=== PATIENT | male | born 1955 | race African-American/Black ===

== ENCOUNTER 2018-01-24 09:08 | Inpatient (IN) | payer OTHER ==
[~2018-01-24] VITALS: Ht 185.4 cm; Wt 87.4 kg
[~2018-01-24 09:08] MED LIST: METOCLOPRAMIDE H5 M1 ORAL
[2018-01-24 09:10] VITALS: BP 165/82
--- NOTE | 2018-01-24 09:13 | Emergency Room Report ---
History of Present Illness General Chief Complaint: Chest Pain Source: Patient, EMS Present Illness HPI This patient c/o nausea, emesis x one, malaise, fatigue about two days, today this am chest pain/sob at rest. No cough, no fever, no leg pain/swelling. Pt. is ESRD/dialysis MWF and last dialysis five days ago, missed Mon and scheduled today at noon (but here in ED instead.) This patient was hospitalized at [facility] last week, d/c five days ago. INR then 2.4. Hgb. five days ago 7.2. PMH: ESRD/dialysis, CHF, pulmonary edema, HTN, diabetes July 2017: heart valve replacement INR five days ago 2.4 on Coumadin 5 daily and twice a week 7.5. Meds: Cartia, Coumadin Allergies: Coded Allergies: PENICILLINS (Verified Allergy, Severe, swelling of throat, 02/25/16) ACETAMINOPHEN (Verified Allergy, Unknown, 02/23/16) HYDROCODONE (Verified Allergy, Unknown, itching, 02/25/16) Nursing Documentation-PMH Past Medical History: No History, Except For Hx Cardiac Problems: Yes Hx Hypertension: Yes Hx Diabetes: Yes Hx Cancer: No Hx Gastrointestinal Problems: No Hx Dialysis: Yes - ESRD Hx Neurological Problems: No Review of Systems Constitutional: Reports: no symptoms, see HPI Eye: Reports: no symptoms ENT: Reports: no symptoms Respiratory: Reports: no symptoms, shortness of breath Cardiovascular: Reports: no symptoms, see HPI, chest pain, edema Gastrointestinal: Reports: no symptoms Genitourinary: Reports: no symptoms Musculoskeletal: Reports: no symptoms Skin: Reports: no symptoms Psychiatric: Reports: no symptoms Neurological: Reports: no symptoms Endocrine: Reports: no symptoms Hematologic/Lymphatic: Reports: no symptoms Allergic: Reports: no symptoms All Other Systems: negative except mentioned in HPI Physical Exam Vital Signs Date Time Temp Pulse Resp B/P (MAP) Pulse Ox O2 Delivery O2 Flow Rate FiO2 01/24/18 08:59 20 Room Air Sp02 EP Interpretation: reviewed, normal General Appearance: normal inspection, well appearing, no apparent distress, alert, GCS 15, non-toxic Head: normocephalic, atraumatic Eyes: bilateral eye normal inspection, bilateral eye PERRL, bilateral eye EOMI ENT: normal ENT inspection, hearing grossly normal, normal pharynx, no angioedema, normal voice, moist mucus membranes Neck: normal inspection, full range of motion, supple, no meningismus, no bony tend Respiratory: normal inspection, lungs clear, normal breath sounds, no rhonchi, no respiratory distress, no retraction, no accessory muscle use, no wheezing Cardiovascular #1: normal inspection, regular rate, rhythm, no edema Gastrointestinal: normal inspection, normal bowel sounds, non tender, soft, no mass, non-distended, other - heme negative brown Musculoskeletal: gait/station normal, normal range of motion, other - LUE shunt Neurologic: normal inspection, alert, oriented x3, responsive, motor strength/ tone normal Psychiatric: normal inspection, judgement/insight normal, memory normal Suicide Risk Assessment: Suicidal Ideation: No Had intent to initiate attempt: No Pt's plan for suicide attempt: No Has means to complete attempt: No Skin: normal inspection, normal color, no rash, warm/dry Medical Decision Making Diagnostic Impression: Primary Impression: Chest pain Additional Impressions: ESRD (end stage renal disease) on dialysis CHF (congestive heart failure), NYHA class II Hyperkalemia Anemia ER Course Complicated patient. Difficult IV access but obtained. He has left av fistula.) No active bleeding in ED and pt. reports hgb Monday (five days) at [facility] 7.2. and he did get transfusion there. INR elevated but no active bleeding in ED. Vitals fine (baseline htn, not tachy.) EKG noted missing p waves and IV calcium and IV insulin, glucose ordered. Anticipate will need transfusion but ok to wait for admission. No signs of infection (no cough, no leukocytosis, no infectious symptoms). Drs. Calvo and Daniel. CRITICAL CARE NOTE: The patient was at risk for respiratory and cardiac failure and required aggressive intervention by me. Critical care time provided by me, excluding other separately billable procedures exceeded 35 minutes. This time included: Obtaining history from: patient, EMS, PMD Examination of the patient Development of treatment plan Ordering and reviewing diagnostic test results Discussion of treatment plan with qm consultant, PMD, patient Coordinating care with nursing and respiratory therapy Supervising IV medications Multiple reassessments Discussion with the admitting physician EKG Diagnostic Results EKG Time: 09:25 Rate: normal Rhythm: NSR ST Segments: no acute changes Other Impression accelerated jxn 76 Rhythm Strip Diag. Results Rhythm Strip Time: 09:25 EP Interpretation: other - accelerated jxn; missing p waves Rate: 76 Chest X-Ray Diagnostic Results Chest X-Ray Diagnostic Results : Chest X-Ray Ordered: Yes Indication: Other - EP Interpretation: Yes Interpretation: no consolidation, no effusion Impression: Other - cardiomegaly, mild vasc congestion Last Vital Signs Date Time Temp Pulse Resp B/P (MAP) Pulse Ox O2 Delivery O2 Flow Rate FiO2 01/24/18 08:59 20 Room Air Disposition: ADMITTED INPATIENT Condition: Serious Syd Tabor M.D. Jan 24, 2018 09:13
[2018-01-24] MEDS ORDERED: CARTIA XT120 MG ORAL (09:26)
[2018-01-24] MEDS ORDERED: WARFARIN SODIUM5 MG ORAL (09:26)
[2018-01-24] MEDS ORDERED: ATORVASTATIN CA20 MG ORAL (09:26)
[2018-01-24] MEDS ORDERED: DOCUSATE SODIU100 MG ORAL (09:26)
[2018-01-24] MEDS ORDERED: GABAPENTIN100 MG ORAL (09:26)
[2018-01-24] MEDS ORDERED: PERCOCET 10-321 EACH ORAL (09:26)
[2018-01-24 09:30] VITALS: BP 172/100
[2018-01-24 09:59] LABS: HEMATOCRIT 22.9 % (42.0-52.0); MEAN CORPUSCULAR VOLUME 94 FL (80-99); PLATELET COUNT 298 K/UL (150-450); RED BLOOD COUNT 2.45 M/UL (4.70-6.10); WHITE BLOOD COUNT 12.9 K/UL (4.8-10.8)
[2018-01-24 10:00] VITALS: BP 185/163
[2018-01-24 10:02] LABS: HEMOGLOBIN 6.9 G/DL (14.2-18.0)
[2018-01-24] MEDS ORDERED: Lidocaine 1% Plain 30 ml INJ ONE (10:15)
[2018-01-24] MEDS ORDERED: Heparin 2000 units/Ns 1000ml INJ ONE (10:15)
[2018-01-24 10:16] LABS: ALANINE AMINOTRANSFERASE 65 U/L (12-78); ALBUMIN 3.5 G/DL (3.4-5.0); ALBUMIN/GLOBULIN RATIO 0.8 (1.0-2.7); ALKALINE PHOSPHATASE 88 U/L (46-116); ANION GAP 24 mmol/L (5-15); ASPARTATE AMINO TRANSFERASE 79 U/L (15-37); BILIRUBIN,TOTAL 0.6 MG/DL (0.2-1.0); BLOOD UREA NITROGEN 115 mg/dL (7-18); CALCIUM 8.7 MG/DL (8.5-10.1); CARBON DIOXIDE 10 MMOL/L (21-32); CHLORIDE 100 MMOL/L (98-107); CREATININE 8.6 MG/DL (0.55-1.30); SODIUM 135 MMOL/L (136-145)
[2018-01-24 10:22] LABS: POTASSIUM 6.6 MMOL/L (3.5-5.1)
[2018-01-24] MEDS ORDERED: Calcium Gluconate 1gm/10ml vial IVP ONE (11:00)
[2018-01-24] MEDS ORDERED: Insulin Human Regular 100units/ml 3ml IV ONE (11:00)
[2018-01-24 11:12] LABS: INR 7.9 (0.9-1.1)
[2018-01-24] MEDS ORDERED: Calcium Gluconate 1gm/10ml vial ONE (13:47)
[2018-01-24] MEDS ORDERED: Insulin Human Regular 100units/ml 3ml ONE (13:48)
--- NOTE | 2018-01-24 15:12 | Diagnostic Imaging Report ---
Indication: Chest pain Technique: One view of the chest Comparison: 02/24/2016 Findings: Interim development of a hazy right perihilar opacity. There is suggestion of a small right pleural effusion. Lungs and pleural spaces are otherwise clear. The heart size is upper limits of normal. 2 valve prostheses are now present, as are median sternotomy sutures, not evident previously Impression: Evidence of interim cardiac valve surgery Small right pleural effusion Right perihilar hazy opacity, could represent area of infiltrate. Correlate with clinical findings
[2018-01-24 15:39] VITALS: BP 153/64
[2018-01-24] MEDS ORDERED: dilTIAZem HCl CD 120mg cap ORAL SCH (18:00)
[2018-01-24] MEDS: Docusate 100mg cap ORAL SCH (18:02)
[2018-01-24] MEDS: Imdur 30mg tab ORAL SCH (19:30)
[2018-01-24 19:59] VITALS: BP 132/58
[2018-01-24] MEDS ORDERED: Phytonadione 10 MG in D5W 55 ML IVPB ONE (20:00)
[2018-01-24] MEDS ORDERED: Dyna-Hex 2% Top Sol 2oz TOPIC SCH (20:00)
--- NOTE | 2018-01-24 23:45 | History and Physical Report ---
DATE OF ADMISSION: 01/24/2018 HISTORY OF PRESENT ILLNESS: The patient is a pleasant 63-year-old man, who comes to the hospital because of shortness of breath and chest pain. The chest pain was fleeting and atypical. He states that he has been short of breath for few days and has had chest pain off and on for about 2 or 3 days. He was recently discharged from a different hospital about four days ago for similar problems. The results of studies are not known to me. He has been on dialysis for several years, but missed dialysis since 4 days ago when he was discharged. He was due for dialysis Monday and today. PAST MEDICAL HISTORY: Aortic and mitral valve replacement, renal failure, on hemodialysis; diabetes, hypertension, hyperlipidemia, gastroparesis, chronic atrial fibrillation, and chronic anemia. MEDICATIONS: Include Lipitor, diltiazem, Colace, gabapentin, Reglan, and Percocet, as well as Coumadin. ALLERGIES: Hydrocodone and penicillin. REVIEW OF SYSTEMS: He is weak. He has some shortness of breath and chest pain as noted. He has nausea and vomiting. He makes little urine. PHYSICAL EXAMINATION: GENERAL: The patient is alert and responds appropriately. VITAL SIGNS: Showed the blood pressure is elevated as high as 185/111. The patient is overweight. SKIN: Warm and dry. HEENT: The head is normocephalic. NECK: No jugular vein distention. CHEST: Clear. CARDIAC: Rhythm is irregular with prosthetic heart tones heard. ABDOMEN: Soft and nontender. EXTREMITIES: Showed 1+ edema. LABORATORY DATA: Laboratory shows potassium elevated at 6.6, BUN is 115, creatinine 8.6, and blood sugar 109. Natriuretic peptide elevated at 15,000. Hemoglobin is 6.9. The white count is 12,900. Platelets are 290,000. INR is 7.9. IMPRESSION: 1. Chest pain, rule out acute coronary syndrome. 2. Renal failure, on hemodialysis with fluid overload. 3. Hyperkalemia, severe. 4. Coagulopathy due to excess Coumadin. 5. Chronic atrial fibrillation. 6. 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 7. Borderline diabetes. 8. Hypertension. 9. Hyperlipidemia. 10. Chronic anemia. 11. Gastroparesis. PLAN: The patient will be admitted and dialysis will be performed as soon as possible. He has been given medication for hyperkalemia. Cardiology will see him as well as Nephrology. He may require blood transfusion. We will hold the Coumadin until the INR is in the therapeutic range for artificial heart valve. Perry Calvo M.D. DR: FRANCESCO JOB#: [id number] CC: Perry Calvo M.D.; Fax#: [phone] Mayela Aponte M.D.; FAX#: [phone]
[2018-01-25] VITALS: BP 118/61
--- NOTE | 2018-01-25 01:30 | Consultation ---
DATE OF CONSULTATION: 01/24/2018 CONSULTING PHYSICIAN: Joe Edwards M.D. REFERRING PHYSICIAN: Perry Calvo M.D. REASON FOR CONSULTATION: Acute congestive heart failure in the setting of valvular cardiomyopathy and end-stage renal disease. HISTORY OF PRESENT ILLNESS: This 63-year-old male with end-stage renal disease, on hemodialysis. He has been on a usual Monday, Monday and Monday schedule. He missed his dialysis two days ago due to weakness and malaise as well as increasing pain of his back and hip. Subsequent day, mainly yesterday, he felt worse pursue any treatment. Today, he planned to go to his dialysis session, but again was still short of breath and fatigue that he ended up in the emergency room at [facility]. The patient has had nausea and emesis as well as chest pain. The patient was hospitalized approximately a week ago at [facility] with anemia. He is on chronic anticoagulation due to his prosthetic heart valve. PAST MEDICAL HISTORY: 1. Hypertension. 2. Type 2 diabetes mellitus. 3. End-stage renal disease. 4. Valvular cardiomyopathy, status post mitral valve replacement. ALLERGIES: Penicillin, acetaminophen, and hydrocodone. MEDICATIONS: Prior to admission, reviewed and reconciled. FAMILY HISTORY: Noncontributory. REVIEW OF SYSTEMS: Otherwise outlined above. PHYSICAL EXAMINATION: VITAL SIGNS: Afebrile. Blood pressure 163/64, pulse 75, and respirations 18. Room air oxygen saturation 100%. NECK: Jugular venous pressure elevated. LUNGS: With diminished breath sounds and rales. CARDIAC: Regular rhythm and rate. Normal S1, S2 and a 2/6 systolic murmur at the apex. ABDOMEN: Soft with mild ascites. EXTREMITIES: With 1+ dependent edema. DIAGNOSTIC DATA: EKG, accelerated junctional rhythm. No acute ST-T wave changes. Chest x-ray with cardiomegaly and mild pulmonary venous congestion. LABORATORY DATA: Sodium 135, potassium 6.6, bicarb 10, BUN 115, and creatinine 8.6. Pro-natriuretic peptide 14,996. Troponin 0.025. INR is 7.9. White count 12.9, hemoglobin 6.9. IMPRESSION: 1. Severe metabolic acidosis. 2. Acute on chronic diastolic and systolic congestive heart failure. 3. Valvular cardiomyopathy. 4. Hyperkalemia. 5. Severe anemia. 6. Warfarin-associated coagulopathy. 7. End-stage renal disease. PLAN: 1. Emergent hemodialysis with ultrafiltration. 2. Monitor acid-base parameters. 3. Titrate anti-failure regimen. Hold warfarin. 4. Transfuse to hemoglobin above 7.5 g. 5. Cardiac monitoring and serial troponin levels. 6. Echocardiogram to evaluate status of valve prosthesis. Joe Edwards M.D. DR: BRITT JOB#: [id number] CC:
--- NOTE | 2018-01-25 03:45 | Consultation ---
DATE OF CONSULTATION: 01/24/2018 CONSULTING PHYSICIAN: Anish Sanchez M.D. REFERRING PHYSICIAN: Dr. Perry Calvo. REASON FOR CONSULTATION: End-stage renal disease, hyperkalemia, anemia, and shortness of breath. HISTORY OF PRESENT ILLNESS: The patient is a 63-year-old gentleman with end-stage renal disease, on dialysis for about six years. He usually gets dialysis Monday, Monday, Monday, but had dialysis apparently on Monday and Monday, missed Monday and came today on Monday with shortness of breath, fluid overload, congestive heart failure, and hyperkalemia. He has had shortness of breath, some chest discomfort, nausea, and vomiting today. The patient gets dialysis under another provider. He has diabetes. He has been off diabetic medicines since initiation of dialysis. He has had valvular heart disease, prior CVA. PAST SURGICAL HISTORY: Probably mitral valve replacement and repair of tricuspid valve, amputation of two toes on the left foot, AV fistula, left arm stenting for peripheral vascular disease, and laminectomy for back pain. HABITS: He has been a smoker most of his adult life, quit in the last 6 months. Alcohol, occasional. Marijuana, he had been using regularly until recently. REVIEW OF SYSTEMS: HEENT: The patient's hearing is good. ENDOCRINE: History of diabetes as above. No known thyroid disease. PULMONARY: History of shortness of breath and prior smoking. No productive sputum. CARDIAC: See above. He has also had a history of atrial fibrillation. No definite myocardial infarction. GASTROINTESTINAL: He has had a colonoscopy and apparently had clipping of bleeding lesion of the colon. No malignancy in the past. No abdominal pain. Recent nausea and vomiting as above. GENITOURINARY: No dysuria or hematuria. NEUROLOGIC: History of CVA with right-sided weakness three years ago. MUSCULOSKELETAL: No deforming arthritis. HOME MEDICATIONS: Atorvastatin, diltiazem, DSS, gabapentin, metoclopramide, oxycodone, and warfarin 5 mg daily. PHYSICAL EXAMINATION: GENERAL: The patient was seen shortly before initiation of hemodialysis. The patient is a chronically ill-appearing, in no severe distress. VITAL SIGNS: Temperature 97.7, pulse 85, respirations 18, and blood pressure 153/64. HEENT: Sclerae are nonicteric. Ocular motions intact in all directions. Oral mucosa moist. NECK: No adenopathy or thyroid enlargement. LUNGS: Few faint rhonchi. HEART: Rhythm ____. There is 2 to 3/6 systolic ejection murmur. ABDOMEN: Soft. I am unable to feel liver or spleen. EXTREMITIES: Trace edema. There is amputation of 2 toes on the left foot. NEUROLOGIC: He is alert and oriented. He has a right facial weakness. There is minimal residual right side weakness. PERTINENT LABORATORY DATA: Hemoglobin of 6.9. Sodium 135, potassium 6.6, CO2 10, and BUN 115. His INR is prolonged at 7.9. IMPRESSION: 1. End-stage renal disease with missed dialysis. 2. Hyperkalemia. 3. Metabolic acidosis. 4. Severe anemia, suspect occult gastrointestinal bleed while on Coumadin. 5. Increased INR. 6. Valvular heart disease. 7. Congestive heart failure, acute on chronic. 8. Chest pain, possibly ischemic. 9. History of cigarette smoking, likely chronic obstructive pulmonary disease. PLAN: The patient will be dialyzed for fluid removal. Reverse Coumadin. Manage closely with his multiple medical problems. Detailed orders are reviewed and additional medication orders and treatment orders are given. Anish Sanchez M.D. DR: FRANKIE JOB#: [id number] CC:
[2018-01-25 04:00] VITALS: BP 137/82
[2018-01-25 06:32] LABS: HEMATOCRIT 15.8 % (42.0-52.0); MEAN CORPUSCULAR VOLUME 86 FL (80-99); PLATELET COUNT 232 K/UL (150-450); RED BLOOD COUNT 1.82 M/UL (4.70-6.10); RED CELL DISTRIBUTION WIDTH 15.7 % (11.6-14.8); WHITE BLOOD COUNT 9.5 K/UL (4.8-10.8)
[2018-01-25 06:46] LABS: HEMOGLOBIN 5.1 G/DL (14.2-18.0)
[2018-01-25 06:48] LABS: ANION GAP 13 mmol/L (5-15); BLOOD UREA NITROGEN 91 mg/dL (7-18); CALCIUM 7.6 MG/DL (8.5-10.1); CARBON DIOXIDE 21 MMOL/L (21-32); CHLORIDE 103 MMOL/L (98-107); CREATININE 6.1 MG/DL (0.55-1.30); POTASSIUM 4.6 MMOL/L (3.5-5.1); SODIUM 137 MMOL/L (136-145)
[2018-01-25 06:53] LABS: INR 9.1 (0.9-1.1)
[2018-01-25 08:00] VITALS: BP 104/52
[2018-01-25] MEDS: Imdur 30mg tab ORAL SCH (09:00)
[2018-01-25] MEDS: Docusate 100mg cap ORAL SCH ×2 (10:05→17:44)
[2018-01-25] MEDS ORDERED: Heparin 2000 units/Ns 1000ml INJ PRN (11:15)
[2018-01-25] MEDS ORDERED: Lidocaine 1% Plain 30 ml INJ PRN (11:15)
[2018-01-25 12:00] VITALS: BP 99/54
--- NOTE | 2018-01-25 15:17 | Nephrology Progress Note ---
Assessment/Plan Problem List: (1) Atrial fibrillation with rapid ventricular response (2) GI bleed (3) Anemia in chronic kidney disease (4) Warfarin overdosage (5) Hyperkalemia (6) ESRD (end stage renal disease) on dialysis (7) CHF (congestive heart failure), NYHA class II Plan transfuse, vit K, HD for chf and K Subjective HEENT: Reports: no symptoms Neurologic/Psychiatric: Reports: no symptoms Objective Objective Last 24 Hour Vital Signs Date Time Temp Pulse Resp B/P (MAP) Pulse Ox O2 Delivery O2 Flow Rate FiO2 01/25/18 12:00 99 01/25/18 12:00 97.5 82 22 99/54 (69) 100 97.5 01/25/18 09:00 Room Air 01/25/18 08:00 97.3 101 22 104/52 (69) 99 97.3 01/25/18 08:00 101 01/25/18 04:00 97.3 104 21 137/82 (100) 100 97.3 01/25/18 04:00 94 01/25/18 00:00 92 01/25/18 00:00 97.5 96 21 118/61 (80) 94 97.5 96 01/24/18 21:43 Room Air 01/24/18 21:00 Room Air 01/24/18 20:00 85 01/24/18 19:59 97.2 82 18 132/58 (82) 100 97.2 82 01/24/18 19:44 Room Air 01/24/18 19:30 132/58 01/24/18 18:03 75 153/64 01/24/18 16:00 75 01/24/18 15:49 Room Air 01/24/18 15:39 97.7 85 18 153/64 (93) 100 97.7 82 Intake and Output 01/24/18 01/25/18 19:00 07:00 Intake Total 360 ml Balance 360 ml Intake Oral 360 ml # Voids 1 2 # Bowel Movements 1 Laboratory Tests 01/25/18 06:05: White Blood Count 9.5, Red Blood Count 1.82L, Hemoglobin 5.1*L, Hematocrit 15.8# L, Mean Corpuscular Volume 86#, Mean Corpuscular Hemoglobin 28.1, Mean Corpuscular Hemoglobin Concent 32.5, Red Cell Distribution Width 15.7H, Platelet Count 232, Mean Platelet Volume 7.5, Neutrophils (%) (Auto) , Lymphocytes (%) (Auto) , Monocytes (%) (Auto) , Eosinophils (%) (Auto) , Basophils (%) (Auto) , Differential Total Cells Counted 100, Neutrophils % ( Manual) 77H, Lymphocytes % (Manual) 17L, Monocytes % (Manual) 5, Eosinophils % ( Manual) 1, Basophils % (Manual) 0, Band Neutrophils 0, Platelet Estimate Adequate, Platelet Morphology Normal, Polychromasia 1+, Anisocytosis 1+, Prothrombin Time 85.5H, Prothromb Time International Ratio 9.1*H, Sodium Level 137, Potassium Level 4.6, Chloride Level 103, Carbon Dioxide Level 21, Anion Gap 13, Blood Urea Nitrogen 91H, Creatinine 6.1H, Estimat Glomerular Filtration Rate 11.3, Glucose Level 106, Calcium Level 7.6L, Troponin I 0.062H, Hepatitis B Surface Antigen [Pending], Hepatitis B Surface Antibody [Pending], Hepatitis C Antibody [Pending] Height (Feet): 6 Height (Inches): 1.00 Weight (Pounds): 191 General Appearance: no apparent distress, alert EENT: normal ENT inspection Neck: normal alignment Cardiovascular: regularly irregular Respiratory/Chest: lungs clear Abdomen: non tender, soft Extremities: trace edema Neurologic: motor weakness ISA SENIOR Jan 25, 2018 15:17
[2018-01-25 16:00] VITALS: BP 121/70
--- NOTE | 2018-01-25 16:02 | Pulmonology Progress Note ---
Assessment/Plan Assessment/Plan 1. Chest pain, rule out acute coronary syndrome. 2. Renal failure, on hemodialysis with fluid overload. 3. Hyperkalemia, severe. 4. Coagulopathy due to excess Coumadin, worse 5. Chronic atrial fibrillation. 6. 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 7. Borderline diabetes. 8. Hypertension. 9. Hyperlipidemia. 10. Chronic anemia. 11. Gastroparesis. 12. Severe anemia, worse no sign of bleeding, check stool OB transfuse dialysis INR higher - vit K troponin not significant Subjective Constitutional: Reports: fatigue, anorexia Respiratory: Denies: shortness of breath Allergies: Coded Allergies: PENICILLINS (Verified Allergy, Severe, swelling of throat, 02/25/16) Objective Last 24 Hour Vital Signs Date Time Temp Pulse Resp B/P (MAP) Pulse Ox O2 Delivery O2 Flow Rate FiO2 01/25/18 12:00 99 01/25/18 12:00 97.5 82 22 99/54 (69) 100 97.5 01/25/18 09:00 Room Air 01/25/18 08:00 97.3 101 22 104/52 (69) 99 97.3 01/25/18 08:00 101 01/25/18 04:00 97.3 104 21 137/82 (100) 100 97.3 01/25/18 04:00 94 01/25/18 00:00 92 01/25/18 00:00 97.5 96 21 118/61 (80) 94 97.5 96 01/24/18 21:43 Room Air 01/24/18 21:00 Room Air 01/24/18 20:00 85 01/24/18 19:59 97.2 82 18 132/58 (82) 100 97.2 82 01/24/18 19:44 Room Air 01/24/18 19:30 132/58 01/24/18 18:03 75 153/64 Intake and Output 01/24/18 01/25/18 19:00 07:00 Intake Total 360 ml Balance 360 ml Intake Oral 360 ml # Voids 1 2 # Bowel Movements 1 Objective prosthetic heart tones General Appearance: no acute distress HEENT: atraumatic Respiratory/Chest: lungs clear Cardiovascular: normal rate, other Laboratory Tests 01/25/18 06:05: White Blood Count 9.5, Red Blood Count 1.82L, Hemoglobin 5.1*L, Hematocrit 15.8# L, Mean Corpuscular Volume 86#, Mean Corpuscular Hemoglobin 28.1, Mean Corpuscular Hemoglobin Concent 32.5, Red Cell Distribution Width 15.7H, Platelet Count 232, Mean Platelet Volume 7.5, Neutrophils (%) (Auto) , Lymphocytes (%) (Auto) , Monocytes (%) (Auto) , Eosinophils (%) (Auto) , Basophils (%) (Auto) , Differential Total Cells Counted 100, Neutrophils % ( Manual) 77H, Lymphocytes % (Manual) 17L, Monocytes % (Manual) 5, Eosinophils % ( Manual) 1, Basophils % (Manual) 0, Band Neutrophils 0, Platelet Estimate Adequate, Platelet Morphology Normal, Polychromasia 1+, Anisocytosis 1+, Prothrombin Time 85.5H, Prothromb Time International Ratio 9.1*H, Sodium Level 137, Potassium Level 4.6, Chloride Level 103, Carbon Dioxide Level 21, Anion Gap 13, Blood Urea Nitrogen 91H, Creatinine 6.1H, Estimat Glomerular Filtration Rate 11.3, Glucose Level 106, Calcium Level 7.6L, Troponin I 0.062H, Hepatitis B Surface Antigen [Pending], Hepatitis B Surface Antibody [Pending], Hepatitis C Antibody [Pending] Current Medications Medications (Trade) Dose Ordered Sig/John Route PRN Reason Start Time Stop Time Status Last Admin Dose Admin Atorvastatin Calcium (Lipitor) 10 mg BEDTIME ORAL 01/24/18 21:00 02/23/18 20:59 Chlorhexidine Gluconate (Keysha-Hex 2%) 1 applic DAILY@2000 TOPIC 01/25/18 20:00 02/24/18 19:59 Docusate Sodium (Colace) 100 mg TWICE A DAY ORAL 01/24/18 18:00 02/23/18 17:59 01/25/18 10:05 Gabapentin (Neurontin) 100 mg THREE TIMES A DAY ORAL 01/24/18 18:00 02/23/18 17:59 01/25/18 13:49 Heparin Sodium/ Sodium Chloride (Heparin 2000 units/Ns 1000ml premix) 2,000 unit ONCE PRN INJ PICC LINE PLACEMENT 01/25/18 11:15 01/26/18 23:59 Isosorbide Mononitrate (Imdur) 30 mg DAILY ORAL 01/24/18 19:30 02/23/18 19:29 Lidocaine HCl (Xylocaine 1% 30ml) 30 ml ONCE PRN INJ PICC LINE 01/25/18 11:15 01/26/18 23:59 Metoclopramide HCl (Reglan) 10 mg THREE TIMES A DAY ORAL 01/24/18 18:00 02/23/18 17:59 01/25/18 13:49 Oxycodone/ Acetaminophen (Percocet 10/325) 1 tab Q4H PRN ORAL Moderate Breakthru Pain (5-7) 01/24/18 16:15 01/31/18 16:14 Pantoprazole (Protonix) 40 mg DAILY ORAL 01/24/18 19:30 02/23/18 19:29 01/25/18 10:06 Phytonadione 10 mg/Dextrose 56 ml @ 112 mls/hr ONCE IVPB 01/25/18 18:00 01/25/18 19:00 Sodium Chloride 1,000 ml @ 500 mls/hr Q2H PRN IVLG sbp<90 during hd 01/26/18 15:12 02/25/18 15:11 Perry Calvo MD Jan 25, 2018 16:02
[2018-01-25] MEDS ORDERED: Phytonadione 5 MG in D5W 55 ML IVPB SCH (17:00)
[2018-01-25] MEDS ORDERED: Phytonadione 10 MG in D5W 55 ML IVPB SCH (18:00)
[2018-01-25 19:59] VITALS: BP 114/64
[2018-01-25] MEDS: Dyna-Hex 2% Top Sol 2oz TOPIC SCH (20:00)
[2018-01-25 21:02] LABS: HEMATOCRIT 18.9 % (42.0-52.0); MEAN CORPUSCULAR VOLUME 86 FL (80-99); PLATELET COUNT 220 K/UL (150-450); RED BLOOD COUNT 2.18 M/UL (4.70-6.10); WHITE BLOOD COUNT 12.7 K/UL (4.8-10.8)
[2018-01-25 21:03] LABS: HEMOGLOBIN 6.6 G/DL (14.2-18.0)
[2018-01-25 21:04] LABS: NEUTROPHILS % (AUTO) 62.1 % (45.0-75.0)
[2018-01-25 21:05] LABS: BASOPHILS % (AUTO) 1.2 % (0.0-2.0); EOSINOPHILS % (AUTO) 0.9 % (0.0-3.0); LYMPHOCYTES % (AUTO) 21.3 % (20.0-45.0); MONOCYTES % (AUTO) 14.6 % (1.0-10.0)
[2018-01-25] MEDS ORDERED: Metoprolol 5mg/5ml Inj IVPB PRN (22:30)
[2018-01-25] MEDS ORDERED: Metoprolol 5mg/5ml Inj IVPB SCH (22:30)
[2018-01-25] MEDS: Metoprolol Succinate XL 50mg tab ORAL SCH (22:30)
[2018-01-25] MEDS ORDERED: Metoprolol Succinate XL 25mg tab ORAL SCH (22:30)
[2018-01-25] MEDS: Metoprolol 5mg/5ml Inj IVPB SCH ×2 (23:54→23:55)
[2018-01-26] VITALS (17 sets, daily range): BP systolic 98–140; BP diastolic 60–83
[2018-01-26] MEDS: Metoprolol 5mg/5ml Inj IVPB SCH (00:05)
--- NOTE | 2018-01-26 03:15 | Progress Note ---
DATE: 01/25/2018 CARDIOLOGY PROGRESS NOTE SUBJECTIVE: The patient is status post hemodialysis with ultrafiltration of three liters yesterday. He was transfused a unit of packed red blood cells. His hemoglobin remains quite low today and another unit is being transfused at this time. The patient is still short of breath. He has no chest pain. He was noted to have increase in his troponin level today. OBJECTIVE: VITAL SIGNS: Blood pressure 121/70, pulse 114, respirations 18, afebrile, and oxygen saturation is 99% on room air. LUNGS: Diminished breath sounds. Few rales. HEART: Irregularly irregular rhythm. ABDOMEN: Soft, nontender. EXTREMITIES: With good pulses. No edema. LABORATORY DATA: Potassium 4.6, BUN 91, and creatinine 6.1. Troponin has increased to 0.062. Hemoglobin 6.6. INR remains elevated at . IMPRESSION: 1. Acute myocardial ischemia and possible [id number] myocardial infarction precipitated by severe anemia. 2. Coagulopathy contributing to anemia due to blood loss. 3. End-stage renal disease. 4. Acute on chronic diastolic congestive heart failure. 5. Status post biventricular valve replacement. 6. Chronic atrial fibrillation with increased ventricular response. PLAN: 1. Reverse anticoagulation. 2. Transfuse to hemoglobin above 8 g. 3. Serial troponin levels. 4. Hemodialysis with ultrafiltration for volume management. 5. Vitamin K for reversal of coagulopathy at this time. Joe Edwards M.D. DR: FABIOLA JOB#: [id number] CC:
[2018-01-26 07:55] LABS: HEMATOCRIT 20.4 % (42.0-52.0); HEMOGLOBIN 7.1 G/DL (14.2-18.0); MEAN CORPUSCULAR VOLUME 86 FL (80-99); PLATELET COUNT 208 K/UL (150-450); RED BLOOD COUNT 2.38 M/UL (4.70-6.10); RED CELL DISTRIBUTION WIDTH 13.8 % (11.6-14.8); WHITE BLOOD COUNT 15.2 K/UL (4.8-10.8)
[2018-01-26 08:08] LABS: INR 2.7 (0.9-1.1)
[2018-01-26 08:10] LABS: ANION GAP 10 mmol/L (5-15); BLOOD UREA NITROGEN 80 mg/dL (7-18); CALCIUM 7.2 MG/DL (8.5-10.1); CARBON DIOXIDE 22 MMOL/L (21-32); CHLORIDE 104 MMOL/L (98-107); CREATININE 5.2 MG/DL (0.55-1.30); POTASSIUM 4.3 MMOL/L (3.5-5.1); SODIUM 136 MMOL/L (136-145)
[2018-01-26] MEDS: Docusate 100mg cap ORAL SCH ×2 (09:59→17:21)
[2018-01-26] MEDS: Imdur 30mg tab ORAL SCH (09:59)
[2018-01-26] MEDS: Metoprolol Succinate XL 50mg tab ORAL SCH ×2 (09:59→17:21)
--- NOTE | 2018-01-26 12:24 | Nephrology Progress Note ---
Assessment/Plan Problem List: (1) Atrial fibrillation with rapid ventricular response (2) GI bleed (3) Anemia in chronic kidney disease (4) Warfarin overdosage (5) Hyperkalemia (6) ESRD (end stage renal disease) on dialysis (7) CHF (congestive heart failure), NYHA class II Plan transfuse, vit K, HD for chf and K watch Hb dialysis fluid removal Subjective Constitutional: Reports: weakness HEENT: Reports: no symptoms Genitourinary: Reports: no symptoms Neurologic/Psychiatric: Reports: pre-existing deficit Objective Objective Last 24 Hour Vital Signs Date Time Temp Pulse Resp B/P (MAP) Pulse Ox O2 Delivery O2 Flow Rate FiO2 01/26/18 09:59 133 140/80 01/26/18 09:59 140/80 01/26/18 04:00 133 01/26/18 04:00 97.9 84 20 140/80 (100) 96 97.9 01/26/18 00:00 126 01/26/18 00:00 97.7 150 18 99/65 (76) 96 97.7 01/25/18 23:54 150 99/65 01/25/18 23:32 Room Air 01/25/18 22:30 150 99/65 01/25/18 21:00 Room Air 01/25/18 20:40 Room Air 01/25/18 20:00 110 01/25/18 19:59 97.8 126 18 114/64 (81) 100 97.8 01/25/18 16:00 97.9 114 18 121/70 (87) 100 97.9 01/25/18 16:00 99 Intake and Output 01/25/18 01/26/18 19:00 07:00 Intake Total 500 ml Balance 500 ml Intake Oral 500 ml # Voids 3 Laboratory Tests 01/25/18 20:45: White Blood Count 12.7H, Red Blood Count 2.18L, Hemoglobin 6.6*L, Hematocrit 18.9L, Mean Corpuscular Volume 86, Mean Corpuscular Hemoglobin 30.1, Mean Corpuscular Hemoglobin Concent 34.8, Red Cell Distribution Width 14.0, Platelet Count 220, Mean Platelet Volume 7.1, Neutrophils (%) (Auto) 62.1, Lymphocytes (% ) (Auto) 21.3, Monocytes (%) (Auto) 14.6H, Eosinophils (%) (Auto) 0.9, Basophils (%) (Auto) 1.2 01/26/18 00:36: Stool Occult Blood Negative 01/26/18 06:30: White Blood Count 15.2H, Red Blood Count 2.38L, Hemoglobin 7.1L, Hematocrit 20.4L, Mean Corpuscular Volume 86, Mean Corpuscular Hemoglobin 30.0, Mean Corpuscular Hemoglobin Concent 34.9, Red Cell Distribution Width 13.8, Platelet Count 208, Mean Platelet Volume 8.0, Neutrophils (%) (Auto) , Lymphocytes (%) ( Auto) , Monocytes (%) (Auto) , Eosinophils (%) (Auto) , Basophils (%) (Auto) , Differential Total Cells Counted 100, Neutrophils % (Manual) 74, Lymphocytes % ( Manual) 18L, Monocytes % (Manual) 8, Eosinophils % (Manual) 0, Basophils % ( Manual) 0, Band Neutrophils 0, Platelet Estimate Adequate, Platelet Morphology Normal, Hypochromasia 3+, Anisocytosis 1+, Spherocytes 2+, Prothrombin Time 26.8H, Prothromb Time International Ratio 2.7H, Sodium Level 136, Potassium Level 4.3, Chloride Level 104, Carbon Dioxide Level 22, Anion Gap 10, Blood Urea Nitrogen 80H, Creatinine 5.2H, Estimat Glomerular Filtration Rate 13.6, Glucose Level 106, Calcium Level 7.2L, Troponin I 0.042 Height (Feet): 6 Height (Inches): 1.00 Weight (Pounds): 191 General Appearance: no apparent distress, alert EENT: normal ENT inspection Neck: normal alignment Cardiovascular: regularly irregular Respiratory/Chest: normal breath sounds Abdomen: non tender, soft Extremities: trace edema Neurologic: motor weakness ISA SENIOR Jan 26, 2018 12:24
[2018-01-26 12:40] LABS: HEMOGLOBIN 7.5 G/DL (14.2-18.0); MEAN CORPUSCULAR VOLUME 85 FL (80-99); PLATELET COUNT 194 K/UL (150-450); RED BLOOD COUNT 2.59 M/UL (4.70-6.10); RED CELL DISTRIBUTION WIDTH 13.6 % (11.6-14.8); WHITE BLOOD COUNT 16.1 K/UL (4.8-10.8)
--- NOTE | 2018-01-26 14:16 | Cardiology Report ---
APPROVED REPORT EXAM: Two-dimensional and M-mode echocardiogram with Doppler and color Doppler. M-Mode DIMENSIONS IVSd1.4 (0.7-1.1cm)Aortic Root4.1 (2.0-3.7cm) LVDd4.9 (3.5-5.6cm)Aortic Cusp Exc.2.2 (1.5-2.0cm) PWd1.7 (0.7-1.1cm) IVSs1.6 cm LVDs3.5 (2.5-4.0cm) PWs1.4 cm Normal left ventricular chamber size, hyper dynamic systolic function and wall motion to extent visualized. Left ventricular ejection fraction estimated to be 55 %. No evidence of left ventricular hypertrophy . No evidence of pericardial effusion. Mild bi-atrial enlargment. Right ventricular chamber sizes are within normal limits. Focal aortic valve sclerosis with adequate cusp excursion. Mitral valve prosthesis is seen and appears to move appropriately. Pulmonic valve not well visualized. Normal tricuspid valve structure. IVC dilated at size 2cm with slight physiologic. A color flow and spectral Doppler study was performed and revealed: No aortic regurgitation. Trace mitral regurgitation. Mitral inflow velocities indicates possible pseudo normalization pattern. Mild tricuspid regurgitation. Tricuspid systolic velocities suggests peak right ventricular systolic pressure of 24mmHg.
[2018-01-26] MEDS ORDERED: Metoprolol 5mg/5ml Inj IVP SCH (14:39)
--- NOTE | 2018-01-26 15:33 | Pulmonology Progress Note ---
Assessment/Plan Assessment/Plan 1. Chest pain, rule out acute coronary syndrome. 2. Renal failure, on hemodialysis with fluid overload. 3. Hyperkalemia, severe. 4. Coagulopathy due to excess Coumadin, worse 5. Chronic atrial fibrillation. 6. 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 7. Borderline diabetes. 8. Hypertension. 9. Hyperlipidemia. 10. Chronic anemia. 11. Gastroparesis. 12. Severe anemia, worse no sign of bleeding, neg stool OB transfuse to Hgb >8 dialysis INR down with vit K needs EPO, Fe Subjective ROS Limited/Unobtainable: Yes Allergies: Coded Allergies: PENICILLINS (Verified Allergy, Severe, swelling of throat, 02/25/16) ACETAMINOPHEN (Verified Allergy, Intermediate, Generalized Itching , ) HYDROCODONE (Verified Allergy, Intermediate, Generalized Itching , 01/26/18 ) Objective Last 24 Hour Vital Signs Date Time Temp Pulse Resp B/P (MAP) Pulse Ox O2 Delivery O2 Flow Rate FiO2 01/26/18 15:25 126 18 98/63 (75) 100 01/26/18 15:20 117 18 104/79 (87) 100 01/26/18 15:15 113 18 115/75 (88) 100 01/26/18 15:10 88 18 118/74 (89) 100 01/26/18 15:05 134 18 115/80 (92) 100 01/26/18 15:00 103 20 105/72 (83) 100 01/26/18 14:55 135 20 106/73 (84) 100 01/26/18 14:50 111 20 121/62 (81) 100 01/26/18 14:24 94 20 01/26/18 14:03 98.1 01/26/18 12:00 98.1 105 20 103/60 (74) 94 98.1 01/26/18 12:00 105 01/26/18 09:59 133 140/80 01/26/18 09:59 140/80 01/26/18 09:00 Room Air 01/26/18 08:00 98.1 135 20 126/72 (90) 99 98.1 01/26/18 08:00 138 01/26/18 04:00 133 01/26/18 04:00 97.9 84 20 140/80 (100) 96 97.9 01/26/18 00:00 126 01/26/18 00:00 97.7 150 18 99/65 (76) 96 97.7 01/25/18 23:54 150 99/65 01/25/18 23:32 Room Air 01/25/18 22:30 150 99/65 01/25/18 21:00 Room Air 01/25/18 20:40 Room Air 01/25/18 20:00 110 01/25/18 19:59 97.8 126 18 114/64 (81) 100 97.8 01/25/18 16:00 97.9 114 18 121/70 (87) 100 97.9 01/25/18 16:00 99 Intake and Output 01/25/18 01/26/18 19:00 07:00 Intake Total 500 ml Balance 500 ml Intake Oral 500 ml # Voids 3 Objective prosthetic heart tones General Appearance: other - having central line Microbiology Date/Time Source Procedure Growth Status 01/24/18 17:05 Nasal Nares MRSA Culture - Final NO METHICILLIN RESISTANT STAPH AUREUS... Complete 01/24/18 17:05 Rectal Mucosa - Final NO CARBAPENEM-RESISTANT ENTEROBACTERI... Complete 01/24/18 17:05 Rectum VRE Culture - Final NO VANCOMYCIN RESISTANT ENTEROCOCCUS ... Complete Laboratory Tests 01/25/18 20:45: White Blood Count 12.7H, Red Blood Count 2.18L, Hemoglobin 6.6*L, Hematocrit 18.9L, Mean Corpuscular Volume 86, Mean Corpuscular Hemoglobin 30.1, Mean Corpuscular Hemoglobin Concent 34.8, Red Cell Distribution Width 14.0, Platelet Count 220, Mean Platelet Volume 7.1, Neutrophils (%) (Auto) 62.1, Lymphocytes (% ) (Auto) 21.3, Monocytes (%) (Auto) 14.6H, Eosinophils (%) (Auto) 0.9, Basophils (%) (Auto) 1.2 01/26/18 00:36: Stool Occult Blood Negative 01/26/18 06:30: White Blood Count 15.2H, Red Blood Count 2.38L, Hemoglobin 7.1L, Hematocrit 20.4L, Mean Corpuscular Volume 86, Mean Corpuscular Hemoglobin 30.0, Mean Corpuscular Hemoglobin Concent 34.9, Red Cell Distribution Width 13.8, Platelet Count 208, Mean Platelet Volume 8.0, Neutrophils (%) (Auto) , Lymphocytes (%) ( Auto) , Monocytes (%) (Auto) , Eosinophils (%) (Auto) , Basophils (%) (Auto) , Differential Total Cells Counted 100, Neutrophils % (Manual) 74, Lymphocytes % ( Manual) 18L, Monocytes % (Manual) 8, Eosinophils % (Manual) 0, Basophils % ( Manual) 0, Band Neutrophils 0, Platelet Estimate Adequate, Platelet Morphology Normal, Hypochromasia 3+, Anisocytosis 1+, Spherocytes 2+, Prothrombin Time 26.8H, Prothromb Time International Ratio 2.7H, Sodium Level 136, Potassium Level 4.3, Chloride Level 104, Carbon Dioxide Level 22, Anion Gap 10, Blood Urea Nitrogen 80H, Creatinine 5.2H, Estimat Glomerular Filtration Rate 13.6, Glucose Level 106, Calcium Level 7.2L, Troponin I 0.042 01/26/18 12:10: White Blood Count 16.1H, Red Blood Count 2.59L, Hemoglobin 7.5L, Hematocrit 22.0L, Mean Corpuscular Volume 85, Mean Corpuscular Hemoglobin 28.8, Mean Corpuscular Hemoglobin Concent 33.9, Red Cell Distribution Width 13.6, Platelet Count 194, Mean Platelet Volume 7.9, Neutrophils (%) (Auto) , Lymphocytes (%) ( Auto) , Monocytes (%) (Auto) , Eosinophils (%) (Auto) , Basophils (%) (Auto) , Differential Total Cells Counted 100, Neutrophils % (Manual) 74, Lymphocytes % ( Manual) 11L, Monocytes % (Manual) 13H, Eosinophils % (Manual) 1, Basophils % ( Manual) 1, Band Neutrophils 0, Platelet Estimate Adequate, Platelet Morphology Normal, Hypochromasia 3+, Anisocytosis 1+, Spherocytes 1+ Current Medications Medications (Trade) Dose Ordered Sig/John Route PRN Reason Start Time Stop Time Status Last Admin Dose Admin Atorvastatin Calcium (Lipitor) 10 mg BEDTIME ORAL 01/24/18 21:00 02/23/18 20:59 Chlorhexidine Gluconate (Keysha-Hex 2%) 1 applic DAILY@1999 TOPIC 01/25/18 20:00 02/24/18 19:59 01/25/18 20:00 Docusate Sodium (Colace) 100 mg TWICE A DAY ORAL 01/24/18 18:00 02/23/18 17:59 01/26/18 09:59 Gabapentin (Neurontin) 100 mg THREE TIMES A DAY ORAL 01/24/18 18:00 02/23/18 17:59 01/26/18 14:02 Heparin Sodium/ Sodium Chloride (Heparin 2000 units/Ns 1000ml premix) 2,000 unit ONCE PRN INJ PICC LINE PLACEMENT 01/25/18 11:15 01/26/18 23:59 Isosorbide Mononitrate (Imdur) 30 mg DAILY ORAL 01/24/18 19:30 02/23/18 19:29 01/26/18 09:59 Lidocaine HCl (Xylocaine 1% 30ml) 30 ml ONCE PRN INJ PICC LINE 01/25/18 11:15 01/26/18 23:59 Metoclopramide HCl (Reglan) 10 mg THREE TIMES A DAY ORAL 01/24/18 18:00 02/23/18 17:59 01/26/18 14:02 Metoprolol Succinate (Toprol XL) 50 mg BID ORAL 01/26/18 18:00 02/25/18 17:59 Metoprolol Tartrate (Lopressor) 10 mg ONCE IVP 01/26/18 14:39 01/26/18 15:39 Oxycodone/ Acetaminophen (Percocet 10/325) 1 tab Q4H PRN ORAL Moderate Breakthru Pain (5-7) 01/24/18 16:15 01/31/18 16:14 01/26/18 14:03 Pantoprazole (Protonix) 40 mg DAILY ORAL 01/24/18 19:30 02/23/18 19:29 01/26/18 09:59 Sodium Chloride 1,000 ml @ 500 mls/hr Q2H PRN IVLG sbp<90 during hd 01/26/18 15:12 02/25/18 15:11 Perry Calvo MD Jan 26, 2018 15:33
--- NOTE | 2018-01-26 16:09 | Pre-Procedure Note/Attestation ---
Pre-Procedure Note/Attestation Complete Prior to Procedure Planned Procedure: not applicable Procedure Narrative: central line Indications for Procedure Pre-Operative Diagnosis: needs central IV access Attestation I attest that I discussed the nature of the procedure; its benefits; risks and complications; and alternatives (and the risks and benefits of such alternatives ), prior to the procedure, with the patient (or the patient's legal phlebotomy services representative). I attest that, if there was a reasonable possibility of needing a blood transfusion, the patient (or the patient's legal phlebotomy services representative) was given the [facility] standardized written summary, pursuant to the Yann Jeannine Blood Safety Act ([place] Health and Safety Code # 1645, as amended). I attest that I re-evaluated the patient just prior to the surgery and that there has been no change in the patient's H&P, except as documented below: Qamar Zhou MD Jan 26, 2018 16:09
--- NOTE | 2018-01-26 16:19 | Diagnostic Imaging Report ---
Indication: Reason For Exam: IV Technique: Informed consent obtained prior to commencement of the procedure.. Procedural timeout performed Ultrasound confirms patent compressible vein. Total sterile technique, including sterile probe cover and sterile gel, sterile gloves, hand hygiene, hat, mask, sterile gown, large sterile drape, and preparation with 2% chlorhexidine utilized.Local anesthesia with 1% lidocaine. Under real-time ultrasound guidance, puncture right internal jugular vein using 21-gauge needle. However, guidewire would not pass. Attempts been made at puncturing right external jugular vein. Guidewire would not pass centrally, so the 4 Swiss micropuncture introducer was introduced, and a small amount of contrast injected. This demonstrated complete occlusion of the innominate vein with extensive collaterals.. It was elected at this point to use femoral access. Ultrasound confirms patent compressible vein. Total sterile technique, including sterile probe cover and sterile gel, sterile gloves, hand hygiene, hat, mask, sterile gown, large sterile drape, and preparation with 2% chlorhexidine utilized.Local anesthesia with 1% lidocaine. Under real-time ultrasound guidance, puncture right internal jugular vein using 21-gauge needle, passage one 8 guidewire, insertion 4 Swiss micropuncture introducer, passage 0.035 guidewire, over which was passed serial dilators and then a 7 Swiss triple-lumen central venous catheter, under fluoroscopic supervision. Completion stored digital radiograph obtained, demonstrating catheter tip position at downstream right common iliac vein The patient tolerated the procedure well, without immediate complication. Fluoroscopy time 1.7 minutes Dose Area Product 106 dGycm2 Total number of images-3 Impression: Successful placement of right femoral central venous catheter, as described. 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
[2018-01-26] MEDS: Dyna-Hex 2% Top Sol 2oz TOPIC SCH (20:17)
[2018-01-26] MEDS: Epogen (for ESRD on dialysis) SUBQ SCH (21:10)
[2018-01-26 21:12] LABS: BASOPHILS % (AUTO) 1.2 % (0.0-2.0); EOSINOPHILS % (AUTO) 1.9 % (0.0-3.0); HEMATOCRIT 25.6 % (42.0-52.0); HEMOGLOBIN 9.1 G/DL (14.2-18.0); LYMPHOCYTES % (AUTO) 14.5 % (20.0-45.0); MEAN CORPUSCULAR VOLUME 86 FL (80-99); MONOCYTES % (AUTO) 12.9 % (1.0-10.0); NEUTROPHILS % (AUTO) 69.5 % (45.0-75.0); PLATELET COUNT 215 K/UL (150-450); RED BLOOD COUNT 2.96 M/UL (4.70-6.10); RED CELL DISTRIBUTION WIDTH 13.4 % (11.6-14.8); WHITE BLOOD COUNT 15.9 K/UL (4.8-10.8)
[2018-01-27] VITALS: BP 121/56
[2018-01-27 04:00] VITALS: BP 149/85
--- NOTE | 2018-01-27 04:00 | Progress Note ---
DATE: 01/26/2018 CARDIOLOGY PROGRESS NOTE SUBJECTIVE: The patient is seen and evaluated. Case discussed with Dr. Calvo, the primary care physician. The patient denies chest pain or shortness of breath. He is lying flat and in no apparent distress. However, unfortunately his cardiac monitoring reveals rapid atrial fibrillation. OBJECTIVE: VITAL SIGNS: Blood pressure 98/63 to 118/74, heart rate is 88 to 132, and respiratory rate is 18 to 20. He is afebrile. LUNGS: Diminished breath sounds. No wheezing. HEART: Irregularly irregular rhythm. Rapid rate. Normal S1 and S2. ABDOMEN: Soft. No edema. EXTREMITIES: He is status post insertion of non-tunneled catheter for dialysis in the femoral region on the right. There is no bleeding or erythema at the site and there is good distal pulsation in the right leg. LABORATORY DATA: White count 15.9 and hemoglobin 9.1. Sodium 136, potassium 4.3, bicarb 22, BUN 18, and creatinine 5.2. Troponin is decreased to 0.042. IMPRESSION: 1. Acute on chronic diastolic congestive heart failure. 2. Acute myocardial ischemia. 3. Paroxysmal atrial fibrillation with rapid ventricular response. 4. End-stage renal disease. 5. History of biventricular valve replacements. 6. Coagulopathy due to excess Coumadin secondary to anemia. No signs of gastrointestinal blood loss. RECOMMENDATIONS: At this time, I will give additional therapy for rate control. As ordered, he will remain off anticoagulation until coagulopathy is corrected. We will monitor his hemoglobin closely. He will require transfusions for hemoglobin level below 8 g. He will continue on hemodialysis with ultrafiltration for volume management. Long-term, he will require anticoagulation again. However, his coagulopathy needs to be corrected and he will require close following of his INR as an outpatient. He is at risk for bleeding due to his comorbidities and his end-stage renal disease requiring dialysis. If rate control could not be effectively achieved at this time, he may require transfer to the intensive care unit for IV titration. Joe Edwards M.D. DR: PETE JOB#: [id number] CC:
[2018-01-27 08:00] VITALS: BP 123/70
[2018-01-27] MEDS: Docusate 100mg cap ORAL SCH ×2 (08:11→17:06)
[2018-01-27] MEDS: Metoprolol Succinate XL 50mg tab ORAL SCH ×2 (08:11→17:06)
[2018-01-27] MEDS: Imdur 30mg tab ORAL SCH (08:12)
[2018-01-27 12:00] VITALS: BP 125/68
--- NOTE | 2018-01-27 15:06 | Nephrology Progress Note ---
Assessment/Plan Problem List: (1) Atrial fibrillation with rapid ventricular response (2) GI bleed (3) Anemia in chronic kidney disease (4) Warfarin overdosage (5) Hyperkalemia (6) ESRD (end stage renal disease) on dialysis (7) CHF (congestive heart failure), NYHA class II Plan transfused, vit K, HD for chf and K watch Hb dialysis fluid removal on 01/26, feels better, has fem cath needs removal prior to dc, back on mwf dialysis Subjective Constitutional: Reports: weakness HEENT: Reports: no symptoms Genitourinary: Reports: no symptoms Neurologic/Psychiatric: Reports: pre-existing deficit Objective Objective Last 24 Hour Vital Signs Date Time Temp Pulse Resp B/P (MAP) Pulse Ox O2 Delivery O2 Flow Rate FiO2 01/27/18 12:41 97.7 01/27/18 12:11 97.7 01/27/18 12:00 76 01/27/18 12:00 96.6 79 18 125/68 (87) 97 96.6 01/27/18 09:00 Room Air 01/27/18 08:12 123/70 01/27/18 08:11 116 123/70 01/27/18 08:00 97.7 96 18 123/70 (87) 97 97.7 01/27/18 08:00 83 01/27/18 04:01 102 01/27/18 04:00 97.9 85 18 149/85 (106) 97 97.9 01/27/18 00:00 97.9 67 18 121/56 (77) 93 97.9 01/26/18 23:31 72 01/26/18 21:11 Room Air 01/26/18 21:00 Room Air 01/26/18 20:00 99 01/26/18 18:40 Room Air 01/26/18 17:21 128 109/70 01/26/18 16:00 115 01/26/18 15:45 128 20 113/60 (77) 99 01/26/18 15:40 86 20 123/80 (94) 100 01/26/18 15:35 115 20 112/67 (82) 100 01/26/18 15:30 96 18 112/83 (93) 100 01/26/18 15:25 126 18 98/63 (75) 100 01/26/18 15:20 117 18 104/79 (87) 100 01/26/18 15:15 113 18 115/75 (88) 100 01/26/18 15:10 88 18 118/74 (89) 100 01/26/18 15:05 134 18 115/80 (92) 100 Intake and Output 01/26/18 01/27/18 19:00 07:00 Intake Total 180 ml 240 ml Output Total 400 ml Balance 180 ml -160 ml Intake Oral 180 ml 240 ml Output Urine Total 400 ml Laboratory Tests 01/26/18 20:30: White Blood Count 15.9H, Red Blood Count 2.96L, Hemoglobin 9.1L, Hematocrit 25.6L, Mean Corpuscular Volume 86, Mean Corpuscular Hemoglobin 30.8, Mean Corpuscular Hemoglobin Concent 35.6, Red Cell Distribution Width 13.4, Platelet Count 215, Mean Platelet Volume 7.0, Neutrophils (%) (Auto) 69.5, Lymphocytes (% ) (Auto) 14.5L, Monocytes (%) (Auto) 12.9H, Eosinophils (%) (Auto) 1.9, Basophils (%) (Auto) 1.2 Height (Feet): 6 Height (Inches): 1.00 Weight (Pounds): 187 General Appearance: no apparent distress, alert EENT: normal ENT inspection Neck: normal alignment Cardiovascular: regularly irregular Respiratory/Chest: lungs clear Abdomen: non tender, soft, no organomegaly Extremities: trace edema Neurologic: motor weakness ISA SENIOR Jan 27, 2018 15:06
[2018-01-27 16:00] VITALS: BP 117/59
[2018-01-27 20:00] VITALS: BP 123/63
[2018-01-27] MEDS: Lisinopril 10mg tab ORAL SCH (20:08)
[2018-01-27] MEDS: Dyna-Hex 2% Top Sol 2oz TOPIC SCH (20:08)
--- NOTE | 2018-01-27 20:45 | Progress Note ---
CARDIOLOGY PROGRESS NOTE DATE: 01/27/2018 SUBJECTIVE: The patient remains weak. He has no chest pain. No complaints of shortness of breath. He is on hemodialysis with ultrafiltration. He received vitamin K for correction of coagulopathy. He has required packed red blood cell transfusion. His last hemodialysis and ultrafiltration session was yesterday. He has a catheter in the right femoral region for dialysis. OBJECTIVE: VITAL SIGNS: Blood pressure 125/68, pulse 79, and respirations 18. He remains afebrile. LUNGS: Diminished breath sounds. HEART: Irregularly irregular rhythm. Normal S1, S2. Monitored rhythm is atrial fibrillation. ABDOMEN: Soft and nontender. EXTREMITIES: With no edema. LABORATORY DATA: White count 15.9 and hemoglobin 9.1 yesterday. Potassium . INR yesterday was 2.7. IMPRESSION: 1. Clinically improved, rate control achieved. 2. Needs chronic anticoagulation for valvular cardiomyopathy. PLAN: 1. Maintain beta-lisette. 2. Resume warfarin if hemoglobin remains stable. 3. He will need close monitoring of INR as outpatient. 4. Hemodialysis with ultrafiltration for volume management. 5. Add SUSAN inhibitor therapy to decrease afterload in setting of valvular insufficiency. Joe Edwards M.D. : BRITT JOB#: [id number] CC:
--- NOTE | 2018-01-27 21:35 | Pulmonology Progress Note ---
Assessment/Plan Assessment/Plan 1. Chest pain, rule out acute coronary syndrome. 2. Renal failure, on hemodialysis with fluid overload. 3. Hyperkalemia, severe. 4. Coagulopathy due to excess Coumadin, worse 5. Chronic atrial fibrillation. 6. 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 7. Borderline diabetes. 8. Hypertension. 9. Hyperlipidemia. 10. Chronic anemia. 11. Gastroparesis. 12. Severe anemia, worse no sign of bleeding, neg stool OB transfuse to Hgb >8 dialysis INR down with vit K Bs control FU CXR monday Subjective Constitutional: Reports: no symptoms HEENT: Repors: no symptoms Respiratory: Reports: dry cough Cardiovascular: Reports: no symptoms Gastrointestinal/Abdominal: Reports: no symptoms Genitourinary: Reports: no symptoms Allergies: Coded Allergies: PENICILLINS (Verified Allergy, Severe, swelling of throat, 02/25/16) ACETAMINOPHEN (Verified Allergy, Intermediate, Generalized Itching , ) HYDROCODONE (Verified Allergy, Intermediate, Generalized Itching , 01/26/18 ) Subjective no cp sob no nv tolerating po oob on ra no fever Objective Last 24 Hour Vital Signs Date Time Temp Pulse Resp B/P (MAP) Pulse Ox O2 Delivery O2 Flow Rate FiO2 01/27/18 20:08 117/59 01/27/18 20:00 98.0 68 20 123/63 (83) 97 98.0 01/27/18 17:06 117 117/59 01/27/18 16:00 88 01/27/18 16:00 97.5 92 18 117/59 (78) 97 97.5 01/27/18 12:41 97.7 01/27/18 12:11 97.7 01/27/18 12:00 76 01/27/18 12:00 96.6 79 18 125/68 (87) 97 96.6 01/27/18 09:00 Room Air 01/27/18 08:12 123/70 01/27/18 08:11 116 123/70 01/27/18 08:00 97.7 96 18 123/70 (87) 97 97.7 01/27/18 08:00 83 01/27/18 04:01 102 01/27/18 04:00 97.9 85 18 149/85 (106) 97 97.9 01/27/18 00:00 97.9 67 18 121/56 (77) 93 97.9 01/26/18 23:31 72 Intake and Output 01/26/18 01/27/18 19:00 07:00 Intake Total 180 ml 240 ml Output Total 400 ml Balance 180 ml -160 ml Intake Oral 180 ml 240 ml Output Urine Total 400 ml General Appearance: WD/WN Respiratory/Chest: rhonchi Cardiovascular: normal rate, regularly irregular Abdomen: soft, non tender, no organomegaly Extremities: no cyanosis Skin: no lesions Neurologic/Psychiatric: no motor/sensory deficits, oriented x 3 Current Medications Medications (Trade) Dose Ordered Sig/John Route PRN Reason Start Time Stop Time Status Last Admin Dose Admin Atorvastatin Calcium (Lipitor) 10 mg BEDTIME ORAL 01/24/18 21:00 02/23/18 20:59 01/27/18 20:07 Chlorhexidine Gluconate (Keysha-Hex 2%) 1 applic DAILY@2000 TOPIC 01/25/18 20:00 02/24/18 19:59 01/27/18 20:08 Docusate Sodium (Colace) 100 mg TWICE A DAY ORAL 01/24/18 18:00 02/23/18 17:59 01/27/18 17:06 Epoetin Chato (Procrit (for ESRD on dialysis)) 7,000 units MON-MON-MON SUBQ 01/26/18 21:00 02/25/18 20:59 01/26/18 21:10 Gabapentin (Neurontin) 100 mg THREE TIMES A DAY ORAL 01/24/18 18:00 02/23/18 17:59 01/27/18 17:04 Isosorbide Mononitrate (Imdur) 30 mg DAILY ORAL 01/24/18 19:30 02/23/18 19:29 01/27/18 08:12 Lisinopril (Zestril) 10 mg DAILY ORAL 01/27/18 19:45 02/26/18 19:44 01/27/18 20:08 Metoclopramide HCl (Reglan) 10 mg THREE TIMES A DAY ORAL 01/24/18 18:00 02/23/18 17:59 01/27/18 17:06 Metoprolol Succinate (Toprol XL) 50 mg BID ORAL 01/26/18 18:00 02/25/18 17:59 01/27/18 17:06 Oxycodone/ Acetaminophen (Percocet 10/325) 1 tab Q4H PRN ORAL Moderate Breakthru Pain (5-7) 01/24/18 16:15 01/31/18 16:14 01/27/18 12:11 Pantoprazole (Protonix) 40 mg DAILY ORAL 01/24/18 19:30 02/23/18 19:29 01/27/18 08:11 Sodium Chloride 1,000 ml @ 500 mls/hr Q2H PRN IVLG sbp<90 during hd 01/26/18 15:12 02/25/18 15:11 Kimberly Colón DO Jan 27, 2018 21:35
[2018-01-28] VITALS: BP 107/62
[2018-01-28 04:00] VITALS: BP 109/69
[2018-01-28 07:23] LABS: BASOPHILS % (AUTO) 0.6 % (0.0-2.0); EOSINOPHILS % (AUTO) 4.1 % (0.0-3.0); HEMATOCRIT 24.8 % (42.0-52.0); HEMOGLOBIN 8.2 G/DL (14.2-18.0); MEAN CORPUSCULAR VOLUME 88 FL (80-99); MONOCYTES % (AUTO) 13.9 % (1.0-10.0); NEUTROPHILS % (AUTO) 63.3 % (45.0-75.0); PLATELET COUNT 211 K/UL (150-450); RED BLOOD COUNT 2.81 M/UL (4.70-6.10); RED CELL DISTRIBUTION WIDTH 15.5 % (11.6-14.8); WHITE BLOOD COUNT 15.6 K/UL (4.8-10.8)
[2018-01-28 07:45] LABS: ANION GAP 12 mmol/L (5-15); BLOOD UREA NITROGEN 75 mg/dL (7-18); CALCIUM 7.5 MG/DL (8.5-10.1); CARBON DIOXIDE 23 MMOL/L (21-32); CHLORIDE 102 MMOL/L (98-107); CREATININE 6.7 MG/DL (0.55-1.30); POTASSIUM 4.3 MMOL/L (3.5-5.1); SODIUM 137 MMOL/L (136-145)
[2018-01-28 08:00] VITALS: BP 120/64
[2018-01-28 08:10] LABS: INR 1.2 (0.9-1.1)
[2018-01-28] MEDS: Docusate 100mg cap ORAL SCH ×2 (08:25→17:22)
[2018-01-28] MEDS: Metoprolol Succinate XL 50mg tab ORAL SCH ×2 (08:25→17:23)
[2018-01-28] MEDS: Lisinopril 10mg tab ORAL SCH (08:25)
[2018-01-28] MEDS: Imdur 30mg tab ORAL SCH (08:26)
[2018-01-28 11:52] VITALS: BP 113/62
--- NOTE | 2018-01-28 11:52 | Nephrology Progress Note ---
Assessment/Plan Problem List: (1) Atrial fibrillation with rapid ventricular response (2) GI bleed (3) Anemia in chronic kidney disease (4) Warfarin overdosage (5) Hyperkalemia (6) ESRD (end stage renal disease) on dialysis (7) CHF (congestive heart failure), NYHA class II Plan transfused, vit K, HD for chf and K watch Hb dialysis fluid removal on 01/26, feels better, has fem cath needs removal prior to dc, back on [facility] dialysis INR normalized Subjective Constitutional: Reports: weakness HEENT: Reports: no symptoms Genitourinary: Reports: no symptoms Neurologic/Psychiatric: Reports: pre-existing deficit Objective Objective Last 24 Hour Vital Signs Date Time Temp Pulse Resp B/P (MAP) Pulse Ox O2 Delivery O2 Flow Rate FiO2 01/28/18 09:00 Room Air 01/28/18 08:26 120/64 01/28/18 08:25 120/64 01/28/18 08:25 69 120/64 01/28/18 08:00 69 01/28/18 08:00 97.9 69 20 120/64 (82) 100 97.9 01/28/18 04:00 68 01/28/18 04:00 97.3 81 20 109/69 (82) 99 97.3 01/28/18 00:00 69 01/28/18 00:00 97.3 69 18 107/62 (77) 99 97.3 01/27/18 21:00 Room Air 01/27/18 20:08 117/59 01/27/18 20:00 98.0 68 20 123/63 (83) 97 98.0 01/27/18 20:00 68 01/27/18 17:06 117 117/59 01/27/18 16:00 88 01/27/18 16:00 97.5 92 18 117/59 (78) 97 97.5 01/27/18 12:41 97.7 01/27/18 12:11 97.7 01/27/18 12:00 76 01/27/18 12:00 96.6 79 18 125/68 (87) 97 96.6 Intake and Output 01/27/18 01/28/18 19:00 07:00 Intake Total 720 ml 240 ml Balance 720 ml 240 ml Intake Oral 720 ml 240 ml # Voids 3 Laboratory Tests 01/28/18 05:45: White Blood Count 15.6H, Red Blood Count 2.81L, Hemoglobin 8.2L, Hematocrit 24.8L, Mean Corpuscular Volume 88, Mean Corpuscular Hemoglobin 29.3, Mean Corpuscular Hemoglobin Concent 33.2, Red Cell Distribution Width 15.5H, Platelet Count 211, Mean Platelet Volume 7.8, Neutrophils (%) (Auto) 63.3, Lymphocytes (%) (Auto) 18.0L, Monocytes (%) (Auto) 13.9H, Eosinophils (%) (Auto ) 4.1H, Basophils (%) (Auto) 0.6, Prothrombin Time 12.1H, Prothromb Time International Ratio 1.2H, Sodium Level 137, Potassium Level 4.3, Chloride Level 102, Carbon Dioxide Level 23, Anion Gap 12, Blood Urea Nitrogen 75H, Creatinine 6.7H, Estimat Glomerular Filtration Rate 10.2, Glucose Level 110H, Calcium Level 7.5L, Magnesium Level 1.9, Pro-B-Type Natriuretic Peptide 43566V Height (Feet): 6 Height (Inches): 1.00 Weight (Pounds): 186 General Appearance: no apparent distress EENT: normal ENT inspection Neck: normal alignment, supple Cardiovascular: regularly irregular Respiratory/Chest: lungs clear Abdomen: non tender, soft Extremities: trace edema Neurologic: motor weakness ISA SENIOR Jan 28, 2018 11:52
[2018-01-28] MEDS ORDERED: Heparin Sod 1000 units/ml 10ml IV PRN (12:00)
[2018-01-28 16:00] VITALS: BP 117/65
--- NOTE | 2018-01-28 18:32 | Pulmonology Progress Note ---
Assessment/Plan Assessment/Plan 1. Chest pain, rule out acute coronary syndrome. 2. Renal failure, on hemodialysis with fluid overload. 3. Hyperkalemia, severe. 4. Coagulopathy due to excess Coumadin, worse 5. Chronic atrial fibrillation. 6. 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 7. Borderline diabetes. 8. Hypertension. 9. Hyperlipidemia. 10. Chronic anemia. 11. Gastroparesis. 12. Severe anemia, stable doing better oob no sign of bleeding, neg stool OB transfuse to Hgb >8 dialysis INR down with vit K Bs control FU CXR monday HD per renal Subjective Constitutional: Reports: no symptoms HEENT: Repors: no symptoms Respiratory: Reports: no symptoms Cardiovascular: Reports: no symptoms Gastrointestinal/Abdominal: Reports: no symptoms Allergies: Coded Allergies: PENICILLINS (Verified Allergy, Severe, swelling of throat, 02/25/16) ACETAMINOPHEN (Verified Allergy, Intermediate, Generalized Itching , ) HYDROCODONE (Verified Allergy, Intermediate, Generalized Itching , 01/26/18 ) Subjective continues to improve no cp sob no nv tolerating po oob on ra no fever Objective Last 24 Hour Vital Signs Date Time Temp Pulse Resp B/P (MAP) Pulse Ox O2 Delivery O2 Flow Rate FiO2 01/28/18 17:23 68 120/66 01/28/18 16:00 69 01/28/18 16:00 96.4 53 20 117/65 (82) 97 96.4 01/28/18 12:00 70 01/28/18 11:52 97.6 71 20 113/62 (79) 100 97.6 01/28/18 09:00 Room Air 01/28/18 08:26 120/64 01/28/18 08:25 120/64 01/28/18 08:25 69 120/64 01/28/18 08:00 69 01/28/18 08:00 97.9 69 20 120/64 (82) 100 97.9 01/28/18 04:00 68 01/28/18 04:00 97.3 81 20 109/69 (82) 99 97.3 01/28/18 00:00 69 01/28/18 00:00 97.3 69 18 107/62 (77) 99 97.3 01/27/18 21:00 Room Air 01/27/18 20:08 117/59 01/27/18 20:00 98.0 68 20 123/63 (83) 97 98.0 01/27/18 20:00 68 Intake and Output 01/27/18 01/28/18 19:00 07:00 Intake Total 720 ml 240 ml Balance 720 ml 240 ml Intake Oral 720 ml 240 ml # Voids 3 General Appearance: WD/WN Respiratory/Chest: rhonchi Cardiovascular: normal rate, regular rhythm Abdomen: soft, non tender, no organomegaly Extremities: no cyanosis Neurologic/Psychiatric: no motor/sensory deficits, oriented x 3, responsive Laboratory Tests 01/28/18 05:45: White Blood Count 15.6H, Red Blood Count 2.81L, Hemoglobin 8.2L, Hematocrit 24.8L, Mean Corpuscular Volume 88, Mean Corpuscular Hemoglobin 29.3, Mean Corpuscular Hemoglobin Concent 33.2, Red Cell Distribution Width 15.5H, Platelet Count 211, Mean Platelet Volume 7.8, Neutrophils (%) (Auto) 63.3, Lymphocytes (%) (Auto) 18.0L, Monocytes (%) (Auto) 13.9H, Eosinophils (%) (Auto ) 4.1H, Basophils (%) (Auto) 0.6, Prothrombin Time 12.1H, Prothromb Time International Ratio 1.2H, Sodium Level 137, Potassium Level 4.3, Chloride Level 102, Carbon Dioxide Level 23, Anion Gap 12, Blood Urea Nitrogen 75H, Creatinine 6.7H, Estimat Glomerular Filtration Rate 10.2, Glucose Level 110H, Calcium Level 7.5L, Magnesium Level 1.9, Pro-B-Type Natriuretic Peptide [id number] Current Medications Medications (Trade) Dose Ordered Sig/John Route PRN Reason Start Time Stop Time Status Last Admin Dose Admin Atorvastatin Calcium (Lipitor) 10 mg BEDTIME ORAL 01/24/18 21:00 02/23/18 20:59 01/27/18 20:07 Chlorhexidine Gluconate (Keysha-Hex 2%) 1 applic DAILY@1999 TOPIC 01/25/18 20:00 02/24/18 19:59 01/27/18 20:08 Docusate Sodium (Colace) 100 mg TWICE A DAY ORAL 01/24/18 18:00 02/23/18 17:59 01/28/18 17:22 Epoetin Chato (Procrit (for ESRD on dialysis)) 7,000 units MON-MON-MON SUBQ 01/26/18 21:00 02/25/18 20:59 01/26/18 21:10 Gabapentin (Neurontin) 100 mg THREE TIMES A DAY ORAL 01/24/18 18:00 02/23/18 17:59 01/28/18 17:22 Heparin Sodium (Porcine) (Heparin Sod 1000 units/ml 10ml) 2,000 unit ONCE PRN IV FOR HD USE ONLY 01/28/18 12:00 01/30/18 23:59 Isosorbide Mononitrate (Imdur) 30 mg DAILY ORAL 01/24/18 19:30 02/23/18 19:29 01/28/18 08:26 Lisinopril (Zestril) 10 mg DAILY ORAL 01/27/18 19:45 02/26/18 19:44 01/28/18 08:25 Metoclopramide HCl (Reglan) 10 mg THREE TIMES A DAY ORAL 01/24/18 18:00 02/23/18 17:59 01/28/18 17:23 Metoprolol Succinate (Toprol XL) 50 mg BID ORAL 01/26/18 18:00 02/25/18 17:59 01/28/18 17:23 Oxycodone/ Acetaminophen (Percocet 10/325) 1 tab Q4H PRN ORAL Moderate Breakthru Pain (5-7) 01/24/18 16:15 01/31/18 16:14 01/28/18 00:20 Pantoprazole (Protonix) 40 mg DAILY ORAL 01/24/18 19:30 02/23/18 19:29 01/28/18 08:25 Sodium Chloride 1,000 ml @ 500 mls/hr Q2H PRN IVLG sbp<90 during hd 01/28/18 12:00 01/30/18 23:59 Kimberly Colón DO Jan 28, 2018 18:32
[2018-01-28] MEDS: Dyna-Hex 2% Top Sol 2oz TOPIC SCH (20:10)
[2018-01-28 21:00] VITALS: BP 105/61
--- NOTE | 2018-01-28 22:00 | Progress Note ---
DATE: 01/28/2018 CARDIOLOGY PROGRESS NOTE SUBJECTIVE: The patient is better with no chest pain. No shortness of breath. No nausea or vomiting. Tolerating diet. He is afebrile. OBJECTIVE: VITAL SIGNS: Blood pressure 117/65, heart rate 53 to 70, respiratory rate 20, and afebrile. Monitored rhythm, atrial fibrillation, rate controlled. LUNGS: Bilateral breath sounds. HEART: Irregularly irregular rhythm. Normal S1, S2. ABDOMEN: Soft. EXTREMITIES: No edema. LABORATORY DATA: White count 15.6 and hemoglobin 8.2. Potassium 4.2. Magnesium 1.9. Pro-natriuretic peptide 20,000. Troponin has normalized. IMPRESSION: 1. Paroxysmal atrial fibrillation, now with controlled ventricular rate. 2. End-stage renal disease, on hemodialysis. 3. Acute on chronic diastolic congestive heart failure. 4. Non-ST elevation myocardial infarction, uncomplicated. 5. Anemia secondary to chronic kidney disease. 6. Gastrointestinal bleeding secondary to coagulopathy. 7. Valvular cardiomyopathy, on chronic anticoagulation. PLAN: 1. Transfuse for hemoglobin less than 8 g. 2. Observe for continued blood loss . 3. Continue Epogen and iron replacement. 4. We will need to resume warfarin with close monitoring of INR to goal of 2 to 3. 5. We will titrate anti-failure regimen based on clinical parameters. Joe Edwards M.D. DR: ROBBY JOB#: [id number] CC:
[2018-01-29] VITALS (7 sets, daily range): BP systolic 102–128; BP diastolic 55–80
[2018-01-29 06:52] LABS: BASOPHILS % (AUTO) 1.6 % (0.0-2.0); EOSINOPHILS % (AUTO) 3.8 % (0.0-3.0); LYMPHOCYTES % (AUTO) 18.9 % (20.0-45.0); MEAN CORPUSCULAR VOLUME 89 FL (80-99); MONOCYTES % (AUTO) 14.1 % (1.0-10.0); NEUTROPHILS % (AUTO) 61.7 % (45.0-75.0); PLATELET COUNT 218 K/UL (150-450); WHITE BLOOD COUNT 13.5 K/UL (4.8-10.8)
[2018-01-29 07:06] LABS: ANION GAP 15 mmol/L (5-15); BLOOD UREA NITROGEN 87 mg/dL (7-18); CALCIUM 7.2 MG/DL (8.5-10.1); CARBON DIOXIDE 20 MMOL/L (21-32); CHLORIDE 104 MMOL/L (98-107); CREATININE 7.8 MG/DL (0.55-1.30); POTASSIUM 4.3 MMOL/L (3.5-5.1); SODIUM 139 MMOL/L (136-145)
[2018-01-29] MEDS: Docusate 100mg cap ORAL SCH ×2 (09:28→18:01)
[2018-01-29] MEDS ORDERED: Heparin 25,000u/D5W 500ml 500 ML IV SCH (09:30)
[2018-01-29] MEDS ORDERED: Heparin 5000 units/ml inj IV SCH (09:30)
[2018-01-29] MEDS: Metoprolol Succinate XL 50mg tab ORAL SCH ×2 (09:30→18:00)
[2018-01-29] MEDS: Imdur 30mg tab ORAL SCH (09:31)
[2018-01-29] MEDS: Lisinopril 20mg tab ORAL SCH (09:31)
--- NOTE | 2018-01-29 09:50 | Diagnostic Imaging Report ---
Indication: Cough Technique: One view of the chest Comparison: 01/24/2018 Findings: Right midlung opacity is again demonstrated, probably unchanged. The heart is borderline enlarged. There are median sternotomy sutures and valve prostheses again demonstrated. Impression: Unchanged, over 5 days, findings as above.
[2018-01-29 10:51] LABS: INR 1.1 (0.9-1.1)
--- NOTE | 2018-01-29 12:50 | Nephrology Progress Note ---
Assessment/Plan Problem List: (1) Atrial fibrillation with rapid ventricular response (2) GI bleed (3) Anemia in chronic kidney disease (4) Warfarin overdosage (5) Hyperkalemia (6) ESRD (end stage renal disease) on dialysis (7) CHF (congestive heart failure), NYHA class II Plan transfused, vit K, HD for chf and K watch Hb dialysis fluid removal on 01/29-- seen on dialysis, feels better, has fem cath needs removal prior to dc, back on [facility] dialysis INR normalized Hb low, epogen Subjective Constitutional: Reports: weakness HEENT: Reports: no symptoms Genitourinary: Reports: no symptoms Neurologic/Psychiatric: Reports: pre-existing deficit Objective Objective Last 24 Hour Vital Signs Date Time Temp Pulse Resp B/P (MAP) Pulse Ox O2 Delivery O2 Flow Rate FiO2 01/29/18 12:17 Room Air 01/29/18 11:04 97.7 01/29/18 10:34 97.7 01/29/18 09:31 120/67 01/29/18 09:31 120/67 01/29/18 09:30 68 120/67 01/29/18 09:00 Room Air 01/29/18 08:00 68 01/29/18 08:00 97.7 68 18 120/67 (84) 100 97.7 01/29/18 04:00 88 01/29/18 04:00 97.7 68 20 117/62 (80) 100 97.7 01/29/18 00:00 68 01/29/18 00:00 98.0 71 24 111/55 (73) 99 98.0 01/28/18 22:21 98.1 01/28/18 21:00 98.1 70 26 105/61 (76) 100 98.1 01/28/18 21:00 Room Air 01/28/18 20:00 70 01/28/18 17:23 68 120/66 01/28/18 16:00 69 01/28/18 16:00 96.4 53 20 117/65 (82) 97 96.4 Intake and Output 01/28/18 01/29/18 19:00 07:00 Intake Total 680 ml 240 ml Output Total 400 ml 400 ml Balance 280 ml -160 ml Intake Oral 680 ml 240 ml Output Urine Total 400 ml 400 ml # Voids 1 # Bowel Movements 1 Laboratory Tests 01/29/18 06:00: White Blood Count 13.5H, Red Blood Count 2.70L, Hemoglobin 8.0L, Hematocrit 24.0L, Mean Corpuscular Volume 89, Mean Corpuscular Hemoglobin 29.7, Mean Corpuscular Hemoglobin Concent 33.4, Red Cell Distribution Width 16.0H, Platelet Count 218, Mean Platelet Volume 7.7, Neutrophils (%) (Auto) 61.7, Lymphocytes (%) (Auto) 18.9L, Monocytes (%) (Auto) 14.1H, Eosinophils (%) (Auto ) 3.8H, Basophils (%) (Auto) 1.6, Sodium Level 139, Potassium Level 4.3, Chloride Level 104, Carbon Dioxide Level 20L, Anion Gap 15, Blood Urea Nitrogen 87H, Creatinine 7.8H, Estimat Glomerular Filtration Rate 8.5, Glucose Level 120H , Calcium Level 7.2L 01/29/18 10:05: Prothrombin Time 11.7H, Prothromb Time International Ratio 1.1, Activated Partial Thromboplast Time 27 Height (Feet): 6 Height (Inches): 1.00 Weight (Pounds): 187 General Appearance: no apparent distress, alert EENT: normal ENT inspection Neck: normal alignment Cardiovascular: regularly irregular Respiratory/Chest: lungs clear Abdomen: non tender, soft Extremities: trace edema Neurologic: motor weakness ISA SENIOR Jan 29, 2018 12:50
[2018-01-29] MEDS ORDERED: Warfarin Sodium 4mg PO ONE (17:00)
[2018-01-29] MEDS: Heparin 25,000u/D5W 500ml 500 ML IV SCH (18:31)
--- NOTE | 2018-01-29 18:52 | Pulmonology Progress Note ---
Assessment/Plan Assessment/Plan 1. Chest pain, rule out acute coronary syndrome. 2. Renal failure, on hemodialysis with fluid overload. 3. Hyperkalemia, severe, corrected 4. Coagulopathy due to excess Coumadin, now subtherapeutic 5. Chronic atrial fibrillation. 6. 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 7. Borderline diabetes. 8. Hypertension. 9. Hyperlipidemia. 10. Chronic anemia. 11. Gastroparesis. 12. Severe anemia no sign of bleeding, neg stool OB transfuse to Hgb >8 dialysis INR down with vit K, start heparin, resume coumadin per pharmacy continue EPO, Fe Subjective Constitutional: Reports: fatigue, anorexia; Denies: fever Respiratory: Denies: shortness of breath Cardiovascular: Denies: chest pain Allergies: Coded Allergies: PENICILLINS (Verified Allergy, Severe, swelling of throat, 02/25/16) ACETAMINOPHEN (Verified Allergy, Intermediate, Generalized Itching , ) HYDROCODONE (Verified Allergy, Intermediate, Generalized Itching , 01/26/18 ) Objective Last 24 Hour Vital Signs Date Time Temp Pulse Resp B/P (MAP) Pulse Ox O2 Delivery O2 Flow Rate FiO2 01/29/18 18:00 84 120/62 01/29/18 16:00 79 01/29/18 16:00 97.5 82 18 102/59 (73) 97 97.5 01/29/18 15:36 97.3 01/29/18 15:06 97.3 01/29/18 14:23 Room Air 01/29/18 12:17 Room Air 01/29/18 12:00 84 01/29/18 12:00 97.3 81 18 128/80 (96) 100 97.3 01/29/18 10:34 97.7 01/29/18 09:31 120/67 01/29/18 09:31 120/67 01/29/18 09:30 68 120/67 01/29/18 09:00 Room Air 01/29/18 08:00 68 01/29/18 08:00 97.7 68 18 120/67 (84) 100 97.7 01/29/18 04:00 88 01/29/18 04:00 97.7 68 20 117/62 (80) 100 97.7 01/29/18 00:00 68 01/29/18 00:00 98.0 71 24 111/55 (73) 99 98.0 01/28/18 22:21 98.1 01/28/18 21:00 98.1 70 26 105/61 (76) 100 98.1 01/28/18 21:00 Room Air 01/28/18 20:00 70 Intake and Output 01/28/18 01/29/18 19:00 07:00 Intake Total 680 ml 240 ml Output Total 400 ml 400 ml Balance 280 ml -160 ml Intake Oral 680 ml 240 ml Output Urine Total 400 ml 400 ml # Voids 1 # Bowel Movements 1 Objective prosthetic heart tones General Appearance: no acute distress Respiratory/Chest: lungs clear Cardiovascular: normal rate Laboratory Tests 01/29/18 06:00: White Blood Count 13.5H, Red Blood Count 2.70L, Hemoglobin 8.0L, Hematocrit 24.0L, Mean Corpuscular Volume 89, Mean Corpuscular Hemoglobin 29.7, Mean Corpuscular Hemoglobin Concent 33.4, Red Cell Distribution Width 16.0H, Platelet Count 218, Mean Platelet Volume 7.7, Neutrophils (%) (Auto) 61.7, Lymphocytes (%) (Auto) 18.9L, Monocytes (%) (Auto) 14.1H, Eosinophils (%) (Auto ) 3.8H, Basophils (%) (Auto) 1.6, Sodium Level 139, Potassium Level 4.3, Chloride Level 104, Carbon Dioxide Level 20L, Anion Gap 15, Blood Urea Nitrogen 87H, Creatinine 7.8H, Estimat Glomerular Filtration Rate 8.5, Glucose Level 120H , Calcium Level 7.2L 01/29/18 10:05: Prothrombin Time 11.7H, Prothromb Time International Ratio 1.1, Activated Partial Thromboplast Time 27 01/29/18 17:20: Activated Partial Thromboplast Time 105H Current Medications Medications (Trade) Dose Ordered Sig/John Route PRN Reason Start Time Stop Time Status Last Admin Dose Admin Atorvastatin Calcium (Lipitor) 10 mg BEDTIME ORAL 01/24/18 21:00 02/23/18 20:59 01/28/18 20:10 Chlorhexidine Gluconate (Keysha-Hex 2%) 1 applic DAILY@1999 TOPIC 01/25/18 20:00 02/24/18 19:59 01/28/18 20:10 Docusate Sodium (Colace) 100 mg TWICE A DAY ORAL 01/24/18 18:00 02/23/18 17:59 01/29/18 18:01 Epoetin Chato (Procrit (for ESRD on dialysis)) 7,000 units MON-MON-MON SUBQ 01/26/18 21:00 02/25/18 20:59 01/26/18 21:10 Gabapentin (Neurontin) 100 mg THREE TIMES A DAY ORAL 01/24/18 18:00 02/23/18 17:59 01/29/18 18:01 Heparin Sodium (Porcine) (Heparin Sod 1000 units/ml 10ml) 2,000 unit ONCE PRN IV FOR HD USE ONLY 01/28/18 12:00 01/30/18 23:59 Heparin Sodium/ Dextrose 500 ml @ 27.143 mls/ hr ADJUST PER PROTOCOL IV 01/29/18 18:26 02/28/18 18:25 01/29/18 18:31 Isosorbide Mononitrate (Imdur) 30 mg DAILY ORAL 01/24/18 19:30 02/23/18 19:29 01/29/18 09:31 Lisinopril (Prinivil) 20 mg DAILY ORAL 01/29/18 09:00 02/28/18 08:59 01/29/18 09:31 Metoclopramide HCl (Reglan) 10 mg THREE TIMES A DAY ORAL 01/24/18 18:00 02/23/18 17:59 01/29/18 18:00 Metoprolol Succinate (Toprol XL) 50 mg BID ORAL 01/26/18 18:00 02/25/18 17:59 01/29/18 18:00 Oxycodone/ Acetaminophen (Percocet 10/325) 1 tab Q4H PRN ORAL Moderate Breakthru Pain (5-7) 01/24/18 16:15 01/31/18 16:14 01/29/18 15:06 Pantoprazole (Protonix) 40 mg DAILY ORAL 01/24/18 19:30 02/23/18 19:29 01/29/18 09:34 Sodium Chloride 1,000 ml @ 500 mls/hr Q2H PRN IVLG sbp<90 during hd 01/28/18 12:00 01/30/18 23:59 Warfarin Sodium (Coumadin per pharmacy) 1 ea DAILY PRN MISC Per rx protocol 01/29/18 08:45 02/28/18 08:44 Perry Calvo MD Jan 29, 2018 18:52
[2018-01-29] MEDS: Dyna-Hex 2% Top Sol 2oz TOPIC SCH (20:38)
[2018-01-29] MEDS: Epogen (for ESRD on dialysis) SUBQ SCH (20:39)
[2018-01-30 04:00] VITALS: BP 110/66
[2018-01-30] MEDS: Heparin 25,000u/D5W 500ml 500 ML IV SCH ×2 (04:28→22:24)
--- NOTE | 2018-01-30 05:15 | Progress Note ---
DATE: 01/29/2018 CARDIOLOGY PROGRESS NOTE SUBJECTIVE: The patient has not had any signs of bleeding. INR has normalized. IV heparin has been initiated for cardioembolic prophylaxis in the setting of valvular cardiomyopathy. OBJECTIVE: VITAL SIGNS: Blood pressure 102/59, pulse 82, respiratory rate 18. LUNGS: Bilateral breath sounds. HEART: Irregularly irregular rhythm. Normal S1, S2. ABDOMEN: Soft. EXTREMITIES: No edema. LABORATORY AND DIAGNOSTIC DATA: White count 13.5, hemoglobin 8. INR 1.1. Potassium 4.3. Chest x-ray reveals right mid lung opacity. IMPRESSION: 1. Valvular cardiomyopathy. 2. Anemia, status post transfusions. 3. Coagulopathy, reversed. 4. Paroxysmal atrial fibrillation, now rate controlled. 5. End-stage renal disease, on hemodialysis. 6. Acute on chronic congestive heart failure, clinically compensated. PLAN: 1. IV heparin until INR therapeutic in the range of 2.5 to 3. 2. Maintain current cardiovascular regimen including beta-lisette for both rate control and anti-failure benefits. 3. We will follow. Joe Edwards M.D. DR: ZULEYMA JOB#: [id number] CC:
[2018-01-30 05:54] LABS: BASOPHILS % (AUTO) 0.9 % (0.0-2.0); EOSINOPHILS % (AUTO) 3.5 % (0.0-3.0); HEMATOCRIT 27.5 % (42.0-52.0); HEMOGLOBIN 9.4 G/DL (14.2-18.0); LYMPHOCYTES % (AUTO) 19.8 % (20.0-45.0); MEAN CORPUSCULAR VOLUME 89 FL (80-99); NEUTROPHILS % (AUTO) 62.8 % (45.0-75.0); PLATELET COUNT 179 K/UL (150-450); RED BLOOD COUNT 3.09 M/UL (4.70-6.10); RED CELL DISTRIBUTION WIDTH 14.4 % (11.6-14.8); WHITE BLOOD COUNT 13.6 K/UL (4.8-10.8)
[2018-01-30 05:59] LABS: ANION GAP 12 mmol/L (5-15); BLOOD UREA NITROGEN 64 mg/dL (7-18); CALCIUM 7.3 MG/DL (8.5-10.1); CARBON DIOXIDE 23 MMOL/L (21-32); CHLORIDE 100 MMOL/L (98-107); CREATININE 6.3 MG/DL (0.55-1.30); POTASSIUM 4.1 MMOL/L (3.5-5.1); SODIUM 134 MMOL/L (136-145)
[2018-01-30 06:08] LABS: INR 1.1 (0.9-1.1)
[2018-01-30 08:00] VITALS: BP 126/58
[2018-01-30] MEDS: Docusate 100mg cap ORAL SCH ×2 (09:00→18:00)
[2018-01-30] MEDS: Imdur 30mg tab ORAL SCH (09:20)
[2018-01-30] MEDS: Lisinopril 20mg tab ORAL SCH (09:20)
[2018-01-30] MEDS: Metoprolol Succinate XL 50mg tab ORAL SCH ×2 (09:21→18:00)
--- NOTE | 2018-01-30 10:57 | Pulmonology Progress Note ---
Assessment/Plan Assessment/Plan 1. Chest pain, rule out acute coronary syndrome. 2. Renal failure, on hemodialysis with fluid overload. 3. Hyperkalemia, severe, corrected 4. Coagulopathy due to excess Coumadin, now subtherapeutic 5. Chronic atrial fibrillation. 6. 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 7. Borderline diabetes. 8. Hypertension. 9. Hyperlipidemia. 10. Chronic anemia. 11. Gastroparesis. 12. Severe anemia check stool OB x 2 more transfused check ferritin dialysis INR low; I will dose coumadin cont heparin continue EPO may need venofer disc w Dr Sanchez, RN Subjective Constitutional: Denies: fever, chills Respiratory: Reports: dry cough Allergies: Coded Allergies: PENICILLINS (Verified Allergy, Severe, swelling of throat, 02/25/16) ACETAMINOPHEN (Verified Allergy, Intermediate, Generalized Itching , ) HYDROCODONE (Verified Allergy, Intermediate, Generalized Itching , 01/26/18 ) Objective Last 24 Hour Vital Signs Date Time Temp Pulse Resp B/P (MAP) Pulse Ox O2 Delivery O2 Flow Rate FiO2 01/30/18 09:21 76 126/58 01/30/18 09:20 126/58 01/30/18 09:20 126/58 01/30/18 04:00 97.3 68 20 110/66 (81) 96 97.3 01/30/18 04:00 68 01/30/18 00:00 74 01/29/18 23:45 97.9 73 20 102/55 (71) 98 97.9 01/29/18 21:09 97.7 01/29/18 21:00 Room Air 01/29/18 20:39 97.7 01/29/18 20:00 97.7 80 20 117/66 (83) 98 97.7 01/29/18 20:00 81 01/29/18 18:00 84 120/62 01/29/18 16:00 79 01/29/18 16:00 97.5 82 18 102/59 (73) 97 97.5 01/29/18 15:06 97.3 01/29/18 14:23 Room Air 01/29/18 12:17 Room Air 01/29/18 12:00 84 01/29/18 12:00 97.3 81 18 128/80 (96) 100 97.3 Intake and Output 01/29/18 01/30/18 19:00 07:00 Intake Total 440 ml Balance 440 ml Intake Oral 440 ml # Voids 2 2 Objective prosthetic heart tones General Appearance: no acute distress Respiratory/Chest: lungs clear Cardiovascular: normal rate Laboratory Tests 01/29/18 17:20: Activated Partial Thromboplast Time 105H 01/30/18 00:30: Activated Partial Thromboplast Time 81H 01/30/18 05:27: White Blood Count 13.6H, Red Blood Count 3.09L, Hemoglobin 9.4L, Hematocrit 27.5L, Mean Corpuscular Volume 89, Mean Corpuscular Hemoglobin 30.4, Mean Corpuscular Hemoglobin Concent 34.3, Red Cell Distribution Width 14.4, Platelet Count 179, Mean Platelet Volume 8.0, Neutrophils (%) (Auto) 62.8, Lymphocytes (% ) (Auto) 19.8L, Monocytes (%) (Auto) 13.0H, Eosinophils (%) (Auto) 3.5H, Basophils (%) (Auto) 0.9, Prothrombin Time 11.8H, Prothromb Time International Ratio 1.1, Sodium Level 134L, Potassium Level 4.1, Chloride Level 100, Carbon Dioxide Level 23, Anion Gap 12, Blood Urea Nitrogen 64H, Creatinine 6.3H, Estimat Glomerular Filtration Rate 10.9, Glucose Level 91, Calcium Level 7.3L Current Medications Medications (Trade) Dose Ordered Sig/John Route PRN Reason Start Time Stop Time Status Last Admin Dose Admin Atorvastatin Calcium (Lipitor) 10 mg BEDTIME ORAL 01/24/18 21:00 02/23/18 20:59 01/29/18 20:39 Chlorhexidine Gluconate (Keysha-Hex 2%) 1 applic DAILY@1999 TOPIC 01/25/18 20:00 02/24/18 19:59 01/29/18 20:38 Docusate Sodium (Colace) 100 mg TWICE A DAY ORAL 01/24/18 18:00 02/23/18 17:59 01/29/18 18:01 Epoetin Chato (Procrit (for ESRD on dialysis)) 7,000 units MON-MON-MON SUBQ 01/26/18 21:00 02/25/18 20:59 01/29/18 20:39 Gabapentin (Neurontin) 100 mg THREE TIMES A DAY ORAL 01/24/18 18:00 02/23/18 17:59 01/30/18 09:19 Heparin Sodium (Porcine) (Heparin Sod 1000 units/ml 10ml) 2,000 unit ONCE PRN IV FOR HD USE ONLY 01/28/18 12:00 01/30/18 23:59 Heparin Sodium/ Dextrose 500 ml @ 27.143 mls/ hr ADJUST PER PROTOCOL IV 01/29/18 18:26 02/28/18 18:25 01/30/18 04:28 Isosorbide Mononitrate (Imdur) 30 mg DAILY ORAL 01/24/18 19:30 02/23/18 19:29 01/30/18 09:20 Lisinopril (Prinivil) 20 mg DAILY ORAL 01/29/18 09:00 02/28/18 08:59 01/30/18 09:20 Metoclopramide HCl (Reglan) 10 mg THREE TIMES A DAY ORAL 01/24/18 18:00 02/23/18 17:59 01/30/18 09:21 Metoprolol Succinate (Toprol XL) 50 mg BID ORAL 01/26/18 18:00 02/25/18 17:59 01/30/18 09:21 Oxycodone/ Acetaminophen (Percocet 10/325) 1 tab Q4H PRN ORAL Moderate Breakthru Pain (5-7) 01/24/18 16:15 01/31/18 16:14 01/29/18 20:39 Pantoprazole (Protonix) 40 mg DAILY ORAL 01/24/18 19:30 02/23/18 19:29 01/30/18 09:19 Sodium Chloride 1,000 ml @ 500 mls/hr Q2H PRN IVLG sbp<90 during hd 01/28/18 12:00 01/30/18 23:59 Warfarin Sodium (Coumadin per pharmacy) 1 ea DAILY PRN MISC Per rx protocol 01/29/18 08:45 02/28/18 08:44 Warfarin Sodium (Coumadin) 3 mg ONCE ONCE ORAL 01/30/18 17:00 01/30/18 17:01 Perry Calvo MD Jan 30, 2018 10:57
[2018-01-30 12:00] VITALS: BP 103/56
--- NOTE | 2018-01-30 12:56 | Nephrology Progress Note ---
Assessment/Plan Problem List: (1) Atrial fibrillation with rapid ventricular response (2) GI bleed (3) Anemia in chronic kidney disease (4) Warfarin overdosage (5) Hyperkalemia (6) ESRD (end stage renal disease) on dialysis (7) CHF (congestive heart failure), NYHA class II Plan transfused, vit K, HD for chf and K watch Hb dialysis fluid removal on 01/29-- seen on dialysis, feels better, has fem cath needs removal prior to dc, back on mwf dialysis INR normalized anticoag for valves restarted, Hb low, epogen add venofer as low ferriten Subjective Constitutional: Reports: no symptoms HEENT: Reports: no symptoms Genitourinary: Reports: no symptoms Neurologic/Psychiatric: Reports: pre-existing deficit Objective Objective Last 24 Hour Vital Signs Date Time Temp Pulse Resp B/P (MAP) Pulse Ox O2 Delivery O2 Flow Rate FiO2 01/30/18 11:26 97.3 01/30/18 09:21 76 126/58 01/30/18 09:20 126/58 01/30/18 09:20 126/58 01/30/18 09:00 Room Air 01/30/18 08:00 97.3 76 20 126/58 (80) 95 97.3 01/30/18 04:00 97.3 68 20 110/66 (81) 96 97.3 01/30/18 04:00 68 01/30/18 00:00 74 01/29/18 23:45 97.9 73 20 102/55 (71) 98 97.9 01/29/18 21:09 97.7 01/29/18 21:00 Room Air 01/29/18 20:39 97.7 01/29/18 20:00 97.7 80 20 117/66 (83) 98 97.7 01/29/18 20:00 81 01/29/18 18:00 84 120/62 01/29/18 16:00 79 01/29/18 16:00 97.5 82 18 102/59 (73) 97 97.5 01/29/18 15:06 97.3 01/29/18 14:23 Room Air Intake and Output 01/29/18 01/30/18 19:00 07:00 Intake Total 440 ml Balance 440 ml Intake Oral 440 ml # Voids 2 2 Laboratory Tests 01/29/18 17:20: Activated Partial Thromboplast Time 105H 01/30/18 00:30: Activated Partial Thromboplast Time 81H 01/30/18 05:27: White Blood Count 13.6H, Red Blood Count 3.09L, Hemoglobin 9.4L, Hematocrit 27.5L, Mean Corpuscular Volume 89, Mean Corpuscular Hemoglobin 30.4, Mean Corpuscular Hemoglobin Concent 34.3, Red Cell Distribution Width 14.4, Platelet Count 179, Mean Platelet Volume 8.0, Neutrophils (%) (Auto) 62.8, Lymphocytes (% ) (Auto) 19.8L, Monocytes (%) (Auto) 13.0H, Eosinophils (%) (Auto) 3.5H, Basophils (%) (Auto) 0.9, Prothrombin Time 11.8H, Prothromb Time International Ratio 1.1, Sodium Level 134L, Potassium Level 4.1, Chloride Level 100, Carbon Dioxide Level 23, Anion Gap 12, Blood Urea Nitrogen 64H, Creatinine 6.3H, Estimat Glomerular Filtration Rate 10.9, Glucose Level 91, Calcium Level 7.3L, Ferritin 46 Height (Feet): 6 Height (Inches): 1.00 Weight (Pounds): 190 General Appearance: no apparent distress EENT: normal ENT inspection Neck: normal alignment Cardiovascular: normal rate, regularly irregular Respiratory/Chest: lungs clear Abdomen: non tender Extremities: trace edema Neurologic: abnormal [employer] II-XII, motor weakness ISA SENIOR Jan 30, 2018 12:56
[2018-01-30] MEDS ORDERED: Warfarin Sodium 10mg ORAL ONE (13:00)
[2018-01-30 16:00] VITALS: BP 90/53
[2018-01-30] MEDS ORDERED: Warfarin Sodium 3mg ORAL ONE (17:00)
[2018-01-30 20:00] VITALS: BP 122/65
[2018-01-30] MEDS: Dyna-Hex 2% Top Sol 2oz TOPIC SCH (20:22)
[2018-01-30] MEDS: Iron Sucrose 100 MG in NS 55 ML IV SCH (20:22)
[2018-01-31] VITALS: BP 119/72
[2018-01-31 04:00] VITALS: BP 106/62
--- NOTE | 2018-01-31 04:45 | Progress Note ---
DATE: 01/30/2018 CARDIOLOGY PROGRESS NOTE SUBJECTIVE: The patient is without shortness of breath or chest pain. He continues with hemodialysis and ultrafiltration, Monday, Monday, and Monday schedule. He is back on anticoagulation. Once Coumadin toxicity was corrected, he has required packed red blood cell transfusions. He is also on iron replacement intravenously. OBJECTIVE: VITAL SIGNS: Blood pressure 126/58, pulse 76, and respiratory rate 20. LUNGS: Clear. CARDIAC: Regular rhythm and rate. Normal S1, S2. A 1/6 systolic murmur at apex. ABDOMEN: Soft. EXTREMITIES: No edema. IMPRESSION: 1. Warfarin toxicity. 2. Severe anemia. 3. Coagulopathy. 4. Valvular cardiomyopathy. 5. End-stage renal disease. 6. Paroxysmal atrial fibrillation with rapid ventricular rate, now controlled. PLAN: 1. IV heparin until INR therapeutic range 2.5 to 3.5 with iron and Epogen therapy. 2. Maintain current cardiovascular regimen. 3. We will continue to follow and fine tune therapy as clinical parameters warrant. Joe Edwards M.D. DR: ASPEN JOB#: [id number] CC:
[2018-01-31 05:57] LABS: BASOPHILS % (AUTO) 0.7 % (0.0-2.0); HEMOGLOBIN 8.8 G/DL (14.2-18.0); LYMPHOCYTES % (AUTO) 22.5 % (20.0-45.0); MEAN CORPUSCULAR VOLUME 89 FL (80-99); MONOCYTES % (AUTO) 13.2 % (1.0-10.0); NEUTROPHILS % (AUTO) 60.5 % (45.0-75.0); PLATELET COUNT 202 K/UL (150-450); RED BLOOD COUNT 3.03 M/UL (4.70-6.10); RED CELL DISTRIBUTION WIDTH 14.6 % (11.6-14.8); WHITE BLOOD COUNT 12.8 K/UL (4.8-10.8)
[2018-01-31 06:20] LABS: INR 1.3 (0.9-1.1)
[2018-01-31] MEDS ORDERED: Heparin 25,000u/D5W 500ml 500 ML IV SCH (07:30)
[2018-01-31 08:00] VITALS: BP 125/57
[2018-01-31] MEDS: Imdur 30mg tab ORAL SCH (09:00)
[2018-01-31] MEDS: Lisinopril 20mg tab ORAL SCH (09:00)
[2018-01-31] MEDS: Docusate 100mg cap ORAL SCH ×2 (09:04→17:50)
[2018-01-31] MEDS: Metoprolol Succinate XL 50mg tab ORAL SCH ×2 (09:06→17:51)
[2018-01-31 12:00] VITALS: BP 106/62
--- NOTE | 2018-01-31 12:49 | Pulmonology Progress Note ---
Assessment/Plan Assessment/Plan 1. Chest pain, rule out acute coronary syndrome. 2. Renal failure, on hemodialysis with fluid overload. 3. Hyperkalemia, severe, corrected 4. Coagulopathy due to excess Coumadin, now subtherapeutic 5. Chronic atrial fibrillation. 6. 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 7. Borderline diabetes. 8. Hypertension. 9. Hyperlipidemia. 10. Chronic anemia. 11. Gastroparesis. 12. Severe anemia check stool OB x 2 more transfused, monitor Hgb IV iron ordered dialysis INR 1.3; coumadin ordered cont heparin until INR >2.5 continue EPO disc w RN Subjective Constitutional: Reports: no symptoms Respiratory: Reports: dry cough; Denies: shortness of breath Allergies: Coded Allergies: PENICILLINS (Verified Allergy, Severe, swelling of throat, 02/25/16) ACETAMINOPHEN (Verified Allergy, Intermediate, Generalized Itching , ) HYDROCODONE (Verified Allergy, Intermediate, Generalized Itching , 01/26/18 ) Objective Last 24 Hour Vital Signs Date Time Temp Pulse Resp B/P (MAP) Pulse Ox O2 Delivery O2 Flow Rate FiO2 01/31/18 12:00 97.3 68 21 106/62 (77) 97 97.3 01/31/18 12:00 64 01/31/18 09:35 97.0 01/31/18 09:06 76 125/57 01/31/18 09:05 97.0 01/31/18 09:00 Room Air 01/31/18 08:00 97.0 76 22 125/57 (79) 99 97.0 01/31/18 08:00 74 01/31/18 05:46 63 01/31/18 04:00 97.3 64 19 106/62 (77) 93 97.3 01/31/18 00:00 96.6 70 19 119/72 (88) 97 96.6 01/31/18 00:00 78 01/30/18 22:19 97.3 01/30/18 21:00 Room Air 01/30/18 20:00 97.3 80 20 122/65 (84) 98 97.3 01/30/18 20:00 76 01/30/18 18:00 76 90/53 01/30/18 16:00 76 01/30/18 16:00 97.9 71 20 90/53 (65) 97 97.9 Intake and Output 01/30/18 01/31/18 19:00 07:00 Intake Total 480 ml 457.144 ml Output Total 750 ml Balance -270 ml 457.144 ml Intake Oral 480 ml IV Total 457.144 ml Output Urine Total 750 ml # Voids 1 4 Objective prosthetic heart tones General Appearance: no acute distress Respiratory/Chest: lungs clear Cardiovascular: normal rate Laboratory Tests 01/31/18 04:00: White Blood Count 12.8H, Red Blood Count 3.03L, Hemoglobin 8.8L, Hematocrit 27.0L, Mean Corpuscular Volume 89, Mean Corpuscular Hemoglobin 29.0, Mean Corpuscular Hemoglobin Concent 32.5, Red Cell Distribution Width 14.6, Platelet Count 202, Mean Platelet Volume 7.6, Neutrophils (%) (Auto) 60.5, Lymphocytes (% ) (Auto) 22.5, Monocytes (%) (Auto) 13.2H, Eosinophils (%) (Auto) 3.0, Basophils (%) (Auto) 0.7, Prothrombin Time 13.3H, Prothromb Time International Ratio 1.3H, Activated Partial Thromboplast Time 120H Current Medications Medications (Trade) Dose Ordered Sig/John Route PRN Reason Start Time Stop Time Status Last Admin Dose Admin Atorvastatin Calcium (Lipitor) 10 mg BEDTIME ORAL 01/24/18 21:00 02/23/18 20:59 01/30/18 20:22 Chlorhexidine Gluconate (Keysha-Hex 2%) 1 applic DAILY@2000 TOPIC 01/25/18 20:00 02/24/18 19:59 01/30/18 20:22 Docusate Sodium (Colace) 100 mg TWICE A DAY ORAL 01/24/18 18:00 02/23/18 17:59 01/31/18 09:04 Epoetin Chato (Procrit (for ESRD on dialysis)) 7,000 units MON-WED-MON SUBQ 01/26/18 21:00 02/25/18 20:59 01/29/18 20:39 Gabapentin (Neurontin) 100 mg THREE TIMES A DAY ORAL 01/24/18 18:00 02/23/18 17:59 01/31/18 09:05 Heparin Sodium/ Dextrose 500 ml @ 22.75 mls/ hr ADJUST PER PROTOCOL IV 01/31/18 07:30 03/02/18 07:29 01/31/18 07:34 Iron Sucrose 100 mg/Sodium Chloride 60 ml @ 240 mls/hr BEDTIME IV 01/30/18 21:00 02/03/18 21:14 01/30/18 20:22 Isosorbide Mononitrate (Imdur) 30 mg DAILY ORAL 01/24/18 19:30 02/23/18 19:29 01/30/18 09:20 Lisinopril (Prinivil) 20 mg DAILY ORAL 01/29/18 09:00 02/28/18 08:59 01/30/18 09:20 Metoclopramide HCl (Reglan) 10 mg THREE TIMES A DAY ORAL 01/24/18 18:00 02/23/18 17:59 01/31/18 09:05 Metoprolol Succinate (Toprol XL) 50 mg BID ORAL 01/26/18 18:00 02/25/18 17:59 01/31/18 09:06 Oxycodone/ Acetaminophen (Percocet 10/325) 1 tab Q4H PRN ORAL Moderate Breakthru Pain (5-7) 01/24/18 16:15 01/31/18 16:14 01/31/18 09:05 Pantoprazole (Protonix) 40 mg DAILY ORAL 01/24/18 19:30 02/23/18 19:29 01/31/18 09:05 Sodium Chloride 1,000 ml @ 500 mls/hr Q2H PRN IVLG sbp<90 during hd 01/31/18 12:56 03/02/18 12:55 Warfarin Sodium (Coumadin) 10 mg ONCE ORAL 01/31/18 17:00 01/31/18 19:00 Perry Calvo MD Jan 31, 2018 12:49
--- NOTE | 2018-01-31 13:39 | Cardiology Report ---
APPROVED REPORT EKG Measurement Heart [id number] sinus 1st degree av block
[2018-01-31] MEDS ORDERED: Heparin 5000 units/ml inj IV SCH (14:29)
[2018-01-31] MEDS: Heparin 25,000u/D5W 500ml 500 ML IV SCH ×2 (14:39→21:19)
--- NOTE | 2018-01-31 15:53 | Nephrology Progress Note ---
Assessment/Plan Problem List: (1) Atrial fibrillation with rapid ventricular response (2) GI bleed (3) Anemia in chronic kidney disease (4) Warfarin overdosage (5) Hyperkalemia (6) ESRD (end stage renal disease) on dialysis (7) CHF (congestive heart failure), NYHA class II Plan transfused, vit K, HD for chf and K watch Hb dialysis fluid removal on 01/31-- seen on dialysis, feels better, has fem cath needs removal prior to dc, back on [facility] dialysis INR normalized anticoag for valves restarted, Hb low, epogen add venofer as low ferriten Subjective Constitutional: Reports: no symptoms HEENT: Reports: no symptoms Neurologic/Psychiatric: Reports: pre-existing deficit Objective Objective Last 24 Hour Vital Signs Date Time Temp Pulse Resp B/P (MAP) Pulse Ox O2 Delivery O2 Flow Rate FiO2 01/31/18 15:29 Room Air 01/31/18 13:02 Room Air 01/31/18 12:00 97.3 68 21 106/62 (77) 97 97.3 01/31/18 12:00 64 01/31/18 09:35 97.0 01/31/18 09:06 76 125/57 01/31/18 09:05 97.0 01/31/18 09:00 Room Air 01/31/18 08:00 97.0 76 22 125/57 (79) 99 97.0 01/31/18 08:00 74 01/31/18 05:46 63 01/31/18 04:00 97.3 64 19 106/62 (77) 93 97.3 01/31/18 00:00 96.6 70 19 119/72 (88) 97 96.6 01/31/18 00:00 78 01/30/18 22:19 97.3 01/30/18 21:00 Room Air 01/30/18 20:00 97.3 80 20 122/65 (84) 98 97.3 01/30/18 20:00 76 01/30/18 18:00 76 90/53 01/30/18 16:00 76 01/30/18 16:00 97.9 71 20 90/53 (65) 97 97.9 Intake and Output 01/30/18 01/31/18 19:00 07:00 Intake Total 480 ml 457.144 ml Output Total 750 ml Balance -270 ml 457.144 ml Intake Oral 480 ml IV Total 457.144 ml Output Urine Total 750 ml # Voids 1 4 Laboratory Tests 01/31/18 04:00: White Blood Count 12.8H, Red Blood Count 3.03L, Hemoglobin 8.8L, Hematocrit 27.0L, Mean Corpuscular Volume 89, Mean Corpuscular Hemoglobin 29.0, Mean Corpuscular Hemoglobin Concent 32.5, Red Cell Distribution Width 14.6, Platelet Count 202, Mean Platelet Volume 7.6, Neutrophils (%) (Auto) 60.5, Lymphocytes (% ) (Auto) 22.5, Monocytes (%) (Auto) 13.2H, Eosinophils (%) (Auto) 3.0, Basophils (%) (Auto) 0.7, Prothrombin Time 13.3H, Prothromb Time International Ratio 1.3H, Activated Partial Thromboplast Time 120H 01/31/18 13:30: Activated Partial Thromboplast Time 46H Height (Feet): 6 Height (Inches): 1.00 Weight (Pounds): 193 General Appearance: alert EENT: normal ENT inspection Neck: normal alignment Cardiovascular: normal rate, regular rhythm, regularly irregular Respiratory/Chest: lungs clear Abdomen: non tender Neurologic: abnormal project [employer] II-XII ISA SENIOR Jan 31, 2018 15:53
[2018-01-31 16:00] VITALS: BP 111/62
[2018-01-31] MEDS ORDERED: Warfarin Sodium 10mg ORAL SCH (17:00)
[2018-01-31 20:00] VITALS: BP 124/67
[2018-01-31] MEDS: Iron Sucrose 100 MG in NS 55 ML IV SCH (21:15)
[2018-01-31] MEDS: Dyna-Hex 2% Top Sol 2oz TOPIC SCH (21:15)
[2018-01-31] MEDS: Epogen (for ESRD on dialysis) SUBQ SCH (21:16)
[2018-02-01] VITALS: BP 129/72
[2018-02-01] MEDS: Heparin 25,000u/D5W 500ml 500 ML IV SCH ×2 (01:37→21:59)
[2018-02-01 04:00] VITALS: BP 133/67
[2018-02-01 06:41] LABS: INR 1.9 (0.9-1.1)
[2018-02-01 08:00] VITALS: BP 137/77
[2018-02-01] MEDS: Lisinopril 20mg tab ORAL SCH (09:25)
[2018-02-01] MEDS: Imdur 30mg tab ORAL SCH (09:25)
[2018-02-01] MEDS: Metoprolol Succinate XL 50mg tab ORAL SCH ×2 (09:25→17:36)
[2018-02-01] MEDS: Docusate 100mg cap ORAL SCH (09:25)
--- NOTE | 2018-02-01 09:45 | Progress Note ---
DATE: 01/31/2018 CARDIOLOGY PROGRESS NOTE SUBJECTIVE: The patient is status post packed red blood cell transfusion. He is status post hemodialysis with ultrafiltration yesterday. He remains on IV heparin with INR goal of 2.5 to 3.5 with warfarin loading. OBJECTIVE: VITAL SIGNS: Blood pressure 125/57, pulse 76, respiratory rate 22. LUNGS: Good breath sounds. No wheezing. HEART: Irregularly irregular rhythm. Normal S1, S2. ABDOMEN: Soft. EXTREMITIES: Trace edema. IMPRESSION: 1. Warfarin toxicity, now recovered. 2. Subtherapeutic INR, being re-loaded. 3. Valvular cardiomyopathy, hemodynamically compensated. 4. Paroxysmal atrial fibrillation, rate controlled. 5. End-stage renal disease, on hemodialysis. PLAN: 1. Monitor hemoglobin. 2. Continue hemodialysis with ultrafiltration. 3. Maintain current anti-failure and antihypertensive regimen. 4. Stool occult blood testing repeated. 5. Warfarin to INR goal of 2.5 to 3. 6. IV heparin until therapeutic INR achieved. 7. Replace electrolytes based on clinical parameters and/or adjust dialysate graph. Mayela Aponte JOB#: [id number] CC:
[2018-02-01] MEDS ORDERED: Influenza Vaccine Quadrivalent 0.5ml IM ONE (11:00)
[2018-02-01 12:00] VITALS: BP 122/69
[2018-02-01 16:00] VITALS: BP 113/58
--- NOTE | 2018-02-01 16:07 | Pulmonology Progress Note ---
Assessment/Plan Assessment/Plan 1. Chest pain, rule out acute coronary syndrome. 2. Renal failure, on hemodialysis with fluid overload. 3. Hyperkalemia, severe, corrected 4. Coagulopathy due to excess Coumadin, now subtherapeutic 5. Chronic atrial fibrillation. 6. 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 7. Borderline diabetes. 8. Hypertension. 9. Hyperlipidemia. 10. Chronic anemia. 11. Gastroparesis. 12. Severe anemia feeling much better check stool OB x 2 more (no BM) laxatives monitor Hgb IV iron ordered dialysis INR 1.9; coumadin 6 mg ordered cont heparin until INR >2.5 continue EPO disc w RN hope for ut tomorrow Subjective Constitutional: Reports: no symptoms Respiratory: Denies: shortness of breath Allergies: Coded Allergies: PENICILLINS (Verified Allergy, Severe, swelling of throat, 02/25/16) ACETAMINOPHEN (Verified Allergy, Intermediate, Generalized Itching , ) HYDROCODONE (Verified Allergy, Intermediate, Generalized Itching , 01/26/18 ) Objective Last 24 Hour Vital Signs Date Time Temp Pulse Resp B/P (MAP) Pulse Ox O2 Delivery O2 Flow Rate FiO2 02/01/18 13:40 97.6 02/01/18 13:10 97.6 02/01/18 12:00 97.6 75 20 122/69 (86) 96 97.6 02/01/18 09:25 97.5 02/01/18 09:25 137/77 02/01/18 09:25 71 137/77 02/01/18 09:25 137/77 02/01/18 09:00 Room Air 02/01/18 08:00 97.5 71 21 137/77 (97) 96 97.5 02/01/18 08:00 70 02/01/18 04:00 77 02/01/18 04:00 96.5 79 19 133/67 (89) 96 96.5 02/01/18 00:00 87 02/01/18 00:00 97.5 86 20 129/72 (91) 97 97.5 01/31/18 21:00 Room Air 01/31/18 20:00 75 01/31/18 20:00 98.1 78 19 124/67 (86) 96 98.1 Intake and Output 01/31/18 02/01/18 19:00 07:00 Intake Total 529.75 ml 302.00 ml Balance 529.75 ml 302.00 ml Intake Oral 500 ml IV Total 29.75 ml 302.00 ml # Voids 1 2 Objective prosthetic heart tones General Appearance: no acute distress Cardiovascular: normal rate Laboratory Tests 01/31/18 22:30: Activated Partial Thromboplast Time > 150*H 02/01/18 05:26: Prothrombin Time 19.4H, Prothromb Time International Ratio 1.9H 02/01/18 07:55: Activated Partial Thromboplast Time 84H Current Medications Medications (Trade) Dose Ordered Sig/John Route PRN Reason Start Time Stop Time Status Last Admin Dose Admin Atorvastatin Calcium (Lipitor) 10 mg BEDTIME ORAL 01/24/18 21:00 02/23/18 20:59 01/31/18 21:15 Chlorhexidine Gluconate (Keysha-Hex 2%) 1 applic DAILY@2000 TOPIC 01/25/18 20:00 02/24/18 19:59 01/31/18 21:15 Docusate Sodium (Colace) 250 mg EVERY 8 HOURS ORAL 02/01/18 22:00 03/03/18 21:59 UNV Epoetin Chato (Procrit (for ESRD on dialysis)) 7,000 units MON-MON-MON SUBQ 01/26/18 21:00 02/25/18 20:59 01/31/18 21:16 Gabapentin (Neurontin) 100 mg THREE TIMES A DAY ORAL 01/24/18 18:00 02/23/18 17:59 02/01/18 13:09 Heparin Sodium/ Dextrose 500 ml @ 22.75 mls/ hr ADJUST PER PROTOCOL IV 02/01/18 00:45 03/02/18 14:28 02/01/18 01:37 Iron Sucrose 100 mg/Sodium Chloride 60 ml @ 240 mls/hr BEDTIME IV 01/30/18 21:00 02/03/18 21:14 01/31/18 21:15 Isosorbide Mononitrate (Imdur) 30 mg DAILY ORAL 01/24/18 19:30 02/23/18 19:29 02/01/18 09:25 Lisinopril (Prinivil) 20 mg DAILY ORAL 01/29/18 09:00 02/28/18 08:59 02/01/18 09:25 Metoclopramide HCl (Reglan) 10 mg THREE TIMES A DAY ORAL 01/24/18 18:00 02/23/18 17:59 02/01/18 13:10 Metoprolol Succinate (Toprol XL) 50 mg BID ORAL 01/26/18 18:00 02/25/18 17:59 02/01/18 09:25 Oxycodone/ Acetaminophen (Percocet 10/325) 1 tab Q4H PRN ORAL Severe Pain (Pain Scale 7-10) 01/31/18 18:15 02/07/18 18:14 02/01/18 13:10 Pantoprazole (Protonix) 40 mg DAILY ORAL 01/24/18 19:30 02/23/18 19:29 02/01/18 09:25 Polyethylene Glycol (Miralax) 17 gm ONCE ONCE ORAL 02/01/18 18:00 02/01/18 18:01 UNV Sodium Chloride 1,000 ml @ 500 mls/hr Q2H PRN IVLG sbp<90 during hd 01/31/18 12:56 03/02/18 12:55 Warfarin Sodium (Coumadin) 6 mg ONCE ONCE ORAL 02/01/18 16:00 02/01/18 16:01 UNV Perry Calvo MD Feb 01, 2018 16:07
[2018-02-01] MEDS ORDERED: Warfarin Sodium 3mg ORAL ONE (17:00)
--- NOTE | 2018-02-01 17:07 | Nephrology Progress Note ---
Assessment/Plan Problem List: (1) Atrial fibrillation with rapid ventricular response (2) GI bleed (3) Anemia in chronic kidney disease (4) Warfarin overdosage (5) Hyperkalemia (6) ESRD (end stage renal disease) on dialysis (7) CHF (congestive heart failure), NYHA class II Plan transfused, vit K, HD for chf and K watch Hb dialysis fluid removal on 01/31-- seen on dialysis, feels better, has fem cath needs removal prior to dc, back on [facility] dialysis INR normalized anticoag for valves restarted, Hb low, epogen add venofer as low ferriten, inr 1.9 possible dc after HD 02/02 Subjective Constitutional: Reports: no symptoms HEENT: Reports: no symptoms Genitourinary: Reports: no symptoms Neurologic/Psychiatric: Reports: pre-existing deficit Objective Objective Last 24 Hour Vital Signs Date Time Temp Pulse Resp B/P (MAP) Pulse Ox O2 Delivery O2 Flow Rate FiO2 02/01/18 16:00 97.3 72 22 113/58 (76) 97 97.3 02/01/18 13:40 97.6 02/01/18 13:10 97.6 02/01/18 12:00 97.6 75 20 122/69 (86) 96 97.6 02/01/18 12:00 74 02/01/18 09:25 97.5 02/01/18 09:25 137/77 02/01/18 09:25 71 137/77 02/01/18 09:25 137/77 02/01/18 09:00 Room Air 02/01/18 08:00 97.5 71 21 137/77 (97) 96 97.5 02/01/18 08:00 70 02/01/18 04:00 77 02/01/18 04:00 96.5 79 19 133/67 (89) 96 96.5 02/01/18 00:00 87 02/01/18 00:00 97.5 86 20 129/72 (91) 97 97.5 01/31/18 21:00 Room Air 01/31/18 20:00 75 01/31/18 20:00 98.1 78 19 124/67 (86) 96 98.1 Intake and Output 01/31/18 02/01/18 19:00 07:00 Intake Total 529.75 ml 302.00 ml Balance 529.75 ml 302.00 ml Intake Oral 500 ml IV Total 29.75 ml 302.00 ml # Voids 1 2 Laboratory Tests 01/31/18 22:30: Activated Partial Thromboplast Time > 150*H 02/01/18 05:26: Prothrombin Time 19.4H, Prothromb Time International Ratio 1.9H 02/01/18 07:55: Activated Partial Thromboplast Time 84H Height (Feet): 6 Height (Inches): 1.00 Weight (Pounds): 192 General Appearance: no apparent distress EENT: normal ENT inspection Neck: supple Cardiovascular: regularly irregular Respiratory/Chest: lungs clear Abdomen: non tender, soft Extremities: moderate edema Neurologic: other - r VII weak ISA SENIOR Feb 01, 2018 17:07
[2018-02-01] MEDS ORDERED: Miralax 17gm pkt ORAL SCH (18:00)
[2018-02-01 20:00] VITALS: BP 107/64
[2018-02-01] MEDS: Dyna-Hex 2% Top Sol 2oz TOPIC SCH (20:06)
[2018-02-01] MEDS: Iron Sucrose 100 MG in NS 55 ML IV SCH (21:15)
[2018-02-01] MEDS: Docusate 250mg cap ORAL SCH (21:16)
[2018-02-02] VITALS: BP 121/79
[2018-02-02 04:00] VITALS: BP 149/80
[2018-02-02 04:52] LABS: BASOPHILS % (AUTO) 1.2 % (0.0-2.0); EOSINOPHILS % (AUTO) 3.1 % (0.0-3.0); HEMOGLOBIN 9.7 G/DL (14.2-18.0); LYMPHOCYTES % (AUTO) 19.1 % (20.0-45.0); MEAN CORPUSCULAR VOLUME 89 FL (80-99); MONOCYTES % (AUTO) 15.7 % (1.0-10.0); PLATELET COUNT 279 K/UL (150-450); RED BLOOD COUNT 3.38 M/UL (4.70-6.10); RED CELL DISTRIBUTION WIDTH 14.9 % (11.6-14.8); WHITE BLOOD COUNT 11.9 K/UL (4.8-10.8)
[2018-02-02] MEDS: Docusate 250mg cap ORAL SCH ×2 (05:13→13:06)
--- NOTE | 2018-02-02 05:15 | Progress Note ---
DATE: 02/01/2018 CARDIOLOGY PROGRESS NOTE SUBJECTIVE: The patient has no new complaints. INR remains subtherapeutic. He continues to receive IV heparin. He is scheduled for hemodialysis with ultrafiltration tomorrow. He still has a right femoral catheter. OBJECTIVE: VITAL SIGNS: Blood pressure 122/69, pulse 75, respiratory rate 20. LUNGS: Clear. CARDIAC: Irregularly irregular rhythm. Normal S1, S2. A 1/6 systolic murmur at apex. ABDOMEN: Soft. EXTREMITIES: With trace edema. IMPRESSION: 1. Severe anemia and coagulopathy corrected with transfusions and vitamin K. 2. Valvular cardiomyopathy with valve replacement. 3. No signs of acute congestive heart failure. 4. Compensated with hemodialysis and ultrafiltration. 5. Atrial fibrillation, rate controlled at this time. PLAN: 1. IV heparin until INR is close to 2.5. 2. Transfuse for hemoglobin less than 8 g. 3. Maintain current cardiovascular regimen for heart failure. 4. Continue hemodialysis with ultrafiltration for volume management. 5. New catheter prior to discharge with removal of femoral catheter to follow. Joe Edwards M.D. DR: KEILA JOB#: [id number] CC:
[2018-02-02 07:27] LABS: INR 2.6 (0.9-1.1)
--- NOTE | 2018-02-02 07:50 | Nephrology Progress Note ---
Assessment/Plan Problem List: (1) Atrial fibrillation with rapid ventricular response (2) GI bleed (3) Anemia in chronic kidney disease (4) Warfarin overdosage (5) Hyperkalemia (6) ESRD (end stage renal disease) on dialysis (7) CHF (congestive heart failure), NYHA class II Plan transfused, vit K, HD for chf and K watch Hb dialysis fluid removal on 01/31-- seen on dialysis, feels better, has fem cath needs removal prior to dc, back on [facility]wf dialysis INR normalized anticoag for valves restarted, Hb low, epogen add venofer as low ferriten, inr 2.6 possible dc after HD 02/02 Subjective Constitutional: Reports: no symptoms HEENT: Reports: no symptoms Neurologic/Psychiatric: Reports: pre-existing deficit Objective Objective Last 24 Hour Vital Signs Date Time Temp Pulse Resp B/P (MAP) Pulse Ox O2 Delivery O2 Flow Rate FiO2 02/02/18 04:00 97.5 76 20 149/80 (103) 99 97.5 02/02/18 03:38 73 02/02/18 00:01 72 02/02/18 00:00 97.7 75 20 121/79 (93) 100 97.7 02/01/18 21:00 Room Air 02/01/18 20:39 71 02/01/18 20:00 97.5 69 20 107/64 (78) 99 97.5 02/01/18 17:36 74 113/58 02/01/18 16:00 97.3 72 22 113/58 (76) 97 97.3 02/01/18 16:00 74 02/01/18 13:40 97.6 02/01/18 13:10 97.6 02/01/18 12:00 97.6 75 20 122/69 (86) 96 97.6 02/01/18 12:00 74 02/01/18 09:25 97.5 02/01/18 09:25 137/77 02/01/18 09:25 71 137/77 02/01/18 09:25 137/77 02/01/18 09:00 Room Air 02/01/18 08:00 97.5 71 21 137/77 (97) 96 97.5 02/01/18 08:00 70 Intake and Output 02/01/18 02/02/18 19:00 07:00 Intake Total 600 ml 400 ml Balance 600 ml 400 ml Intake Oral 600 ml 400 ml # Voids 2 Laboratory Tests 02/01/18 07:55: Activated Partial Thromboplast Time 84H 02/02/18 04:35: Activated Partial Thromboplast Time 82H, White Blood Count 11.9H, Red Blood Count 3.38L, Hemoglobin 9.7L, Hematocrit 30.0L, Mean Corpuscular Volume 89, Mean Corpuscular Hemoglobin 28.6, Mean Corpuscular Hemoglobin Concent 32.1, Red Cell Distribution Width 14.9H, Platelet Count 279, Mean Platelet Volume 8.2, Neutrophils (%) (Auto) 61.0, Lymphocytes (%) (Auto) 19.1L, Monocytes (%) (Auto) 15.7H, Eosinophils (%) (Auto) 3.1H, Basophils (%) (Auto) 1.2, Prothrombin Time 25.9H, Prothromb Time International Ratio 2.6H Height (Feet): 6 Height (Inches): 1.00 Weight (Pounds): 192 General Appearance: no apparent distress, alert EENT: normal ENT inspection Neck: normal alignment Cardiovascular: regularly irregular Respiratory/Chest: lungs clear Abdomen: non tender Extremities: trace edema Neurologic: other - R VII weak ISA SENIOR Feb 02, 2018 07:50
[2018-02-02 08:00] VITALS: BP 135/80
[2018-02-02] MEDS: Imdur 30mg tab ORAL SCH (08:47)
[2018-02-02] MEDS: Metoprolol Succinate XL 50mg tab ORAL SCH ×2 (08:48→17:29)
[2018-02-02] MEDS: Lisinopril 20mg tab ORAL SCH (08:48)
--- NOTE | 2018-02-02 10:27 | Pulmonology Progress Note ---
Assessment/Plan Assessment/Plan 1. Chest pain, rule out acute coronary syndrome. 2. Renal failure, on hemodialysis with fluid overload. 3. Hyperkalemia, severe, corrected 4. Coagulopathy due to excess Coumadin, now subtherapeutic 5. Chronic atrial fibrillation. 6. 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 7. Borderline diabetes. 8. Hypertension. 9. Hyperlipidemia. 10. Chronic anemia. 11. Gastroparesis. 12. Severe anemia feeling much better laxatives monitor Hgb; stable dialysis today INR 2.6; On coumadin Will dc heparin disc w RN hope for dc today after HD DC femoral line Subjective Interval Events: Feeling well Constitutional: Reports: no symptoms HEENT: Repors: no symptoms Respiratory: Reports: no symptoms Cardiovascular: Reports: no symptoms Gastrointestinal/Abdominal: Reports: no symptoms Genitourinary: Reports: no symptoms Allergies: Coded Allergies: PENICILLINS (Verified Allergy, Severe, swelling of throat, 02/25/16) ACETAMINOPHEN (Verified Allergy, Intermediate, Generalized Itching , ) HYDROCODONE (Verified Allergy, Intermediate, Generalized Itching , 01/26/18 ) Objective Last 24 Hour Vital Signs Date Time Temp Pulse Resp B/P (MAP) Pulse Ox O2 Delivery O2 Flow Rate FiO2 02/02/18 09:00 Room Air 02/02/18 08:48 135/80 02/02/18 08:48 81 135/80 02/02/18 08:47 135/80 02/02/18 08:00 97.7 81 20 135/80 (98) 96 97.7 02/02/18 04:00 97.5 76 20 149/80 (103) 99 97.5 02/02/18 03:38 73 02/02/18 00:01 72 02/02/18 00:00 97.7 75 20 121/79 (93) 100 97.7 02/01/18 21:00 Room Air 02/01/18 20:39 71 02/01/18 20:00 97.5 69 20 107/64 (78) 99 97.5 02/01/18 17:36 74 113/58 02/01/18 16:00 97.3 72 22 113/58 (76) 97 97.3 02/01/18 16:00 74 02/01/18 13:40 97.6 02/01/18 13:10 97.6 02/01/18 12:00 97.6 75 20 122/69 (86) 96 97.6 02/01/18 12:00 74 Intake and Output 02/01/18 02/02/18 19:00 07:00 Intake Total 600 ml 400 ml Balance 600 ml 400 ml Intake Oral 600 ml 400 ml # Voids 2 General Appearance: no acute distress HEENT: normocephalic Respiratory/Chest: chest wall non-tender, lungs clear Cardiovascular: normal peripheral pulses, normal rate Abdomen: normal bowel sounds Extremities: no cyanosis Laboratory Tests 02/02/18 04:35: White Blood Count 11.9H, Red Blood Count 3.38L, Hemoglobin 9.7L, Hematocrit 30.0L, Mean Corpuscular Volume 89, Mean Corpuscular Hemoglobin 28.6, Mean Corpuscular Hemoglobin Concent 32.1, Red Cell Distribution Width 14.9H, Platelet Count 279, Mean Platelet Volume 8.2, Neutrophils (%) (Auto) 61.0, Lymphocytes (%) (Auto) 19.1L, Monocytes (%) (Auto) 15.7H, Eosinophils (%) (Auto ) 3.1H, Basophils (%) (Auto) 1.2, Prothrombin Time 25.9H, Prothromb Time International Ratio 2.6H, Activated Partial Thromboplast Time 82H Current Medications Medications (Trade) Dose Ordered Sig/John Route PRN Reason Start Time Stop Time Status Last Admin Dose Admin Atorvastatin Calcium (Lipitor) 10 mg BEDTIME ORAL 01/24/18 21:00 02/23/18 20:59 02/01/18 21:15 Chlorhexidine Gluconate (Keysha-Hex 2%) 1 applic DAILY@1999 TOPIC 01/25/18 20:00 02/24/18 19:59 02/01/18 20:06 Docusate Sodium (Colace) 250 mg EVERY 8 HOURS ORAL 02/01/18 22:00 03/03/18 21:59 02/02/18 05:13 Epoetin Chato (Procrit (for ESRD on dialysis)) 7,000 units MON-WED-MON SUBQ 01/26/18 21:00 02/25/18 20:59 01/31/18 21:16 Gabapentin (Neurontin) 100 mg THREE TIMES A DAY ORAL 01/24/18 18:00 02/23/18 17:59 02/02/18 08:47 Heparin Sodium/ Dextrose 500 ml @ 22.75 mls/ hr ADJUST PER PROTOCOL IV 02/01/18 00:45 03/02/18 14:28 02/01/18 21:59 Iron Sucrose 100 mg/Sodium Chloride 60 ml @ 240 mls/hr BEDTIME IV 01/30/18 21:00 02/03/18 21:14 02/01/18 21:15 Isosorbide Mononitrate (Imdur) 30 mg DAILY ORAL 01/24/18 19:30 02/23/18 19:29 02/02/18 08:47 Lisinopril (Prinivil) 20 mg DAILY ORAL 01/29/18 09:00 02/28/18 08:59 02/02/18 08:48 Metoclopramide HCl (Reglan) 10 mg THREE TIMES A DAY ORAL 01/24/18 18:00 02/23/18 17:59 02/02/18 08:47 Metoprolol Succinate (Toprol XL) 50 mg BID ORAL 01/26/18 18:00 02/25/18 17:59 02/02/18 08:48 Oxycodone/ Acetaminophen (Percocet 10/325) 1 tab Q4H PRN ORAL Severe Pain (Pain Scale 7-10) 01/31/18 18:15 02/07/18 18:14 02/02/18 09:21 Pantoprazole (Protonix) 40 mg DAILY ORAL 01/24/18 19:30 02/23/18 19:29 02/02/18 08:47 Sodium Chloride 1,000 ml @ 500 mls/hr Q2H PRN IVLG sbp<90 during hd 01/31/18 12:56 03/02/18 12:55 Sodium Chloride 1,000 ml @ 500 mls/hr Q2H PRN IVLG sbp<90 during hd 02/02/18 17:07 02/02/18 23:59 Nam Hernandez MD Feb 02, 2018 10:27
[2018-02-02] MEDS ORDERED: ISOSORBIDE MONO30 M1 ORAL (10:29)
[2018-02-02 12:00] VITALS: BP 121/65
--- NOTE | 2018-02-02 15:45 | Cardiology Report ---
APPROVED REPORT EKG Measurement Heart [id number] Atrial fibrillation Occ PVC Prolonged QT Abnormal ECG
[2018-02-02 16:00] VITALS: BP 114/66
[2018-02-02 17:29] VITALS: BP 114/66
[2018-02-02] MEDS ORDERED: NS 275ml ONE (19:19)
[2018-02-02] MEDS ORDERED: Tubing Blood Filter IV ONE (19:19)
--- NOTE | 2018-02-03 02:00 | Progress Note ---
DATE: 02/02/2018 CARDIOLOGY PROGRESS NOTE SUBJECTIVE: The patient without chest pain or shortness of breath. INR is ____ therapeutic at 2.6. OBJECTIVE: VITAL SIGNS: Blood pressure 135/80, pulse 81, and respiratory rate 20. LUNGS: Clear. CARDIAC: Regular. Normal S1 and S2. A 1/6 systolic murmur at apex. ABDOMEN: Soft. No edema. Femoral line has been just removed. IMPRESSION: Improved therapeutic INR, corrected coagulopathy ___ stable blood count, no signs of active bleeding. Cardiovascular parameters are compensated. PLAN: The patient is stable for outpatient followup. Discharge cardiovascular medication regimen reviewed and discussed with primary care physician. Joe Edwards M.D. DR: PRINCESS JOB#: [id number] CC:
--- NOTE | 2018-02-06 10:41 | Discharge Summary ---
Discharge Summary Discharge Summary _ DATE OF ADMISSION: 01/24/2018 DATE OF DISCHARGE: 02/02/2018 REASON FOR ADMISSION: 63 years old male with past medical history of end-stage renal disease, on hemodialysis, hypertension, hyperlipidemia, borderline diabetes, chronic atrial fibrillation, chronic anemia, aortic and mitral valve replacement, gastroparesis , presented to the hospital due to shortness of breath and chest pain. Patient reported being short of breath for few days; and chest pain was off and on for about 2-3 days. Patient was recently discharged from a different hospital for similar problems. Patient missed hemodialysis for 4 days , after he was discharged. Upon evaluation vital signs reveal elevated blood pressure. Troponin was negative. WBC 12.9. Hemoglobin 6.9, hematocrit 22.9. Potassium 6.6. BUN 115, creatinine 8.6. Pro BNP 71898. AST 79. INR 7.9. Patient admitted with diagnoses of chest pain, rule out acute coronary syndrome; renal failure, on hemodialysis; fluid overload, acute on chronic congestive heart failure; severe hyperkalemia; acute coagulopathy secondary to excessive Coumadin; chronic atrial fibrillation ; status post aortic and mitral valve replacement, acute and chronic anemia of kidney disease, borderline diabetes, hypertension, hyperlipidemia, gastroparesis. CONSULTANTS: physiotherapy assistant police stenographer Dr. Sanchez HOSPITAL COURSE: Patient admitted to monitored floor. Second troponin with minimal elevation, last troponin negative. No acute ischemic changes on ECG. According to physiotherapy assistant, who closely followed, patient had acute myocardial ischemia and possible NSTEMI , precipitated by severe anemia. Echocardiogram revealed preserved ejection fraction of 55% and right ventricular systolic pressure of 24. Acute congestive heart failure was managed with hemodialysis with ultrafiltration, as per police stenographer, and was compensated prior to discharge. Acute coagulopathy was reversed with vitamin K . When IN stabilized, patient started on heparin drip with bridge to Coumadin to reach therapeutic window ; prior to discharge INR 2.7. Heart rate was managed with Cardizem and beta lisette. Heart rate stabilized, Blood pressure was managed with multiply regimen of antihypertensives, including SUSAN inhibitor, beta lisette and Cardizem. Long-acting nitrate was continued along with statin. Volumes, renal parameters and electrolytes were closely monitored, electrolytes corrected as needed. Supplemental oxygen and pulmonary toilet provided as needed. Pulse oximetry was stable on room air prior to discharge. Non- tunneled hemodialysis catheter was placed prior to discharge via right femoral line by interventional radiology Hemoglobin and hematocrit were closely monitored with goal to keep hemoglobin above 8. Laboratory workup revealed low ferritin. Patient was on Epogen and Venofer. Patient required total of 8 units of packed red blood cells transfusion . Stool for occult blood was negative. Prior to discharge hemoglobin 9.7, hematocrit 30. LFT were closely monitored. Hepatitis panel revealed evidence of hepatitis C infection. With hemodialysis, patient clinically improved. No shortness of breath, no chest pain. Stable blood pressure, stable hemoglobin and hemocrine. INR therapeutic. Patient was stable for discharge. . FINAL DIAGNOSES: Acute on chronic diastolic congestive heart failure Acute myocardial ischemia , possible NSTEMI precipitated by severe anemia Acute coagulopathy , Warfarin associated - corrected Acute severe anemia requiring blood transfusion on chronic anemia of kidney disease Atrial fibrillation with rapid ventricular response- resolved Chronic atrial fibrillation Valvular cardiomyopathy with aortic and mitral valve replacement End-stage renal disease, on hemodialysis Hyperkalemia Congestive heart failure NYHA class II DISCHARGE MEDICATIONS: See Medication Reconciliation list. DISCHARGE INSTRUCTIONS: Patient was discharged home . Follow up with primary care provider in one week. Follow-up with outpatient hemodialysis. Reinforced compliance with hemodialysis schedule and medication regimen. Patient was counseled on return to ED precautions. I have been assigned to dictate discharge summary for this account. I was not involved in the patient's management. Beatrice Fink NP Feb 06, 2018 10:41
== END 2018-02-02 19:20 | disposition home or self-care (01) | DRG 280 ==
LOC: EDBD 09:08 → EMR 09:35 → 2E 11:23 → EDBEDREQ 13:14
PROC: 30233N1 Transfusion of Nonautologous Red Blood Cells into Peripheral Vein, Percutaneous Approach (ICD-10-PCS; principal; 2018-01-24)
PROC: 5A1D70Z Performance of Urinary Filtration, Intermittent, Less than 6 Hours Per Day (ICD-10-PCS; principal; 2018-01-24)
PROC: 06HM33Z Insertion of Infusion Device into Right Femoral Vein, Percutaneous Approach (ICD-10-PCS; 2018-01-26)
DX: I13.2 Hypertensive heart and chronic kidney disease with heart failure and with stage 5 chronic kidney disease, or end stage renal disease (principal); I21.4 Non-ST elevation (NSTEMI) myocardial infarction; N18.6 End stage renal disease; I50.43 Acute on chronic combined systolic (congestive) and diastolic (congestive) heart failure; D68.9 Coagulation defect, unspecified; K92.2 Gastrointestinal hemorrhage, unspecified; E11.22 Type 2 diabetes mellitus with diabetic chronic kidney disease; Z99.2 Dependence on renal dialysis; E87.5 Hyperkalemia; Z79.01 Long term (current) use of anticoagulants; Z95.2 Presence of prosthetic heart valve; E78.5 Hyperlipidemia, unspecified; E11.43 Type 2 diabetes mellitus with diabetic autonomic (poly)neuropathy; K31.84 Gastroparesis; I48.2 Chronic atrial fibrillation; D63.1 Anemia in chronic kidney disease; J44.9 Chronic obstructive pulmonary disease, unspecified
CPT/HCPCS: 36415; 36569; 71045; 80048; 80053; 82270; 82728; 82962; 83735; 83880; 84484; 85007; 85025; 85610; 85730; 86803; 86850; 86900; 86901; 86920; 87081; 87340; 87517; 93005; 93306; 96374; 96375; 99285

== ENCOUNTER 2019-06-26 18:33 | Inpatient (IN) | payer MEDICARE, OTHER ==
[~2019-06-26] VITALS: Ht 185.4 cm; Wt 76.0 kg
[~2019-06-26 18:33] MED LIST changes: +ATORVASTATIN CA20 MG ORAL; +CARTIA XT120 MG ORAL; +DOCUSATE SODIU100 MG ORAL; +GABAPENTIN100 MG ORAL; +ISOSORBIDE MONO30 M1 ORAL; +PERCOCET 10-321 EACH ORAL; +WARFARIN SODIUM5 MG ORAL
[2019-06-26 20:00] VITALS: BP 154/92
[2019-06-26 21:44] VITALS: BP 154/92
[2019-06-26] MEDS ORDERED: COZAAR50 MG ORAL (23:49)
[2019-06-26] MEDS ORDERED: ZOFRAN4 MG ORAL (23:49)
[2019-06-26] MEDS ORDERED: ASPIRIN81 MG ORAL (23:49)
[2019-06-27] VITALS: BP 143/77
[2019-06-27] MEDS ORDERED: Nitroglycerin Subl 0.4mg tab SL PRN
[2019-06-27 04:00] VITALS: BP 146/78
[2019-06-27] MEDS ORDERED: Losartan 50mg tab ORAL PRN (05:15)
[2019-06-27] MEDS: NovoLOG Insulin Flexpen SUBQ SCH ×4 (06:30→21:00)
[2019-06-27 06:34] LABS: INR 2.2 (0.9-1.1)
[2019-06-27 07:09] LABS: BASOPHILS % (AUTO) 1.7 % (0.0-2.0); EOSINOPHILS % (AUTO) 1.9 % (0.0-3.0); HEMATOCRIT 38.3 % (42.0-52.0); HEMOGLOBIN 12.8 G/DL (14.2-18.0); LYMPHOCYTES % (AUTO) 15.5 % (20.0-45.0); MEAN CORPUSCULAR VOLUME 91 FL (80-99); MONOCYTES % (AUTO) 12.2 % (1.0-10.0); NEUTROPHILS % (AUTO) 68.7 % (45.0-75.0); PLATELET COUNT 264 K/UL (150-450); RED BLOOD COUNT 4.19 M/UL (4.70-6.10); RED CELL DISTRIBUTION WIDTH 14.4 % (11.6-14.8); WHITE BLOOD COUNT 10.4 K/UL (4.8-10.8)
[2019-06-27 07:12] LABS: ALANINE AMINOTRANSFERASE 23 U/L (12-78); ALBUMIN 3.6 G/DL (3.4-5.0); ALBUMIN/GLOBULIN RATIO 0.9 (1.0-2.7); ALKALINE PHOSPHATASE 89 U/L (46-116); ANION GAP 15 mmol/L (5-15); ASPARTATE AMINO TRANSFERASE 27 U/L (15-37); BILIRUBIN,TOTAL 0.5 MG/DL (0.2-1.0); BLOOD UREA NITROGEN 54 mg/dL (7-18); CALCIUM 9.4 MG/DL (8.5-10.1); CARBON DIOXIDE 21 MMOL/L (21-32); CHLORIDE 101 MMOL/L (98-107); CREATININE 6.3 MG/DL (0.55-1.30); PHOSPHORUS 5.3 MG/DL (2.5-4.9); POTASSIUM 4.6 MMOL/L (3.5-5.1); SODIUM 137 MMOL/L (136-145)
[2019-06-27 08:00] VITALS: BP 142/81
--- NOTE | 2019-06-27 10:13 | Cardiac Electrophysiology PN ---
Subjective Subjective S/P MVR and TV repair at [facility] [place] 08/2017 Atrial flutter. ESRD HTN [id number] Objective Last 24 Hour Vital Signs Date Time Temp Pulse Resp B/P (MAP) Pulse Ox O2 Delivery O2 Flow Rate FiO2 06/27/19 08:00 96.8 69 18 142/81 (101) 97 06/27/19 04:00 97.7 66 18 146/78 (100) 98 06/27/19 04:00 73 06/27/19 01:09 108 145/80 06/27/19 00:00 97.7 99 19 143/77 (99) 97 06/27/19 00:00 108 06/26/19 21:44 96.6 51 19 154/92 (112) 97 06/26/19 21:00 Room Air 06/26/19 20:54 Room Air 06/26/19 20:00 89 06/26/19 20:00 96.6 19 154/92 (112) 97 Intake and Output 06/26/19 06/27/19 19:00 07:00 Output Total 2 ml Balance -2 ml Output Urine Total 2 ml Stool Total 0 ml # Bowel Movements 2 Laboratory Tests Test 06/27/19 05:51 White Blood Count 10.4 K/UL (4.8-10.8) Red Blood Count 4.19 M/UL (4.70-6.10) L Hemoglobin 12.8 G/DL (14.2-18.0) L Hematocrit 38.3 % (42.0-52.0) L Mean Corpuscular Volume 91 FL (80-99) Mean Corpuscular Hemoglobin 30.5 PG (27.0-31.0) Mean Corpuscular Hemoglobin Concent 33.4 G/DL (32.0-36.0) Red Cell Distribution Width 14.4 % (11.6-14.8) Platelet Count 264 K/UL (150-450) Mean Platelet Volume 8.8 FL (6.5-10.1) Neutrophils (%) (Auto) 68.7 % (45.0-75.0) Lymphocytes (%) (Auto) 15.5 % (20.0-45.0) L Monocytes (%) (Auto) 12.2 % (1.0-10.0) H Eosinophils (%) (Auto) 1.9 % (0.0-3.0) Basophils (%) (Auto) 1.7 % (0.0-2.0) Prothrombin Time 22.2 SEC (9.30-11.50) H Prothromb Time International Ratio 2.2 (0.9-1.1) H Sodium Level 137 MMOL/L (136-145) Potassium Level 4.6 MMOL/L (3.5-5.1) Chloride Level 101 MMOL/L (98-107) Carbon Dioxide Level 21 MMOL/L (21-32) Anion Gap 15 mmol/L (5-15) Blood Urea Nitrogen 54 mg/dL (7-18) H Creatinine 6.3 MG/DL (0.55-1.30) H Estimat Glomerular Filtration Rate 10.8 mL/min (>60) Glucose Level 95 MG/DL (74-106) Calcium Level 9.4 MG/DL (8.5-10.1) Phosphorus Level 5.3 MG/DL (2.5-4.9) H Magnesium Level 2.3 MG/DL (1.8-2.4) Total Bilirubin 0.5 MG/DL (0.2-1.0) Aspartate Amino Transf (AST/SGOT) 27 U/L (15-37) Alanine Aminotransferase (ALT/SGPT) 23 U/L (12-78) Alkaline Phosphatase 89 U/L (46-116) Troponin I 0.008 ng/mL (0.000-0.056) Total Protein 7.6 G/DL (6.4-8.2) Albumin 3.6 G/DL (3.4-5.0) Globulin 4.0 g/dL Albumin/Globulin Ratio 0.9 (1.0-2.7) L Thyroid Stimulating Hormone (TSH) 0.104 uiU/mL (0.358-3.740) Beto Goldman MD Jun 27, 2019 10:13
[2019-06-27] MEDS: Aspirin Baby 81mg ORAL SCH (10:25)
[2019-06-27] MEDS: Losartan 50mg tab ORAL SCH (10:25)
--- NOTE | 2019-06-27 11:07 | Consultation ---
Consult Note Consult Note 06/27 Patient interviewed discussed with RN 8 years ESRD on HD Last HD 2 days ago patient is a 64-year-old male, who presents with a chief complaint of chest pain. The patient has a history of mechanical mitral valve replacement in 2018, patient also has a history of end-stage renal disease. The patient is generally on dialysis every Monday, Monday, Monday. The patient missed his Monday dialysis. The patient then had dialysis on Monday, June 25, 2019. The patient states he began to experience chest pain on Monday evening June 25, 2019 after dialysis. The patient then began to experience nausea and vomiting. The patient states he vomited 6 or 7 times. The patient initially presented to [facility] emergency room. The patient was given morphine with relief of his chest pain. The patient was transferred to [facility] for insurance purposes. The patient was admitted with chest pain to rule out acute coronary syndrome. examined Assessment/Plan End-stage renal disease, on hemodialysis every Monday, Monday, and Monday. Diabetes type 2. Hypertension. Hepatitis C. Mechanical mitral valve. Dialysis ordered Per cardiology Renal diet Keep BP in check Hang Valdez MD Jun 27, 2019 11:07
[2019-06-27 12:00] VITALS: BP 137/76
--- NOTE | 2019-06-27 13:10 | Consultation ---
History of Present Illness General Date patient seen: Jun 27, 2019 Present Illness HPI 64 yea old male with hx of DM, HTN, ESRF, MRV 2 years ago, on HD (MWF) current smoker, was taken to [facility] with CC of acute onset of chest pain and dyspnea. His troponin was apparently elevated. He is transferred [place] [facility] [place]. Allergies: Coded Allergies: PENICILLINS (Verified Allergy, Severe, swelling of throat, 02/25/16) ACETAMINOPHEN (Verified Allergy, Intermediate, Generalized Itching , ) HYDROCODONE (Verified Allergy, Intermediate, Generalized Itching , 01/26/18 ) Medication History Scheduled Atorvastatin Calcium* (Atorvastatin Calcium*), 10 MG ORAL BEDTIME, (Reported) Diltiazem Hcl* (Cartia Xt*), 120 MG ORAL BID, (Reported) Docusate Sodium* (Docusate Sodium*), 100 MG ORAL TWICE A DAY, (Reported) Gabapentin* (Gabapentin*), 100 MG ORAL THREE TIMES A DAY, (Reported) Isosorbide Mononitrate (Isosorbide Mononitrate Er), 30 MG ORAL DAILY Metoclopramide Hcl* (Metoclopramide Hcl*), 10 MG ORAL TID, (Reported) Warfarin Sod* (Warfarin Sod*), 5 MG ORAL DAILY, (Reported) Scheduled PRN Aspirin* (Aspirin*), 81 MG ORAL DAILY PRN for Per rx protocol, (Reported) Losartan Potassium* (Cozaar*), 50 MG ORAL DAILY PRN for For High Blood Pressure, (Reported) Ondansetron (Zofran), 4 MG ORAL Q8H PRN for Nausea & Vomiting, (Reported) Oxycodone Hcl/Acetaminophen 10-325 Mg Tablet (Percocet 10-325 Mg Tablet*), 1 TAB ORAL Q4H PRN for For Pain, (Reported) Patient History Healthcare decision maker Resuscitation status Full Code Advanced Directive on File Past Medical/Surgical History Past Medical/Surgical History: (1) H/O mitral valve replacement (2) ESRD (end stage renal disease) on dialysis (3) Diabetes mellitus (4) History of hypertension Review of Systems All Other Systems: negative except mentioned in HPI Physical Exam General Appearance: WD/WN Lines, tubes and drains: peripheral HEENT: normocephalic, atraumatic Neck: normal alignment, supple Respiratory/Chest: chest wall non-tender, lungs clear, normal breath sounds Cardiovascular/Chest: normal peripheral pulses, normal rate Abdomen: normal bowel sounds Genitourinary/Rectal: normal genital exam Extremities: normal range of motion Last 24 Hour Vital Signs Date Time Temp Pulse Resp B/P (MAP) Pulse Ox O2 Delivery O2 Flow Rate FiO2 06/27/19 12:00 96.4 70 18 137/76 (96) 99 06/27/19 10:25 142/81 06/27/19 10:25 69 142/81 06/27/19 09:01 71 06/27/19 09:00 Room Air 06/27/19 08:00 96.8 69 18 142/81 (101) 97 06/27/19 04:00 97.7 66 18 146/78 (100) 98 06/27/19 04:00 73 06/27/19 01:09 108 145/80 06/27/19 00:00 97.7 99 19 143/77 (99) 97 06/27/19 00:00 108 06/26/19 21:44 96.6 51 19 154/92 (112) 97 06/26/19 21:00 Room Air 06/26/19 20:54 Room Air 06/26/19 20:00 89 06/26/19 20:00 96.6 19 154/92 (112) 97 Intake and Output 06/26/19 06/27/19 19:00 07:00 Output Total 2 ml Balance -2 ml Output Urine Total 2 ml Stool Total 0 ml # Bowel Movements 2 Laboratory Tests Test 06/27/19 05:51 White Blood Count 10.4 K/UL (4.8-10.8) Red Blood Count 4.19 M/UL (4.70-6.10) L Hemoglobin 12.8 G/DL (14.2-18.0) L Hematocrit 38.3 % (42.0-52.0) L Mean Corpuscular Volume 91 FL (80-99) Mean Corpuscular Hemoglobin 30.5 PG (27.0-31.0) Mean Corpuscular Hemoglobin Concent 33.4 G/DL (32.0-36.0) Red Cell Distribution Width 14.4 % (11.6-14.8) Platelet Count 264 K/UL (150-450) Mean Platelet Volume 8.8 FL (6.5-10.1) Neutrophils (%) (Auto) 68.7 % (45.0-75.0) Lymphocytes (%) (Auto) 15.5 % (20.0-45.0) L Monocytes (%) (Auto) 12.2 % (1.0-10.0) H Eosinophils (%) (Auto) 1.9 % (0.0-3.0) Basophils (%) (Auto) 1.7 % (0.0-2.0) Prothrombin Time 22.2 SEC (9.30-11.50) H Prothromb Time International Ratio 2.2 (0.9-1.1) H Sodium Level 137 MMOL/L (136-145) Potassium Level 4.6 MMOL/L (3.5-5.1) Chloride Level 101 MMOL/L (98-107) Carbon Dioxide Level 21 MMOL/L (21-32) Anion Gap 15 mmol/L (5-15) Blood Urea Nitrogen 54 mg/dL (7-18) H Creatinine 6.3 MG/DL (0.55-1.30) H Estimat Glomerular Filtration Rate 10.8 mL/min (>60) Glucose Level 95 MG/DL (74-106) Hemoglobin A1c 5.5 % (4.3-6.0) Calcium Level 9.4 MG/DL (8.5-10.1) Phosphorus Level 5.3 MG/DL (2.5-4.9) H Magnesium Level 2.3 MG/DL (1.8-2.4) Total Bilirubin 0.5 MG/DL (0.2-1.0) Aspartate Amino Transf (AST/SGOT) 27 U/L (15-37) Alanine Aminotransferase (ALT/SGPT) 23 U/L (12-78) Alkaline Phosphatase 89 U/L (46-116) Troponin I 0.008 ng/mL (0.000-0.056) Total Protein 7.6 G/DL (6.4-8.2) Albumin 3.6 G/DL (3.4-5.0) Globulin 4.0 g/dL Albumin/Globulin Ratio 0.9 (1.0-2.7) L Thyroid Stimulating Hormone (TSH) 0.104 uiU/mL (0.358-3.740) Free Thyroxine 1.17 NG/DL (0.76-1.46) Free Triiodothyronine 2.9 pg/mL (2.3-4.2) Height (Feet): 6 Height (Inches): 1.00 Weight (Pounds): 174 Medications Current Medications Medications (Trade) Dose Ordered Sig/John Route PRN Reason Start Time Stop Time Status Last Admin Dose Admin Aspirin (ASA) 81 mg DAILY ORAL 06/27/19 09:00 07/27/19 08:59 06/27/19 10:25 Dextrose (Dextrose 50%) 25 ml Q30M PRN IV Hypoglycemia 06/27/19 00:00 07/27/19 00:00 Dextrose (Dextrose 50%) 50 ml Q30M PRN IV Hypoglycemia 06/27/19 00:00 07/27/19 00:00 Insulin Aspart (NovoLOG) BEFORE MEALS AND HS SUBQ 06/27/19 06:30 07/27/19 06:29 Losartan Potassium (Cozaar) 50 mg DAILY ORAL 06/27/19 10:00 07/27/19 09:59 06/27/19 10:25 Metoprolol Tartrate (Lopressor) 25 mg Q12HR ORAL 06/27/19 01:00 07/27/19 00:59 06/27/19 10:25 Nitroglycerin (Ntg) 0.4 mg Q5M PRN SL Prn Chest Pain 06/27/19 00:00 07/27/19 00:00 Ondansetron HCl (Zofran) 4 mg Q8H PRN ORAL Nausea & Vomiting 06/27/19 05:15 07/27/19 05:14 Warfarin Sodium (Coumadin per pharmacy) 1 ea DAILY PRN MISC Per rx protocol 06/27/19 00:00 07/27/19 00:00 Assessment/Plan Problem List: (1) Chest pain ICD Codes: R07.9 - Chest pain, unspecified SNOMED: 60777524 (2) COPD (chronic obstructive pulmonary disease) ICD Codes: J44.9 - Chronic obstructive pulmonary disease, unspecified SNOMED: 78580640 (3) Anemia in chronic kidney disease ICD Codes: N18.9 - Chronic kidney disease, unspecified; D63.1 - Anemia in chronic kidney disease SNOMED: 936834747, 262706176 (4) ESRD (end stage renal disease) on dialysis ICD Codes: N18.6 - End stage renal disease; Z99.2 - Dependence on renal dialysis SNOMED: 465460724 (5) H/O mitral valve replacement ICD Codes: Z95.2 - Presence of prosthetic heart valve SNOMED: 46184758, 8196860274715 (6) History of hypertension ICD Codes: Z86.79 - Personal history of other diseases of the circulatory system SNOMED: 496257427 (7) Diabetes mellitus ICD Codes: E11.9 - Type 2 diabetes mellitus without complications SNOMED: 93426578 (8) Nicotine addiction ICD Codes: F17.200 - Nicotine dependence, unspecified, uncomplicated SNOMED: 89992676 Assessment/Plan: respiratory treatment might need nicotine patch echocardiogram f/u troponin symptomatic treatment resume home meds. dvt prophylaxis. Caleb Hinojosa MD Jun 27, 2019 13:10
[2019-06-27] MEDS ORDERED: LORazepam 1mg tab ORAL PRN (13:15)
[2019-06-27] MEDS ORDERED: Miralax 17gm pkt ORAL PRN (13:15)
[2019-06-27 16:00] VITALS: BP 134/82
--- NOTE | 2019-06-27 16:42 | History & Physical ---
History and Physical History & Physicial Dictated for Int Med-DR Alicea no. [id number]. Saturnino Pleitez MD Jun 27, 2019 16:42
[2019-06-27] MEDS ORDERED: Warfarin Sodium 5mg ORAL SCH (17:00)
[2019-06-27] MEDS ORDERED: Warfarin Sodium 10mg ORAL SCH (17:00)
[2019-06-27 20:00] VITALS: BP 134/67
--- NOTE | 2019-06-27 21:00 | History and Physical Report ---
DATE OF ADMISSION: 06/26/2019 CHIEF COMPLAINT: The patient is a 64-year-old male, who presents with a chief complaint of chest pain. HISTORY OF PRESENT ILLNESS: The patient has a history of mechanical mitral valve replacement in 2018. The patient also has a history of end-stage renal disease. The patient is generally on dialysis every Monday, Monday, Monday. The patient missed his Monday dialysis. The patient then had dialysis on Tuesday, June 25, 2019. The patient states he began to experience chest pain on Monday evening June 25, 2019 after dialysis. The patient then began to experience nausea and vomiting. The patient states he vomited 6 or 7 times. The patient initially presented to [facility] [place] room. The patient was given morphine with relief of his chest pain. The patient was transferred to [facility] for insurance purposes. The patient was admitted with chest pain to rule out acute coronary syndrome. REVIEW OF SYSTEMS: CONSTITUTIONAL: The patient denies weight loss or weight gain. The patient denies fevers or chills. HEENT: The patient denies any ear or throat pain. The patient denies headache. CARDIOVASCULAR: The patient complains of chest pain as above. The patient denies palpitations. ABDOMEN: The patient denies nausea, vomiting, diarrhea, or constipation. GENITOURINARY: The patient denies dysuria or increased frequency of urination. NEUROMUSCULAR: The patient denies seizures or generalized weakness. PAST MEDICAL HISTORY: Significant for: 1. End-stage renal disease, on hemodialysis every Monday, Monday, and Monday. 2. Diabetes type 2. 3. Hypertension. 4. Hepatitis C. 5. Mechanical mitral valve. PAST SURGICAL HISTORY: Significant for: 1. Left AV graft for dialysis. 2. Lumbar diskectomy x2 at L3-L4 and L4-L5. 3. Mechanical mitral valve replacement on August 07, 2017. CURRENT MEDICATIONS: 1. Aspirin 81 mg p.o. daily. 2. Atorvastatin 20 mg p.o. at bedtime. 3. Diltiazem 120 mg p.o. twice daily. 4. Gabapentin 100 mg p.o. three times daily. 5. Isosorbide mononitrate 30 mg p.o. daily. 6. Losartan 50 mg p.o. daily. 7. Coumadin 10 mg p.o. daily. ALLERGIES: To penicillin and Vicodin. SOCIAL HISTORY: The patient is currently from his and lives alone. The patient denies tobacco or alcohol use. The patient is retired. PHYSICAL EXAMINATION: VITAL SIGNS: Temperature 98.2, respirations 19, pulse 93, blood pressure 159/76. GENERAL: The patient is well-developed and well-nourished male, in no apparent distress. HEENT: Eyes, pupils are equal and responsive to light and accommodation. Extraocular movements are intact. NECK: Supple without lymphadenopathy. CHEST: Lungs are clear to auscultation bilaterally without wheezes or rales. CARDIOVASCULAR: Regular rhythm and rate. S1 and S2 are normal with an audible click. No evidence of murmurs or gallops. ABDOMEN: Soft, nontender, nondistended. Positive bowel sounds. No evidence of hepatosplenomegaly. Currently, no rebound or guarding noted. EXTREMITIES: Negative for clubbing, cyanosis, or edema. RECTAL/GENITAL: Not performed. NEUROLOGIC: Cranial nerves II through XII are grossly intact without focal deficits. Motor strength is 5/5 bilaterally. Deep tendon reflexes are 2+ plantar. LABORATORY AND DIAGNOSTIC DATA: Laboratory studies from [place], WBC 10.4, hemoglobin 13.8, hematocrit 41.9 platelets 326,000. Sodium 138, potassium 4.7, chloride 102, CO2 20, BUN 41, creatinine 6.16, glucose 166. Troponin 0.02. ProTime 22.2 and INR 2.2. ASSESSMENT: This is a 64-year-old male. 1. Chest pain. 2. Nausea with vomiting. 3. Mechanical mitral valve. 4. End-stage renal disease. 5. Diabetes type 2. 6. Hypertension. TREATMENT: 1. Chest pain. A Cardiology consultation has been obtained with Dr. Beto Goldman. The patient has a mechanical mitral valve. An echocardiogram is pending. Serial troponin levels will be performed. We will follow recommendation of Cardiology. 2. Nausea and vomiting, this has resolved. 3. End-stage renal disease. The patient missed dialysis on Monday, June 24, 2019. The patient's last dialysis was Tuesday June 25, 2019. A Nephrology consultation has been obtained with Dr. Valdez. We will follow recommendations of Nephrology. 4. Diabetes type 2. NovoLog sliding scale has been instituted. 5. Hypertension. Continue diltiazem, isosorbide, losartan and as needed clonidine as above. 6. Hypercholesterolemia. Continue atorvastatin as above. Saturnino Pleitez M.D. DR: Jose JOB#: [id number] CC:
[2019-06-27] MEDS: Docusate 100mg cap ORAL SCH (21:11)
[2019-06-28] VITALS: BP 136/69
[2019-06-28] MEDS: NovoLOG Insulin Flexpen SUBQ SCH ×4 (06:30→21:00)
[2019-06-28 06:42] LABS: INR 2.2 (0.9-1.1)
[2019-06-28 07:03] LABS: ALANINE AMINOTRANSFERASE 25 U/L (12-78); ALBUMIN 3.5 G/DL (3.4-5.0); ALBUMIN/GLOBULIN RATIO 0.9 (1.0-2.7); ALKALINE PHOSPHATASE 89 U/L (46-116); ANION GAP 16 mmol/L (5-15); ASPARTATE AMINO TRANSFERASE 24 U/L (15-37); BASOPHILS % (AUTO) 1.8 % (0.0-2.0); BILIRUBIN,TOTAL 0.4 MG/DL (0.2-1.0); BLOOD UREA NITROGEN 65 mg/dL (7-18); CARBON DIOXIDE 19 MMOL/L (21-32); CHLORIDE 103 MMOL/L (98-107); CREATININE 7.2 MG/DL (0.55-1.30); EOSINOPHILS % (AUTO) 2.8 % (0.0-3.0); HEMATOCRIT 36.3 % (42.0-52.0); HEMOGLOBIN 12.3 G/DL (14.2-18.0); LYMPHOCYTES % (AUTO) 20.7 % (20.0-45.0); MEAN CORPUSCULAR VOLUME 92 FL (80-99); MONOCYTES % (AUTO) 10.5 % (1.0-10.0); NEUTROPHILS % (AUTO) 64.3 % (45.0-75.0); PHOSPHORUS 6.6 MG/DL (2.5-4.9); PLATELET COUNT 257 K/UL (150-450); RED BLOOD COUNT 3.96 M/UL (4.70-6.10); SODIUM 138 MMOL/L (136-145); WHITE BLOOD COUNT 9.8 K/UL (4.8-10.8)
[2019-06-28 08:00] VITALS: BP 134/74
[2019-06-28] MEDS: Losartan 50mg tab ORAL SCH (09:00)
[2019-06-28] MEDS: Aspirin Baby 81mg ORAL SCH (09:12)
[2019-06-28] MEDS: Docusate 100mg cap ORAL SCH ×3 (09:12→18:06)
--- NOTE | 2019-06-28 10:45 | Consultation ---
DATE OF CONSULTATION: 06/27/2019 CARDIOLOGY CONSULTATION CONSULTING PHYSICIAN: Beto Goldman M.D. REFERRING PHYSICIAN: Brian Alicea M.D. REASON FOR CONSULTATION: Atrial flutter with rapid ventricular response in a patient with history of mitral valve replacement. HISTORY OF PRESENT ILLNESS: The patient is a 64-year-old gentleman with history of hypertension, history of mitral valve replacement and tricuspid valve repair, on hemodialysis, who presented to [facility] complaining of chest pain while he was watching TV. He feels like nail pressing on his chest. This was not provoked for any activity. The patient missed dialysis on Monday, got on Monday. He was found to be in atrial flutter with rapid ventricular response and then subsequently converted to sinus rhythm. He was then transferred to [facility] for further evaluation and management. REVIEW OF SYSTEMS: Review of systems was negative other than what was mentioned in history of present illness. PAST MEDICAL HISTORY: As mentioned above. FAMILY HISTORY: Noncontributory. SOCIAL HISTORY: Denies smoking or drinking alcohol. . PHYSICAL EXAMINATION: VITAL SIGNS: Blood pressure of 142/81, pulse 70, respirations 18, and he is afebrile. HEAD AND NECK: Showed no JVD or carotid bruit. LUNGS: Clear. CARDIOVASCULAR: Regular S1 and S2 with metallic first heart sounds. LUNGS: Clear. 01:38 is intact. ABDOMEN: Soft. EXTREMITIES: No pitting edema. LABORATORY AND DIAGNOSTIC DATA: Labs show white count of 10.4, hemoglobin 12.8, hematocrit 38.3, platelets 264. Sodium 137, potassium 4.2, BUN of 54, creatinine 6.7, and glucose of 95. Troponin is negative. INR is 2.2. His EKG from [facility] today showed atrial flutter with variable AV block, heart rate in the 70s. ASSESSMENT AND PLAN: 1. Atrial flutter, the rate is currently controlled in the 70s. The patient already on anticoagulation with Coumadin. INR is therapeutic on metoprolol 25 mg b.i.d. Eventually, the patient would benefit from electrophysiology study and hopefully ablation of this electrogenic focus. 2. Chest pain. The patient already ruled out for myocardial infarction. Currently, he does not have any chest pain. It could be due to volume overload. We will schedule the patient for stress test. 3. Hypertension, on metoprolol 25 mg b.i.d., losartan 50 mg daily and hemodialysis. 4. End-stage renal disease, on hemodialysis. 5. Diabetes, on insulin. Thank you very much, Dr. Alicea, for allowing me to participate in the care of this patient. Please do not hesitate to contact me for any questions regarding my evaluation. Beto Goldman M.D. DR: Kenneth JOB#: [id number] CC:
--- NOTE | 2019-06-28 10:58 | Nephrology Progress Note ---
Assessment/Plan Problem List: (1) ESRD (end stage renal disease) on dialysis (2) Diabetes mellitus (3) Anemia in chronic kidney disease (4) Atrial flutter (5) H/O mitral valve replacement (6) Hepatitis C Assessment: by history Assessment End-stage renal disease, on hemodialysis every Monday, Monday, and Monday. Diabetes type 2. Hypertension. Hepatitis C. Mechanical mitral valve. Plan HD today- keep BP and BS in check Per cardio Subjective ROS Limited/Unobtainable: No Constitutional: Reports: malaise Objective Objective Last 24 Hour Vital Signs Date Time Temp Pulse Resp B/P (MAP) Pulse Ox O2 Delivery O2 Flow Rate FiO2 06/28/19 09:00 Room Air Room Air 06/28/19 09:00 134/74 06/28/19 09:00 62 134/74 06/28/19 08:00 97.7 62 20 134/74 (94) 99 06/28/19 07:56 61 06/28/19 04:00 66 06/28/19 00:00 61 06/28/19 00:00 97.2 65 18 136/69 (91) 94 06/27/19 21:12 62 139/69 06/27/19 21:00 Room Air 06/27/19 20:00 97.1 63 17 134/67 (89) 96 06/27/19 20:00 62 06/27/19 16:18 70 06/27/19 16:00 97.4 76 18 134/82 (99) 98 06/27/19 12:00 96.4 70 18 137/76 (96) 99 06/27/19 11:29 68 Intake and Output 06/27/19 06/28/19 19:00 07:00 Intake Total 1260 ml 410 ml Balance 1260 ml 410 ml Intake Oral 1260 ml 300 ml Other 110 ml # Voids 6 5 # Bowel Movements 2 1 Current Medications Medications (Trade) Dose Ordered Sig/John Route PRN Reason Start Time Stop Time Status Last Admin Dose Admin Aspirin (ASA) 81 mg DAILY ORAL 06/27/19 09:00 07/27/19 08:59 06/28/19 09:12 Bisacodyl (Dulcolax) 10 mg DAILYPRN PRN RECTAL Constipation 06/27/19 13:30 07/27/19 13:14 Dextrose (Dextrose 50%) 25 ml Q30M PRN IV Hypoglycemia 06/27/19 00:00 07/27/19 00:00 Dextrose (Dextrose 50%) 50 ml Q30M PRN IV Hypoglycemia 06/27/19 00:00 07/27/19 00:00 Docusate Sodium (Colace) 100 mg EVERY 12 HOURS ORAL 06/27/19 21:00 07/27/19 20:59 06/28/19 09:12 Insulin Aspart (NovoLOG) BEFORE MEALS AND HS SUBQ 06/27/19 06:30 07/27/19 06:29 Lorazepam (Ativan) 1 mg Q4H PRN ORAL For Anxiety 06/27/19 13:15 07/04/19 13:14 Losartan Potassium (Cozaar) 50 mg DAILY ORAL 06/27/19 10:00 07/27/19 09:59 06/27/19 10:25 Metoprolol Tartrate (Lopressor) 25 mg Q12HR ORAL 06/27/19 01:00 07/27/19 00:59 06/27/19 21:12 Morphine Sulfate (Morphine Sulfate) 2 mg Q6H PRN IVP PAIN 4-10 06/27/19 13:15 07/04/19 13:14 Nitroglycerin (Ntg) 0.4 mg Q5M PRN SL Prn Chest Pain 06/27/19 00:00 07/27/19 00:00 Ondansetron HCl (Zofran) 4 mg Q6H PRN IVP Nausea & Vomiting 06/27/19 13:15 07/27/19 13:14 Polyethylene Glycol (Miralax) 17 gm DAILYPRN PRN ORAL Constipation 06/27/19 13:15 07/27/19 13:14 Temazepam (Restoril) 15 mg HSPRN PRN ORAL Insomnia 06/27/19 21:00 07/04/19 20:59 Warfarin Sodium (Coumadin per pharmacy) 1 ea DAILY PRN MISC Per rx protocol 06/27/19 00:00 07/27/19 00:00 Laboratory Tests 06/27/19 14:30: Hepatitis B Surface Antigen [Pending] 06/28/19 05:50: White Blood Count 9.8, Red Blood Count 3.96L, Hemoglobin 12.3L, Hematocrit 36.3L , Mean Corpuscular Volume 92, Mean Corpuscular Hemoglobin 31.0, Mean Corpuscular Hemoglobin Concent 33.9, Red Cell Distribution Width 14.0, Platelet Count 257, Mean Platelet Volume 8.1, Neutrophils (%) (Auto) 64.3, Lymphocytes (% ) (Auto) 20.7, Monocytes (%) (Auto) 10.5H, Eosinophils (%) (Auto) 2.8, Basophils (%) (Auto) 1.8, Prothrombin Time 22.6H, Prothromb Time International Ratio 2.2H, Sodium Level 138, Potassium Level 5.0, Chloride Level 103, Carbon Dioxide Level 19L, Anion Gap 16H, Blood Urea Nitrogen 65H, Creatinine 7.2H, Estimat Glomerular Filtration Rate 9.3, Glucose Level 93, Calcium Level 9.0, Phosphorus Level 6.6H, Magnesium Level 2.4, Total Bilirubin 0.4, Aspartate Amino Transf (AST/SGOT) 24, Alanine Aminotransferase (ALT/SGPT) 25, Alkaline Phosphatase 89, Troponin I 0.010, C-Reactive Protein, Quantitative < 0.4, Pro-B- Type Natriuretic Peptide 37328I, Total Protein 7.4, Albumin 3.5, Globulin 3.9, Albumin/Globulin Ratio 0.9L Height (Feet): 6 Height (Inches): 1.00 Weight (Pounds): 174 General Appearance: no apparent distress Cardiovascular: normal rate, arrhythmia Respiratory/Chest: decreased breath sounds Abdomen: soft Hang Valdez MD Jun 28, 2019 10:58
[2019-06-28 12:00] VITALS: BP 141/73
--- NOTE | 2019-06-28 14:12 | Pulmonology Progress Note ---
Assessment/Plan Problems: (1) Chest pain (2) COPD (chronic obstructive pulmonary disease) (3) Anemia in chronic kidney disease (4) ESRD (end stage renal disease) on dialysis (5) H/O mitral valve replacement (6) History of hypertension (7) Diabetes mellitus (8) Nicotine addiction Assessment/Plan getting hd doing better heart rate controlled, sinus around 80's respiratory treatment titrate fiO2 to sat of 92% symptomatic treatment Subjective ROS Limited/Unobtainable: No Constitutional: Reports: no symptoms HEENT: Repors: other Respiratory: Reports: no symptoms Cardiovascular: Reports: no symptoms Gastrointestinal/Abdominal: Reports: no symptoms Allergies: Coded Allergies: PENICILLINS (Verified Allergy, Severe, swelling of throat, 02/25/16) ACETAMINOPHEN (Verified Allergy, Intermediate, Generalized Itching , ) HYDROCODONE (Verified Allergy, Intermediate, Generalized Itching , 01/26/18 ) Objective Last 24 Hour Vital Signs Date Time Temp Pulse Resp B/P (MAP) Pulse Ox O2 Delivery O2 Flow Rate FiO2 06/28/19 12:00 97.3 66 20 141/73 (95) 99 06/28/19 11:52 65 06/28/19 09:00 Room Air Room Air 06/28/19 09:00 134/74 06/28/19 09:00 62 134/74 06/28/19 08:00 97.7 62 20 134/74 (94) 99 06/28/19 07:56 61 06/28/19 04:00 66 06/28/19 00:00 61 06/28/19 00:00 97.2 65 18 136/69 (91) 94 06/27/19 21:12 62 139/69 06/27/19 21:00 Room Air 06/27/19 20:00 97.1 63 17 134/67 (89) 96 06/27/19 20:00 62 06/27/19 16:18 70 06/27/19 16:00 97.4 76 18 134/82 (99) 98 Intake and Output 06/27/19 06/28/19 19:00 07:00 Intake Total 1260 ml 410 ml Balance 1260 ml 410 ml Intake Oral 1260 ml 300 ml Other 110 ml # Voids 6 5 # Bowel Movements 2 1 General Appearance: WD/WN HEENT: normocephalic, atraumatic Respiratory/Chest: chest wall non-tender, lungs clear Cardiovascular: normal peripheral pulses, normal rate Abdomen: normal bowel sounds, no organomegaly Neurologic/Psychiatric: patient relations liaison II-XII grossly normal Laboratory Tests 06/27/19 14:30: Hepatitis B Surface Antigen Neg 06/28/19 05:50: White Blood Count 9.8, Red Blood Count 3.96L, Hemoglobin 12.3L, Hematocrit 36.3L , Mean Corpuscular Volume 92, Mean Corpuscular Hemoglobin 31.0, Mean Corpuscular Hemoglobin Concent 33.9, Red Cell Distribution Width 14.0, Platelet Count 257, Mean Platelet Volume 8.1, Neutrophils (%) (Auto) 64.3, Lymphocytes (% ) (Auto) 20.7, Monocytes (%) (Auto) 10.5H, Eosinophils (%) (Auto) 2.8, Basophils (%) (Auto) 1.8, Prothrombin Time 22.6H, Prothromb Time International Ratio 2.2H, Sodium Level 138, Potassium Level 5.0, Chloride Level 103, Carbon Dioxide Level 19L, Anion Gap 16H, Blood Urea Nitrogen 65H, Creatinine 7.2H, Estimat Glomerular Filtration Rate 9.3, Glucose Level 93, Calcium Level 9.0, Phosphorus Level 6.6H, Magnesium Level 2.4, Total Bilirubin 0.4, Aspartate Amino Transf (AST/SGOT) 24, Alanine Aminotransferase (ALT/SGPT) 25, Alkaline Phosphatase 89, Troponin I 0.010, C-Reactive Protein, Quantitative < 0.4, Pro-B- Type Natriuretic Peptide 37118T, Total Protein 7.4, Albumin 3.5, Globulin 3.9, Albumin/Globulin Ratio 0.9L Current Medications Medications (Trade) Dose Ordered Sig/John Route PRN Reason Start Time Stop Time Status Last Admin Dose Admin Aspirin (ASA) 81 mg DAILY ORAL 06/27/19 09:00 07/27/19 08:59 06/28/19 09:12 Bisacodyl (Dulcolax) 10 mg DAILYPRN PRN RECTAL Constipation 06/27/19 13:30 07/27/19 13:14 Dextrose (Dextrose 50%) 25 ml Q30M PRN IV Hypoglycemia 06/27/19 00:00 07/27/19 00:00 Dextrose (Dextrose 50%) 50 ml Q30M PRN IV Hypoglycemia 06/27/19 00:00 07/27/19 00:00 Docusate Sodium (Colace) 100 mg TID ORAL 06/28/19 13:00 07/27/19 20:59 Insulin Aspart (NovoLOG) BEFORE MEALS AND HS SUBQ 06/27/19 06:30 07/27/19 06:29 Lorazepam (Ativan) 1 mg Q4H PRN ORAL For Anxiety 06/27/19 13:15 07/04/19 13:14 Losartan Potassium (Cozaar) 50 mg DAILY ORAL 06/27/19 10:00 07/27/19 09:59 06/27/19 10:25 Metoprolol Tartrate (Lopressor) 25 mg Q12HR ORAL 06/27/19 01:00 07/27/19 00:59 06/27/19 21:12 Morphine Sulfate (Morphine Sulfate) 2 mg Q6H PRN IVP PAIN 4-10 06/27/19 13:15 07/04/19 13:14 Nitroglycerin (Ntg) 0.4 mg Q5M PRN SL Prn Chest Pain 06/27/19 00:00 07/27/19 00:00 Ondansetron HCl (Zofran) 4 mg Q6H PRN IVP Nausea & Vomiting 06/27/19 13:15 07/27/19 13:14 Pantoprazole (Protonix) 40 mg EVERY 12 HOURS ORAL 06/28/19 21:00 07/28/19 20:59 Polyethylene Glycol (Miralax) 17 gm DAILYPRN PRN ORAL Constipation 06/27/19 13:15 07/27/19 13:14 Sevelamer Carbonate (Renvela) 800 mg THREE TIMES A DAY ORAL 06/28/19 13:00 07/28/19 12:59 Temazepam (Restoril) 15 mg HSPRN PRN ORAL Insomnia 06/27/19 21:00 07/04/19 20:59 Warfarin Sodium (Coumadin per pharmacy) 1 ea DAILY PRN MISC Per rx protocol 06/27/19 00:00 07/27/19 00:00 Warfarin Sodium (Coumadin) 10 mg COUMADIN ORAL 06/28/19 17:00 07/03/19 16:59 Caleb Hinojosa MD Jun 28, 2019 14:12
[2019-06-28 16:00] VITALS: BP 119/69
[2019-06-28] MEDS: Morphine Sulfate 2mg/ml Inj(IV/IM USE ONLY) IVP PRN (16:03)
[2019-06-28] MEDS ORDERED: Warfarin Sodium 10mg ORAL SCH (17:00)
[2019-06-28] MEDS ORDERED: Warfarin Sodium 5mg ORAL SCH (17:00)
--- NOTE | 2019-06-28 18:47 | Cardiac Electrophysiology PN ---
Assessment/Plan Assessment/Plan 1. Atrial flutter, converted to SR. On Coumadin and metoprolol 25 mg b.i.d. Eventually, the patient would benefit from electrophysiology study and ablation 2. Chest pain. The patient already ruled out for myocardial infarction. Currently, he does not have any chest pain. It could be due to volume overload. We will schedule the patient for stress test. 3. Hypertension, on metoprolol 25 mg b.i.d., losartan 50 mg daily and hemodialysis. 4. End-stage renal disease, on hemodialysis. 5. Diabetes, on insulin. FRANCINE RN Subjective Subjective Remained in SR. S/P MVR and TV repair at [facility] 08/2017 Objective Last 24 Hour Vital Signs Date Time Temp Pulse Resp B/P (MAP) Pulse Ox O2 Delivery O2 Flow Rate FiO2 06/28/19 12:00 97.3 66 20 141/73 (95) 99 06/28/19 11:52 65 06/28/19 09:00 Room Air Room Air 06/28/19 09:00 134/74 06/28/19 09:00 62 134/74 06/28/19 08:00 97.7 62 20 134/74 (94) 99 06/28/19 07:56 61 06/28/19 04:00 66 06/28/19 00:00 61 06/28/19 00:00 97.2 65 18 136/69 (91) 94 06/27/19 21:12 62 139/69 06/27/19 21:00 Room Air 06/27/19 20:00 97.1 63 17 134/67 (89) 96 06/27/19 20:00 62 Intake and Output 06/27/19 06/28/19 19:00 07:00 Intake Total 1260 ml 410 ml Balance 1260 ml 410 ml Intake Oral 1260 ml 300 ml Other 110 ml # Voids 6 5 # Bowel Movements 2 1 Laboratory Tests Test 06/28/19 05:50 White Blood Count 9.8 K/UL (4.8-10.8) Red Blood Count 3.96 M/UL (4.70-6.10) L Hemoglobin 12.3 G/DL (14.2-18.0) L Hematocrit 36.3 % (42.0-52.0) L Mean Corpuscular Volume 92 FL (80-99) Mean Corpuscular Hemoglobin 31.0 PG (27.0-31.0) Mean Corpuscular Hemoglobin Concent 33.9 G/DL (32.0-36.0) Red Cell Distribution Width 14.0 % (11.6-14.8) Platelet Count 257 K/UL (150-450) Mean Platelet Volume 8.1 FL (6.5-10.1) Neutrophils (%) (Auto) 64.3 % (45.0-75.0) Lymphocytes (%) (Auto) 20.7 % (20.0-45.0) Monocytes (%) (Auto) 10.5 % (1.0-10.0) H Eosinophils (%) (Auto) 2.8 % (0.0-3.0) Basophils (%) (Auto) 1.8 % (0.0-2.0) Prothrombin Time 22.6 SEC (9.30-11.50) H Prothromb Time International Ratio 2.2 (0.9-1.1) H Sodium Level 138 MMOL/L (136-145) Potassium Level 5.0 MMOL/L (3.5-5.1) Chloride Level 103 MMOL/L (98-107) Carbon Dioxide Level 19 MMOL/L (21-32) L Anion Gap 16 mmol/L (5-15) H Blood Urea Nitrogen 65 mg/dL (7-18) H Creatinine 7.2 MG/DL (0.55-1.30) H Estimat Glomerular Filtration Rate 9.3 mL/min (>60) Glucose Level 93 MG/DL (74-106) Calcium Level 9.0 MG/DL (8.5-10.1) Phosphorus Level 6.6 MG/DL (2.5-4.9) H Magnesium Level 2.4 MG/DL (1.8-2.4) Total Bilirubin 0.4 MG/DL (0.2-1.0) Aspartate Amino Transf (AST/SGOT) 24 U/L (15-37) Alanine Aminotransferase (ALT/SGPT) 25 U/L (12-78) Alkaline Phosphatase 89 U/L (46-116) Troponin I 0.010 ng/mL (0.000-0.056) C-Reactive Protein, Quantitative < 0.4 mg/dL (0.00-0.90) Pro-B-Type Natriuretic Peptide 18461 pg/mL (0-125) H Total Protein 7.4 G/DL (6.4-8.2) Albumin 3.5 G/DL (3.4-5.0) Globulin 3.9 g/dL Albumin/Globulin Ratio 0.9 (1.0-2.7) L Objective HEAD AND NECK: No JVD or carotid bruit. LUNGS: Clear. CARDIOVASCULAR: Regular S1 and S2 with metallic first heart sounds. LUNGS: Clear. ABDOMEN: Soft. EXTREMITIES: No pitting edema. Beto Goldman MD Jun 28, 2019 18:47
[2019-06-28] MEDS ORDERED: Lexiscan 0.4mg/5ml syringe IV PRN (19:00)
--- NOTE | 2019-06-28 19:27 | Internal Med Progress Note ---
Subjective Date of Service: Jun 28, 2019 Physician Name PricillaSaturnino Attending Physician Brian Alicea MD Current Medications Medications (Trade) Dose Ordered Sig/John Route PRN Reason Start Time Stop Time Status Last Admin Dose Admin Aspirin (ASA) 81 mg DAILY ORAL 06/27/19 09:00 07/27/19 08:59 06/28/19 09:12 Bisacodyl (Dulcolax) 10 mg DAILYPRN PRN RECTAL Constipation 06/27/19 13:30 07/27/19 13:14 Dextrose (Dextrose 50%) 25 ml Q30M PRN IV Hypoglycemia 06/27/19 00:00 07/27/19 00:00 Dextrose (Dextrose 50%) 50 ml Q30M PRN IV Hypoglycemia 06/27/19 00:00 07/27/19 00:00 Docusate Sodium (Colace) 100 mg TID ORAL 06/28/19 13:00 07/27/19 20:59 06/28/19 18:06 Insulin Aspart (NovoLOG) BEFORE MEALS AND HS SUBQ 06/27/19 06:30 07/27/19 06:29 Lorazepam (Ativan) 1 mg Q4H PRN ORAL For Anxiety 06/27/19 13:15 07/04/19 13:14 Losartan Potassium (Cozaar) 50 mg DAILY ORAL 06/27/19 10:00 07/27/19 09:59 06/27/19 10:25 Metoprolol Tartrate (Lopressor) 25 mg Q12HR ORAL 06/27/19 01:00 07/27/19 00:59 06/27/19 21:12 Morphine Sulfate (Morphine Sulfate) 2 mg Q6H PRN IVP PAIN 4-10 06/27/19 13:15 07/04/19 13:14 06/28/19 16:03 Nitroglycerin (Ntg) 0.4 mg Q5M PRN SL Prn Chest Pain 06/27/19 00:00 07/27/19 00:00 Ondansetron HCl (Zofran) 4 mg Q6H PRN IVP Nausea & Vomiting 06/27/19 13:15 07/27/19 13:14 06/28/19 16:03 Pantoprazole (Protonix) 40 mg EVERY 12 HOURS ORAL 06/28/19 21:00 07/28/19 20:59 Polyethylene Glycol (Miralax) 17 gm DAILYPRN PRN ORAL Constipation 06/27/19 13:15 07/27/19 13:14 Regadenoson (Lexiscan) 0.4 mg ONCE PRN IV STRESS 06/28/19 19:00 06/29/19 23:59 Sevelamer Carbonate (Renvela) 800 mg THREE TIMES A DAY ORAL 06/28/19 13:00 07/28/19 12:59 06/28/19 18:05 Temazepam (Restoril) 15 mg HSPRN PRN ORAL Insomnia 06/27/19 21:00 07/04/19 20:59 Warfarin Sodium (Coumadin per pharmacy) 1 ea DAILY PRN MISC Per rx protocol 06/27/19 00:00 07/27/19 00:00 Warfarin Sodium (Coumadin) 10 mg COUMADIN ORAL 06/28/19 17:00 07/03/19 16:59 06/28/19 18:06 Allergies: Coded Allergies: PENICILLINS (Verified Allergy, Severe, swelling of throat, 02/25/16) ACETAMINOPHEN (Verified Allergy, Intermediate, Generalized Itching , ) HYDROCODONE (Verified Allergy, Intermediate, Generalized Itching , 01/26/18 ) ROS Limited/Unobtainable: No Constitutional: Reports: no symptoms HEENT: Reports: no symptoms Cardiovascular: Reports: chest pain Respiratory: Reports: no symptoms Gastrointestinal/Abdominal: Reports: no symptoms Genitourinary: Reports: no symptoms Neurologic/Psychiatric: Reports: no symptoms Subjective 64 YO M admitted with chest pain, nausea and vomiting. Cover for Int Drew-DR Alicea Objective Last Vital Signs Date Time Temp Pulse Resp B/P (MAP) Pulse Ox O2 Delivery O2 Flow Rate FiO2 06/28/19 16:22 76 06/28/19 16:00 97.9 20 119/69 (86) 97 06/28/19 09:00 Room Air Room Air Laboratory Tests Test 06/28/19 05:50 White Blood Count 9.8 K/UL (4.8-10.8) Red Blood Count 3.96 M/UL (4.70-6.10) L Hemoglobin 12.3 G/DL (14.2-18.0) L Hematocrit 36.3 % (42.0-52.0) L Mean Corpuscular Volume 92 FL (80-99) Mean Corpuscular Hemoglobin 31.0 PG (27.0-31.0) Mean Corpuscular Hemoglobin Concent 33.9 G/DL (32.0-36.0) Red Cell Distribution Width 14.0 % (11.6-14.8) Platelet Count 257 K/UL (150-450) Mean Platelet Volume 8.1 FL (6.5-10.1) Neutrophils (%) (Auto) 64.3 % (45.0-75.0) Lymphocytes (%) (Auto) 20.7 % (20.0-45.0) Monocytes (%) (Auto) 10.5 % (1.0-10.0) H Eosinophils (%) (Auto) 2.8 % (0.0-3.0) Basophils (%) (Auto) 1.8 % (0.0-2.0) Prothrombin Time 22.6 SEC (9.30-11.50) H Prothromb Time International Ratio 2.2 (0.9-1.1) H Sodium Level 138 MMOL/L (136-145) Potassium Level 5.0 MMOL/L (3.5-5.1) Chloride Level 103 MMOL/L (98-107) Carbon Dioxide Level 19 MMOL/L (21-32) L Anion Gap 16 mmol/L (5-15) H Blood Urea Nitrogen 65 mg/dL (7-18) H Creatinine 7.2 MG/DL (0.55-1.30) H Estimat Glomerular Filtration Rate 9.3 mL/min (>60) Glucose Level 93 MG/DL (74-106) Calcium Level 9.0 MG/DL (8.5-10.1) Phosphorus Level 6.6 MG/DL (2.5-4.9) H Magnesium Level 2.4 MG/DL (1.8-2.4) Total Bilirubin 0.4 MG/DL (0.2-1.0) Aspartate Amino Transf (AST/SGOT) 24 U/L (15-37) Alanine Aminotransferase (ALT/SGPT) 25 U/L (12-78) Alkaline Phosphatase 89 U/L (46-116) Troponin I 0.010 ng/mL (0.000-0.056) C-Reactive Protein, Quantitative < 0.4 mg/dL (0.00-0.90) Pro-B-Type Natriuretic Peptide 27879 pg/mL (0-125) H Total Protein 7.4 G/DL (6.4-8.2) Albumin 3.5 G/DL (3.4-5.0) Globulin 3.9 g/dL Albumin/Globulin Ratio 0.9 (1.0-2.7) L Intake and Output 06/27/19 06/28/19 19:00 07:00 Intake Total 1260 ml 410 ml Balance 1260 ml 410 ml Intake Oral 1260 ml 300 ml Other 110 ml # Voids 6 5 # Bowel Movements 2 1 Objective PHYSICAL EXAMINATION: GENERAL: The patient is well-developed and well-nourished male, in no apparent distress. HEENT: Eyes, pupils are equal and responsive to light and accommodation. Extraocular movements are intact. NECK: Supple without lymphadenopathy. CHEST: Lungs are clear to auscultation bilaterally without wheezes or rales. CARDIOVASCULAR: Regular rhythm and rate. S1 and S2 are normal with an audible click. No evidence of murmurs or gallops. ABDOMEN: Soft, nontender, nondistended. Positive bowel sounds. No evidence of hepatosplenomegaly. Currently, no rebound or guarding noted. EXTREMITIES: Negative for clubbing, cyanosis, or edema. RECTAL/GENITAL: Not performed. NEUROLOGIC: Cranial nerves II through XII are grossly intact without focal deficits. Motor strength is 5/5 bilaterally. Deep tendon reflexes are 2+ plantar. Assessment/Plan Assessment/Plan ASSESSMENT: This is a 64-year-old male. 1. Chest pain. 2. Nausea with vomiting. 3. Mechanical mitral valve. 4. End-stage renal disease. 5. Diabetes type 2. 6. Hypertension. 7. Atrial flutter TREATMENT: 1. Chest pain. A Cardiology consultation has been obtained with Dr. Beto Goldman. The patient has a mechanical mitral valve. An echocardiogram is pending. Serial troponin levels will be performed. We will follow recommendation of Cardiology. 2. Nausea and vomiting, this has resolved. 3. End-stage renal disease. The patient missed dialysis on Monday, June 24, 2019. The patient's last dialysis was Tuesday June 25, 2019. A Nephrology consultation has been obtained with Dr. Valdez. We will follow recommendations of Nephrology. 4. Diabetes type 2. NovoLog sliding scale has been instituted. 5. Hypertension. Continue diltiazem, isosorbide, losartan and as needed clonidine as above. 6. Hypercholesterolemia. Continue atorvastatin 7. Atrial flutter-continue coumadin 8. Await cardiac stress test Saturnino Pleitez MD Jun 28, 2019 19:27
[2019-06-28 20:00] VITALS: BP 131/54
[2019-06-29] VITALS: BP 144/80
[2019-06-29 04:00] VITALS: BP 118/65
[2019-06-29] MEDS: NovoLOG Insulin Flexpen SUBQ SCH ×4 (06:30→21:00)
--- NOTE | 2019-06-29 07:19 | Pulmonology Progress Note ---
Assessment/Plan Assessment/Plan ASSESSMENT Chest pain Atrial flutter COPD End-stage renal disease on hemodialysis Nicotine addiction Anemia of chronic kidney disease Hypertension Diabetes mellitus S/p mitral valve replacement PLAN OF CARE tele serial troponin negative converted to SR ruled out for acute KS cardio on board on beta-lisette and Coumadin nitro as needed Echo with PEF 55 to 60% cardio recommended EP study in future BP management with BB and ARB BS management with [facility] rehabilitation services counselor on smoking cessation , declined nicotine patch Hemodialysis as per supervisor fusing room with close monitoring of volumes and renal parameters monitor H&H with goal to keep Hgb above 7 , remained stable supportive care case discussed and evaluated by supervising physician Subjective Allergies: Coded Allergies: PENICILLINS (Verified Allergy, Severe, swelling of throat, 02/25/16) ACETAMINOPHEN (Verified Allergy, Intermediate, Generalized Itching , ) HYDROCODONE (Verified Allergy, Intermediate, Generalized Itching , 01/26/18 ) Subjective denies CP, remains in SR Objective Last 24 Hour Vital Signs Date Time Temp Pulse Resp B/P (MAP) Pulse Ox O2 Delivery O2 Flow Rate FiO2 06/29/19 04:00 72 06/29/19 04:00 97.0 70 18 118/65 (82) 96 06/29/19 00:00 97.0 72 19 144/80 (101) 95 06/29/19 00:00 76 06/28/19 23:03 77 131/54 06/28/19 21:00 Room Air Room Air 06/28/19 20:00 72 06/28/19 20:00 97.0 77 19 131/54 (79) 94 06/28/19 16:22 76 06/28/19 16:00 97.9 79 20 119/69 (86) 97 06/28/19 12:00 97.3 66 20 141/73 (95) 99 06/28/19 11:52 65 06/28/19 09:00 Room Air Room Air 06/28/19 09:00 134/74 06/28/19 09:00 62 134/74 06/28/19 08:00 97.7 62 20 134/74 (94) 99 06/28/19 07:56 61 Intake and Output 06/28/19 06/29/19 19:00 07:00 Intake Total 2720 ml 200 ml Balance 2720 ml 200 ml Intake Oral 720 ml Hemodialysis 2000 ml Other 200 ml # Voids 3 # Bowel Movements 1 1 General Appearance: no acute distress HEENT: normocephalic, mucous membranes moist, PERRL Respiratory/Chest: chest wall non-tender, no respiratory distress, no accessory muscle use Cardiovascular: normal rate, regular rhythm Abdomen: soft, non tender, non distended Extremities: no edema Neurologic/Psychiatric: alert, oriented x 3, responsive Musculoskeletal: normal muscle bulk Current Medications Medications (Trade) Dose Ordered Sig/John Route PRN Reason Start Time Stop Time Status Last Admin Dose Admin Aspirin (ASA) 81 mg DAILY ORAL 06/27/19 09:00 07/27/19 08:59 06/28/19 09:12 Bisacodyl (Dulcolax) 10 mg DAILYPRN PRN RECTAL Constipation 06/27/19 13:30 07/27/19 13:14 Dextrose (Dextrose 50%) 25 ml Q30M PRN IV Hypoglycemia 06/27/19 00:00 07/27/19 00:00 Dextrose (Dextrose 50%) 50 ml Q30M PRN IV Hypoglycemia 06/27/19 00:00 07/27/19 00:00 Docusate Sodium (Colace) 100 mg TID ORAL 06/28/19 13:00 07/27/19 20:59 06/28/19 18:06 Insulin Aspart (NovoLOG) BEFORE MEALS AND HS SUBQ 06/27/19 06:30 07/27/19 06:29 Lorazepam (Ativan) 1 mg Q4H PRN ORAL For Anxiety 06/27/19 13:15 07/04/19 13:14 Losartan Potassium (Cozaar) 50 mg DAILY ORAL 06/27/19 10:00 07/27/19 09:59 06/27/19 10:25 Metoprolol Tartrate (Lopressor) 25 mg Q12HR ORAL 06/27/19 01:00 07/27/19 00:59 06/28/19 23:03 Morphine Sulfate (Morphine Sulfate) 2 mg Q6H PRN IVP PAIN 4-10 06/27/19 13:15 07/04/19 13:14 06/28/19 16:03 Nitroglycerin (Ntg) 0.4 mg Q5M PRN SL Prn Chest Pain 06/27/19 00:00 07/27/19 00:00 Ondansetron HCl (Zofran) 4 mg Q6H PRN IVP Nausea & Vomiting 06/27/19 13:15 07/27/19 13:14 06/28/19 16:03 Pantoprazole (Protonix) 40 mg EVERY 12 HOURS ORAL 06/28/19 21:00 07/28/19 20:59 06/28/19 23:03 Polyethylene Glycol (Miralax) 17 gm DAILYPRN PRN ORAL Constipation 06/27/19 13:15 07/27/19 13:14 Regadenoson (Lexiscan) 0.4 mg ONCE PRN IV STRESS 06/28/19 19:00 06/29/19 23:59 Sevelamer Carbonate (Renvela) 800 mg THREE TIMES A DAY ORAL 06/28/19 13:00 07/28/19 12:59 06/28/19 18:05 Temazepam (Restoril) 15 mg HSPRN PRN ORAL Insomnia 06/27/19 21:00 07/04/19 20:59 Warfarin Sodium (Coumadin per pharmacy) 1 ea DAILY PRN MISC Per rx protocol 06/27/19 00:00 07/27/19 00:00 Warfarin Sodium (Coumadin) 10 mg COUMADIN ORAL 06/28/19 17:00 07/03/19 16:59 06/28/19 18:06 Beatrice Fink [facility] [place] Jun 29, 2019 07:19
[2019-06-29 07:56] LABS: BASOPHILS % (AUTO) 1.2 % (0.0-2.0); EOSINOPHILS % (AUTO) 2.6 % (0.0-3.0); HEMATOCRIT 36.2 % (42.0-52.0); HEMOGLOBIN 12.4 G/DL (14.2-18.0); LYMPHOCYTES % (AUTO) 21.9 % (20.0-45.0); MEAN CORPUSCULAR VOLUME 91 FL (80-99); MONOCYTES % (AUTO) 13.2 % (1.0-10.0); PLATELET COUNT 263 K/UL (150-450); RED BLOOD COUNT 3.99 M/UL (4.70-6.10); RED CELL DISTRIBUTION WIDTH 13.8 % (11.6-14.8); WHITE BLOOD COUNT 9.2 K/UL (4.8-10.8)
[2019-06-29 08:00] VITALS: BP 123/71
[2019-06-29 08:08] LABS: INR 2.9 (0.9-1.1)
[2019-06-29 08:35] LABS: ALANINE AMINOTRANSFERASE 26 U/L (12-78); ALBUMIN 3.7 G/DL (3.4-5.0); ALKALINE PHOSPHATASE 88 U/L (46-116); ASPARTATE AMINO TRANSFERASE 27 U/L (15-37); BILIRUBIN,DIRECT < 0.1 MG/DL (0.0-0.3); BILIRUBIN,TOTAL 0.3 MG/DL (0.2-1.0)
[2019-06-29 08:40] LABS: ANION GAP 14 mmol/L (5-15); BLOOD UREA NITROGEN 56 mg/dL (7-18); CALCIUM 8.7 MG/DL (8.5-10.1); CARBON DIOXIDE 26 MMOL/L (21-32); CHLORIDE 97 MMOL/L (98-107); POTASSIUM 4.2 MMOL/L (3.5-5.1); SODIUM 137 MMOL/L (136-145)
[2019-06-29] MEDS: Losartan 50mg tab ORAL SCH (08:59)
[2019-06-29] MEDS: Aspirin Baby 81mg ORAL SCH (08:59)
[2019-06-29] MEDS: Docusate 100mg cap ORAL SCH ×3 (09:00→17:30)
--- NOTE | 2019-06-29 09:44 | Nephrology Progress Note ---
Assessment/Plan Problem List: (1) ESRD (end stage renal disease) on dialysis (2) Diabetes mellitus (3) Anemia in chronic kidney disease (4) Atrial flutter (5) H/O mitral valve replacement (6) Hepatitis C Assessment: by history Assessment End-stage renal disease, on hemodialysis every Monday, Monday, and Monday. Diabetes type 2. Hypertension. Hepatitis C. Mechanical mitral valve. Plan HD 06/28 NEXT 06/29 keep BP and BS in check Per cardio on coumadin Subjective ROS Limited/Unobtainable: No Constitutional: Reports: other - FEELS BETTER Objective Objective Last 24 Hour Vital Signs Date Time Temp Pulse Resp B/P (MAP) Pulse Ox O2 Delivery O2 Flow Rate FiO2 06/29/19 09:00 63 123/71 06/29/19 08:59 123/71 06/29/19 08:00 97.6 63 20 123/71 (88) 96 06/29/19 04:00 72 06/29/19 04:00 97.0 70 18 118/65 (82) 96 06/29/19 00:00 97.0 72 19 144/80 (101) 95 06/29/19 00:00 76 06/28/19 23:03 77 131/54 06/28/19 21:00 Room Air Room Air 06/28/19 20:00 72 06/28/19 20:00 97.0 77 19 131/54 (79) 94 06/28/19 16:22 76 06/28/19 16:00 97.9 79 20 119/69 (86) 97 06/28/19 12:00 97.3 66 20 141/73 (95) 99 06/28/19 11:52 65 Intake and Output 06/28/19 06/29/19 19:00 07:00 Intake Total 2720 ml 200 ml Balance 2720 ml 200 ml Intake Oral 720 ml Hemodialysis 2000 ml Other 200 ml # Voids 3 # Bowel Movements 1 1 Laboratory Tests 06/29/19 06:50: White Blood Count 9.2, Red Blood Count 3.99L, Hemoglobin 12.4L, Hematocrit 36.2L , Mean Corpuscular Volume 91, Mean Corpuscular Hemoglobin 31.0, Mean Corpuscular Hemoglobin Concent 34.2, Red Cell Distribution Width 13.8, Platelet Count 263, Mean Platelet Volume 8.3, Neutrophils (%) (Auto) 61.0, Lymphocytes (% ) (Auto) 21.9, Monocytes (%) (Auto) 13.2H, Eosinophils (%) (Auto) 2.6, Basophils (%) (Auto) 1.2, Prothrombin Time 28.8H, Prothromb Time International Ratio 2.9H, Sodium Level 137, Potassium Level 4.2, Chloride Level 97L, Carbon Dioxide Level 26, Anion Gap 14, Blood Urea Nitrogen 56H, Creatinine 6.0H, Estimat Glomerular Filtration Rate 11.5, Glucose Level 90, Calcium Level 8.7, Phosphorus Level 6.0H, Magnesium Level 2.4, Total Bilirubin 0.3, Direct Bilirubin < 0.1, Aspartate Amino Transf (AST/SGOT) 27, Alanine Aminotransferase (ALT/SGPT) 26, Alkaline Phosphatase 88, Total Protein 7.2, Albumin 3.7 Height (Feet): 6 Height (Inches): 1.00 Weight (Pounds): 174 General Appearance: no apparent distress Objective NO CHANGE Hang Valdez MD Jun 29, 2019 09:44
[2019-06-29 12:00] VITALS: BP 139/73
--- NOTE | 2019-06-29 13:35 | Cardiac Electrophysiology PN ---
Assessment/Plan Assessment/Plan 1. Atrial flutter, converted to SR. On Coumadin and metoprolol 25 mg b.i.d. Electrophysiology study and ablation as out patient 2. Chest pain. Ruled out for myocardial infarction. Denies any chest pain. It could be due to volume overload. Scheduled the patient for stress test. 3. Hypertension, on metoprolol 25 mg b.i.d., losartan 50 mg daily and hemodialysis. 4. End-stage renal disease, on hemodialysis. 5. Diabetes, on insulin. FRANCINE RN Subjective Subjective Remained in SR. S/P MVR and TV repair at [facility] 08/2017. No CP or SOB. Objective Last 24 Hour Vital Signs Date Time Temp Pulse Resp B/P (MAP) Pulse Ox O2 Delivery O2 Flow Rate FiO2 06/29/19 12:00 97.5 64 20 139/73 (95) 95 06/29/19 11:47 63 06/29/19 09:00 63 123/71 06/29/19 09:00 Room Air Room Air 06/29/19 08:59 123/71 06/29/19 08:00 63 06/29/19 08:00 97.6 63 20 123/71 (88) 96 06/29/19 04:00 72 06/29/19 04:00 97.0 70 18 118/65 (82) 96 06/29/19 00:00 97.0 72 19 144/80 (101) 95 06/29/19 00:00 76 06/28/19 23:03 77 131/54 06/28/19 21:00 Room Air Room Air 06/28/19 20:00 72 06/28/19 20:00 97.0 77 19 131/54 (79) 94 06/28/19 16:22 76 06/28/19 16:00 97.9 79 20 119/69 (86) 97 Intake and Output 06/28/19 06/29/19 19:00 07:00 Intake Total 2720 ml 200 ml Balance 2720 ml 200 ml Intake Oral 720 ml Hemodialysis 2000 ml Other 200 ml # Voids 3 # Bowel Movements 1 1 Laboratory Tests Test 06/29/19 06:50 White Blood Count 9.2 K/UL (4.8-10.8) Red Blood Count 3.99 M/UL (4.70-6.10) L Hemoglobin 12.4 G/DL (14.2-18.0) L Hematocrit 36.2 % (42.0-52.0) L Mean Corpuscular Volume 91 FL (80-99) Mean Corpuscular Hemoglobin 31.0 PG (27.0-31.0) Mean Corpuscular Hemoglobin Concent 34.2 G/DL (32.0-36.0) Red Cell Distribution Width 13.8 % (11.6-14.8) Platelet Count 263 K/UL (150-450) Mean Platelet Volume 8.3 FL (6.5-10.1) Neutrophils (%) (Auto) 61.0 % (45.0-75.0) Lymphocytes (%) (Auto) 21.9 % (20.0-45.0) Monocytes (%) (Auto) 13.2 % (1.0-10.0) H Eosinophils (%) (Auto) 2.6 % (0.0-3.0) Basophils (%) (Auto) 1.2 % (0.0-2.0) Prothrombin Time 28.8 SEC (9.30-11.50) H Prothromb Time International Ratio 2.9 (0.9-1.1) H Sodium Level 137 MMOL/L (136-145) Potassium Level 4.2 MMOL/L (3.5-5.1) Chloride Level 97 MMOL/L (98-107) L Carbon Dioxide Level 26 MMOL/L (21-32) Anion Gap 14 mmol/L (5-15) Blood Urea Nitrogen 56 mg/dL (7-18) H Creatinine 6.0 MG/DL (0.55-1.30) H Estimat Glomerular Filtration Rate 11.5 mL/min (>60) Glucose Level 90 MG/DL (74-106) Calcium Level 8.7 MG/DL (8.5-10.1) Phosphorus Level 6.0 MG/DL (2.5-4.9) H Magnesium Level 2.4 MG/DL (1.8-2.4) Total Bilirubin 0.3 MG/DL (0.2-1.0) Direct Bilirubin < 0.1 MG/DL (0.0-0.3) Aspartate Amino Transf (AST/SGOT) 27 U/L (15-37) Alanine Aminotransferase (ALT/SGPT) 26 U/L (12-78) Alkaline Phosphatase 88 U/L (46-116) Total Protein 7.2 G/DL (6.4-8.2) Albumin 3.7 G/DL (3.4-5.0) Objective HEAD AND NECK: No JVD or carotid bruit. LUNGS: Clear. CARDIOVASCULAR: Regular S1 and S2 with metallic first heart sounds. LUNGS: Clear. ABDOMEN: Soft. EXTREMITIES: No pitting edema. Beto Goldman MD Jun 29, 2019 13:35
--- NOTE | 2019-06-29 14:11 | Internal Med Progress Note ---
Subjective Date of Service: Jun 29, 2019 Physician Name Saturnino Pleitez Attending Physician Brian Alicea MD Current Medications Medications (Trade) Dose Ordered Sig/John Route PRN Reason Start Time Stop Time Status Last Admin Dose Admin Aspirin (ASA) 81 mg DAILY ORAL 06/27/19 09:00 07/27/19 08:59 06/29/19 08:59 Bisacodyl (Dulcolax) 10 mg DAILYPRN PRN RECTAL Constipation 06/27/19 13:30 07/27/19 13:14 Dextrose (Dextrose 50%) 25 ml Q30M PRN IV Hypoglycemia 06/27/19 00:00 07/27/19 00:00 Dextrose (Dextrose 50%) 50 ml Q30M PRN IV Hypoglycemia 06/27/19 00:00 07/27/19 00:00 Docusate Sodium (Colace) 100 mg TID ORAL 06/28/19 13:00 07/27/19 20:59 06/29/19 12:47 Insulin Aspart (NovoLOG) BEFORE MEALS AND HS SUBQ 06/27/19 06:30 07/27/19 06:29 Lorazepam (Ativan) 1 mg Q4H PRN ORAL For Anxiety 06/27/19 13:15 07/04/19 13:14 Losartan Potassium (Cozaar) 50 mg DAILY ORAL 06/27/19 10:00 07/27/19 09:59 06/29/19 08:59 Metoprolol Tartrate (Lopressor) 25 mg Q12HR ORAL 06/27/19 01:00 07/27/19 00:59 06/28/19 23:03 Morphine Sulfate (Morphine Sulfate) 2 mg Q6H PRN IVP PAIN 4-10 06/27/19 13:15 07/04/19 13:14 06/28/19 16:03 Nitroglycerin (Ntg) 0.4 mg Q5M PRN SL Prn Chest Pain 06/27/19 00:00 07/27/19 00:00 Ondansetron HCl (Zofran) 4 mg Q6H PRN IVP Nausea & Vomiting 06/27/19 13:15 07/27/19 13:14 06/28/19 16:03 Pantoprazole (Protonix) 40 mg EVERY 12 HOURS ORAL 06/28/19 21:00 07/28/19 20:59 06/29/19 08:59 Polyethylene Glycol (Miralax) 17 gm DAILYPRN PRN ORAL Constipation 06/27/19 13:15 07/27/19 13:14 Regadenoson (Lexiscan) 0.4 mg ONCE PRN IV STRESS 06/28/19 19:00 06/29/19 23:59 Sevelamer Carbonate (Renvela) 800 mg THREE TIMES A DAY ORAL 06/28/19 13:00 07/28/19 12:59 06/29/19 12:47 Temazepam (Restoril) 15 mg HSPRN PRN ORAL Insomnia 06/27/19 21:00 07/04/19 20:59 Warfarin Sodium (Coumadin per pharmacy) 1 ea DAILY PRN MISC Per rx protocol 06/27/19 00:00 07/27/19 00:00 Warfarin Sodium (Coumadin) 5 mg ONCE ORAL 06/29/19 17:00 06/29/19 18:00 Allergies: Coded Allergies: PENICILLINS (Verified Allergy, Severe, swelling of throat, 02/25/16) ACETAMINOPHEN (Verified Allergy, Intermediate, Generalized Itching , ) HYDROCODONE (Verified Allergy, Intermediate, Generalized Itching , 01/26/18 ) ROS Limited/Unobtainable: No Constitutional: Reports: no symptoms HEENT: Reports: no symptoms Cardiovascular: Reports: no symptoms Respiratory: Reports: no symptoms Gastrointestinal/Abdominal: Reports: no symptoms Genitourinary: Reports: no symptoms Neurologic/Psychiatric: Reports: no symptoms Subjective 64 YO M admitted with chest pain, nausea and vomiting. Cover for Int Drew-DR Alicea Objective Last Vital Signs Date Time Temp Pulse Resp B/P (MAP) Pulse Ox O2 Delivery O2 Flow Rate FiO2 06/29/19 12:00 97.5 64 20 139/73 (95) 95 06/29/19 09:00 Room Air Room Air Laboratory Tests Test 06/29/19 06:50 White Blood Count 9.2 K/UL (4.8-10.8) Red Blood Count 3.99 M/UL (4.70-6.10) L Hemoglobin 12.4 G/DL (14.2-18.0) L Hematocrit 36.2 % (42.0-52.0) L Mean Corpuscular Volume 91 FL (80-99) Mean Corpuscular Hemoglobin 31.0 PG (27.0-31.0) Mean Corpuscular Hemoglobin Concent 34.2 G/DL (32.0-36.0) Red Cell Distribution Width 13.8 % (11.6-14.8) Platelet Count 263 K/UL (150-450) Mean Platelet Volume 8.3 FL (6.5-10.1) Neutrophils (%) (Auto) 61.0 % (45.0-75.0) Lymphocytes (%) (Auto) 21.9 % (20.0-45.0) Monocytes (%) (Auto) 13.2 % (1.0-10.0) H Eosinophils (%) (Auto) 2.6 % (0.0-3.0) Basophils (%) (Auto) 1.2 % (0.0-2.0) Prothrombin Time 28.8 SEC (9.30-11.50) H Prothromb Time International Ratio 2.9 (0.9-1.1) H Sodium Level 137 MMOL/L (136-145) Potassium Level 4.2 MMOL/L (3.5-5.1) Chloride Level 97 MMOL/L (98-107) L Carbon Dioxide Level 26 MMOL/L (21-32) Anion Gap 14 mmol/L (5-15) Blood Urea Nitrogen 56 mg/dL (7-18) H Creatinine 6.0 MG/DL (0.55-1.30) H Estimat Glomerular Filtration Rate 11.5 mL/min (>60) Glucose Level 90 MG/DL (74-106) Calcium Level 8.7 MG/DL (8.5-10.1) Phosphorus Level 6.0 MG/DL (2.5-4.9) H Magnesium Level 2.4 MG/DL (1.8-2.4) Total Bilirubin 0.3 MG/DL (0.2-1.0) Direct Bilirubin < 0.1 MG/DL (0.0-0.3) Aspartate Amino Transf (AST/SGOT) 27 U/L (15-37) Alanine Aminotransferase (ALT/SGPT) 26 U/L (12-78) Alkaline Phosphatase 88 U/L (46-116) Total Protein 7.2 G/DL (6.4-8.2) Albumin 3.7 G/DL (3.4-5.0) Intake and Output 06/28/19 06/29/19 19:00 07:00 Intake Total 2720 ml 200 ml Balance 2720 ml 200 ml Intake Oral 720 ml Hemodialysis 2000 ml Other 200 ml # Voids 3 # Bowel Movements 1 1 Objective PHYSICAL EXAMINATION: GENERAL: The patient is well-developed and well-nourished male, in no apparent distress. HEENT: Eyes, pupils are equal and responsive to light and accommodation. Extraocular movements are intact. NECK: Supple without lymphadenopathy. CHEST: Lungs are clear to auscultation bilaterally without wheezes or rales. CARDIOVASCULAR: Regular rhythm and rate. S1 and S2 are normal with an audible click. No evidence of murmurs or gallops. ABDOMEN: Soft, nontender, nondistended. Positive bowel sounds. No evidence of hepatosplenomegaly. Currently, no rebound or guarding noted. EXTREMITIES: Negative for clubbing, cyanosis, or edema. RECTAL/GENITAL: Not performed. NEUROLOGIC: Cranial nerves II through XII are grossly intact without focal deficits. Motor strength is 5/5 bilaterally. Deep tendon reflexes are 2+ plantar. Assessment/Plan Assessment/Plan ASSESSMENT: This is a 64-year-old male. 1. Chest pain. 2. Nausea with vomiting. 3. Mechanical mitral valve. 4. End-stage renal disease. 5. Diabetes type 2. 6. Hypertension. 7. Atrial flutter TREATMENT: 1. Chest pain. A Cardiology consultation has been obtained with Dr. Beto Goldman. The patient has a mechanical mitral valve. An echocardiogram is pending. Serial troponin levels will be performed. We will follow recommendation of Cardiology. 2. Nausea and vomiting, this has resolved. 3. End-stage renal disease. A Nephrology consultation has been obtained with Dr. Valdez. We will follow recommendations of Nephrology. Last hemodialysis 06/28/19 4. Diabetes type 2. NovoLog sliding scale has been instituted. 5. Hypertension. Continue diltiazem, isosorbide, losartan and as needed clonidine as above. 6. Hypercholesterolemia. Continue atorvastatin 7. Atrial flutter-continue coumadin 8. Await cardiac stress test Saturnino Pleitez MD Jun 29, 2019 14:11
[2019-06-29 16:00] VITALS: BP 115/71
[2019-06-29] MEDS ORDERED: Warfarin Sodium 5mg ORAL SCH (17:00)
[2019-06-29 20:00] VITALS: BP 138/80
[2019-06-30 04:00] VITALS: BP 120/76
[2019-06-30] MEDS: NovoLOG Insulin Flexpen SUBQ SCH ×4 (06:15→20:56)
--- NOTE | 2019-06-30 07:46 | Pulmonology Progress Note ---
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 smoking cessation , declined nicotine patch HD as per fish processor with close monitoring of volumes and renal parameters monitor H&H with goal to keep Hgb above 7 , remains stable supportive care case discussed and evaluated by supervising physician Subjective Allergies: Coded Allergies: PENICILLINS (Verified Allergy, Severe, swelling of throat, 02/25/16) ACETAMINOPHEN (Verified Allergy, Intermediate, Generalized Itching , ) HYDROCODONE (Verified Allergy, Intermediate, Generalized Itching , 01/26/18 ) Subjective denies CP, remains in SR mild leuk this am Objective Last 24 Hour Vital Signs Date Time Temp Pulse Resp B/P (MAP) Pulse Ox O2 Delivery O2 Flow Rate FiO2 06/30/19 04:00 70 06/30/19 04:00 98.0 74 20 120/76 (91) 99 06/30/19 00:00 69 06/29/19 21:56 71 138/80 06/29/19 21:00 Room Air Room Air 06/29/19 20:00 80 06/29/19 20:00 97.5 71 19 138/80 (99) 99 06/29/19 16:05 70 06/29/19 16:00 97.9 72 20 115/71 (86) 95 06/29/19 12:00 97.5 64 20 139/73 (95) 95 06/29/19 11:47 63 06/29/19 09:00 63 123/71 06/29/19 09:00 Room Air Room Air 06/29/19 08:59 123/71 06/29/19 08:00 63 06/29/19 08:00 97.6 63 20 123/71 (88) 96 Intake and Output 06/29/19 06/30/19 19:00 07:00 Intake Total 720 ml Balance 720 ml Intake Oral 720 ml Objective General Appearance: no acute distress HEENT: normocephalic, mucous membranes moist, PERRL Respiratory/Chest: chest wall non-tender, no respiratory distress, no accessory muscle use Cardiovascular: normal rate, regular rhythm Abdomen: soft, non tender, non distended Extremities: no edema Neurologic/Psychiatric: alert, oriented x 3, responsive Musculoskeletal: normal muscle bulk Current Medications Medications (Trade) Dose Ordered Sig/John Route PRN Reason Start Time Stop Time Status Last Admin Dose Admin Aspirin (ASA) 81 mg DAILY ORAL 06/27/19 09:00 07/27/19 08:59 06/29/19 08:59 Bisacodyl (Dulcolax) 10 mg DAILYPRN PRN RECTAL Constipation 06/27/19 13:30 07/27/19 13:14 Dextrose (Dextrose 50%) 25 ml Q30M PRN IV Hypoglycemia 06/27/19 00:00 07/27/19 00:00 Dextrose (Dextrose 50%) 50 ml Q30M PRN IV Hypoglycemia 06/27/19 00:00 07/27/19 00:00 Docusate Sodium (Colace) 100 mg TID ORAL 06/28/19 13:00 07/27/19 20:59 06/29/19 17:30 Insulin Aspart (NovoLOG) BEFORE MEALS AND HS SUBQ 06/27/19 06:30 07/27/19 06:29 Lorazepam (Ativan) 1 mg Q4H PRN ORAL For Anxiety 06/27/19 13:15 07/04/19 13:14 Losartan Potassium (Cozaar) 50 mg DAILY ORAL 06/27/19 10:00 07/27/19 09:59 06/29/19 08:59 Metoprolol Tartrate (Lopressor) 25 mg Q12HR ORAL 06/27/19 01:00 07/27/19 00:59 06/29/19 21:56 Morphine Sulfate (Morphine Sulfate) 2 mg Q6H PRN IVP PAIN 4-10 06/27/19 13:15 07/04/19 13:14 06/28/19 16:03 Nitroglycerin (Ntg) 0.4 mg Q5M PRN SL Prn Chest Pain 06/27/19 00:00 07/27/19 00:00 Ondansetron HCl (Zofran) 4 mg Q6H PRN IVP Nausea & Vomiting 06/27/19 13:15 07/27/19 13:14 06/28/19 16:03 Pantoprazole (Protonix) 40 mg EVERY 12 HOURS ORAL 06/28/19 21:00 07/28/19 20:59 06/29/19 21:55 Polyethylene Glycol (Miralax) 17 gm DAILYPRN PRN ORAL Constipation 06/27/19 13:15 07/27/19 13:14 06/30/19 06:19 Sevelamer Carbonate (Renvela) 800 mg THREE TIMES A DAY ORAL 06/28/19 13:00 07/28/19 12:59 06/29/19 17:30 Temazepam (Restoril) 15 mg HSPRN PRN ORAL Insomnia 06/27/19 21:00 07/04/19 20:59 Warfarin Sodium (Coumadin per pharmacy) 1 ea DAILY PRN MISC Per rx protocol 06/27/19 00:00 07/27/19 00:00 Beatrice Fink NP Jun 30, 2019 07:46
[2019-06-30 08:19] LABS: BASOPHILS % (AUTO) 1.4 % (0.0-2.0); EOSINOPHILS % (AUTO) 2.6 % (0.0-3.0); HEMATOCRIT 36.2 % (42.0-52.0); HEMOGLOBIN 12.2 G/DL (14.2-18.0); LYMPHOCYTES % (AUTO) 22.7 % (20.0-45.0); MEAN CORPUSCULAR VOLUME 91 FL (80-99); MONOCYTES % (AUTO) 10.1 % (1.0-10.0); NEUTROPHILS % (AUTO) 63.2 % (45.0-75.0); PLATELET COUNT 260 K/UL (150-450); RED BLOOD COUNT 3.97 M/UL (4.70-6.10); WHITE BLOOD COUNT 11.4 K/UL (4.8-10.8)
[2019-06-30 08:39] VITALS: BP 138/60
[2019-06-30 08:39] LABS: ANION GAP 15 mmol/L (5-15); BLOOD UREA NITROGEN 84 mg/dL (7-18); CALCIUM 9.1 MG/DL (8.5-10.1); CARBON DIOXIDE 24 MMOL/L (21-32); CHLORIDE 98 MMOL/L (98-107); CREATININE 7.7 MG/DL (0.55-1.30); SODIUM 137 MMOL/L (136-145)
[2019-06-30 08:50] LABS: INR 4.1 (0.9-1.1)
[2019-06-30] MEDS: Losartan 50mg tab ORAL SCH (09:00)
[2019-06-30] MEDS: Docusate 100mg cap ORAL SCH ×4 (09:18→17:11)
[2019-06-30] MEDS: Aspirin Baby 81mg ORAL SCH (09:19)
--- NOTE | 2019-06-30 12:00 | Nephrology Progress Note ---
Assessment/Plan Problem List: (1) ESRD (end stage renal disease) on dialysis (2) Diabetes mellitus (3) Anemia in chronic kidney disease (4) Atrial flutter (5) H/O mitral valve replacement (6) Hepatitis C Assessment: by history Assessment End-stage renal disease, on hemodialysis every Monday, Monday, and Monday. Diabetes type 2. Hypertension. Hepatitis C. Mechanical mitral valve. Plan HD 06/28 NEXT 06/29 keep BP and BS in check Per cardio on coumadin Subjective ROS Limited/Unobtainable: No Constitutional: Reports: malaise Objective Objective Last 24 Hour Vital Signs Date Time Temp Pulse Resp B/P (MAP) Pulse Ox O2 Delivery O2 Flow Rate FiO2 06/30/19 09:00 Room Air Room Air 06/30/19 08:39 97.6 63 20 138/60 (86) 97 06/30/19 08:00 63 06/30/19 04:00 70 06/30/19 04:00 98.0 74 20 120/76 (91) 99 06/30/19 00:00 69 06/29/19 21:56 71 138/80 06/29/19 21:00 Room Air Room Air 06/29/19 20:00 80 06/29/19 20:00 97.5 71 19 138/80 (99) 99 06/29/19 16:05 70 06/29/19 16:00 97.9 72 20 115/71 (86) 95 Intake and Output 06/29/19 06/30/19 19:00 07:00 Intake Total 720 ml 360 ml Balance 720 ml 360 ml Intake Oral 720 ml 360 ml # Voids 4 Laboratory Tests 06/30/19 07:55: White Blood Count 11.4H, Red Blood Count 3.97L, Hemoglobin 12.2L, Hematocrit 36.2L, Mean Corpuscular Volume 91, Mean Corpuscular Hemoglobin 30.6, Mean Corpuscular Hemoglobin Concent 33.6, Red Cell Distribution Width 14.0, Platelet Count 260, Mean Platelet Volume 8.2, Neutrophils (%) (Auto) 63.2, Lymphocytes (% ) (Auto) 22.7, Monocytes (%) (Auto) 10.1H, Eosinophils (%) (Auto) 2.6, Basophils (%) (Auto) 1.4, Prothrombin Time 40.2H, Prothromb Time International Ratio 4.1H, Sodium Level 137, Potassium Level 5.0, Chloride Level 98, Carbon Dioxide Level 24, Anion Gap 15, Blood Urea Nitrogen 84H, Creatinine 7.7H, Estimat Glomerular Filtration Rate 8.6, Glucose Level 110H, Calcium Level 9.1 Height (Feet): 6 Height (Inches): 1.00 Weight (Pounds): 174 General Appearance: no apparent distress Objective NO CHANGE Hang Valdez MD Jun 30, 2019 12:00
[2019-06-30 12:17] VITALS: BP 103/62
--- NOTE | 2019-06-30 12:42 | Cardiac Electrophysiology PN ---
Assessment/Plan Assessment/Plan 1. Atrial flutter, converted to SR. On Coumadin and metoprolol 25 mg b.i.d. Electrophysiology study and ablation as out patient 2. Chest pain. Ruled out for myocardial infarction. Denies any chest pain. It could be due to volume overload. Scheduled for stress test tomorrow 3. Hypertension, on metoprolol 25 mg b.i.d., losartan 50 mg daily and hemodialysis. 4. End-stage renal disease, on hemodialysis. 5. Diabetes, on insulin. FRANCINE RN Subjective Subjective Remained in SR.Had HD today. S/P MVR and TV repair at [facility] 08/2017. No CP or SOB. Objective Last 24 Hour Vital Signs Date Time Temp Pulse Resp B/P (MAP) Pulse Ox O2 Delivery O2 Flow Rate FiO2 06/30/19 12:17 97.8 72 19 103/62 (76) 97 06/30/19 09:00 138/60 06/30/19 09:00 63 138/60 06/30/19 09:00 Room Air Room Air 06/30/19 08:39 97.6 63 20 138/60 (86) 97 06/30/19 08:00 63 06/30/19 04:00 70 06/30/19 04:00 98.0 74 20 120/76 (91) 99 06/30/19 00:00 69 06/29/19 21:56 71 138/80 06/29/19 21:00 Room Air Room Air 06/29/19 20:00 80 06/29/19 20:00 97.5 71 19 138/80 (99) 99 06/29/19 16:05 70 06/29/19 16:00 97.9 72 20 115/71 (86) 95 Intake and Output 06/29/19 06/30/19 18:59 06:59 Intake Total 720 ml 360 ml Balance 720 ml 360 ml Intake Oral 720 ml 360 ml # Voids 4 Laboratory Tests Test 06/30/19 07:55 White Blood Count 11.4 K/UL (4.8-10.8) H Red Blood Count 3.97 M/UL (4.70-6.10) L Hemoglobin 12.2 G/DL (14.2-18.0) L Hematocrit 36.2 % (42.0-52.0) L Mean Corpuscular Volume 91 FL (80-99) Mean Corpuscular Hemoglobin 30.6 PG (27.0-31.0) Mean Corpuscular Hemoglobin Concent 33.6 G/DL (32.0-36.0) Red Cell Distribution Width 14.0 % (11.6-14.8) Platelet Count 260 K/UL (150-450) Mean Platelet Volume 8.2 FL (6.5-10.1) Neutrophils (%) (Auto) 63.2 % (45.0-75.0) Lymphocytes (%) (Auto) 22.7 % (20.0-45.0) Monocytes (%) (Auto) 10.1 % (1.0-10.0) H Eosinophils (%) (Auto) 2.6 % (0.0-3.0) Basophils (%) (Auto) 1.4 % (0.0-2.0) Prothrombin Time 40.2 SEC (9.30-11.50) H Prothromb Time International Ratio 4.1 (0.9-1.1) H Sodium Level 137 MMOL/L (136-145) Potassium Level 5.0 MMOL/L (3.5-5.1) Chloride Level 98 MMOL/L (98-107) Carbon Dioxide Level 24 MMOL/L (21-32) Anion Gap 15 mmol/L (5-15) Blood Urea Nitrogen 84 mg/dL (7-18) H Creatinine 7.7 MG/DL (0.55-1.30) H Estimat Glomerular Filtration Rate 8.6 mL/min (>60) Glucose Level 110 MG/DL (74-106) H Calcium Level 9.1 MG/DL (8.5-10.1) Objective HEAD AND NECK: No JVD or carotid bruit. LUNGS: Clear. CARDIOVASCULAR: Regular S1 and S2 with metallic first heart sounds. LUNGS: Clear. ABDOMEN: Soft. EXTREMITIES: No pitting edema. Beto Goldman MD Jun 30, 2019 12:42
--- NOTE | 2019-06-30 13:06 | Internal Med Progress Note ---
Subjective Date of Service: Jun 30, 2019 Physician Name Saturnino Pleitez Attending Physician Brian Alicea MD Current Medications Medications (Trade) Dose Ordered Sig/John Route PRN Reason Start Time Stop Time Status Last Admin Dose Admin Aspirin (ASA) 81 mg DAILY ORAL 06/27/19 09:00 07/27/19 08:59 06/30/19 09:19 Bisacodyl (Dulcolax) 10 mg DAILYPRN PRN RECTAL Constipation 06/27/19 13:30 07/27/19 13:14 Dextrose (Dextrose 50%) 25 ml Q30M PRN IV Hypoglycemia 06/27/19 00:00 07/27/19 00:00 Dextrose (Dextrose 50%) 50 ml Q30M PRN IV Hypoglycemia 06/27/19 00:00 07/27/19 00:00 Docusate Sodium (Colace) 100 mg TID ORAL 06/28/19 13:00 07/27/19 20:59 06/30/19 12:18 Insulin Aspart (NovoLOG) BEFORE MEALS AND HS SUBQ 06/27/19 06:30 07/27/19 06:29 Lorazepam (Ativan) 1 mg Q4H PRN ORAL For Anxiety 06/27/19 13:15 07/04/19 13:14 Losartan Potassium (Cozaar) 50 mg DAILY ORAL 06/27/19 10:00 07/27/19 09:59 06/29/19 08:59 Metoprolol Tartrate (Lopressor) 25 mg Q12HR ORAL 06/27/19 01:00 07/27/19 00:59 06/29/19 21:56 Morphine Sulfate (Morphine Sulfate) 2 mg Q6H PRN IVP PAIN 4-10 06/27/19 13:15 07/04/19 13:14 06/28/19 16:03 Nitroglycerin (Ntg) 0.4 mg Q5M PRN SL Prn Chest Pain 06/27/19 00:00 07/27/19 00:00 Ondansetron HCl (Zofran) 4 mg Q6H PRN IVP Nausea & Vomiting 06/27/19 13:15 07/27/19 13:14 06/28/19 16:03 Pantoprazole (Protonix) 40 mg EVERY 12 HOURS ORAL 06/28/19 21:00 07/28/19 20:59 06/30/19 09:19 Polyethylene Glycol (Miralax) 17 gm DAILYPRN PRN ORAL Constipation 06/27/19 13:15 07/27/19 13:14 06/30/19 06:19 Sevelamer Carbonate (Renvela) 800 mg THREE TIMES A DAY ORAL 06/28/19 13:00 07/28/19 12:59 06/30/19 12:18 Temazepam (Restoril) 15 mg HSPRN PRN ORAL Insomnia 06/27/19 21:00 07/04/19 20:59 Warfarin Sodium (Coumadin per pharmacy) 1 ea DAILY PRN MISC Per rx protocol 06/27/19 00:00 07/27/19 00:00 Allergies: Coded Allergies: PENICILLINS (Verified Allergy, Severe, swelling of throat, 02/25/16) ACETAMINOPHEN (Verified Allergy, Intermediate, Generalized Itching , ) HYDROCODONE (Verified Allergy, Intermediate, Generalized Itching , 01/26/18 ) ROS Limited/Unobtainable: No Constitutional: Reports: no symptoms HEENT: Reports: no symptoms Cardiovascular: Reports: chest pain Respiratory: Reports: no symptoms Gastrointestinal/Abdominal: Reports: no symptoms Genitourinary: Reports: no symptoms Neurologic/Psychiatric: Reports: no symptoms Subjective 64 YO M admitted with chest pain, nausea and vomiting. Cover for Yohana Russell-DR Alicea Objective Last Vital Signs Date Time Temp Pulse Resp B/P (MAP) Pulse Ox O2 Delivery O2 Flow Rate FiO2 06/30/19 12:17 97.8 72 19 103/62 (76) 97 06/30/19 09:00 Room Air Room Air Laboratory Tests Test 06/30/19 07:55 White Blood Count 11.4 K/UL (4.8-10.8) H Red Blood Count 3.97 M/UL (4.70-6.10) L Hemoglobin 12.2 G/DL (14.2-18.0) L Hematocrit 36.2 % (42.0-52.0) L Mean Corpuscular Volume 91 FL (80-99) Mean Corpuscular Hemoglobin 30.6 PG (27.0-31.0) Mean Corpuscular Hemoglobin Concent 33.6 G/DL (32.0-36.0) Red Cell Distribution Width 14.0 % (11.6-14.8) Platelet Count 260 K/UL (150-450) Mean Platelet Volume 8.2 FL (6.5-10.1) Neutrophils (%) (Auto) 63.2 % (45.0-75.0) Lymphocytes (%) (Auto) 22.7 % (20.0-45.0) Monocytes (%) (Auto) 10.1 % (1.0-10.0) H Eosinophils (%) (Auto) 2.6 % (0.0-3.0) Basophils (%) (Auto) 1.4 % (0.0-2.0) Prothrombin Time 40.2 SEC (9.30-11.50) H Prothromb Time International Ratio 4.1 (0.9-1.1) H Sodium Level 137 MMOL/L (136-145) Potassium Level 5.0 MMOL/L (3.5-5.1) Chloride Level 98 MMOL/L (98-107) Carbon Dioxide Level 24 MMOL/L (21-32) Anion Gap 15 mmol/L (5-15) Blood Urea Nitrogen 84 mg/dL (7-18) H Creatinine 7.7 MG/DL (0.55-1.30) H Estimat Glomerular Filtration Rate 8.6 mL/min (>60) Glucose Level 110 MG/DL (74-106) H Calcium Level 9.1 MG/DL (8.5-10.1) Intake and Output 06/29/19 06/30/19 19:00 07:00 Intake Total 720 ml 360 ml Balance 720 ml 360 ml Intake Oral 720 ml 360 ml # Voids 4 Objective PHYSICAL EXAMINATION: GENERAL: The patient is well-developed and well-nourished male, in no apparent distress. HEENT: Eyes, pupils are equal and responsive to light and accommodation. Extraocular movements are intact. NECK: Supple without lymphadenopathy. CHEST: Lungs are clear to auscultation bilaterally without wheezes or rales. CARDIOVASCULAR: Regular rhythm and rate. S1 and S2 are normal with an audible click. No evidence of murmurs or gallops. ABDOMEN: Soft, nontender, nondistended. Positive bowel sounds. No evidence of hepatosplenomegaly. Currently, no rebound or guarding noted. EXTREMITIES: Negative for clubbing, cyanosis, or edema. RECTAL/GENITAL: Not performed. NEUROLOGIC: Cranial nerves II through XII are grossly intact without focal deficits. Motor strength is 5/5 bilaterally. Deep tendon reflexes are 2+ plantar. Assessment/Plan Assessment/Plan ASSESSMENT: This is a 64-year-old male. 1. Chest pain. 2. Nausea with vomiting. 3. Mechanical mitral valve. 4. End-stage renal disease. 5. Diabetes type 2. 6. Hypertension. 7. Atrial flutter TREATMENT: 1. Chest pain. A Cardiology consultation has been obtained with Dr. Beto Goldman. The patient has a mechanical mitral valve. An echocardiogram is pending. Serial troponin levels will be performed. We will follow recommendation of Cardiology. 2. Nausea and vomiting, this has resolved. 3. End-stage renal disease. A Nephrology consultation has been obtained with Dr. Valdez. We will follow recommendations of Nephrology. Last hemodialysis 06/28/19 4. Diabetes type 2. NovoLog sliding scale has been instituted. 5. Hypertension. Continue diltiazem, isosorbide, losartan and as needed clonidine as above. 6. Hypercholesterolemia. Continue atorvastatin 7. Atrial flutter-continue coumadin 8. Await cardiac stress test 07/01/19 Saturnino Pleitez MD Jun 30, 2019 13:06
[2019-06-30 16:00] VITALS: BP 130/63
[2019-06-30] MEDS ORDERED: Albuterol/Ipratropium 3ml neb HHN PRN (17:00)
[2019-06-30 20:00] VITALS: BP 118/67
[2019-07-01 00:32] VITALS: BP 120/64
[2019-07-01 04:04] VITALS: BP 123/65
[2019-07-01] MEDS: NovoLOG Insulin Flexpen SUBQ SCH ×4 (06:26→20:53)
[2019-07-01 08:00] VITALS: BP 106/67
[2019-07-01 08:00] LABS: ANION GAP 15 mmol/L (5-15); BLOOD UREA NITROGEN 95 mg/dL (7-18); CALCIUM 8.7 MG/DL (8.5-10.1); CARBON DIOXIDE 26 MMOL/L (21-32); CHLORIDE 97 MMOL/L (98-107); CREATININE 7.9 MG/DL (0.55-1.30); EOSINOPHILS % (AUTO) 2.1 % (0.0-3.0); HEMATOCRIT 31.6 % (42.0-52.0); HEMOGLOBIN 10.8 G/DL (14.2-18.0); LYMPHOCYTES % (AUTO) 19.4 % (20.0-45.0); MEAN CORPUSCULAR VOLUME 91 FL (80-99); MONOCYTES % (AUTO) 11.7 % (1.0-10.0); NEUTROPHILS % (AUTO) 65.9 % (45.0-75.0); PLATELET COUNT 250 K/UL (150-450); POTASSIUM 5.2 MMOL/L (3.5-5.1); RED BLOOD COUNT 3.47 M/UL (4.70-6.10); RED CELL DISTRIBUTION WIDTH 14.1 % (11.6-14.8); SODIUM 138 MMOL/L (136-145); WHITE BLOOD COUNT 12.5 K/UL (4.8-10.8)
[2019-07-01 08:15] LABS: INR 3.8 (0.9-1.1)
[2019-07-01] MEDS ORDERED: Lexiscan 0.4mg/5ml syringe IV PRN (09:45)
[2019-07-01] MEDS: Docusate 100mg cap ORAL SCH ×2 (09:57→18:00)
[2019-07-01] MEDS: Aspirin Baby 81mg ORAL SCH (09:57)
[2019-07-01] MEDS: Losartan 50mg tab ORAL SCH (09:58)
--- NOTE | 2019-07-01 11:10 | Nephrology Progress Note ---
Assessment/Plan Problem List: (1) ESRD (end stage renal disease) on dialysis (2) Diabetes mellitus (3) Anemia in chronic kidney disease (4) Atrial flutter (5) H/O mitral valve replacement (6) Hepatitis C Assessment: by history Assessment End-stage renal disease, on hemodialysis every Monday, Monday, and Monday. Diabetes type 2. Hypertension. Hepatitis C. Mechanical mitral valve. Plan HD next tomorrow July 01 keep BP and BS in check Per cardio. Due for stress test. Oral Kayexalate today for elevated potassium. on coumadin Subjective ROS Limited/Unobtainable: No Constitutional: Reports: malaise Objective Objective Last 24 Hour Vital Signs Date Time Temp Pulse Resp B/P (MAP) Pulse Ox O2 Delivery O2 Flow Rate FiO2 07/01/19 09:58 123/65 07/01/19 08:38 88 123/65 07/01/19 08:00 98.3 65 20 106/67 (80) 99 07/01/19 08:00 66 07/01/19 04:06 88 07/01/19 04:04 98.3 72 16 123/65 (84) 94 07/01/19 00:32 98.1 68 16 120/64 (82) 95 07/01/19 00:00 80 06/30/19 21:00 Room Air Room Air 06/30/19 20:46 76 118/67 06/30/19 20:00 80 06/30/19 20:00 98.2 76 16 118/67 (84) 95 06/30/19 16:00 86 06/30/19 16:00 97.7 82 19 130/63 (85) 95 06/30/19 12:17 97.8 72 19 103/62 (76) 97 06/30/19 12:00 77 Intake and Output 06/30/19 07/01/19 19:00 07:00 Intake Total 2400 ml 480 ml Balance 2400 ml 480 ml Intake Oral 400 ml 480 ml Hemodialysis 2000 ml # Voids 4 # Bowel Movements 2 1 Laboratory Tests 07/01/19 06:49: White Blood Count 12.5H, Red Blood Count 3.47L, Hemoglobin 10.8L, Hematocrit 31.6L, Mean Corpuscular Volume 91, Mean Corpuscular Hemoglobin 31.0, Mean Corpuscular Hemoglobin Concent 34.1, Red Cell Distribution Width 14.1, Platelet Count 250, Mean Platelet Volume 8.6, Neutrophils (%) (Auto) 65.9, Lymphocytes (% ) (Auto) 19.4L, Monocytes (%) (Auto) 11.7H, Eosinophils (%) (Auto) 2.1, Basophils (%) (Auto) 1.0, Prothrombin Time 37.2H, Prothromb Time International Ratio 3.8H, Sodium Level 138, Potassium Level 5.2H, Chloride Level 97L, Carbon Dioxide Level 26, Anion Gap 15, Blood Urea Nitrogen 95H, Creatinine 7.9H, Estimat Glomerular Filtration Rate 8.4, Glucose Level 118H, Calcium Level 8.7 Height (Feet): 6 Height (Inches): 1.00 Weight (Pounds): 174 General Appearance: no apparent distress Objective NO CHANGE Hang Valdez MD Jul 01, 2019 11:10
[2019-07-01] MEDS ORDERED: Sodium Polystyrene Sulfonate 15gm Powder ORAL SCH (11:15)
--- NOTE | 2019-07-01 11:34 | Diagnostic Imaging Report ---
Indication: Dyspnea Comparison: 01/29/2018 A single view chest radiograph was obtained. Findings: There is blunting of the right costophrenic angle. Lungs are clear. Heart size is normal. Mechanical heart valve, sternotomy noted. Bones are osteopenic. IMPRESSION: Trace right pleural effusion suspected.
[2019-07-01 12:00] VITALS: BP 109/68
--- NOTE | 2019-07-01 12:24 | Pulmonology Progress Note ---
Assessment/Plan Problems: (1) Atrial fibrillation with rapid ventricular response (2) Atrial flutter (3) COPD (chronic obstructive pulmonary disease) (4) Anemia in chronic kidney disease (5) ESRD (end stage renal disease) on dialysis (6) Diabetes mellitus (7) History of hypertension (8) Nicotine addiction (9) Hepatitis C (10) H/O mitral valve replacement Assessment/Plan getting hd doing better heart rate controlled, sinus around 80's respiratory treatment titrate fiO2 to sat of 92% symptomatic treatment Subjective ROS Limited/Unobtainable: No Interval Events: lexiscan done, still in sinus Constitutional: Reports: no symptoms HEENT: Repors: no symptoms Allergies: Coded Allergies: PENICILLINS (Verified Allergy, Severe, swelling of throat, 02/25/16) ACETAMINOPHEN (Verified Allergy, Intermediate, Generalized Itching , ) HYDROCODONE (Verified Allergy, Intermediate, Generalized Itching , 01/26/18 ) Objective Last 24 Hour Vital Signs Date Time Temp Pulse Resp B/P (MAP) Pulse Ox O2 Delivery O2 Flow Rate FiO2 07/01/19 09:58 123/65 07/01/19 09:00 Room Air Room Air 07/01/19 08:38 88 123/65 07/01/19 08:00 98.3 65 20 106/67 (80) 99 07/01/19 08:00 66 07/01/19 04:06 88 07/01/19 04:04 98.3 72 16 123/65 (84) 94 07/01/19 00:32 98.1 68 16 120/64 (82) 95 07/01/19 00:00 80 06/30/19 21:00 Room Air Room Air 06/30/19 20:46 76 118/67 06/30/19 20:00 80 06/30/19 20:00 98.2 76 16 118/67 (84) 95 06/30/19 16:00 86 06/30/19 16:00 97.7 82 19 130/63 (85) 95 Intake and Output 06/30/19 07/01/19 19:00 07:00 Intake Total 2400 ml 480 ml Balance 2400 ml 480 ml Intake Oral 400 ml 480 ml Hemodialysis 2000 ml # Voids 4 # Bowel Movements 2 1 General Appearance: WD/WN HEENT: normocephalic, atraumatic Respiratory/Chest: chest wall non-tender, lungs clear Cardiovascular: normal peripheral pulses, normal rate Abdomen: normal bowel sounds, soft, non tender, no organomegaly Genitourinary: normal external genitalia Extremities: no clubbing Skin: no rash Neurologic/Psychiatric: plastic mixer II-XII grossly normal Lymphatic: no neck adenopathy Laboratory Tests 07/01/19 06:49: White Blood Count 12.5H, Red Blood Count 3.47L, Hemoglobin 10.8L, Hematocrit 31.6L, Mean Corpuscular Volume 91, Mean Corpuscular Hemoglobin 31.0, Mean Corpuscular Hemoglobin Concent 34.1, Red Cell Distribution Width 14.1, Platelet Count 250, Mean Platelet Volume 8.6, Neutrophils (%) (Auto) 65.9, Lymphocytes (% ) (Auto) 19.4L, Monocytes (%) (Auto) 11.7H, Eosinophils (%) (Auto) 2.1, Basophils (%) (Auto) 1.0, Prothrombin Time 37.2H, Prothromb Time International Ratio 3.8H, Sodium Level 138, Potassium Level 5.2H, Chloride Level 97L, Carbon Dioxide Level 26, Anion Gap 15, Blood Urea Nitrogen 95H, Creatinine 7.9H, Estimat Glomerular Filtration Rate 8.4, Glucose Level 118H, Calcium Level 8.7 Current Medications Medications (Trade) Dose Ordered Sig/John Route PRN Reason Start Time Stop Time Status Last Admin Dose Admin Albuterol/ Ipratropium (Albuterol/ Ipratropium) 3 ml Q4H PRN HHN sob 06/30/19 17:00 07/05/19 16:59 Aspirin (ASA) 81 mg DAILY ORAL 06/27/19 09:00 07/27/19 08:59 07/01/19 09:57 Bisacodyl (Dulcolax) 10 mg DAILYPRN PRN RECTAL Constipation 06/27/19 13:30 07/27/19 13:14 Dextrose (Dextrose 50%) 25 ml Q30M PRN IV Hypoglycemia 06/27/19 00:00 07/27/19 00:00 Dextrose (Dextrose 50%) 50 ml Q30M PRN IV Hypoglycemia 06/27/19 00:00 07/27/19 00:00 Docusate Sodium (Colace) 100 mg TID ORAL 06/28/19 13:00 07/27/19 20:59 07/01/19 09:57 Insulin Aspart (NovoLOG) BEFORE MEALS AND HS SUBQ 06/27/19 06:30 07/27/19 06:29 Lorazepam (Ativan) 1 mg Q4H PRN ORAL For Anxiety 06/27/19 13:15 07/04/19 13:14 Losartan Potassium (Cozaar) 50 mg DAILY ORAL 06/27/19 10:00 07/27/19 09:59 07/01/19 09:58 Metoprolol Tartrate (Lopressor) 25 mg Q12HR ORAL 06/27/19 01:00 07/27/19 00:59 06/30/19 20:46 Morphine Sulfate (Morphine Sulfate) 2 mg Q6H PRN IVP PAIN 4-10 06/27/19 13:15 07/04/19 13:14 06/28/19 16:03 Nitroglycerin (Ntg) 0.4 mg Q5M PRN SL Prn Chest Pain 06/27/19 00:00 07/27/19 00:00 Ondansetron HCl (Zofran) 4 mg Q6H PRN IVP Nausea & Vomiting 06/27/19 13:15 07/27/19 13:14 07/01/19 11:44 Pantoprazole (Protonix) 40 mg EVERY 12 HOURS ORAL 06/28/19 21:00 07/28/19 20:59 07/01/19 09:57 Polyethylene Glycol (Miralax) 17 gm DAILYPRN PRN ORAL Constipation 06/27/19 13:15 07/27/19 13:14 06/30/19 06:19 Regadenoson (Lexiscan) 0.4 mg ONCE PRN IV STRESS 07/01/19 09:45 07/01/19 23:59 07/01/19 11:51 Sevelamer Carbonate (Renvela) 800 mg THREE TIMES A DAY ORAL 06/28/19 13:00 07/28/19 12:59 06/30/19 17:09 Sodium Polystyrene Sulfonate (Kayexalate) 30 gm ONCE ORAL 07/01/19 11:15 07/01/19 12:30 07/01/19 11:44 Temazepam (Restoril) 15 mg HSPRN PRN ORAL Insomnia 06/27/19 21:00 07/04/19 20:59 Warfarin Sodium (Coumadin per pharmacy) 1 ea DAILY PRN MISC Per rx protocol 06/27/19 00:00 07/27/19 00:00 Caleb Hinojosa MD Jul 01, 2019 12:24
--- NOTE | 2019-07-01 14:20 | Cardiac Electrophysiology PN ---
Assessment/Plan Assessment/Plan 1. Atrial flutter, converted to SR. On Coumadin and metoprolol 25 mg b.i.d. Electrophysiology study and ablation as out patient EF 55% 2. Chest pain. Ruled out for myocardial infarction. Denies any chest pain. It could be due to volume overload. Had stress test today. Results pending 3. S/P [facility] MVR and TV Ring 07/2017 Nl valve Fx on echo 4. Hypertension, on metoprolol 25 mg b.i.d., losartan 50 mg daily and hemodialysis. 5. End-stage renal disease, on hemodialysis. 6. Diabetes, on insulin. 7. Hep C DW RN Subjective Subjective Remained in SR. Had HD today. S/P MVR and TV repair at [facility] 08/2017. No CP or SOB. Records from [facility] reviewed Objective Last 24 Hour Vital Signs Date Time Temp Pulse Resp B/P (MAP) Pulse Ox O2 Delivery O2 Flow Rate FiO2 07/01/19 12:00 98.6 77 20 109/68 (82) 98 07/01/19 09:58 123/65 07/01/19 09:00 Room Air Room Air 07/01/19 08:38 88 123/65 07/01/19 08:00 98.3 65 20 106/67 (80) 99 07/01/19 08:00 66 07/01/19 04:06 88 07/01/19 04:04 98.3 72 16 123/65 (84) 94 07/01/19 00:32 98.1 68 16 120/64 (82) 95 07/01/19 00:00 80 06/30/19 21:00 Room Air Room Air 06/30/19 20:46 76 118/67 06/30/19 20:00 80 06/30/19 20:00 98.2 76 16 118/67 (84) 95 06/30/19 16:00 86 06/30/19 16:00 97.7 82 19 130/63 (85) 95 Intake and Output 06/30/19 07/01/19 19:00 07:00 Intake Total 2400 ml 480 ml Balance 2400 ml 480 ml Intake Oral 400 ml 480 ml Hemodialysis 2000 ml # Voids 4 # Bowel Movements 2 1 Laboratory Tests Test 07/01/19 06:49 White Blood Count 12.5 K/UL (4.8-10.8) H Red Blood Count 3.47 M/UL (4.70-6.10) L Hemoglobin 10.8 G/DL (14.2-18.0) L Hematocrit 31.6 % (42.0-52.0) L Mean Corpuscular Volume 91 FL (80-99) Mean Corpuscular Hemoglobin 31.0 PG (27.0-31.0) Mean Corpuscular Hemoglobin Concent 34.1 G/DL (32.0-36.0) Red Cell Distribution Width 14.1 % (11.6-14.8) Platelet Count 250 K/UL (150-450) Mean Platelet Volume 8.6 FL (6.5-10.1) Neutrophils (%) (Auto) 65.9 % (45.0-75.0) Lymphocytes (%) (Auto) 19.4 % (20.0-45.0) L Monocytes (%) (Auto) 11.7 % (1.0-10.0) H Eosinophils (%) (Auto) 2.1 % (0.0-3.0) Basophils (%) (Auto) 1.0 % (0.0-2.0) Prothrombin Time 37.2 SEC (9.30-11.50) H Prothromb Time International Ratio 3.8 (0.9-1.1) H Sodium Level 138 MMOL/L (136-145) Potassium Level 5.2 MMOL/L (3.5-5.1) H Chloride Level 97 MMOL/L (98-107) L Carbon Dioxide Level 26 MMOL/L (21-32) Anion Gap 15 mmol/L (5-15) Blood Urea Nitrogen 95 mg/dL (7-18) H Creatinine 7.9 MG/DL (0.55-1.30) H Estimat Glomerular Filtration Rate 8.4 mL/min (>60) Glucose Level 118 MG/DL (74-106) H Calcium Level 8.7 MG/DL (8.5-10.1) Objective HEAD AND NECK: No JVD or carotid bruit. LUNGS: Clear. CARDIOVASCULAR: Regular S1 and S2 with metallic first heart sounds. LUNGS: Clear. ABDOMEN: Soft. EXTREMITIES: No pitting edema. Beto Goldman MD Jul 01, 2019 14:20
[2019-07-01 16:00] VITALS: BP 113/64
--- NOTE | 2019-07-01 16:36 | Diagnostic Imaging Report ---
Indication: chest pain Technique: The study was conducted under the supervision of a cheese packer. lexiscan (regadenoson) infusion over 10 seconds followed by intravenous administration of 31.3 mCi of technetium 99m Myoview was performed. Three plane SPECT imaging of the heart was then performed. A resting study was performed as part of the one-day protocol with 10.8 mCi of technetium 99m myoview injected intravenously at that time. Three plane SPECT imaging of the heart was obtained. Comparison: None Clinical data: 1. Clinical response: Non ischemic 2. Electrocardiographic response: Non ischemic Findings: The myocardial perfusion scan demonstrates decreased perfusion in the inferior wall. This is present on both resting SPECT and stress SPECT images but more pronounced on stress SPECT images. This suggests either diaphragmatic attenuation or an inferior wall infarct. Given the greater degree of hypoperfusion on Lexiscan SPECT images, there may be a component of lexie-infarct ischemia. Please correlate clinically. LVEF is estimated at 64%. IMPRESSION: Apparent hypoperfusion to the inferior wall worse on stress. Possibilities include an inferior wall infarct with lexie-infarct ischemia versus diaphragmatic attenuation. Please correlate clinically. Note: Estimation of LVEF on this examination is likely inaccurate. In our experience, the calculated LVEF is usually overestimated on this software program.
--- NOTE | 2019-07-01 19:13 | Internal Med Progress Note ---
Subjective Date of Service: Jul 01, 2019 Physician Name Saturnino Pleitez Attending Physician Brian Alicea MD Current Medications Medications (Trade) Dose Ordered Sig/John Route PRN Reason Start Time Stop Time Status Last Admin Dose Admin Albuterol/ Ipratropium (Albuterol/ Ipratropium) 3 ml Q4H PRN HHN sob 06/30/19 17:00 07/05/19 16:59 Aspirin (ASA) 81 mg DAILY ORAL 06/27/19 09:00 07/27/19 08:59 07/01/19 09:57 Bisacodyl (Dulcolax) 10 mg DAILYPRN PRN RECTAL Constipation 06/27/19 13:30 07/27/19 13:14 Dextrose (Dextrose 50%) 25 ml Q30M PRN IV Hypoglycemia 06/27/19 00:00 07/27/19 00:00 Dextrose (Dextrose 50%) 50 ml Q30M PRN IV Hypoglycemia 06/27/19 00:00 07/27/19 00:00 Docusate Sodium (Colace) 100 mg TID ORAL 06/28/19 13:00 07/27/19 20:59 07/01/19 09:57 Insulin Aspart (NovoLOG) BEFORE MEALS AND HS SUBQ 06/27/19 06:30 07/27/19 06:29 Lorazepam (Ativan) 1 mg Q4H PRN ORAL For Anxiety 06/27/19 13:15 07/04/19 13:14 Losartan Potassium (Cozaar) 50 mg DAILY ORAL 06/27/19 10:00 07/27/19 09:59 07/01/19 09:58 Metoprolol Tartrate (Lopressor) 25 mg Q12HR ORAL 06/27/19 01:00 07/27/19 00:59 06/30/19 20:46 Morphine Sulfate (Morphine Sulfate) 2 mg Q6H PRN IVP PAIN 4-10 06/27/19 13:15 07/04/19 13:14 06/28/19 16:03 Nitroglycerin (Ntg) 0.4 mg Q5M PRN SL Prn Chest Pain 06/27/19 00:00 07/27/19 00:00 Ondansetron HCl (Zofran) 4 mg Q6H PRN IVP Nausea & Vomiting 06/27/19 13:15 07/27/19 13:14 07/01/19 11:44 Pantoprazole (Protonix) 40 mg EVERY 12 HOURS ORAL 06/28/19 21:00 07/28/19 20:59 07/01/19 09:57 Polyethylene Glycol (Miralax) 17 gm DAILYPRN PRN ORAL Constipation 06/27/19 13:15 07/27/19 13:14 06/30/19 06:19 Regadenoson (Lexiscan) 0.4 mg ONCE PRN IV STRESS 07/01/19 09:45 07/01/19 23:59 07/01/19 11:51 Sevelamer Carbonate (Renvela) 800 mg THREE TIMES A DAY ORAL 06/28/19 13:00 07/28/19 12:59 07/01/19 12:32 Temazepam (Restoril) 15 mg HSPRN PRN ORAL Insomnia 06/27/19 21:00 07/04/19 20:59 Warfarin Sodium (Coumadin per pharmacy) 1 ea DAILY PRN MISC Per rx protocol 06/27/19 00:00 07/27/19 00:00 Allergies: Coded Allergies: PENICILLINS (Verified Allergy, Severe, swelling of throat, 02/25/16) ACETAMINOPHEN (Verified Allergy, Intermediate, Generalized Itching , ) HYDROCODONE (Verified Allergy, Intermediate, Generalized Itching , 01/26/18 ) ROS Limited/Unobtainable: No Constitutional: Reports: no symptoms HEENT: Reports: no symptoms Cardiovascular: Reports: chest pain Respiratory: Reports: no symptoms Gastrointestinal/Abdominal: Reports: no symptoms Genitourinary: Reports: no symptoms Neurologic/Psychiatric: Reports: no symptoms Subjective 64 YO M admitted with chest pain, nausea and vomiting. Cover for Int Drew-DR Alicea Objective Last Vital Signs Date Time Temp Pulse Resp B/P (MAP) Pulse Ox O2 Delivery O2 Flow Rate FiO2 07/01/19 16:00 98.2 86 20 113/64 (80) 98 07/01/19 09:00 Room Air Room Air Laboratory Tests Test 07/01/19 06:49 White Blood Count 12.5 K/UL (4.8-10.8) H Red Blood Count 3.47 M/UL (4.70-6.10) L Hemoglobin 10.8 G/DL (14.2-18.0) L Hematocrit 31.6 % (42.0-52.0) L Mean Corpuscular Volume 91 FL (80-99) Mean Corpuscular Hemoglobin 31.0 PG (27.0-31.0) Mean Corpuscular Hemoglobin Concent 34.1 G/DL (32.0-36.0) Red Cell Distribution Width 14.1 % (11.6-14.8) Platelet Count 250 K/UL (150-450) Mean Platelet Volume 8.6 FL (6.5-10.1) Neutrophils (%) (Auto) 65.9 % (45.0-75.0) Lymphocytes (%) (Auto) 19.4 % (20.0-45.0) L Monocytes (%) (Auto) 11.7 % (1.0-10.0) H Eosinophils (%) (Auto) 2.1 % (0.0-3.0) Basophils (%) (Auto) 1.0 % (0.0-2.0) Prothrombin Time 37.2 SEC (9.30-11.50) H Prothromb Time International Ratio 3.8 (0.9-1.1) H Sodium Level 138 MMOL/L (136-145) Potassium Level 5.2 MMOL/L (3.5-5.1) H Chloride Level 97 MMOL/L (98-107) L Carbon Dioxide Level 26 MMOL/L (21-32) Anion Gap 15 mmol/L (5-15) Blood Urea Nitrogen 95 mg/dL (7-18) H Creatinine 7.9 MG/DL (0.55-1.30) H Estimat Glomerular Filtration Rate 8.4 mL/min (>60) Glucose Level 118 MG/DL (74-106) H Calcium Level 8.7 MG/DL (8.5-10.1) Intake and Output 06/30/19 07/01/19 19:00 07:00 Intake Total 2400 ml 480 ml Balance 2400 ml 480 ml Intake Oral 400 ml 480 ml Hemodialysis 2000 ml # Voids 4 # Bowel Movements 2 1 Objective PHYSICAL EXAMINATION: GENERAL: The patient is well-developed and well-nourished male, in no apparent distress. HEENT: Eyes, pupils are equal and responsive to light and accommodation. Extraocular movements are intact. NECK: Supple without lymphadenopathy. CHEST: Lungs are clear to auscultation bilaterally without wheezes or rales. CARDIOVASCULAR: Regular rhythm and rate. S1 and S2 are normal with an audible click. No evidence of murmurs or gallops. ABDOMEN: Soft, nontender, nondistended. Positive bowel sounds. No evidence of hepatosplenomegaly. Currently, no rebound or guarding noted. EXTREMITIES: Negative for clubbing, cyanosis, or edema. RECTAL/GENITAL: Not performed. NEUROLOGIC: Cranial nerves II through XII are grossly intact without focal deficits. Motor strength is 5/5 bilaterally. Deep tendon reflexes are 2+ plantar. Assessment/Plan Assessment/Plan ASSESSMENT: This is a 64-year-old male. 1. Chest pain. 2. Nausea with vomiting. 3. Mechanical mitral valve. 4. End-stage renal disease. 5. Diabetes type 2. 6. Hypertension. 7. Atrial flutter TREATMENT: 1. Chest pain. A Cardiology consultation has been obtained with Dr. Beto Goldman. The patient has a mechanical mitral valve. An echocardiogram is pending. Serial troponin levels will be performed. We will follow recommendation of Cardiology. 2. Nausea and vomiting, this has resolved. 3. End-stage renal disease. A Nephrology consultation has been obtained with Dr. Valdez. We will follow recommendations of Nephrology. Last hemodialysis 06/28/19 4. Diabetes type 2. NovoLog sliding scale has been instituted. 5. Hypertension. Continue diltiazem, isosorbide, losartan and as needed clonidine as above. 6. Hypercholesterolemia. Continue atorvastatin 7. Atrial flutter-continue coumadin 8. Await cardiac stress test results from Mon07/01/19 Saturnino Pleitez MD Jul 01, 2019 19:13
[2019-07-01 20:00] VITALS: BP 109/71
[2019-07-01] MEDS: Morphine Sulfate 2mg/ml Inj(IV/IM USE ONLY) IVP PRN (20:56)
[2019-07-02] VITALS: BP 121/78
[2019-07-02 04:00] VITALS: BP 124/84
[2019-07-02] MEDS: NovoLOG Insulin Flexpen SUBQ SCH ×4 (06:15→22:28)
[2019-07-02 07:22] LABS: INR 3.5 (0.9-1.1)
[2019-07-02 08:00] VITALS: BP 100/62
[2019-07-02 08:19] LABS: ALANINE AMINOTRANSFERASE 22 U/L (12-78); ALBUMIN 3.3 G/DL (3.4-5.0); ALBUMIN/GLOBULIN RATIO 1.1 (1.0-2.7); ALKALINE PHOSPHATASE 67 U/L (46-116); ANION GAP 18 mmol/L (5-15); ASPARTATE AMINO TRANSFERASE 27 U/L (15-37); BILIRUBIN,TOTAL 0.2 MG/DL (0.2-1.0); BLOOD UREA NITROGEN 135 mg/dL (7-18); CALCIUM 8.2 MG/DL (8.5-10.1); CARBON DIOXIDE 24 MMOL/L (21-32); CHLORIDE 98 MMOL/L (98-107); CHOLESTEROL 112 MG/DL (< 200); CREATININE 9.6 MG/DL (0.55-1.30); HDL CHOLESTEROL 22 MG/DL (40-60); PHOSPHORUS 6.6 MG/DL (2.5-4.9); SODIUM 140 MMOL/L (136-145); TRIGLYCERIDES 232 MG/DL (30-150)
[2019-07-02] MEDS: Aspirin Baby 81mg ORAL SCH (08:41)
[2019-07-02] MEDS: Docusate 100mg cap ORAL SCH ×3 (08:44→17:28)
[2019-07-02] MEDS: Losartan 50mg tab ORAL SCH (08:44)
[2019-07-02 09:12] LABS: HEMATOCRIT 19.8 % (42.0-52.0); MEAN CORPUSCULAR VOLUME 90 FL (80-99); PLATELET COUNT 222 K/UL (150-450); RED BLOOD COUNT 2.19 M/UL (4.70-6.10); RED CELL DISTRIBUTION WIDTH 13.9 % (11.6-14.8); WHITE BLOOD COUNT 14.6 K/UL (4.8-10.8)
[2019-07-02 09:38] LABS: HEMOGLOBIN 6.8 G/DL (14.2-18.0)
--- NOTE | 2019-07-02 10:53 | Cardiac Electrophysiology PN ---
Assessment/Plan Assessment/Plan 1. Atrial flutter, converted to SR. On Coumadin and metoprolol 25 mg b.i.d. Electrophysiology study and ablation as out patient EF 55% 2. Chest pain. Ruled out for myocardial infarction. Denies any chest pain. It could be due to volume overload. Had stress test yesterday that showed: Apparent hypoperfusion to the inferior wall worse on stress. Possibilities include an inferior wall infarct with lexie-infarct ischemia versus diaphragmatic attenuation. Will DW patient Cardiac cath vs medical therapy 3. S/P [facility] MVR and TV Ring 07/2017 Nl valve Fx on echo 4. Hypertension, on metoprolol 25 mg b.i.d., losartan 50 mg daily and hemodialysis. 5. End-stage renal disease, on hemodialysis. 6. Diabetes, on insulin. 7. Hep C DW RN Subjective Subjective Remained in SR. Had HD yesterday. S/P MVR and TV repair at [facility] 08/2017. No CP or SOB. Records from [facility] reviewed. Had stress test yesterday Objective Last 24 Hour Vital Signs Date Time Temp Pulse Resp B/P (MAP) Pulse Ox O2 Delivery O2 Flow Rate FiO2 07/02/19 08:00 97.8 90 20 100/62 (75) 94 07/02/19 08:00 84 07/02/19 04:00 98.0 84 20 124/84 (97) 98 07/02/19 04:00 84 07/02/19 00:00 88 07/02/19 00:00 97.4 88 23 121/78 (92) 99 07/01/19 21:00 Room Air Room Air 07/01/19 20:53 104 112/71 07/01/19 20:00 76 07/01/19 20:00 98.3 76 18 109/71 (84) 98 07/01/19 16:00 98.2 86 20 113/64 (80) 98 07/01/19 16:00 82 07/01/19 12:00 78 07/01/19 12:00 98.6 77 20 109/68 (82) 98 Intake and Output 07/01/19 07/02/19 19:00 07:00 Intake Total 300 ml 480 ml Balance 300 ml 480 ml Intake Oral 300 ml 480 ml # Voids 4 3 # Bowel Movements 4 1 Laboratory Tests Test 07/02/19 06:39 07/02/19 08:30 Prothrombin Time 34.7 SEC (9.30-11.50) H Prothromb Time International Ratio 3.5 (0.9-1.1) H Sodium Level 140 MMOL/L (136-145) Potassium Level 5.0 MMOL/L (3.5-5.1) Chloride Level 98 MMOL/L (98-107) Carbon Dioxide Level 24 MMOL/L (21-32) Anion Gap 18 mmol/L (5-15) H Blood Urea Nitrogen 135 mg/dL (7-18) H Creatinine 9.6 MG/DL (0.55-1.30) H Estimat Glomerular Filtration Rate 6.7 mL/min (>60) Glucose Level 94 MG/DL (74-106) Uric Acid 8.0 MG/DL (2.6-7.2) H Calcium Level 8.2 MG/DL (8.5-10.1) L Phosphorus Level 6.6 MG/DL (2.5-4.9) H Magnesium Level 2.3 MG/DL (1.8-2.4) Total Bilirubin 0.2 MG/DL (0.2-1.0) Aspartate Amino Transf (AST/SGOT) 27 U/L (15-37) Alanine Aminotransferase (ALT/SGPT) 22 U/L (12-78) Alkaline Phosphatase 67 U/L (46-116) C-Reactive Protein, Quantitative < 0.4 mg/dL (0.00-0.90) Pro-B-Type Natriuretic Peptide 5301 pg/mL (0-125) H Total Protein 6.2 G/DL (6.4-8.2) L Albumin 3.3 G/DL (3.4-5.0) L Globulin 2.9 g/dL Albumin/Globulin Ratio 1.1 (1.0-2.7) Triglycerides Level 232 MG/DL (30-150) H Cholesterol Level 112 MG/DL (< 200) LDL Cholesterol 52 mg/dL (<100) HDL Cholesterol 22 MG/DL (40-60) L Cholesterol/HDL Ratio 5.1 (3.3-4.4) H White Blood Count 14.6 K/UL (4.8-10.8) H Red Blood Count 2.19 M/UL (4.70-6.10) L Hemoglobin 6.8 G/DL (14.2-18.0) Hematocrit 19.8 % (42.0-52.0) #L Mean Corpuscular Volume 90 FL (80-99) Mean Corpuscular Hemoglobin 31.0 PG (27.0-31.0) Mean Corpuscular Hemoglobin Concent 34.3 G/DL (32.0-36.0) Red Cell Distribution Width 13.9 % (11.6-14.8) Platelet Count 222 K/UL (150-450) Mean Platelet Volume 8.6 FL (6.5-10.1) Neutrophils (%) (Auto) % (45.0-75.0) Lymphocytes (%) (Auto) % (20.0-45.0) Monocytes (%) (Auto) % (1.0-10.0) Eosinophils (%) (Auto) % (0.0-3.0) Basophils (%) (Auto) % (0.0-2.0) Neutrophils % (Manual) Pending Lymphocytes % (Manual) Pending Platelet Estimate Pending Platelet Morphology Pending Objective HEAD AND NECK: No JVD or carotid bruit. LUNGS: Clear. CARDIOVASCULAR: Regular S1 and S2 with metallic first heart sounds. LUNGS: Clear. ABDOMEN: Soft. EXTREMITIES: No pitting edema. Beto Goldman MD Jul 02, 2019 10:53
[2019-07-02 12:00] VITALS: BP 100/59
--- NOTE | 2019-07-02 14:54 | Nephrology Progress Note ---
Assessment/Plan Problem List: (1) ESRD (end stage renal disease) on dialysis (2) Diabetes mellitus (3) Anemia in chronic kidney disease (4) Atrial flutter (5) H/O mitral valve replacement (6) Hepatitis C Assessment: by history Assessment End-stage renal disease, on hemodialysis every Monday, Monday, and Monday. Diabetes type 2. Hypertension. Hepatitis C. Mechanical mitral valve. Plan worsening Anemia- recheck in am HD next July 01 keep BP and BS in check Per cardio. Due for stress test. Oral Kayexalate today for elevated potassium. on coumadin Subjective ROS Limited/Unobtainable: No Objective Objective Last 24 Hour Vital Signs Date Time Temp Pulse Resp B/P (MAP) Pulse Ox O2 Delivery O2 Flow Rate FiO2 07/02/19 12:00 85 07/02/19 09:00 Room Air Room Air 07/02/19 08:00 97.8 90 20 100/62 (75) 94 07/02/19 08:00 84 07/02/19 04:00 98.0 84 20 124/84 (97) 98 07/02/19 04:00 84 07/02/19 00:00 88 07/02/19 00:00 97.4 88 23 121/78 (92) 99 07/01/19 21:00 Room Air Room Air 07/01/19 20:53 104 112/71 07/01/19 20:00 76 07/01/19 20:00 98.3 76 18 109/71 (84) 98 07/01/19 16:00 98.2 86 20 113/64 (80) 98 07/01/19 16:00 82 Intake and Output 07/01/19 07/02/19 19:00 07:00 Intake Total 300 ml 480 ml Balance 300 ml 480 ml Intake Oral 300 ml 480 ml # Voids 4 3 # Bowel Movements 4 1 Laboratory Tests 07/02/19 06:39: Prothrombin Time 34.7H, Prothromb Time International Ratio 3.5H, Sodium Level 140, Potassium Level 5.0, Chloride Level 98, Carbon Dioxide Level 24, Anion Gap 18H, Blood Urea Nitrogen 135H, Creatinine 9.6H, Estimat Glomerular Filtration Rate 6.7, Glucose Level 94, Uric Acid 8.0H, Calcium Level 8.2L, Phosphorus Level 6.6H, Magnesium Level 2.3, Total Bilirubin 0.2, Aspartate Amino Transf ( AST/SGOT) 27, Alanine Aminotransferase (ALT/SGPT) 22, Alkaline Phosphatase 67, C -Reactive Protein, Quantitative < 0.4, Pro-B-Type Natriuretic Peptide 5301H, Total Protein 6.2L, Albumin 3.3L, Globulin 2.9, Albumin/Globulin Ratio 1.1, Triglycerides Level 232H, Cholesterol Level 112, LDL Cholesterol 52, HDL Cholesterol 22L, Cholesterol/HDL Ratio 5.1H 07/02/19 08:30: White Blood Count 14.6H, Red Blood Count 2.19L, Hemoglobin 6.8#*L, Hematocrit 19.8#L, Mean Corpuscular Volume 90, Mean Corpuscular Hemoglobin 31.0, Mean Corpuscular Hemoglobin Concent 34.3, Red Cell Distribution Width 13.9, Platelet Count 222, Mean Platelet Volume 8.6, Neutrophils (%) (Auto) , Lymphocytes (%) ( Auto) , Monocytes (%) (Auto) , Eosinophils (%) (Auto) , Basophils (%) (Auto) , Differential Total Cells Counted 100, Neutrophils % (Manual) 74, Lymphocytes % ( Manual) 22, Monocytes % (Manual) 4, Eosinophils % (Manual) 0, Basophils % ( Manual) 0, Band Neutrophils 0, Platelet Estimate Adequate, Platelet Morphology Normal, Hypochromasia 3+ Height (Feet): 6 Height (Inches): 1.00 Weight (Pounds): 174 General Appearance: no apparent distress Cardiovascular: normal peripheral pulses Respiratory/Chest: decreased breath sounds Abdomen: soft Objective NO CHANGE Hang Valdez MD Jul 02, 2019 14:54
[2019-07-02 16:00] VITALS: BP 104/54
--- NOTE | 2019-07-02 17:47 | Internal Med Progress Note ---
Subjective Date of Service: Jul 02, 2019 Physician Name Saturnino Pleitez Attending Physician Brian Alicea MD Current Medications Medications (Trade) Dose Ordered Sig/John Route PRN Reason Start Time Stop Time Status Last Admin Dose Admin Albuterol/ Ipratropium (Albuterol/ Ipratropium) 3 ml Q4H PRN HHN sob 06/30/19 17:00 07/05/19 16:59 Aspirin (ASA) 81 mg DAILY ORAL 06/27/19 09:00 07/27/19 08:59 07/02/19 08:41 Bisacodyl (Dulcolax) 10 mg DAILYPRN PRN RECTAL Constipation 06/27/19 13:30 07/27/19 13:14 Dextrose (Dextrose 50%) 25 ml Q30M PRN IV Hypoglycemia 06/27/19 00:00 07/27/19 00:00 Dextrose (Dextrose 50%) 50 ml Q30M PRN IV Hypoglycemia 06/27/19 00:00 07/27/19 00:00 Docusate Sodium (Colace) 100 mg TID ORAL 06/28/19 13:00 07/27/19 20:59 07/01/19 09:57 Insulin Aspart (NovoLOG) BEFORE MEALS AND HS SUBQ 06/27/19 06:30 07/27/19 06:29 Lorazepam (Ativan) 1 mg Q4H PRN ORAL For Anxiety 06/27/19 13:15 07/04/19 13:14 Losartan Potassium (Cozaar) 50 mg DAILY ORAL 06/27/19 10:00 07/27/19 09:59 07/01/19 09:58 Metoprolol Tartrate (Lopressor) 25 mg Q12HR ORAL 06/27/19 01:00 07/27/19 00:59 07/01/19 20:53 Morphine Sulfate (Morphine Sulfate) 2 mg Q6H PRN IVP PAIN 4-10 06/27/19 13:15 07/04/19 13:14 07/01/19 20:56 Nitroglycerin (Ntg) 0.4 mg Q5M PRN SL Prn Chest Pain 06/27/19 00:00 07/27/19 00:00 Ondansetron HCl (Zofran) 4 mg Q6H PRN IVP Nausea & Vomiting 06/27/19 13:15 07/27/19 13:14 07/02/19 17:30 Pantoprazole (Protonix) 40 mg EVERY 12 HOURS ORAL 06/28/19 21:00 07/28/19 20:59 07/02/19 08:42 Polyethylene Glycol (Miralax) 17 gm DAILYPRN PRN ORAL Constipation 06/27/19 13:15 07/27/19 13:14 06/30/19 06:19 Sevelamer Carbonate (Renvela) 800 mg THREE TIMES A DAY ORAL 06/28/19 13:00 07/28/19 12:59 07/02/19 11:32 Temazepam (Restoril) 15 mg HSPRN PRN ORAL Insomnia 06/27/19 21:00 07/04/19 20:59 Warfarin Sodium (Coumadin per pharmacy) 1 ea DAILY PRN MISC Per rx protocol 06/27/19 00:00 07/27/19 00:00 Allergies: Coded Allergies: PENICILLINS (Verified Allergy, Severe, swelling of throat, 02/25/16) ACETAMINOPHEN (Verified Allergy, Intermediate, Generalized Itching , ) HYDROCODONE (Verified Allergy, Intermediate, Generalized Itching , 01/26/18 ) ROS Limited/Unobtainable: No Constitutional: Reports: no symptoms HEENT: Reports: no symptoms Cardiovascular: Reports: no symptoms Respiratory: Reports: no symptoms Gastrointestinal/Abdominal: Reports: no symptoms Genitourinary: Reports: no symptoms Neurologic/Psychiatric: Reports: no symptoms Subjective 64 YO M admitted with chest pain, nausea and vomiting. Now with severe anemia. Cover for Int Drew-DR Alicea Objective Last Vital Signs Date Time Temp Pulse Resp B/P (MAP) Pulse Ox O2 Delivery O2 Flow Rate FiO2 07/02/19 16:00 97.9 84 20 104/54 (71) 97 07/02/19 09:00 Room Air Room Air Laboratory Tests Test 07/02/19 06:39 07/02/19 08:30 Prothrombin Time 34.7 SEC (9.30-11.50) H Prothromb Time International Ratio 3.5 (0.9-1.1) H Sodium Level 140 MMOL/L (136-145) Potassium Level 5.0 MMOL/L (3.5-5.1) Chloride Level 98 MMOL/L (98-107) Carbon Dioxide Level 24 MMOL/L (21-32) Anion Gap 18 mmol/L (5-15) H Blood Urea Nitrogen 135 mg/dL (7-18) H Creatinine 9.6 MG/DL (0.55-1.30) H Estimat Glomerular Filtration Rate 6.7 mL/min (>60) Glucose Level 94 MG/DL (74-106) Uric Acid 8.0 MG/DL (2.6-7.2) H Calcium Level 8.2 MG/DL (8.5-10.1) L Phosphorus Level 6.6 MG/DL (2.5-4.9) H Magnesium Level 2.3 MG/DL (1.8-2.4) Total Bilirubin 0.2 MG/DL (0.2-1.0) Aspartate Amino Transf (AST/SGOT) 27 U/L (15-37) Alanine Aminotransferase (ALT/SGPT) 22 U/L (12-78) Alkaline Phosphatase 67 U/L (46-116) C-Reactive Protein, Quantitative < 0.4 mg/dL (0.00-0.90) Pro-B-Type Natriuretic Peptide 5301 pg/mL (0-125) H Total Protein 6.2 G/DL (6.4-8.2) L Albumin 3.3 G/DL (3.4-5.0) L Globulin 2.9 g/dL Albumin/Globulin Ratio 1.1 (1.0-2.7) Triglycerides Level 232 MG/DL (30-150) H Cholesterol Level 112 MG/DL (< 200) LDL Cholesterol 52 mg/dL (<100) HDL Cholesterol 22 MG/DL (40-60) L Cholesterol/HDL Ratio 5.1 (3.3-4.4) H White Blood Count 14.6 K/UL (4.8-10.8) H Red Blood Count 2.19 M/UL (4.70-6.10) L Hemoglobin 6.8 G/DL (14.2-18.0) Hematocrit 19.8 % (42.0-52.0) #L Mean Corpuscular Volume 90 FL (80-99) Mean Corpuscular Hemoglobin 31.0 PG (27.0-31.0) Mean Corpuscular Hemoglobin Concent 34.3 G/DL (32.0-36.0) Red Cell Distribution Width 13.9 % (11.6-14.8) Platelet Count 222 K/UL (150-450) Mean Platelet Volume 8.6 FL (6.5-10.1) Neutrophils (%) (Auto) % (45.0-75.0) Lymphocytes (%) (Auto) % (20.0-45.0) Monocytes (%) (Auto) % (1.0-10.0) Eosinophils (%) (Auto) % (0.0-3.0) Basophils (%) (Auto) % (0.0-2.0) Differential Total Cells Counted 100 Neutrophils % (Manual) 74 % (45-75) Lymphocytes % (Manual) 22 % (20-45) Monocytes % (Manual) 4 % (1-10) Eosinophils % (Manual) 0 % (0-3) Basophils % (Manual) 0 % (0-2) Band Neutrophils 0 % (0-8) Platelet Estimate Adequate Platelet Morphology Normal Hypochromasia 3+ Intake and Output 07/01/19 07/02/19 19:00 07:00 Intake Total 300 ml 480 ml Balance 300 ml 480 ml Intake Oral 300 ml 480 ml # Voids 4 3 # Bowel Movements 4 1 Objective PHYSICAL EXAMINATION: GENERAL: The patient is well-developed and well-nourished male, in no apparent distress. HEENT: Eyes, pupils are equal and responsive to light and accommodation. Extraocular movements are intact. NECK: Supple without lymphadenopathy. CHEST: Lungs are clear to auscultation bilaterally without wheezes or rales. CARDIOVASCULAR: Regular rhythm and rate. S1 and S2 are normal with an audible click. No evidence of murmurs or gallops. ABDOMEN: Soft, nontender, nondistended. Positive bowel sounds. No evidence of hepatosplenomegaly. Currently, no rebound or guarding noted. EXTREMITIES: Negative for clubbing, cyanosis, or edema. RECTAL/GENITAL: Not performed. NEUROLOGIC: Cranial nerves II through XII are grossly intact without focal deficits. Motor strength is 5/5 bilaterally. Deep tendon reflexes are 2+ plantar. Assessment/Plan Assessment/Plan ASSESSMENT: This is a 64-year-old male. 1. Chest pain. 2. Nausea with vomiting. 3. Mechanical mitral valve. 4. End-stage renal disease. 5. Diabetes type 2. 6. Hypertension. 7. Atrial flutter 8. severe anemia TREATMENT: 1. Chest pain. A Cardiology consultation has been obtained with Dr. Beto Goldman. The patient has a mechanical mitral valve. An echocardiogram is pending. Serial troponin levels will be performed. We will follow recommendation of Cardiology. 2. Nausea and vomiting, this has resolved. 3. End-stage renal disease. A Nephrology consultation has been obtained with Dr. Valdez. We will follow recommendations of Nephrology. Last hemodialysis 06/28/19 4. Diabetes type 2. NovoLog sliding scale has been instituted. 5. Hypertension. Continue diltiazem, isosorbide, losartan and as needed clonidine as above. 6. Hypercholesterolemia. Continue atorvastatin 7. Atrial flutter-continue coumadin 8. cardiac stress test results from Mon07/01/19=poss ischemia 9. transfuse 2 units PRBC Saturnino Pleitez MD Jul 02, 2019 17:46
[2019-07-02 20:00] VITALS: BP 98/65
[2019-07-03] VITALS: BP 118/89
[2019-07-03 04:00] VITALS: BP 140/72
[2019-07-03] MEDS: NovoLOG Insulin Flexpen SUBQ SCH ×4 (06:30→21:00)
[2019-07-03 06:46] LABS: HEMATOCRIT 19.1 % (42.0-52.0); MEAN CORPUSCULAR VOLUME 89 FL (80-99); PLATELET COUNT 211 K/UL (150-450); RED BLOOD COUNT 2.15 M/UL (4.70-6.10); RED CELL DISTRIBUTION WIDTH 14.4 % (11.6-14.8); WHITE BLOOD COUNT 16.2 K/UL (4.8-10.8)
[2019-07-03 06:58] LABS: INR 3.8 (0.9-1.1)
[2019-07-03 07:20] LABS: ALANINE AMINOTRANSFERASE 22 U/L (12-78); ALBUMIN 3.2 G/DL (3.4-5.0); ALKALINE PHOSPHATASE 59 U/L (46-116); ANION GAP 21 mmol/L (5-15); ASPARTATE AMINO TRANSFERASE 26 U/L (15-37); BILIRUBIN,TOTAL 0.3 MG/DL (0.2-1.0); BLOOD UREA NITROGEN 150 mg/dL (7-18); CALCIUM 8.1 MG/DL (8.5-10.1); CARBON DIOXIDE 21 MMOL/L (21-32); CHLORIDE 96 MMOL/L (98-107); CREATININE 10.4 MG/DL (0.55-1.30); PHOSPHORUS 5.6 MG/DL (2.5-4.9); POTASSIUM 4.5 MMOL/L (3.5-5.1); SODIUM 138 MMOL/L (136-145)
[2019-07-03] MEDS ORDERED: DiphenhydrAMINE 25mg Tab ORAL PRN (07:45)
[2019-07-03 08:00] VITALS: BP 137/82
[2019-07-03 08:28] LABS: HEMOGLOBIN 6.7 G/DL (14.2-18.0)
[2019-07-03] MEDS: Losartan 50mg tab ORAL SCH (09:00)
[2019-07-03] MEDS: Docusate 100mg cap ORAL SCH ×4 (09:48→18:00)
[2019-07-03] MEDS: Aspirin Baby 81mg ORAL SCH (09:49)
--- NOTE | 2019-07-03 10:50 | GI Initial Consult Note ---
History of Present Illness General Date patient seen: Jul 03, 2019 Time patient seen: 10:37 Referring physician: REJI BARRAZA Reason for Consultation: GI BLEED Present Illness HPI The patient has a history of mechanical mitral valve replacement in 2018. The patient also has a history of end-stage renal disease. The patient is generally on dialysis every Monday, Monday, Monday. The patient missed his Monday dialysis. The patient then had dialysis on Monday, June 25, 2019. The patient states he began to experience chest pain on Monday evening June 25, 2019 after dialysis. The patient then began to experience nausea and vomiting. The patient states he vomited 6 or 7 times. The patient initially presented to [facility] emergency room. The patient was given morphine with relief of his chest pain. The patient was transferred to [facility] for insurance purposes. The patient was admitted with chest pain to rule out acute coronary syndrome. GI consulted for reported hematemesis and melena. Patient seen, awake alert oriented x4 no apparent distress with no active signs or symptoms of any nausea vomiting. According to the patient, he had an episode of emesis in which he noted bright pinkish blood and had episodes of melena. The patient states he had prior episodes of a similar condition which he believes happens when he is taking his Coumadin. Patient has history of endoscopy and colonoscopy approximately 1 year ago at [facility] where they found an inconclusive source of bleeding within the stomach. The patient states his colonoscopy was unremarkable. The patient states he has history of capsule endoscopy with no findings. Over the past week, the patient has had a significant drop of hemoglobin from 12.2 to 6.7. In addition, the patient has complaint of vertigo when ambulating and generalized weakness. INR currently 3.8 and patient is receiving 2 units of pRBCs. Home Meds Active Scripts Isosorbide Mononitrate (ISOSORBIDE MONONITRATE ER) 30 Mg Tab.er.24h, 30 MG ORAL DAILY for 30 Days, TAB Prov:Nam Hernandez MD 02/02/18 Reported Medications Aspirin* (ASPIRIN*) 81 Mg Tab.chew, 81 MG ORAL DAILY PRN for Per rx protocol, TAB 06/26/19 Losartan Potassium* (COZAAR*) 50 Mg Tablet, 50 MG ORAL DAILY PRN for For High Blood Pressure, #1 TAB 2/26/20 Ondansetron (Zofran) 4 Mg Tablet, 4 MG ORAL Q8H PRN for Nausea & Vomiting, #10 TAB 0 Refills 06/26/19 Diltiazem Hcl* (CARTIA XT*) 120 Mg Cap.er.24h, 120 MG ORAL BID, CAP 0 Refills Swallow capsule whole. Do not open, chew, or crush 01/24/18 Warfarin Sod* (WARFARIN SOD*) 5 Mg Tablet, 5 MG ORAL DAILY, TAB 01/24/18 Gabapentin* (GABAPENTIN*) 100 Mg Capsule, 100 MG ORAL THREE TIMES A DAY, CAP 01/24/18 Oxycodone Hcl/Acetaminophen 10-325 Mg Tablet (PERCOCET 10-325 MG TABLET*) 1 Each Tablet, 1 TAB ORAL Q4H PRN for For Pain, TAB 01/24/18 Atorvastatin Calcium* (ATORVASTATIN CALCIUM*) 20 Mg Tablet, 10 MG ORAL BEDTIME, TAB 01/24/18 Docusate Sodium* (DOCUSATE SODIUM*) 100 Mg Capsule, 100 MG ORAL TWICE A DAY, CAP 01/24/18 Metoclopramide Hcl* (METOCLOPRAMIDE HCL*) 5 Mg Tablet, 10 MG ORAL TID, TAB 02/23/16 Med list reviewed/reconciled: Yes Allergies: Coded Allergies: PENICILLINS (Verified Allergy, Severe, swelling of throat, 02/25/16) ACETAMINOPHEN (Verified Allergy, Intermediate, Generalized Itching , ) HYDROCODONE (Verified Allergy, Intermediate, Generalized Itching , 01/26/18 ) Patient History History Provided By: Patient PMH Narrative PAST MEDICAL HISTORY: Significant for: 1. End-stage renal disease, on hemodialysis every Monday, Monday, and Monday. 2. Diabetes type 2. 3. Hypertension. 4. Hepatitis C. 5. Mechanical mitral valve. PAST SURGICAL HISTORY: Significant for: 1. Left AV graft for dialysis. 2. Lumbar diskectomy x2 at L3-L4 and L4-L5. 3. Mechanical mitral valve replacement on August 07, 2017. Review of Systems All Other Systems: negative except mentioned in HPI Physical Exam Vital Signs Date Time Temp Pulse Resp B/P (MAP) Pulse Ox O2 Delivery O2 Flow Rate FiO2 06/29/19 08:00 97.6 63 20 123/71 (88) 96 06/29/19 09:00 Room Air Room Air 3/3/20 20:40 21 Sp02 EP Interpretation: reviewed, normal Labs Laboratory Tests Test 07/03/19 06:09 White Blood Count 16.2 K/UL (4.8-10.8) H Red Blood Count 2.15 M/UL (4.70-6.10) L Hemoglobin 6.7 G/DL (14.2-18.0) *L Hematocrit 19.1 % (42.0-52.0) L Mean Corpuscular Volume 89 FL (80-99) Mean Corpuscular Hemoglobin 31.2 PG (27.0-31.0) H Mean Corpuscular Hemoglobin Concent 35.2 G/DL (32.0-36.0) Red Cell Distribution Width 14.4 % (11.6-14.8) Platelet Count 211 K/UL (150-450) Mean Platelet Volume 8.9 FL (6.5-10.1) Neutrophils (%) (Auto) % (45.0-75.0) Lymphocytes (%) (Auto) % (20.0-45.0) Monocytes (%) (Auto) % (1.0-10.0) Eosinophils (%) (Auto) % (0.0-3.0) Basophils (%) (Auto) % (0.0-2.0) Neutrophils % (Manual) Pending Lymphocytes % (Manual) Pending Platelet Estimate Pending Platelet Morphology Pending Prothrombin Time 37.7 SEC (9.30-11.50) H Prothromb Time International Ratio 3.8 (0.9-1.1) H Sodium Level 138 MMOL/L (136-145) Potassium Level 4.5 MMOL/L (3.5-5.1) Chloride Level 96 MMOL/L (98-107) L Carbon Dioxide Level 21 MMOL/L (21-32) Anion Gap 21 mmol/L (5-15) H Blood Urea Nitrogen 150 mg/dL (7-18) H Creatinine 10.4 MG/DL (0.55-1.30) H Estimat Glomerular Filtration Rate 6.1 mL/min (>60) Glucose Level 116 MG/DL (74-106) H Calcium Level 8.1 MG/DL (8.5-10.1) L Phosphorus Level 5.6 MG/DL (2.5-4.9) H Magnesium Level 2.2 MG/DL (1.8-2.4) Total Bilirubin 0.3 MG/DL (0.2-1.0) Aspartate Amino Transf (AST/SGOT) 26 U/L (15-37) Alanine Aminotransferase (ALT/SGPT) 22 U/L (12-78) Alkaline Phosphatase 59 U/L (46-116) Total Protein 6.3 G/DL (6.4-8.2) L Albumin 3.2 G/DL (3.4-5.0) L Globulin 3.1 g/dL Albumin/Globulin Ratio 1.0 (1.0-2.7) General Appearance: well appearing, no apparent distress, alert Head: normocephalic EENT: PERRL/EOMI, normal ENT inspection Neck: supple Respiratory: normal breath sounds, no respiratory distress Cardiovascular: normal rate Gastrointestinal: normal inspection, non tender, soft, normal bowel sounds, non -distended Rectal: deferred Genitourinary: deferred Musculoskeletal: normal inspection, back normal Neurologic: alert, oriented x3, responsive, normal inspection Psychiatric: normal inspection, judgement/insight normal, memory normal Skin: normal inspection, normal color, no rash, warm/dry, palpation normal, well hydrated Lymphatic: normal inspection, no adenopathy Current Medications Current Medications Medications (Trade) Dose Ordered Sig/John Route PRN Reason Start Time Stop Time Status Last Admin Dose Admin Albuterol/ Ipratropium (Albuterol/ Ipratropium) 3 ml Q4H PRN HHN sob 06/30/19 17:00 07/05/19 16:59 Aspirin (ASA) 81 mg DAILY ORAL 06/27/19 09:00 07/27/19 08:59 07/03/19 09:49 Bisacodyl (Dulcolax) 10 mg DAILYPRN PRN RECTAL Constipation 06/27/19 13:30 07/27/19 13:14 Dextrose (Dextrose 50%) 25 ml Q30M PRN IV Hypoglycemia 06/27/19 00:00 07/27/19 00:00 Dextrose (Dextrose 50%) 50 ml Q30M PRN IV Hypoglycemia 06/27/19 00:00 07/27/19 00:00 Diphenhydramine HCl (Benadryl) 25 mg PRN PRN ORAL Itching 07/03/19 07:45 08/02/19 07:44 Docusate Sodium (Colace) 100 mg TID ORAL 06/28/19 13:00 07/27/19 20:59 07/01/19 09:57 Insulin Aspart (NovoLOG) BEFORE MEALS AND HS SUBQ 06/27/19 06:30 07/27/19 06:29 07/02/19 22:28 Lorazepam (Ativan) 1 mg Q4H PRN ORAL For Anxiety 06/27/19 13:15 07/04/19 13:14 Losartan Potassium (Cozaar) 50 mg DAILY ORAL 06/27/19 10:00 07/27/19 09:59 07/01/19 09:58 Metoprolol Tartrate (Lopressor) 25 mg Q12HR ORAL 06/27/19 01:00 07/27/19 00:59 07/01/19 20:53 Morphine Sulfate (Morphine Sulfate) 2 mg Q6H PRN IVP PAIN 4-10 06/27/19 13:15 07/04/19 13:14 07/01/19 20:56 Nitroglycerin (Ntg) 0.4 mg Q5M PRN SL Prn Chest Pain 06/27/19 00:00 07/27/19 00:00 Ondansetron HCl (Zofran) 4 mg Q6H PRN IVP Nausea & Vomiting 06/27/19 13:15 07/27/19 13:14 07/02/19 17:30 Pantoprazole (Protonix) 40 mg EVERY 12 HOURS ORAL 06/28/19 21:00 07/28/19 20:59 07/03/19 09:48 Polyethylene Glycol (Miralax) 17 gm DAILYPRN PRN ORAL Constipation 06/27/19 13:15 07/27/19 13:14 06/30/19 06:19 Sevelamer Carbonate (Renvela) 800 mg THREE TIMES A DAY ORAL 06/28/19 13:00 07/28/19 12:59 07/02/19 11:32 Temazepam (Restoril) 15 mg HSPRN PRN ORAL Insomnia 06/27/19 21:00 07/04/19 20:59 Warfarin Sodium (Coumadin per pharmacy) 1 ea DAILY PRN MISC Per rx protocol 06/27/19 00:00 07/27/19 00:00 GI: Plan Problems: (1) GI bleed (2) Warfarin overdosage (3) Hepatitis C Plan Patient will require endoscopy to evaluate for GI bleed We will consider colonoscopy if needed We will correct coagulopathy, give vitamin K 1 mg IV Hold Coumadin Monitor H&H, as needed transfusions to maintain above 7 >> currently receiving 2 units of packed RBCs PPI twice daily Zofran PRN We will follow with additional recommendations post procedure Discussed with Dr. tSeen. Thank you for this patient referral, we will follow. The patient was seen and examined at bedside and all new and available data was reviewed in the patients chart. I agree with the above findings, impression and plan. (Patient seen earlier today. Signature stamp does not reflect patient encounter time.). - MD Cathleen Mcdowell [employer] Jul 03, 2019 10:50
--- NOTE | 2019-07-03 11:40 | Pulmonology Progress Note ---
Assessment/Plan Problems: (1) Anemia in chronic kidney disease (2) Atrial fibrillation with rapid ventricular response Assessment & Plan: sinus now (3) COPD (chronic obstructive pulmonary disease) (4) ESRD (end stage renal disease) on dialysis (5) Diabetes mellitus (6) History of hypertension (7) Nicotine addiction (8) Hepatitis C (9) H/O mitral valve replacement Assessment/Plan still dizzy one PRBC today doing better heart rate controlled, sinus around 80's respiratory treatment titrate fiO2 to sat of 92% symptomatic treatment Subjective Interval Events: late note for 2/3, now new complains, still dizzy Constitutional: Reports: no symptoms HEENT: Repors: no symptoms Allergies: Coded Allergies: PENICILLINS (Verified Allergy, Severe, swelling of throat, 02/25/16) ACETAMINOPHEN (Verified Allergy, Intermediate, Generalized Itching , ) HYDROCODONE (Verified Allergy, Intermediate, Generalized Itching , 01/26/18 ) Objective Last 24 Hour Vital Signs Date Time Temp Pulse Resp B/P (MAP) Pulse Ox O2 Delivery O2 Flow Rate FiO2 07/03/19 09:00 Room Air Room Air 07/03/19 09:00 137/82 07/03/19 09:00 98 137/82 07/03/19 08:00 98 07/03/19 08:00 97.3 98 20 137/82 (100) 100 07/03/19 04:00 94 07/03/19 04:00 97.5 98 18 140/72 (94) 99 07/03/19 00:00 91 07/03/19 00:00 98.1 93 19 118/89 (99) 97 07/02/19 21:00 Room Air Room Air 07/02/19 20:40 83 18 98 Room Air 21 07/02/19 20:00 102 07/02/19 20:00 97.3 92 17 98/65 (76) 98 07/02/19 16:00 97.9 84 20 104/54 (71) 97 07/02/19 16:00 95 07/02/19 12:00 97.9 82 20 100/59 (73) 99 07/02/19 12:00 85 Intake and Output 07/02/19 07/03/19 19:00 07:00 Intake Total 237 ml Balance 237 ml Intake Oral 237 ml # Voids 1 General Appearance: WD/WN HEENT: normocephalic, atraumatic Respiratory/Chest: chest wall non-tender, lungs clear Cardiovascular: normal peripheral pulses, regular rhythm Abdomen: soft, non tender, no organomegaly Laboratory Tests 07/03/19 06:09: White Blood Count 16.2H, Red Blood Count 2.15L, Hemoglobin 6.7*L, Hematocrit 19.1L, Mean Corpuscular Volume 89, Mean Corpuscular Hemoglobin 31.2H, Mean Corpuscular Hemoglobin Concent 35.2, Red Cell Distribution Width 14.4, Platelet Count 211, Mean Platelet Volume 8.9, Neutrophils (%) (Auto) , Lymphocytes (%) ( Auto) , Monocytes (%) (Auto) , Eosinophils (%) (Auto) , Basophils (%) (Auto) , Neutrophils % (Manual) [Pending], Lymphocytes % (Manual) [Pending], Platelet Estimate [Pending], Platelet Morphology [Pending], Prothrombin Time 37.7H, Prothromb Time International Ratio 3.8H, Sodium Level 138, Potassium Level 4.5, Chloride Level 96L, Carbon Dioxide Level 21, Anion Gap 21H, Blood Urea Nitrogen 150H, Creatinine 10.4H, Estimat Glomerular Filtration Rate 6.1, Glucose Level 116H, Calcium Level 8.1L, Phosphorus Level 5.6H, Magnesium Level 2.2, Total Bilirubin 0.3, Aspartate Amino Transf (AST/SGOT) 26, Alanine Aminotransferase ( ALT/SGPT) 22, Alkaline Phosphatase 59, Total Protein 6.3L, Albumin 3.2L, Globulin 3.1, Albumin/Globulin Ratio 1.0 Current Medications Medications (Trade) Dose Ordered Sig/John Route PRN Reason Start Time Stop Time Status Last Admin Dose Admin Albuterol/ Ipratropium (Albuterol/ Ipratropium) 3 ml Q4H PRN HHN sob 06/30/19 17:00 07/05/19 16:59 Aspirin (ASA) 81 mg DAILY ORAL 06/27/19 09:00 07/27/19 08:59 07/03/19 09:49 Bisacodyl (Dulcolax) 10 mg DAILYPRN PRN RECTAL Constipation 06/27/19 13:30 07/27/19 13:14 Dextrose (Dextrose 50%) 25 ml Q30M PRN IV Hypoglycemia 06/27/19 00:00 07/27/19 00:00 Dextrose (Dextrose 50%) 50 ml Q30M PRN IV Hypoglycemia 06/27/19 00:00 07/27/19 00:00 Diphenhydramine HCl (Benadryl) 25 mg PRN PRN ORAL Itching 07/03/19 07:45 08/02/19 07:44 Docusate Sodium (Colace) 100 mg TID ORAL 06/28/19 13:00 07/27/19 20:59 07/01/19 09:57 Insulin Aspart (NovoLOG) BEFORE MEALS AND HS SUBQ 06/27/19 06:30 07/27/19 06:29 07/02/19 22:28 Lorazepam (Ativan) 1 mg Q4H PRN ORAL For Anxiety 06/27/19 13:15 07/04/19 13:14 Losartan Potassium (Cozaar) 50 mg DAILY ORAL 06/27/19 10:00 07/27/19 09:59 07/01/19 09:58 Metoprolol Tartrate (Lopressor) 25 mg Q12HR ORAL 06/27/19 01:00 07/27/19 00:59 07/01/19 20:53 Morphine Sulfate (Morphine Sulfate) 2 mg Q6H PRN IVP PAIN 4-10 06/27/19 13:15 07/04/19 13:14 07/01/19 20:56 Nitroglycerin (Ntg) 0.4 mg Q5M PRN SL Prn Chest Pain 06/27/19 00:00 07/27/19 00:00 Ondansetron HCl (Zofran) 4 mg Q6H PRN IVP Nausea & Vomiting 06/27/19 13:15 07/27/19 13:14 07/02/19 17:30 Pantoprazole (Protonix) 40 mg EVERY 12 HOURS ORAL 06/28/19 21:00 07/28/19 20:59 07/03/19 09:48 Phytonadione (Vitamin K) 1 mg ONCE IVP 07/03/19 11:00 07/03/19 13:00 Polyethylene Glycol (Miralax) 17 gm DAILYPRN PRN ORAL Constipation 06/27/19 13:15 07/27/19 13:14 06/30/19 06:19 Sevelamer Carbonate (Renvela) 800 mg THREE TIMES A DAY ORAL 06/28/19 13:00 07/28/19 12:59 07/02/19 11:32 Temazepam (Restoril) 15 mg HSPRN PRN ORAL Insomnia 06/27/19 21:00 07/04/19 20:59 Warfarin Sodium (Coumadin per pharmacy) 1 ea DAILY PRN MISC Per rx protocol 06/27/19 00:00 07/27/19 00:00 Caleb Hinojosa MD Jul 03, 2019 11:40
[2019-07-03 12:00] VITALS: BP 125/71
--- NOTE | 2019-07-03 12:31 | Internal Med Progress Note ---
Subjective Date of Service: Jul 03, 2019 Physician Name PricillaSaturnino Attending Physician Brian Alicea MD Current Medications Medications (Trade) Dose Ordered Sig/John Route PRN Reason Start Time Stop Time Status Last Admin Dose Admin Albuterol/ Ipratropium (Albuterol/ Ipratropium) 3 ml Q4H PRN HHN sob 06/30/19 17:00 07/05/19 16:59 Aspirin (ASA) 81 mg DAILY ORAL 06/27/19 09:00 07/27/19 08:59 07/03/19 09:49 Bisacodyl (Dulcolax) 10 mg DAILYPRN PRN RECTAL Constipation 06/27/19 13:30 07/27/19 13:14 Dextrose (Dextrose 50%) 25 ml Q30M PRN IV Hypoglycemia 06/27/19 00:00 07/27/19 00:00 Dextrose (Dextrose 50%) 50 ml Q30M PRN IV Hypoglycemia 06/27/19 00:00 07/27/19 00:00 Diphenhydramine HCl (Benadryl) 25 mg PRN PRN ORAL Itching 07/03/19 07:45 08/02/19 07:44 Docusate Sodium (Colace) 100 mg TID ORAL 06/28/19 13:00 07/27/19 20:59 07/01/19 09:57 Insulin Aspart (NovoLOG) BEFORE MEALS AND HS SUBQ 06/27/19 06:30 07/27/19 06:29 07/02/19 22:28 Lorazepam (Ativan) 1 mg Q4H PRN ORAL For Anxiety 06/27/19 13:15 07/04/19 13:14 Losartan Potassium (Cozaar) 50 mg DAILY ORAL 06/27/19 10:00 07/27/19 09:59 07/01/19 09:58 Metoprolol Tartrate (Lopressor) 25 mg Q12HR ORAL 06/27/19 01:00 07/27/19 00:59 07/01/19 20:53 Morphine Sulfate (Morphine Sulfate) 2 mg Q6H PRN IVP PAIN 4-10 06/27/19 13:15 07/04/19 13:14 07/01/19 20:56 Nitroglycerin (Ntg) 0.4 mg Q5M PRN SL Prn Chest Pain 06/27/19 00:00 07/27/19 00:00 Ondansetron HCl (Zofran) 4 mg Q6H PRN IVP Nausea & Vomiting 06/27/19 13:15 07/27/19 13:14 07/02/19 17:30 Pantoprazole (Protonix) 40 mg EVERY 12 HOURS ORAL 06/28/19 21:00 07/28/19 20:59 07/03/19 09:48 Phytonadione (Vitamin K) 1 mg ONCE IVP 07/03/19 11:00 07/03/19 13:00 07/03/19 11:58 Polyethylene Glycol (Miralax) 17 gm DAILYPRN PRN ORAL Constipation 06/27/19 13:15 07/27/19 13:14 06/30/19 06:19 Sevelamer Carbonate (Renvela) 800 mg THREE TIMES A DAY ORAL 06/28/19 13:00 07/28/19 12:59 07/02/19 11:32 Temazepam (Restoril) 15 mg HSPRN PRN ORAL Insomnia 06/27/19 21:00 07/04/19 20:59 Warfarin Sodium (Coumadin per pharmacy) 1 ea DAILY PRN MISC Per rx protocol 06/27/19 00:00 07/27/19 00:00 Allergies: Coded Allergies: PENICILLINS (Verified Allergy, Severe, swelling of throat, 02/25/16) ACETAMINOPHEN (Verified Allergy, Intermediate, Generalized Itching , ) HYDROCODONE (Verified Allergy, Intermediate, Generalized Itching , 01/26/18 ) ROS Limited/Unobtainable: No Constitutional: Reports: no symptoms HEENT: Reports: no symptoms Cardiovascular: Reports: no symptoms Respiratory: Reports: no symptoms Gastrointestinal/Abdominal: Reports: no symptoms Genitourinary: Reports: no symptoms Neurologic/Psychiatric: Reports: no symptoms Subjective 64 YO M admitted with chest pain, nausea and vomiting. Now with severe anemia; await endoscopy. Cover for Yohana Alicea Objective Last Vital Signs Date Time Temp Pulse Resp B/P (MAP) Pulse Ox O2 Delivery O2 Flow Rate FiO2 07/03/19 12:00 97.7 94 20 125/71 (89) 100 07/03/19 09:00 Room Air Room Air 07/02/19 20:40 21 Laboratory Tests Test 3/4/20 06:09 White Blood Count 16.2 K/UL (4.8-10.8) H Red Blood Count 2.15 M/UL (4.70-6.10) L Hemoglobin 6.7 G/DL (14.2-18.0) *L Hematocrit 19.1 % (42.0-52.0) L Mean Corpuscular Volume 89 FL (80-99) Mean Corpuscular Hemoglobin 31.2 PG (27.0-31.0) H Mean Corpuscular Hemoglobin Concent 35.2 G/DL (32.0-36.0) Red Cell Distribution Width 14.4 % (11.6-14.8) Platelet Count 211 K/UL (150-450) Mean Platelet Volume 8.9 FL (6.5-10.1) Neutrophils (%) (Auto) % (45.0-75.0) Lymphocytes (%) (Auto) % (20.0-45.0) Monocytes (%) (Auto) % (1.0-10.0) Eosinophils (%) (Auto) % (0.0-3.0) Basophils (%) (Auto) % (0.0-2.0) Neutrophils % (Manual) Pending Lymphocytes % (Manual) Pending Platelet Estimate Pending Platelet Morphology Pending Prothrombin Time 37.7 SEC (9.30-11.50) H Prothromb Time International Ratio 3.8 (0.9-1.1) H Sodium Level 138 MMOL/L (136-145) Potassium Level 4.5 MMOL/L (3.5-5.1) Chloride Level 96 MMOL/L (98-107) L Carbon Dioxide Level 21 MMOL/L (21-32) Anion Gap 21 mmol/L (5-15) H Blood Urea Nitrogen 150 mg/dL (7-18) H Creatinine 10.4 MG/DL (0.55-1.30) H Estimat Glomerular Filtration Rate 6.1 mL/min (>60) Glucose Level 116 MG/DL (74-106) H Calcium Level 8.1 MG/DL (8.5-10.1) L Phosphorus Level 5.6 MG/DL (2.5-4.9) H Magnesium Level 2.2 MG/DL (1.8-2.4) Total Bilirubin 0.3 MG/DL (0.2-1.0) Aspartate Amino Transf (AST/SGOT) 26 U/L (15-37) Alanine Aminotransferase (ALT/SGPT) 22 U/L (12-78) Alkaline Phosphatase 59 U/L (46-116) Total Protein 6.3 G/DL (6.4-8.2) L Albumin 3.2 G/DL (3.4-5.0) L Globulin 3.1 g/dL Albumin/Globulin Ratio 1.0 (1.0-2.7) Intake and Output 07/02/19 07/03/19 19:00 07:00 Intake Total 237 ml Balance 237 ml Intake Oral 237 ml # Voids 1 Objective PHYSICAL EXAMINATION: GENERAL: The patient is well-developed and well-nourished male, in no apparent distress. HEENT: Eyes, pupils are equal and responsive to light and accommodation. Extraocular movements are intact. NECK: Supple without lymphadenopathy. CHEST: Lungs are clear to auscultation bilaterally without wheezes or rales. CARDIOVASCULAR: Regular rhythm and rate. S1 and S2 are normal with an audible click. No evidence of murmurs or gallops. ABDOMEN: Soft, nontender, nondistended. Positive bowel sounds. No evidence of hepatosplenomegaly. Currently, no rebound or guarding noted. EXTREMITIES: Negative for clubbing, cyanosis, or edema. RECTAL/GENITAL: Not performed. NEUROLOGIC: Cranial nerves II through XII are grossly intact without focal deficits. Motor strength is 5/5 bilaterally. Deep tendon reflexes are 2+ plantar. Assessment/Plan Assessment/Plan ASSESSMENT: This is a 64-year-old male. 1. Chest pain. 2. Nausea with vomiting. 3. Mechanical mitral valve. 4. End-stage renal disease. 5. Diabetes type 2. 6. Hypertension. 7. Atrial flutter 8. severe anemia TREATMENT: 1. Chest pain. A Cardiology consultation has been obtained with Dr. Beto Goldman. The patient has a mechanical mitral valve. An echocardiogram is pending. Serial troponin levels will be performed. We will follow recommendation of Cardiology. 2. Nausea and vomiting, this has resolved. 3. End-stage renal disease. A Nephrology consultation has been obtained with Dr. Valdez. We will follow recommendations of Nephrology. Last hemodialysis 06/28/19 4. Diabetes type 2. NovoLog sliding scale has been instituted. 5. Hypertension. Continue diltiazem, isosorbide, losartan and as needed clonidine as above. 6. Hypercholesterolemia. Continue atorvastatin 7. Atrial flutter-continue coumadin 8. cardiac stress test results from Mon07/01/19=poss ischemia 9. S/P transfusion 2 units PRBC; await endoscopy to R/O GI bleed Saturnino Pleitez MD Jul 03, 2019 12:31
--- NOTE | 2019-07-03 13:34 | Nephrology Progress Note ---
Assessment/Plan Problem List: (1) ESRD (end stage renal disease) on dialysis (2) Diabetes mellitus (3) Anemia in chronic kidney disease Assessment: worse- symptomatic (4) Atrial flutter (5) H/O mitral valve replacement (6) Hepatitis C Assessment: by history Assessment End-stage renal disease, on hemodialysis every Monday, Monday, and Monday. Diabetes type 2. Hypertension. Hepatitis C. Mechanical mitral valve. Plan worsening Anemia- had partial of one unit transfusion- need more HD next July 01 NOT DONE ! scheduled for today keep BP and BS in check Per cardio. Due for stress test. Oral Kayexalate today for elevated potassium. on coumadin Subjective ROS Limited/Unobtainable: No Constitutional: Reports: malaise Objective Objective Last 24 Hour Vital Signs Date Time Temp Pulse Resp B/P (MAP) Pulse Ox O2 Delivery O2 Flow Rate FiO2 07/03/19 12:00 97.7 94 20 125/71 (89) 100 07/03/19 09:00 Room Air Room Air 07/03/19 09:00 137/82 07/03/19 09:00 98 137/82 07/03/19 08:23 96 18 98 Room Air 21 07/03/19 08:00 98 07/03/19 08:00 97.3 98 20 137/82 (100) 100 07/03/19 04:00 94 07/03/19 04:00 97.5 98 18 140/72 (94) 99 07/03/19 00:00 91 07/03/19 00:00 98.1 93 19 118/89 (99) 97 07/02/19 21:00 Room Air Room Air 07/02/19 20:40 83 18 98 Room Air 21 07/02/19 20:00 102 07/02/19 20:00 97.3 92 17 98/65 (76) 98 07/02/19 16:00 97.9 84 20 104/54 (71) 97 07/02/19 16:00 95 Intake and Output 07/02/19 07/03/19 19:00 07:00 Intake Total 237 ml Balance 237 ml Intake Oral 237 ml # Voids 1 Laboratory Tests 07/03/19 06:09: White Blood Count 16.2H, Red Blood Count 2.15L, Hemoglobin 6.7*L, Hematocrit 19.1L, Mean Corpuscular Volume 89, Mean Corpuscular Hemoglobin 31.2H, Mean Corpuscular Hemoglobin Concent 35.2, Red Cell Distribution Width 14.4, Platelet Count 211, Mean Platelet Volume 8.9, Neutrophils (%) (Auto) , Lymphocytes (%) ( Auto) , Monocytes (%) (Auto) , Eosinophils (%) (Auto) , Basophils (%) (Auto) , Neutrophils % (Manual) [Pending], Lymphocytes % (Manual) [Pending], Platelet Estimate [Pending], Platelet Morphology [Pending], Prothrombin Time 37.7H, Prothromb Time International Ratio 3.8H, Sodium Level 138, Potassium Level 4.5, Chloride Level 96L, Carbon Dioxide Level 21, Anion Gap 21H, Blood Urea Nitrogen 150H, Creatinine 10.4H, Estimat Glomerular Filtration Rate 6.1, Glucose Level 116H, Calcium Level 8.1L, Phosphorus Level 5.6H, Magnesium Level 2.2, Total Bilirubin 0.3, Aspartate Amino Transf (AST/SGOT) 26, Alanine Aminotransferase ( ALT/SGPT) 22, Alkaline Phosphatase 59, Total Protein 6.3L, Albumin 3.2L, Globulin 3.1, Albumin/Globulin Ratio 1.0 Height (Feet): 6 Height (Inches): 1.00 Weight (Pounds): 171 General Appearance: no apparent distress, other - weakness on ambulation-Dizzy Cardiovascular: tachycardia Respiratory/Chest: decreased breath sounds Abdomen: soft Objective NO CHANGE Hang Valdez MD Jul 03, 2019 13:34
--- NOTE | 2019-07-03 14:31 | Cardiac Electrophysiology PN ---
Assessment/Plan Assessment/Plan 1. Atrial flutter, converted to SR. On metoprolol 25 mg b.i.d. Coumadin held for EGD and severe anemia Hb 6.7 EPS and ablation as out patient. EF 55% 2. Chest pain. Ruled out for myocardial infarction. Denies any chest pain. It could be due to volume overload. Stress test 07/02/19 showed: Hypoperfusion to the inferior wall worse on stress. Possibilities include an inferior wall infarct with lexie-infarct ischemia versus diaphragmatic attenuation. Offered Cardiac cath vs medical therapy and patient decided on medical therapy 3. S/P [facility] MVR and TV Ring 07/2017 Nl valve Fx on echo 4. Hypertension, on metoprolol 25 mg b.i.d., losartan 50 mg daily and hemodialysis. 5. End-stage renal disease, on hemodialysis. 6. Diabetes, on insulin. 7. Hep C 8. Acute anemia Hb 12 to 6.7! EGD in am DW RN Subjective Subjective Remained in SR. Had HD today. S/P MVR and TV repair at [facility] 08/2017. No CP or SOB. Records from [facility] reviewed.Refused cardiac cath. No CP. Scheduled for EGD tomorrow Objective Last 24 Hour Vital Signs Date Time Temp Pulse Resp B/P (MAP) Pulse Ox O2 Delivery O2 Flow Rate FiO2 07/03/19 12:00 97.7 94 20 125/71 (89) 100 07/03/19 12:00 81 07/03/19 09:00 Room Air Room Air 07/03/19 09:00 137/82 07/03/19 09:00 98 137/82 07/03/19 08:23 96 18 98 Room Air 21 07/03/19 08:00 98 07/03/19 08:00 97.3 98 20 137/82 (100) 100 07/03/19 04:00 94 07/03/19 04:00 97.5 98 18 140/72 (94) 99 07/03/19 00:00 91 07/03/19 00:00 98.1 93 19 118/89 (99) 97 07/02/19 21:00 Room Air Room Air 07/02/19 20:40 83 18 98 Room Air 21 07/02/19 20:00 102 07/02/19 20:00 97.3 92 17 98/65 (76) 98 07/02/19 16:00 97.9 84 20 104/54 (71) 97 07/02/19 16:00 95 Intake and Output 07/02/19 07/03/19 19:00 07:00 Intake Total 237 ml Balance 237 ml Intake Oral 237 ml # Voids 1 Laboratory Tests Test 07/03/19 06:09 White Blood Count 16.2 K/UL (4.8-10.8) H Red Blood Count 2.15 M/UL (4.70-6.10) L Hemoglobin 6.7 G/DL (14.2-18.0) *L Hematocrit 19.1 % (42.0-52.0) L Mean Corpuscular Volume 89 FL (80-99) Mean Corpuscular Hemoglobin 31.2 PG (27.0-31.0) H Mean Corpuscular Hemoglobin Concent 35.2 G/DL (32.0-36.0) Red Cell Distribution Width 14.4 % (11.6-14.8) Platelet Count 211 K/UL (150-450) Mean Platelet Volume 8.9 FL (6.5-10.1) Neutrophils (%) (Auto) % (45.0-75.0) Lymphocytes (%) (Auto) % (20.0-45.0) Monocytes (%) (Auto) % (1.0-10.0) Eosinophils (%) (Auto) % (0.0-3.0) Basophils (%) (Auto) % (0.0-2.0) Differential Total Cells Counted 100 Neutrophils % (Manual) 74 % (45-75) Lymphocytes % (Manual) 24 % (20-45) Monocytes % (Manual) 0 % (1-10) L Eosinophils % (Manual) 0 % (0-3) Basophils % (Manual) 0 % (0-2) Band Neutrophils 2 % (0-8) Platelet Estimate Adequate Platelet Morphology Normal Polychromasia 1+ Hypochromasia 3+ Prothrombin Time 37.7 SEC (9.30-11.50) H Prothromb Time International Ratio 3.8 (0.9-1.1) H Sodium Level 138 MMOL/L (136-145) Potassium Level 4.5 MMOL/L (3.5-5.1) Chloride Level 96 MMOL/L (98-107) L Carbon Dioxide Level 21 MMOL/L (21-32) Anion Gap 21 mmol/L (5-15) H Blood Urea Nitrogen 150 mg/dL (7-18) H Creatinine 10.4 MG/DL (0.55-1.30) H Estimat Glomerular Filtration Rate 6.1 mL/min (>60) Glucose Level 116 MG/DL (74-106) H Calcium Level 8.1 MG/DL (8.5-10.1) L Phosphorus Level 5.6 MG/DL (2.5-4.9) H Magnesium Level 2.2 MG/DL (1.8-2.4) Total Bilirubin 0.3 MG/DL (0.2-1.0) Aspartate Amino Transf (AST/SGOT) 26 U/L (15-37) Alanine Aminotransferase (ALT/SGPT) 22 U/L (12-78) Alkaline Phosphatase 59 U/L (46-116) Total Protein 6.3 G/DL (6.4-8.2) L Albumin 3.2 G/DL (3.4-5.0) L Globulin 3.1 g/dL Albumin/Globulin Ratio 1.0 (1.0-2.7) Objective HEAD AND NECK: No JVD or carotid bruit. LUNGS: Clear. CARDIOVASCULAR: Regular S1 and S2 with metallic first heart sounds. LUNGS: Clear. ABDOMEN: Soft. EXTREMITIES: No pitting edema. Beto Goldman MD Jul 03, 2019 14:31
[2019-07-03 16:00] VITALS: BP 135/60
[2019-07-03 20:00] VITALS: BP 100/55
[2019-07-04] VITALS (10 sets, daily range): BP systolic 118–169; BP diastolic 60–72
[2019-07-04] MEDS: NovoLOG Insulin Flexpen SUBQ SCH ×4 (06:30→20:59)
[2019-07-04 07:31] LABS: HEMATOCRIT 18.4 % (42.0-52.0); MEAN CORPUSCULAR VOLUME 88 FL (80-99); PLATELET COUNT 181 K/UL (150-450); RED CELL DISTRIBUTION WIDTH 13.9 % (11.6-14.8); WHITE BLOOD COUNT 14.4 K/UL (4.8-10.8)
[2019-07-04 07:42] LABS: INR 1.4 (0.9-1.1)
[2019-07-04 07:49] LABS: ALANINE AMINOTRANSFERASE 20 U/L (12-78); ALBUMIN 2.9 G/DL (3.4-5.0); ALKALINE PHOSPHATASE 58 U/L (46-116); ANION GAP 12 mmol/L (5-15); ASPARTATE AMINO TRANSFERASE 25 U/L (15-37); BILIRUBIN,TOTAL 0.3 MG/DL (0.2-1.0); BLOOD UREA NITROGEN 88 mg/dL (7-18); CALCIUM 8.2 MG/DL (8.5-10.1); CARBON DIOXIDE 27 MMOL/L (21-32); CHLORIDE 100 MMOL/L (98-107); CREATININE 6.9 MG/DL (0.55-1.30); PHOSPHORUS 4.6 MG/DL (2.5-4.9); POTASSIUM 3.7 MMOL/L (3.5-5.1); SODIUM 139 MMOL/L (136-145)
[2019-07-04 07:56] LABS: HEMOGLOBIN 6.5 G/DL (14.2-18.0)
[2019-07-04] MEDS: Aspirin Baby 81mg ORAL SCH (09:00)
[2019-07-04] MEDS: Docusate 100mg cap ORAL SCH ×3 (09:00→18:00)
--- NOTE | 2019-07-04 09:21 | Anethesia Preoperative Eval ---
Anesthesia Pre-op PMH/ROS General Date of Evaluation: Jul 04, 2019 Anesthesiologist: Liborio ASA Score: ASA 4 - E Mallampati Score Class I : Soft palate, uvula, fauces, pillars visible Class II: Soft palate, uvula, fauces visible Class III: Soft palate, base of uvula visible Class IV: Only hard plate visible Mallampati Classification: Class III Surgeon: Celsa Diagnosis: GI bleed Surgical Procedure: EGD Anesthesia History: none Family History: no anesthesia problems Allergies: Coded Allergies: PENICILLINS (Verified Allergy, Severe, swelling of throat, 02/25/16) ACETAMINOPHEN (Verified Allergy, Intermediate, Generalized Itching , ) HYDROCODONE (Verified Allergy, Intermediate, Generalized Itching , 01/26/18 ) Medications: see eMAR Patient NPO?: Yes NPO Date: Jul 04, 2019 NPO Time: 00:00 Past Medical History Cardiovascular: Reports: HTN, CAD - s/p stent placement, on coumadin; r/o for acute SD at this time, refusing cardiac cath, valve dz - s/p MVR and TV ring, arrhythmia - aflutter-medically converted to SR at the time; per cardio, to go for outpatient ablation; Denies: SD, other Pulmonary: Denies: asthma, COPD, SUZANNE, other Gastrointestinal/Genitourinary: Reports: GERD, ESRD, other - bladder cancer; Denies: CRI Neurologic/Psychiatric: Denies: dementia, CVA, depression/anxiety, TIA, other Endocrine: Reports: DM; Denies: hypothyroidism, steroids, other HEENT: Denies: cataract (L), cataract (R), glaucoma, GULKANA (L), GULKANA (R), other Hematology/Immune: Reports: anemia - acute on chronic, severe, down to Hb 6.5 for the last 3 days. S/p 2 units PRBC total, bleeding disorder, other - hep C ; Denies: DVT Musculoskeletal/Integumentary: Denies: OA, RA, DJD, DDD, edema, other PSxH Narrative: MVR, TV rimg, laminectomy, left toe amputation Anesthesia Pre-op Phys. Exam Physician Exam Last Vital Signs Date Time Temp Pulse Resp B/P (MAP) Pulse Ox O2 Delivery O2 Flow Rate FiO2 07/04/19 08:00 96.8 79 20 129/69 (89) 100 07/04/19 07:15 Room Air 21 Constitutional: NAD Cardiovascular: RRR Respiratory: CTA Airway Exam Mallampati Score: Class III MO: limited ROM: limited Anesthesia Pre-op A/P Labs Hematology Test 07/04/19 06:33 White Blood Count 14.4 K/UL (4.8-10.8) H Red Blood Count 2.10 M/UL (4.70-6.10) L Hemoglobin 6.5 G/DL (14.2-18.0) *L Hematocrit 18.4 % (42.0-52.0) L Mean Corpuscular Volume 88 FL (80-99) Mean Corpuscular Hemoglobin 31.0 PG (27.0-31.0) Mean Corpuscular Hemoglobin Concent 35.3 G/DL (32.0-36.0) Red Cell Distribution Width 13.9 % (11.6-14.8) Platelet Count 181 K/UL (150-450) Mean Platelet Volume 8.5 FL (6.5-10.1) Neutrophils (%) (Auto) % (45.0-75.0) Lymphocytes (%) (Auto) % (20.0-45.0) Monocytes (%) (Auto) % (1.0-10.0) Eosinophils (%) (Auto) % (0.0-3.0) Basophils (%) (Auto) % (0.0-2.0) Neutrophils % (Manual) Pending Lymphocytes % (Manual) Pending Platelet Estimate Pending Platelet Morphology Pending Coagulation Test 07/04/19 06:33 Prothrombin Time 14.7 SEC (9.30-11.50) H Prothromb Time International Ratio 1.4 (0.9-1.1) H Activated Partial Thromboplast Time 27 SEC (23-33) Chemistry Test 07/04/19 06:33 Sodium Level 139 MMOL/L (136-145) Potassium Level 3.7 MMOL/L (3.5-5.1) Chloride Level 100 MMOL/L (98-107) Carbon Dioxide Level 27 MMOL/L (21-32) Anion Gap 12 mmol/L (5-15) Blood Urea Nitrogen 88 mg/dL (7-18) H Creatinine 6.9 MG/DL (0.55-1.30) H Estimat Glomerular Filtration Rate 9.7 mL/min (>60) Glucose Level 96 MG/DL (74-106) Calcium Level 8.2 MG/DL (8.5-10.1) L Phosphorus Level 4.6 MG/DL (2.5-4.9) Magnesium Level 1.9 MG/DL (1.8-2.4) Total Bilirubin 0.3 MG/DL (0.2-1.0) Aspartate Amino Transf (AST/SGOT) 25 U/L (15-37) Alanine Aminotransferase (ALT/SGPT) 20 U/L (12-78) Alkaline Phosphatase 58 U/L (46-116) Total Protein 5.8 G/DL (6.4-8.2) L Albumin 2.9 G/DL (3.4-5.0) L Globulin 2.9 g/dL Albumin/Globulin Ratio 1.0 (1.0-2.7) Studies Pre-op Studies: EKG - aflutter, echo - EF 55 % Risk Assessment & Plan Assessment: ASA JAMEEL Plan: MAC Status Change Before Surgery: No Pre-Antibiotics Drug: N/A Caty Catherine MD Jul 04, 2019 09:21
[2019-07-04] MEDS: Losartan 50mg tab ORAL SCH (09:23)
--- NOTE | 2019-07-04 10:42 | Cardiac Electrophysiology PN ---
Assessment/Plan Assessment/Plan 1. Atrial flutter, converted to SR. On metoprolol 25 mg b.i.d. Coumadin held for EGD and severe anemia Hb 6.7 EPS and ablation as out patient. EF 55% 2. Chest pain. Ruled out for myocardial infarction. Denies any chest pain. It could be due to volume overload. Stress test 07/02/19 showed: Hypoperfusion to the inferior wall worse on stress. Possibilities include an inferior wall infarct with lexie-infarct ischemia versus diaphragmatic attenuation. Refused Cardiac cath . Patient decided on medical therapy 3. S/P [facility] MVR and TV Ring 07/2017 Nl valve Fx on echo 4. Hypertension, on metoprolol 25 mg b.i.d., losartan 50 mg daily and hemodialysis. 5. End-stage renal disease, on hemodialysis. 6. Diabetes, on insulin. 7. Hep C 8. Acute anemia Hb 12 to 6.7! EGD today pending DW RN Subjective Subjective Remained in SR. Had HD yesterday. S/P MVR and TV repair at [facility] 08/2017. No CP or SOB. Records from [facility] reviewed. Refused cardiac cath. No CP. NPO for EGD today Objective Last 24 Hour Vital Signs Date Time Temp Pulse Resp B/P (MAP) Pulse Ox O2 Delivery O2 Flow Rate FiO2 07/04/19 09:23 129/69 07/04/19 09:23 79 129/69 07/04/19 08:00 96.8 79 20 129/69 (89) 100 07/04/19 07:15 82 18 97 Room Air 21 07/04/19 04:00 96 07/04/19 04:00 97.7 86 19 141/60 (87) 97 07/04/19 00:00 97.8 90 18 135/69 (91) 100 07/04/19 00:00 89 07/03/19 21:00 Room Air Room Air 07/03/19 20:26 91 18 98 Room Air 21 07/03/19 20:00 97.3 82 19 100/55 (70) 100 07/03/19 20:00 91 07/03/19 16:00 97.5 93 20 135/60 (85) 99 07/03/19 16:00 94 07/03/19 12:00 97.7 94 20 125/71 (89) 100 07/03/19 12:00 81 Intake and Output 07/03/19 07/04/19 19:00 07:00 Intake Total 1000 ml Output Total 200 ml Balance 1000 ml -200 ml Intake Oral 1000 ml Output Urine Total 200 ml # Voids 2 1 Laboratory Tests Test 07/04/19 06:33 White Blood Count 14.4 K/UL (4.8-10.8) H Red Blood Count 2.10 M/UL (4.70-6.10) L Hemoglobin 6.5 G/DL (14.2-18.0) *L Hematocrit 18.4 % (42.0-52.0) L Mean Corpuscular Volume 88 FL (80-99) Mean Corpuscular Hemoglobin 31.0 PG (27.0-31.0) Mean Corpuscular Hemoglobin Concent 35.3 G/DL (32.0-36.0) Red Cell Distribution Width 13.9 % (11.6-14.8) Platelet Count 181 K/UL (150-450) Mean Platelet Volume 8.5 FL (6.5-10.1) Neutrophils (%) (Auto) % (45.0-75.0) Lymphocytes (%) (Auto) % (20.0-45.0) Monocytes (%) (Auto) % (1.0-10.0) Eosinophils (%) (Auto) % (0.0-3.0) Basophils (%) (Auto) % (0.0-2.0) Neutrophils % (Manual) Pending Lymphocytes % (Manual) Pending Platelet Estimate Pending Platelet Morphology Pending Prothrombin Time 14.7 SEC (9.30-11.50) H Prothromb Time International Ratio 1.4 (0.9-1.1) H Activated Partial Thromboplast Time 27 SEC (23-33) Sodium Level 139 MMOL/L (136-145) Potassium Level 3.7 MMOL/L (3.5-5.1) Chloride Level 100 MMOL/L (98-107) Carbon Dioxide Level 27 MMOL/L (21-32) Anion Gap 12 mmol/L (5-15) Blood Urea Nitrogen 88 mg/dL (7-18) H Creatinine 6.9 MG/DL (0.55-1.30) H Estimat Glomerular Filtration Rate 9.7 mL/min (>60) Glucose Level 96 MG/DL (74-106) Calcium Level 8.2 MG/DL (8.5-10.1) L Phosphorus Level 4.6 MG/DL (2.5-4.9) Magnesium Level 1.9 MG/DL (1.8-2.4) Total Bilirubin 0.3 MG/DL (0.2-1.0) Aspartate Amino Transf (AST/SGOT) 25 U/L (15-37) Alanine Aminotransferase (ALT/SGPT) 20 U/L (12-78) Alkaline Phosphatase 58 U/L (46-116) Total Protein 5.8 G/DL (6.4-8.2) L Albumin 2.9 G/DL (3.4-5.0) L Globulin 2.9 g/dL Albumin/Globulin Ratio 1.0 (1.0-2.7) Objective HEAD AND NECK: No JVD or carotid bruit. LUNGS: Clear. CARDIOVASCULAR: Regular S1 and S2 with metallic first heart sounds. LUNGS: Clear. ABDOMEN: Soft. EXTREMITIES: No pitting edema. Beto Goldman MD Jul 04, 2019 10:42
[2019-07-04] MEDS ORDERED: DiphenhydrAMINE 50mg/ml Inj IVP PRN (11:00)
[2019-07-04] MEDS ORDERED: Propofol 200mg/20ml IV ONE (11:30)
[2019-07-04] MEDS ORDERED: Lidocaine 1% MPF 10mg/ml 5ml ONE (11:30)
[2019-07-04] MEDS ORDERED: LR 1000ml ONE (11:30)
[2019-07-04] MEDS ORDERED: NS 500ML IVPB ONE (11:35)
--- NOTE | 2019-07-04 11:41 | Pre-Procedure Note/Attestation ---
Pre-Procedure Note/Attestation Complete Prior to Procedure Planned Procedure: not applicable Procedure Narrative: egd Indications for Procedure Pre-Operative Diagnosis: GIB Attestation I attest that I discussed the nature of the procedure; its benefits; risks and complications; and alternatives (and the risks and benefits of such alternatives ), prior to the procedure, with the patient (or the patient's legal branch sales and service representative). I attest that, if there was a reasonable possibility of needing a blood transfusion, the patient (or the patient's legal branch sales and service representative) was given the [facility] standardized written summary, pursuant to the Yann Jeannine Blood Safety Act ([place] Health and Safety Code # 1645, as amended). I attest that I re-evaluated the patient just prior to the surgery and that there has been no change in the patient's H&P, except as documented below: Tung Steen MD Jul 04, 2019 11:41
--- NOTE | 2019-07-04 11:54 | Endoscopy Procedure Note ---
Endoscopy Procedure Note General Indication for Procedure: gib Procedures Performed: EGD Operative Findings/Diagnosis: duodenitis Specimen: yes Pt Tolerated Procedure Well: Yes Estimated Blood Loss: none Anesthesia Anesthesiologist: myla Anesthesia: MAC Inserted Devices Implant(s) used?: No GI Core Measures 50 yrs or older w/o bx or poly: Not Applicable 10yrs. F/U recommended: Not Applicable Tung Steen MD Jul 04, 2019 11:54
--- NOTE | 2019-07-04 12:07 | Immediate Post-Op Evaluation ---
Immediate Post-Op Evalulation Immediate Post-Op Evalulation Procedure: EGD Date of Evaluation: Jul 04, 2019 Time of Evaluation: 12:10 IV Fluids: 150 Blood Products: 0 Estimated Blood Loss: 0 Urinary Output: 0 Blood Pressure Systolic: 154 Blood Pressure Diastolic: 72 Pulse Rate: 78 Respiratory Rate: 16 O2 Sat by Pulse Oximetry: 100 Temperature (Fahrenheit): 98 Pain Score (1-10): 0 Nausea: No Vomiting: No Complications 0 Patient Status: awake, reacts, patent, none Hydration Status: adequate Drug: N/A Caty Catherine MD Jul 04, 2019 12:07
--- NOTE | 2019-07-04 12:10 | 48 Hour Post Anesthesia Eval ---
Post Anesthesia Evaluation Procedure: EGD Date of Evaluation: Jul 04, 2019 Airway: patent Nausea: No Vomiting: No Hydration Status: adequate Cardiopulmonary Status: at baseline Mental Status/LOC: patient returned to baseline Post-Anesthesia Complications: 0 Follow-up care needed: N/A - further care as per primary team Caty Catherine MD Jul 04, 2019 12:10
--- NOTE | 2019-07-04 12:27 | Pulmonology Progress Note ---
Assessment/Plan Problems: (1) Anemia in chronic kidney disease Assessment & Plan: s/p four units of prbc (2) Atrial fibrillation with rapid ventricular response Assessment & Plan: sinus now, on Coumadin INR is 1.4 (3) COPD (chronic obstructive pulmonary disease) (4) ESRD (end stage renal disease) on dialysis (5) Diabetes mellitus (6) History of hypertension (7) Nicotine addiction (8) Hepatitis C (9) H/O mitral valve replacement Assessment/Plan still dizzy one PRBC today doing better heart rate controlled, sinus around 80's respiratory treatment titrate fiO2 to sat of 92% symptomatic treatment Subjective ROS Limited/Unobtainable: No Interval Events: just had EGD Allergies: Coded Allergies: PENICILLINS (Verified Allergy, Severe, swelling of throat, 02/25/16) ACETAMINOPHEN (Verified Allergy, Intermediate, Generalized Itching , ) HYDROCODONE (Verified Allergy, Intermediate, Generalized Itching , 01/26/18 ) Objective Last 24 Hour Vital Signs Date Time Temp Pulse Resp B/P (MAP) Pulse Ox O2 Delivery O2 Flow Rate FiO2 07/04/19 12:07 78 16 100 07/04/19 09:23 129/69 07/04/19 09:23 79 129/69 07/04/19 08:00 96.8 79 20 129/69 (89) 100 07/04/19 07:15 82 18 97 Room Air 21 07/04/19 04:00 96 07/04/19 04:00 97.7 86 19 141/60 (87) 97 07/04/19 00:00 97.8 90 18 135/69 (91) 100 07/04/19 00:00 89 07/03/19 21:00 Room Air Room Air 07/03/19 20:26 91 18 98 Room Air 21 07/03/19 20:00 97.3 82 19 100/55 (70) 100 07/03/19 20:00 91 07/03/19 16:00 97.5 93 20 135/60 (85) 99 07/03/19 16:00 94 Intake and Output 07/03/19 07/04/19 19:00 07:00 Intake Total 1000 ml Output Total 200 ml Balance 1000 ml -200 ml Intake Oral 1000 ml Output Urine Total 200 ml # Voids 2 1 General Appearance: WD/WN HEENT: normocephalic Respiratory/Chest: chest wall non-tender, lungs clear Cardiovascular: normal peripheral pulses, normal rate Abdomen: normal bowel sounds, soft, non tender Genitourinary: normal external genitalia Extremities: no clubbing Skin: no rash Laboratory Tests 07/04/19 06:33: White Blood Count 14.4H, Red Blood Count 2.10L, Hemoglobin 6.5*L, Hematocrit 18.4L, Mean Corpuscular Volume 88, Mean Corpuscular Hemoglobin 31.0, Mean Corpuscular Hemoglobin Concent 35.3, Red Cell Distribution Width 13.9, Platelet Count 181, Mean Platelet Volume 8.5, Neutrophils (%) (Auto) , Lymphocytes (%) ( Auto) , Monocytes (%) (Auto) , Eosinophils (%) (Auto) , Basophils (%) (Auto) , Differential Total Cells Counted 100, Neutrophils % (Manual) 75, Lymphocytes % ( Manual) 14L, Monocytes % (Manual) 11H, Eosinophils % (Manual) 0, Basophils % ( Manual) 0, Band Neutrophils 0, Platelet Estimate Adequate, Platelet Morphology Normal, Hypochromasia 4+, Spherocytes 4+, Prothrombin Time 14.7H, Prothromb Time International Ratio 1.4H, Activated Partial Thromboplast Time 27, Sodium Level 139, Potassium Level 3.7, Chloride Level 100, Carbon Dioxide Level 27, Anion Gap 12, Blood Urea Nitrogen 88H, Creatinine 6.9H, Estimat Glomerular Filtration Rate 9.7, Glucose Level 96, Calcium Level 8.2L, Phosphorus Level 4.6 , Magnesium Level 1.9, Total Bilirubin 0.3, Aspartate Amino Transf (AST/SGOT) 25 , Alanine Aminotransferase (ALT/SGPT) 20, Alkaline Phosphatase 58, Total Protein 5.8L, Albumin 2.9L, Globulin 2.9, Albumin/Globulin Ratio 1.0 Current Medications Medications (Trade) Dose Ordered Sig/John Route PRN Reason Start Time Stop Time Status Last Admin Dose Admin Albuterol/ Ipratropium (Albuterol/ Ipratropium) 3 ml Q4H PRN HHN sob 06/30/19 17:00 07/05/19 16:59 Aspirin (ASA) 81 mg DAILY ORAL 06/27/19 09:00 07/27/19 08:59 07/03/19 09:49 Bisacodyl (Dulcolax) 10 mg DAILYPRN PRN RECTAL Constipation 06/27/19 13:30 07/27/19 13:14 Dextrose (Dextrose 50%) 25 ml Q30M PRN IV Hypoglycemia 06/27/19 00:00 07/27/19 00:00 Dextrose (Dextrose 50%) 50 ml Q30M PRN IV Hypoglycemia 06/27/19 00:00 07/27/19 00:00 Diphenhydramine HCl (Benadryl) 25 mg PRN PRN ORAL Itching 07/03/19 07:45 08/02/19 07:44 Diphenhydramine HCl (Benadryl) 25 mg Q6H PRN IVP Itching 07/04/19 11:00 08/03/19 10:59 07/04/19 10:56 Docusate Sodium (Colace) 100 mg TID ORAL 06/28/19 13:00 07/27/19 20:59 07/01/19 09:57 Insulin Aspart (NovoLOG) BEFORE MEALS AND HS SUBQ 06/27/19 06:30 07/27/19 06:29 07/02/19 22:28 Lorazepam (Ativan) 1 mg Q4H PRN ORAL For Anxiety 06/27/19 13:15 07/04/19 13:14 Losartan Potassium (Cozaar) 50 mg DAILY ORAL 06/27/19 10:00 07/27/19 09:59 07/04/19 09:23 Metoprolol Tartrate (Lopressor) 25 mg Q12HR ORAL 06/27/19 01:00 07/27/19 00:59 07/04/19 09:23 Morphine Sulfate (Morphine Sulfate) 2 mg Q6H PRN IVP PAIN 4-10 06/27/19 13:15 07/04/19 13:14 07/01/19 20:56 Nitroglycerin (Ntg) 0.4 mg Q5M PRN SL Prn Chest Pain 06/27/19 00:00 07/27/19 00:00 Ondansetron HCl (Zofran) 4 mg Q6H PRN IVP Nausea & Vomiting 06/27/19 13:15 07/27/19 13:14 07/04/19 10:56 Pantoprazole (Protonix) 40 mg EVERY 12 HOURS ORAL 06/28/19 21:00 07/28/19 20:59 07/04/19 09:23 Polyethylene Glycol (Miralax) 17 gm DAILYPRN PRN ORAL Constipation 06/27/19 13:15 07/27/19 13:14 06/30/19 06:19 Polyethylene Glycol/ Electrolytes (Nulytely) 4,000 ml ONCE ORAL 07/04/19 16:00 07/04/19 23:00 Sevelamer Carbonate (Renvela) 800 mg THREE TIMES A DAY ORAL 06/28/19 13:00 07/28/19 12:59 07/02/19 11:32 Temazepam (Restoril) 15 mg HSPRN PRN ORAL Insomnia 06/27/19 21:00 07/04/19 20:59 Warfarin Sodium (Coumadin per pharmacy) 1 ea DAILY PRN MISC Per rx protocol 06/27/19 00:00 07/27/19 00:00 Caleb Hinojosa MD Jul 04, 2019 12:27
--- NOTE | 2019-07-04 12:59 | Internal Med Progress Note ---
Subjective Physician Name Brian Alicea Attending Physician Brian Alicea MD Current Medications Medications (Trade) Dose Ordered Sig/John Route PRN Reason Start Time Stop Time Status Last Admin Dose Admin Albuterol/ Ipratropium (Albuterol/ Ipratropium) 3 ml Q4H PRN HHN sob 06/30/19 17:00 07/05/19 16:59 Aspirin (ASA) 81 mg DAILY ORAL 06/27/19 09:00 07/27/19 08:59 07/03/19 09:49 Bisacodyl (Dulcolax) 10 mg DAILYPRN PRN RECTAL Constipation 06/27/19 13:30 07/27/19 13:14 Dextrose (Dextrose 50%) 25 ml Q30M PRN IV Hypoglycemia 06/27/19 00:00 07/27/19 00:00 Dextrose (Dextrose 50%) 50 ml Q30M PRN IV Hypoglycemia 06/27/19 00:00 07/27/19 00:00 Diphenhydramine HCl (Benadryl) 25 mg PRN PRN ORAL Itching 07/03/19 07:45 08/02/19 07:44 Diphenhydramine HCl (Benadryl) 25 mg Q6H PRN IVP Itching 07/04/19 11:00 08/03/19 10:59 07/04/19 10:56 Docusate Sodium (Colace) 100 mg TID ORAL 06/28/19 13:00 07/27/19 20:59 07/01/19 09:57 Insulin Aspart (NovoLOG) BEFORE MEALS AND HS SUBQ 06/27/19 06:30 07/27/19 06:29 07/02/19 22:28 Lorazepam (Ativan) 1 mg Q4H PRN ORAL For Anxiety 06/27/19 13:15 07/04/19 13:14 Losartan Potassium (Cozaar) 50 mg DAILY ORAL 06/27/19 10:00 07/27/19 09:59 07/04/19 09:23 Metoprolol Tartrate (Lopressor) 25 mg Q12HR ORAL 06/27/19 01:00 07/27/19 00:59 07/04/19 09:23 Morphine Sulfate (Morphine Sulfate) 2 mg Q6H PRN IVP PAIN 4-10 06/27/19 13:15 07/04/19 13:14 07/01/19 20:56 Nitroglycerin (Ntg) 0.4 mg Q5M PRN SL Prn Chest Pain 06/27/19 00:00 07/27/19 00:00 Ondansetron HCl (Zofran) 4 mg Q6H PRN IVP Nausea & Vomiting 06/27/19 13:15 07/27/19 13:14 07/04/19 10:56 Pantoprazole (Protonix) 40 mg EVERY 12 HOURS ORAL 06/28/19 21:00 07/28/19 20:59 07/04/19 09:23 Polyethylene Glycol (Miralax) 17 gm DAILYPRN PRN ORAL Constipation 06/27/19 13:15 07/27/19 13:14 06/30/19 06:19 Polyethylene Glycol/ Electrolytes (Nulytely) 4,000 ml ONCE ORAL 07/04/19 16:00 07/04/19 23:00 Sevelamer Carbonate (Renvela) 800 mg THREE TIMES A DAY ORAL 06/28/19 13:00 07/28/19 12:59 07/02/19 11:32 Temazepam (Restoril) 15 mg HSPRN PRN ORAL Insomnia 06/27/19 21:00 07/04/19 20:59 Warfarin Sodium (Coumadin per pharmacy) 1 ea DAILY PRN MISC Per rx protocol 06/27/19 00:00 07/27/19 00:00 Allergies: Coded Allergies: PENICILLINS (Verified Allergy, Severe, swelling of throat, 02/25/16) ACETAMINOPHEN (Verified Allergy, Intermediate, Generalized Itching , ) HYDROCODONE (Verified Allergy, Intermediate, Generalized Itching , 01/26/18 ) Subjective Wake, alert, responsive, denies any chest pain, decreased shortness of breath, RBC: 6.5. Objective Last Vital Signs Date Time Temp Pulse Resp B/P (MAP) Pulse Ox O2 Delivery O2 Flow Rate FiO2 07/04/19 12:33 96.4 73 19 123/67 (85) 100 07/04/19 12:25 Nasal Cannula 3 07/04/19 07:15 21 Laboratory Tests Test 07/04/19 06:33 White Blood Count 14.4 K/UL (4.8-10.8) H Red Blood Count 2.10 M/UL (4.70-6.10) L Hemoglobin 6.5 G/DL (14.2-18.0) *L Hematocrit 18.4 % (42.0-52.0) L Mean Corpuscular Volume 88 FL (80-99) Mean Corpuscular Hemoglobin 31.0 PG (27.0-31.0) Mean Corpuscular Hemoglobin Concent 35.3 G/DL (32.0-36.0) Red Cell Distribution Width 13.9 % (11.6-14.8) Platelet Count 181 K/UL (150-450) Mean Platelet Volume 8.5 FL (6.5-10.1) Neutrophils (%) (Auto) % (45.0-75.0) Lymphocytes (%) (Auto) % (20.0-45.0) Monocytes (%) (Auto) % (1.0-10.0) Eosinophils (%) (Auto) % (0.0-3.0) Basophils (%) (Auto) % (0.0-2.0) Differential Total Cells Counted 100 Neutrophils % (Manual) 75 % (45-75) Lymphocytes % (Manual) 14 % (20-45) L Monocytes % (Manual) 11 % (1-10) H Eosinophils % (Manual) 0 % (0-3) Basophils % (Manual) 0 % (0-2) Band Neutrophils 0 % (0-8) Platelet Estimate Adequate Platelet Morphology Normal Hypochromasia 4+ Spherocytes 4+ Prothrombin Time 14.7 SEC (9.30-11.50) H Prothromb Time International Ratio 1.4 (0.9-1.1) H Activated Partial Thromboplast Time 27 SEC (23-33) Sodium Level 139 MMOL/L (136-145) Potassium Level 3.7 MMOL/L (3.5-5.1) Chloride Level 100 MMOL/L (98-107) Carbon Dioxide Level 27 MMOL/L (21-32) Anion Gap 12 mmol/L (5-15) Blood Urea Nitrogen 88 mg/dL (7-18) H Creatinine 6.9 MG/DL (0.55-1.30) H Estimat Glomerular Filtration Rate 9.7 mL/min (>60) Glucose Level 96 MG/DL (74-106) Calcium Level 8.2 MG/DL (8.5-10.1) L Phosphorus Level 4.6 MG/DL (2.5-4.9) Magnesium Level 1.9 MG/DL (1.8-2.4) Total Bilirubin 0.3 MG/DL (0.2-1.0) Aspartate Amino Transf (AST/SGOT) 25 U/L (15-37) Alanine Aminotransferase (ALT/SGPT) 20 U/L (12-78) Alkaline Phosphatase 58 U/L (46-116) Total Protein 5.8 G/DL (6.4-8.2) L Albumin 2.9 G/DL (3.4-5.0) L Globulin 2.9 g/dL Albumin/Globulin Ratio 1.0 (1.0-2.7) Intake and Output 07/03/19 07/04/19 19:00 07:00 Intake Total 1000 ml Output Total 200 ml Balance 1000 ml -200 ml Intake Oral 1000 ml Output Urine Total 200 ml # Voids 2 1 Objective General: No acute distress, awake and alert HEENT: NCAT, sclera anicteric, PERRL, EOMI. Neck: Supple, no significant jugular venous distention, Lungs: Good inspiratory effort, clear to auscultation bilaterally, no Wheeze or Rales. Heart: Regular rate and rhythm, normal S1/S2, no murmurs, + Click Abdomen: soft, nontender, nondistended. Normoactive bowel sounds, + Obesity. Extremities: No Cyanosis , clubbing or edema. Neuro: A&O x 3, Able to move all extremities Skin: warm, no rashes or lesions Psych: Normal mood and affect Assessment/Plan Assessment/Plan ASSESSMENT: This is a 64-year-old male. 1. Chest pain. 2. Nausea with vomiting. 3. Mechanical mitral valve. 4. End-stage renal disease. 5. Diabetes type 2. 6. Hypertension. 7. Atrial flutter 8. severe anemia TREATMENT: 1. Chest pain. A Cardiology consultation has been obtained with Dr. Beto Goldman. The patient has a mechanical mitral valve. An echocardiogram is pending. Serial troponin levels will be performed. We will follow recommendation of Cardiology. 2. Nausea and vomiting, this has resolved. 3. End-stage renal disease. A Nephrology consultation has been obtained with Dr. Valdez. 4. Diabetes type 2. NovoLog sliding scale has been instituted. 5. Hypertension. Continue diltiazem, isosorbide, losartan and as needed clonidine as above. 6. Hypercholesterolemia. Continue atorvastatin 7. Atrial flutter-continue Coumadin 8. cardiac stress test results from Mon07/01/19=poss ischemia 9. Transfusion 2 units PRBC; GI work up. Brian Alicea MD Jul 04, 2019 12:59
--- NOTE | 2019-07-04 13:50 | Nephrology Progress Note ---
Assessment/Plan Problem List: (1) ESRD (end stage renal disease) on dialysis (2) Diabetes mellitus (3) Anemia in chronic kidney disease Assessment: worse- symptomatic (4) Atrial flutter (5) H/O mitral valve replacement (6) Hepatitis C Assessment: by history Assessment End-stage renal disease, on hemodialysis every Monday, Monday, and Monday. Diabetes type 2. Hypertension. Hepatitis C. Mechanical mitral valve. Plan worsening Anemia- had partial of one unit transfusion- need more It appears that the patient have a GI bleed so Coumadin and aspirin stopped and GI procedure is scheduled Patient was dialyzed yesterday July 02. Will arrange for dialysis for tomorrow July 04 Continue to transfuse and keep hemoglobin and hematocrit at the reasonable range keep BP and BS in check Per cardio. Subjective ROS Limited/Unobtainable: No Constitutional: Reports: malaise Objective Objective Last 24 Hour Vital Signs Date Time Temp Pulse Resp B/P (MAP) Pulse Ox O2 Delivery O2 Flow Rate FiO2 07/04/19 12:33 96.4 73 19 123/67 (85) 100 07/04/19 12:25 97.8 82 16 169/71 100 Nasal Cannula 3 07/04/19 12:15 80 15 160/68 100 Simple Mask 6 07/04/19 12:10 81 14 146/68 100 Simple Mask 6 07/04/19 12:07 78 16 100 07/04/19 12:05 98.0 78 16 154/72 100 Simple Mask 6 07/04/19 09:23 129/69 07/04/19 09:23 79 129/69 07/04/19 08:00 96.8 79 20 129/69 (89) 100 07/04/19 07:15 82 18 97 Room Air 21 07/04/19 04:00 96 07/04/19 04:00 97.7 86 19 141/60 (87) 97 07/04/19 00:00 97.8 90 18 135/69 (91) 100 07/04/19 00:00 89 07/03/19 21:00 Room Air Room Air 07/03/19 20:26 91 18 98 Room Air 21 07/03/19 20:00 97.3 82 19 100/55 (70) 100 07/03/19 20:00 91 07/03/19 16:00 97.5 93 20 135/60 (85) 99 07/03/19 16:00 94 Intake and Output 07/03/19 07/04/19 19:00 07:00 Intake Total 1000 ml Output Total 200 ml Balance 1000 ml -200 ml Intake Oral 1000 ml Output Urine Total 200 ml # Voids 2 1 Laboratory Tests 07/04/19 06:33: White Blood Count 14.4H, Red Blood Count 2.10L, Hemoglobin 6.5*L, Hematocrit 18.4L, Mean Corpuscular Volume 88, Mean Corpuscular Hemoglobin 31.0, Mean Corpuscular Hemoglobin Concent 35.3, Red Cell Distribution Width 13.9, Platelet Count 181, Mean Platelet Volume 8.5, Neutrophils (%) (Auto) , Lymphocytes (%) ( Auto) , Monocytes (%) (Auto) , Eosinophils (%) (Auto) , Basophils (%) (Auto) , Differential Total Cells Counted 100, Neutrophils % (Manual) 75, Lymphocytes % ( Manual) 14L, Monocytes % (Manual) 11H, Eosinophils % (Manual) 0, Basophils % ( Manual) 0, Band Neutrophils 0, Platelet Estimate Adequate, Platelet Morphology Normal, Hypochromasia 4+, Spherocytes 4+, Prothrombin Time 14.7H, Prothromb Time International Ratio 1.4H, Activated Partial Thromboplast Time 27, Sodium Level 139, Potassium Level 3.7, Chloride Level 100, Carbon Dioxide Level 27, Anion Gap 12, Blood Urea Nitrogen 88H, Creatinine 6.9H, Estimat Glomerular Filtration Rate 9.7, Glucose Level 96, Calcium Level 8.2L, Phosphorus Level 4.6 , Magnesium Level 1.9, Total Bilirubin 0.3, Aspartate Amino Transf (AST/SGOT) 25 , Alanine Aminotransferase (ALT/SGPT) 20, Alkaline Phosphatase 58, Total Protein 5.8L, Albumin 2.9L, Globulin 2.9, Albumin/Globulin Ratio 1.0 Height (Feet): 6 Height (Inches): 1.00 Weight (Pounds): 170 General Appearance: no apparent distress Respiratory/Chest: decreased breath sounds Abdomen: soft Objective NO CHANGE Hang Valdez MD Jul 04, 2019 13:50
[2019-07-04] MEDS ORDERED: Nulytely 4L ORAL SCH (16:00)
--- NOTE | 2019-07-04 16:00 | Procedure Note ---
DATE OF PROCEDURE: 07/04/2019 SURGEON: Tung Steen M.D. PROCEDURE: Upper endoscopy with biopsy. ANESTHESIA: Per Dr. Capone. INSTRUMENT: Olympus adult flexible upper endoscope. INDICATION: Upper GI bleeding. REASON FOR PROCEDURE: The procedure, risks, benefits, and possible consequences, including hemorrhage, aspiration, perforation and infection, and alternative treatments, were explained to the patient/legal guardian by Dr. Tung Steen and the patient/legal guardian understood and accepted these risks. DESCRIPTION OF PROCEDURE: After informed consent was obtained and the patient was adequately sedated, Olympus upper endoscope was advanced from mouth into the second portion of the duodenum and retroflexion was performed in the stomach. The patient has evidence of moderate duodenitis without any obvious ulceration or bleeding. No was seen in the stomach. There was evidence of diffuse gastritis. Random biopsy from antrum was obtained to rule out H. pylori infection. At this time, the upper endoscope was retrieved and procedure was terminated. SUMMARY OF FINDINGS: Moderate to severe duodenitis, otherwise normal upper endoscopic examination. RECOMMENDATIONS: Follow up biopsy results and treat accordingly. Start clear liquid diet for today. Plan to do prep for colonoscopy for tomorrow to evaluate for the source of bleeding. I want to thank Dr. Brian Alicea for this kind referral. Tung Steen M.D. DR: THEODORA JOB#: [id number] CC: Brian Alicea M.D.; Fax#: [phone]
[2019-07-05] VITALS (9 sets, daily range): BP systolic 99–145; BP diastolic 45–76
[2019-07-05] MEDS: NovoLOG Insulin Flexpen SUBQ SCH ×4 (06:30→21:00)
[2019-07-05 06:45] LABS: HEMATOCRIT 22.4 % (42.0-52.0); HEMOGLOBIN 7.8 G/DL (14.2-18.0); MEAN CORPUSCULAR VOLUME 90 FL (80-99); PLATELET COUNT 181 K/UL (150-450); RED CELL DISTRIBUTION WIDTH 13.9 % (11.6-14.8); WHITE BLOOD COUNT 11.7 K/UL (4.8-10.8)
[2019-07-05 06:49] LABS: INR 1.1 (0.9-1.1)
--- NOTE | 2019-07-05 06:59 | Cardiac Electrophysiology PN ---
Assessment/Plan Assessment/Plan 1. Atrial flutter, converted to SR. On metoprolol 25 mg b.i.d. Coumadin held for severe anemia Hb 6.5 EPS and ablation as out patient. EF 55% 2. Chest pain. Ruled out for myocardial infarction. Denies any chest pain. It could be due to volume overload. Stress test 07/02/19 showed: Hypoperfusion to the inferior wall worse on stress. Possibilities include an inferior wall infarct with lexie-infarct ischemia versus diaphragmatic attenuation. Refused Cardiac cath . Patient decided on medical therapy 3. S/P [facility] MVR and TV Ring 07/2017 Nl valve Fx on echo 4. Hypertension, on metoprolol 25 mg b.i.d., losartan 50 mg daily and hemodialysis. 5. End-stage renal disease, on hemodialysis. 6. Diabetes, on insulin. 7. Hep C 8. Acute anemia Hb 12 to 6.5! Got 1 unit of blood every day in last 3 days and Coumadin is on hold. S/P EGD yesterday by Dr Steen NPO for colonoscopy today FRANCINE RN Subjective Subjective Remained in SR. Had HD yesterday. S/P MVR and TV repair at [facility] 08/2017. No CP or SOB. Refused cardiac cath. No CP. Had EGD yesterday with no UGI bleed source. NPO for colonoscopy today Objective Last 24 Hour Vital Signs Date Time Temp Pulse Resp B/P (MAP) Pulse Ox O2 Delivery O2 Flow Rate FiO2 07/05/19 04:00 71 07/05/19 04:00 97.0 70 18 127/72 (90) 98 07/05/19 00:00 66 07/05/19 00:00 97.2 69 17 135/71 (92) 99 07/04/19 21:00 Room Air Room Air 07/04/19 20:51 75 130/69 07/04/19 20:00 97.9 75 18 130/69 (89) 99 07/04/19 20:00 74 07/04/19 16:00 76 07/04/19 16:00 97.9 71 18 118/62 (80) 100 07/04/19 12:33 96.4 73 19 123/67 (85) 100 07/04/19 12:25 97.8 82 16 169/71 100 Nasal Cannula 3 07/04/19 12:15 80 15 160/68 100 Simple Mask 6 07/04/19 12:10 81 14 146/68 100 Simple Mask 6 07/04/19 12:07 78 16 100 07/04/19 12:05 98.0 78 16 154/72 100 Simple Mask 6 07/04/19 12:00 72 07/04/19 09:23 129/69 07/04/19 09:23 79 129/69 07/04/19 09:00 Room Air Room Air 07/04/19 08:00 81 07/04/19 08:00 96.8 79 20 129/69 (89) 100 07/04/19 07:15 82 18 97 Room Air 21 Intake and Output 07/04/19 07/05/19 19:00 07:00 Intake Total 2125 ml Output Total 0 ml Balance 2125 ml IV Total 125 ml Hemodialysis 2000 ml Estimated Blood Loss 0 ml # Voids 5 # Bowel Movements 5 Laboratory Tests Test 07/05/19 05:50 White Blood Count Pending Red Blood Count Pending Hemoglobin Pending Hematocrit Pending Mean Corpuscular Volume Pending Mean Corpuscular Hemoglobin Pending Mean Corpuscular Hemoglobin Concent Pending Red Cell Distribution Width Pending Platelet Count Pending Mean Platelet Volume Pending Neutrophils (%) (Auto) Pending Lymphocytes (%) (Auto) Pending Monocytes (%) (Auto) Pending Eosinophils (%) (Auto) Pending Basophils (%) (Auto) Pending Prothrombin Time 12.1 SEC (9.30-11.50) H Prothromb Time International Ratio 1.1 (0.9-1.1) Activated Partial Thromboplast Time 25 SEC (23-33) Sodium Level Pending Potassium Level Pending Chloride Level Pending Carbon Dioxide Level Pending Blood Urea Nitrogen Pending Creatinine Pending Estimat Glomerular Filtration Rate Pending Glucose Level Pending Calcium Level Pending Phosphorus Level Pending Magnesium Level Pending Total Bilirubin Pending Direct Bilirubin Pending Aspartate Amino Transf (AST/SGOT) Pending Alanine Aminotransferase (ALT/SGPT) Pending Alkaline Phosphatase Pending Total Protein Pending Albumin Pending Objective HEAD AND NECK: No JVD or carotid bruit. LUNGS: Clear. CARDIOVASCULAR: Regular S1 and S2 with metallic first heart sounds. LUNGS: Clear. ABDOMEN: Soft. EXTREMITIES: No pitting edema. Beto Goldman MD Jul 05, 2019 06:59
[2019-07-05 07:14] LABS: ANION GAP 16 mmol/L (5-15); BLOOD UREA NITROGEN 85 mg/dL (7-18); CALCIUM 8.8 MG/DL (8.5-10.1); CARBON DIOXIDE 24 MMOL/L (21-32); CHLORIDE 103 MMOL/L (98-107); CREATININE 7.9 MG/DL (0.55-1.30); POTASSIUM 3.9 MMOL/L (3.5-5.1); SODIUM 142 MMOL/L (136-145)
[2019-07-05 07:31] LABS: ALANINE AMINOTRANSFERASE 31 U/L (12-78); ALBUMIN 3.2 G/DL (3.4-5.0); ALKALINE PHOSPHATASE 67 U/L (46-116); ASPARTATE AMINO TRANSFERASE 27 U/L (15-37); BILIRUBIN,DIRECT 0.2 MG/DL (0.0-0.3); BILIRUBIN,TOTAL 0.4 MG/DL (0.2-1.0); PHOSPHORUS 5.4 MG/DL (2.5-4.9)
[2019-07-05] MEDS: Docusate 100mg cap ORAL SCH ×4 (09:00→17:28)
--- NOTE | 2019-07-05 09:20 | Nephrology Progress Note ---
Assessment/Plan Problem List: (1) ESRD (end stage renal disease) on dialysis (2) Diabetes mellitus (3) Anemia in chronic kidney disease Assessment: worse- symptomatic (4) Atrial flutter (5) H/O mitral valve replacement (6) Hepatitis C Assessment: by history Assessment End-stage renal disease, on hemodialysis every Monday, Monday, and Monday. Diabetes type 2. Hypertension. Hepatitis C. Mechanical mitral valve. Plan worsening Anemia- had partial of one unit transfusion- need more It appears that the patient have a GI bleed so Coumadin and aspirin stopped and GI procedure is scheduled Patient was dialyzed yesterday July 02. Will arrange for dialysis for tomorrow July 04 7 had an upper endoscopy which showed duodenitis Patient is having colonoscopy today Continue to transfuse and keep hemoglobin and hematocrit at the reasonable range keep BP and BS in check Per cardio. Subjective ROS Limited/Unobtainable: No Constitutional: Reports: malaise Objective Objective Last 24 Hour Vital Signs Date Time Temp Pulse Resp B/P (MAP) Pulse Ox O2 Delivery O2 Flow Rate FiO2 07/05/19 08:54 Room Air 07/05/19 08:00 98.1 69 19 117/61 (79) 98 07/05/19 08:00 70 07/05/19 07:23 73 16 99 Room Air 21 07/05/19 04:00 71 07/05/19 04:00 97.0 70 18 127/72 (90) 98 07/05/19 00:00 66 07/05/19 00:00 97.2 69 17 135/71 (92) 99 07/04/19 21:00 Room Air Room Air 07/04/19 20:51 75 130/69 07/04/19 20:00 97.9 75 18 130/69 (89) 99 07/04/19 20:00 74 07/04/19 16:00 76 07/04/19 16:00 97.9 71 18 118/62 (80) 100 07/04/19 12:33 96.4 73 19 123/67 (85) 100 07/04/19 12:25 97.8 82 16 169/71 100 Nasal Cannula 3 07/04/19 12:15 80 15 160/68 100 Simple Mask 6 07/04/19 12:10 81 14 146/68 100 Simple Mask 6 07/04/19 12:07 78 16 100 3/5/20 12:05 98.0 78 16 154/72 100 Simple Mask 6 07/04/19 12:00 72 07/04/19 09:23 129/69 07/04/19 09:23 79 129/69 Intake and Output 07/04/19 07/05/19 19:00 07:00 Intake Total 2125 ml Output Total 0 ml Balance 2125 ml IV Total 125 ml Hemodialysis 2000 ml Estimated Blood Loss 0 ml # Voids 5 # Bowel Movements 5 Laboratory Tests 07/05/19 05:50: White Blood Count 11.7H, Red Blood Count 2.50L, Hemoglobin 7.8L, Hematocrit 22.4L, Mean Corpuscular Volume 90, Mean Corpuscular Hemoglobin 31.3H, Mean Corpuscular Hemoglobin Concent 34.9, Red Cell Distribution Width 13.9, Platelet Count 181, Mean Platelet Volume 8.1, Neutrophils (%) (Auto) , Lymphocytes (%) ( Auto) , Monocytes (%) (Auto) , Eosinophils (%) (Auto) , Basophils (%) (Auto) , Neutrophils % (Manual) [Pending], Lymphocytes % (Manual) [Pending], Platelet Estimate [Pending], Platelet Morphology [Pending], Prothrombin Time 12.1H, Prothromb Time International Ratio 1.1, Activated Partial Thromboplast Time 25, Sodium Level 142, Potassium Level 3.9, Chloride Level 103, Carbon Dioxide Level 24, Anion Gap 16H, Blood Urea Nitrogen 85H, Creatinine 7.9H, Estimat Glomerular Filtration Rate 8.4, Glucose Level 101, Calcium Level 8.8, Phosphorus Level 5.4H , Magnesium Level 2.0, Total Bilirubin 0.4, Direct Bilirubin 0.2, Aspartate Amino Transf (AST/SGOT) 27, Alanine Aminotransferase (ALT/SGPT) 31, Alkaline Phosphatase 67, Total Protein 5.9L, Albumin 3.2L Height (Feet): 6 Height (Inches): 1.00 Weight (Pounds): 170 General Appearance: no apparent distress Objective NO CHANGE Hang Valdez MD Jul 05, 2019 09:20
[2019-07-05] MEDS: Losartan 50mg tab ORAL SCH (09:29)
--- NOTE | 2019-07-05 11:01 | Pulmonology Progress Note ---
Assessment/Plan Problems: (1) Anemia in chronic kidney disease Assessment & Plan: s/p four units of prbc, one more unit ordered today (2) Atrial fibrillation with rapid ventricular response Assessment & Plan: sinus now, on Coumadin INR is 1.4 (3) COPD (chronic obstructive pulmonary disease) (4) ESRD (end stage renal disease) on dialysis (5) Diabetes mellitus (6) History of hypertension (7) Nicotine addiction (8) Hepatitis C (9) H/O mitral valve replacement Assessment/Plan still dizzy one PRBC today again has colonoscopy today doing better heart rate controlled, sinus around 80's respiratory treatment titrate fiO2 to sat of 92% symptomatic treatment Subjective ROS Limited/Unobtainable: No Constitutional: Reports: no symptoms HEENT: Repors: no symptoms Respiratory: Reports: no symptoms Allergies: Coded Allergies: PENICILLINS (Verified Allergy, Severe, swelling of throat, 02/25/16) ACETAMINOPHEN (Verified Allergy, Intermediate, Generalized Itching , ) HYDROCODONE (Verified Allergy, Intermediate, Generalized Itching , 01/26/18 ) Objective Last 24 Hour Vital Signs Date Time Temp Pulse Resp B/P (MAP) Pulse Ox O2 Delivery O2 Flow Rate FiO2 07/05/19 09:29 117/61 07/05/19 09:29 70 117/61 07/05/19 08:54 Room Air 07/05/19 08:00 98.1 69 19 117/61 (79) 98 07/05/19 08:00 70 07/05/19 07:23 73 16 99 Room Air 21 07/05/19 04:00 71 07/05/19 04:00 97.0 70 18 127/72 (90) 98 07/05/19 00:00 66 07/05/19 00:00 97.2 69 17 135/71 (92) 99 07/04/19 21:00 Room Air Room Air 07/04/19 20:51 75 130/69 07/04/19 20:00 97.9 75 18 130/69 (89) 99 07/04/19 20:00 74 07/04/19 16:00 76 07/04/19 16:00 97.9 71 18 118/62 (80) 100 07/04/19 12:33 96.4 73 19 123/67 (85) 100 07/04/19 12:25 97.8 82 16 169/71 100 Nasal Cannula 3 07/04/19 12:15 80 15 160/68 100 Simple Mask 6 07/04/19 12:10 81 14 146/68 100 Simple Mask 6 07/04/19 12:07 78 16 100 07/04/19 12:05 98.0 78 16 154/72 100 Simple Mask 6 07/04/19 12:00 72 Intake and Output 07/04/19 07/05/19 19:00 07:00 Intake Total 2125 ml Output Total 0 ml Balance 2125 ml IV Total 125 ml Hemodialysis 2000 ml Estimated Blood Loss 0 ml # Voids 5 # Bowel Movements 5 General Appearance: WD/WN HEENT: normocephalic, atraumatic Respiratory/Chest: chest wall non-tender, normal breath sounds Cardiovascular: normal peripheral pulses, regularly irregular Abdomen: normal bowel sounds, soft, non tender Genitourinary: normal external genitalia Extremities: no cyanosis Skin: no rash Laboratory Tests 07/05/19 05:50: White Blood Count 11.7H, Red Blood Count 2.50L, Hemoglobin 7.8L, Hematocrit 22.4L, Mean Corpuscular Volume 90, Mean Corpuscular Hemoglobin 31.3H, Mean Corpuscular Hemoglobin Concent 34.9, Red Cell Distribution Width 13.9, Platelet Count 181, Mean Platelet Volume 8.1, Neutrophils (%) (Auto) , Lymphocytes (%) ( Auto) , Monocytes (%) (Auto) , Eosinophils (%) (Auto) , Basophils (%) (Auto) , Differential Total Cells Counted 100, Neutrophils % (Manual) 71, Lymphocytes % ( Manual) 21, Monocytes % (Manual) 8, Eosinophils % (Manual) 0, Basophils % ( Manual) 0, Band Neutrophils 0, Platelet Estimate Adequate, Platelet Morphology Normal, Polychromasia 1+, Hypochromasia 1+, Prothrombin Time 12.1H, Prothromb Time International Ratio 1.1, Activated Partial Thromboplast Time 25, Sodium Level 142, Potassium Level 3.9, Chloride Level 103, Carbon Dioxide Level 24, Anion Gap 16H, Blood Urea Nitrogen 85H, Creatinine 7.9H, Estimat Glomerular Filtration Rate 8.4, Glucose Level 101, Calcium Level 8.8, Phosphorus Level 5.4H , Magnesium Level 2.0, Total Bilirubin 0.4, Direct Bilirubin 0.2, Aspartate Amino Transf (AST/SGOT) 27, Alanine Aminotransferase (ALT/SGPT) 31, Alkaline Phosphatase 67, Total Protein 5.9L, Albumin 3.2L Current Medications Medications (Trade) Dose Ordered Sig/John Route PRN Reason Start Time Stop Time Status Last Admin Dose Admin Albuterol/ Ipratropium (Albuterol/ Ipratropium) 3 ml Q4H PRN HHN sob 06/30/19 17:00 07/05/19 16:59 Bisacodyl (Dulcolax) 10 mg DAILYPRN PRN RECTAL Constipation 06/27/19 13:30 07/27/19 13:14 Dextrose (Dextrose 50%) 25 ml Q30M PRN IV Hypoglycemia 06/27/19 00:00 07/27/19 00:00 Dextrose (Dextrose 50%) 50 ml Q30M PRN IV Hypoglycemia 06/27/19 00:00 07/27/19 00:00 Diphenhydramine HCl (Benadryl) 25 mg PRN PRN ORAL Itching 07/03/19 07:45 08/02/19 07:44 Diphenhydramine HCl (Benadryl) 25 mg Q6H PRN IVP Itching 07/04/19 11:00 08/03/19 10:59 07/04/19 10:56 Docusate Sodium (Colace) 100 mg TID ORAL 06/28/19 13:00 07/27/19 20:59 07/01/19 09:57 Insulin Aspart (NovoLOG) BEFORE MEALS AND HS SUBQ 06/27/19 06:30 07/27/19 06:29 07/02/19 22:28 Losartan Potassium (Cozaar) 50 mg DAILY ORAL 06/27/19 10:00 07/27/19 09:59 07/05/19 09:29 Metoprolol Tartrate (Lopressor) 25 mg Q12HR ORAL 06/27/19 01:00 07/27/19 00:59 07/05/19 09:29 Nitroglycerin (Ntg) 0.4 mg Q5M PRN SL Prn Chest Pain 06/27/19 00:00 07/27/19 00:00 Ondansetron HCl (Zofran) 4 mg Q6H PRN IVP Nausea & Vomiting 06/27/19 13:15 07/27/19 13:14 07/04/19 10:56 Pantoprazole (Protonix) 40 mg EVERY 12 HOURS ORAL 06/28/19 21:00 07/28/19 20:59 07/05/19 09:29 Polyethylene Glycol (Miralax) 17 gm DAILYPRN PRN ORAL Constipation 06/27/19 13:15 07/27/19 13:14 06/30/19 06:19 Sevelamer Carbonate (Renvela) 800 mg THREE TIMES A DAY ORAL 06/28/19 13:00 07/28/19 12:59 07/02/19 11:32 Warfarin Sodium (Coumadin per pharmacy) 1 ea DAILY PRN MISC Per rx protocol 06/27/19 00:00 07/27/19 00:00 Caleb Hinojosa MD Jul 05, 2019 11:01
[2019-07-05] MEDS ORDERED: Propofol 200mg/20ml IV ONE (12:00)
[2019-07-05] MEDS ORDERED: NS 500ML IVPB ONE (12:20)
--- NOTE | 2019-07-05 12:34 | Anethesia Preoperative Eval ---
Anesthesia Pre-op PMH/ROS General Date of Evaluation: Jul 05, 2019 Time of Evaluation: 12:10 Anesthesiologist: Todd ASA Score: ASA 3 Mallampati Score Class I : Soft palate, uvula, fauces, pillars visible Class II: Soft palate, uvula, fauces visible Class III: Soft palate, base of uvula visible Class IV: Only hard plate visible Mallampati Classification: Class III Surgeon: Celsa Diagnosis: Anemia Surgical Procedure: Colonoscopy Anesthesia History: none Family History: no anesthesia problems Allergies: Coded Allergies: PENICILLINS (Verified Allergy, Severe, swelling of throat, 02/25/16) ACETAMINOPHEN (Verified Allergy, Intermediate, Generalized Itching , ) HYDROCODONE (Verified Allergy, Intermediate, Generalized Itching , 01/26/18 ) Patient NPO?: Yes NPO Date: Jul 04, 2019 NPO Time: 00:00 Past Medical History Cardiovascular: Reports: HTN; Denies: CAD, ME, valve dz, arrhythmia, other Pulmonary: Denies: asthma, COPD, SUZANNE, other Gastrointestinal/Genitourinary: Reports: GERD, ESRD; Denies: CRI, other Neurologic/Psychiatric: Reports: depression/anxiety; Denies: dementia, CVA, TIA, other Endocrine: Reports: DM; Denies: hypothyroidism, steroids, other Hematology/Immune: Reports: anemia, bleeding disorder - GI bled; Denies: DVT, other Musculoskeletal/Integumentary: Reports: OA; Denies: RA, DJD, DDD, edema, other PMH Narrative: as above PSxH Narrative: see H&P Anesthesia Pre-op Phys. Exam Physician Exam Last Vital Signs Date Time Temp Pulse Resp B/P (MAP) Pulse Ox O2 Delivery O2 Flow Rate FiO2 07/05/19 09:29 117/61 07/05/19 09:29 70 07/05/19 08:54 Room Air 07/05/19 08:00 98.1 19 98 07/05/19 07:23 21 07/04/19 12:25 3 Constitutional: NAD Neurologic: CN 2-12 intact Cardiovascular: RRR, no M/R/G Respiratory: CTA Gastrointestinal: S/NT/ND Airway Exam Mallampati Score: Class III MO: limited Neck: stiff ROM: limited Teeth: missing Dentures: no upper, no lower Anesthesia Pre-op A/P Labs Hematology Test 3/6/20 05:50 White Blood Count 11.7 K/UL (4.8-10.8) H Red Blood Count 2.50 M/UL (4.70-6.10) L Hemoglobin 7.8 G/DL (14.2-18.0) L Hematocrit 22.4 % (42.0-52.0) L Mean Corpuscular Volume 90 FL (80-99) Mean Corpuscular Hemoglobin 31.3 PG (27.0-31.0) H Mean Corpuscular Hemoglobin Concent 34.9 G/DL (32.0-36.0) Red Cell Distribution Width 13.9 % (11.6-14.8) Platelet Count 181 K/UL (150-450) Mean Platelet Volume 8.1 FL (6.5-10.1) Neutrophils (%) (Auto) % (45.0-75.0) Lymphocytes (%) (Auto) % (20.0-45.0) Monocytes (%) (Auto) % (1.0-10.0) Eosinophils (%) (Auto) % (0.0-3.0) Basophils (%) (Auto) % (0.0-2.0) Differential Total Cells Counted 100 Neutrophils % (Manual) 71 % (45-75) Lymphocytes % (Manual) 21 % (20-45) Monocytes % (Manual) 8 % (1-10) Eosinophils % (Manual) 0 % (0-3) Basophils % (Manual) 0 % (0-2) Band Neutrophils 0 % (0-8) Platelet Estimate Adequate Platelet Morphology Normal Polychromasia 1+ Hypochromasia 1+ Coagulation Test 07/05/19 05:50 Prothrombin Time 12.1 SEC (9.30-11.50) H Prothromb Time International Ratio 1.1 (0.9-1.1) Activated Partial Thromboplast Time 25 SEC (23-33) Chemistry Test 07/05/19 05:50 Sodium Level 142 MMOL/L (136-145) Potassium Level 3.9 MMOL/L (3.5-5.1) Chloride Level 103 MMOL/L (98-107) Carbon Dioxide Level 24 MMOL/L (21-32) Anion Gap 16 mmol/L (5-15) H Blood Urea Nitrogen 85 mg/dL (7-18) H Creatinine 7.9 MG/DL (0.55-1.30) H Estimat Glomerular Filtration Rate 8.4 mL/min (>60) Glucose Level 101 MG/DL (74-106) Calcium Level 8.8 MG/DL (8.5-10.1) Phosphorus Level 5.4 MG/DL (2.5-4.9) H Magnesium Level 2.0 MG/DL (1.8-2.4) Total Bilirubin 0.4 MG/DL (0.2-1.0) Direct Bilirubin 0.2 MG/DL (0.0-0.3) Aspartate Amino Transf (AST/SGOT) 27 U/L (15-37) Alanine Aminotransferase (ALT/SGPT) 31 U/L (12-78) Alkaline Phosphatase 67 U/L (46-116) Total Protein 5.9 G/DL (6.4-8.2) L Albumin 3.2 G/DL (3.4-5.0) L Risk Assessment & Plan Assessment: ASA 3 Plan: MAC Status Change Before Surgery: Zackery Ramirez MD Jul 05, 2019 12:34
--- NOTE | 2019-07-05 12:42 | General Progress Note ---
Assessment/Plan Status: stable Assessment/Plan: ASSESSMENT: This is a 64-year-old male. 1. Chest pain. 2. Nausea with vomiting. 3. Mechanical mitral valve. 4. End-stage renal disease. 5. Diabetes type 2. 6. Hypertension. 7. Atrial flutter 8. severe anemia on admission TREATMENT: 1. Chest pain. A Cardiology consultation has been obtained with Dr. Beto Goldman. The patient has a mechanical mitral valve ( done at [facility] 05/18). An echocardiogram showed inferior wall hypokinesis. patient DECLINED to be transferred for angiogram and chose medical management. 2. Nausea and vomiting, this has resolved. 3. End-stage renal disease. A Nephrology consultation has been obtained with Dr. Valdez. 4. Diabetes type 2. NovoLog sliding scale has been instituted. 5. Hypertension. Continue diltiazem, isosorbide, losartan and as needed clonidine as above. 6. Hypercholesterolemia. Continue atorvastatin 7. Atrial flutter-continue Coumadin when APPROVED by GI retirement sales consultant. 8. cardiac stress test results from [facility] 07/01/19=poss ischemia 9. Transfusion 2 units PRBC; 1 unit today. GI work up and colonoscopy today. EGD 07/03 with duodenitis. Hb 7.8 today INR 1.1 Subjective Date patient seen: Jul 05, 2019 Time patient seen: 11:00 ROS Limited/Unobtainable: No Constitutional: Reports: no symptoms HEENT: Reports: no symptoms Cardiovascular: Reports: no symptoms Respiratory: Reports: no symptoms Gastrointestinal/Abdominal: Reports: no symptoms Genitourinary: Reports: no symptoms Neurologic/Psychiatric: Reports: no symptoms Endocrine: Reports: no symptoms Hematologic/Lymphatic: Reports: no symptoms Allergies: Coded Allergies: PENICILLINS (Verified Allergy, Severe, swelling of throat, 02/25/16) ACETAMINOPHEN (Verified Allergy, Intermediate, Generalized Itching , ) HYDROCODONE (Verified Allergy, Intermediate, Generalized Itching , 01/26/18 ) All Systems: reviewed and negative except above Objective Last 24 Hour Vital Signs Date Time Temp Pulse Resp B/P (MAP) Pulse Ox O2 Delivery O2 Flow Rate FiO2 07/05/19 12:00 97.6 62 18 123/65 (84) 100 07/05/19 12:00 72 07/05/19 09:29 117/61 07/05/19 09:29 70 117/61 07/05/19 08:54 Room Air 07/05/19 08:00 98.1 69 19 117/61 (79) 98 07/05/19 08:00 70 07/05/19 07:23 73 16 99 Room Air 21 07/05/19 04:00 71 07/05/19 04:00 97.0 70 18 127/72 (90) 98 07/05/19 00:00 66 07/05/19 00:00 97.2 69 17 135/71 (92) 99 07/04/19 21:00 Room Air Room Air 07/04/19 20:51 75 130/69 07/04/19 20:00 97.9 75 18 130/69 (89) 99 07/04/19 20:00 74 07/04/19 16:00 76 07/04/19 16:00 97.9 71 18 118/62 (80) 100 Intake and Output 07/04/19 07/05/19 19:00 07:00 Intake Total 2125 ml Output Total 0 ml Balance 2125 ml IV Total 125 ml Hemodialysis 2000 ml Estimated Blood Loss 0 ml # Voids 5 # Bowel Movements 5 Laboratory Tests 07/05/19 05:50: White Blood Count 11.7H, Red Blood Count 2.50L, Hemoglobin 7.8L, Hematocrit 22.4L, Mean Corpuscular Volume 90, Mean Corpuscular Hemoglobin 31.3H, Mean Corpuscular Hemoglobin Concent 34.9, Red Cell Distribution Width 13.9, Platelet Count 181, Mean Platelet Volume 8.1, Neutrophils (%) (Auto) , Lymphocytes (%) ( Auto) , Monocytes (%) (Auto) , Eosinophils (%) (Auto) , Basophils (%) (Auto) , Differential Total Cells Counted 100, Neutrophils % (Manual) 71, Lymphocytes % ( Manual) 21, Monocytes % (Manual) 8, Eosinophils % (Manual) 0, Basophils % ( Manual) 0, Band Neutrophils 0, Platelet Estimate Adequate, Platelet Morphology Normal, Polychromasia 1+, Hypochromasia 1+, Prothrombin Time 12.1H, Prothromb Time International Ratio 1.1, Activated Partial Thromboplast Time 25, Sodium Level 142, Potassium Level 3.9, Chloride Level 103, Carbon Dioxide Level 24, Anion Gap 16H, Blood Urea Nitrogen 85H, Creatinine 7.9H, Estimat Glomerular Filtration Rate 8.4, Glucose Level 101, Calcium Level 8.8, Phosphorus Level 5.4H , Magnesium Level 2.0, Total Bilirubin 0.4, Direct Bilirubin 0.2, Aspartate Amino Transf (AST/SGOT) 27, Alanine Aminotransferase (ALT/SGPT) 31, Alkaline Phosphatase 67, Total Protein 5.9L, Albumin 3.2L Height (Feet): 6 Height (Inches): 1.00 Weight (Pounds): 170 General Appearance: WD/WN EENT: PERRL/EOMI Neck: non-tender Cardiovascular: normal rate Respiratory/Chest: lungs clear Abdomen: no organomegaly 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
--- NOTE | 2019-07-05 12:46 | Endoscopy Procedure Note ---
Endoscopy Procedure Note General Indication for Procedure: anemia Procedures Performed: colonoscopy Operative Findings/Diagnosis: polyps Specimen: yes Pt Tolerated Procedure Well: Yes Estimated Blood Loss: none Anesthesia Anesthesiologist: fatmata Anesthesia: MAC Inserted Devices Implant(s) used?: No Quality Quality of Bowel Preparation: Good Did scope reach the cecum?: Yes Was there any complications?: No GI Core Measures 50 yrs or older w/o bx or poly: Not Applicable 10yrs. F/U recommended: Not Applicable If not recommended, why?: Above average risk Tung Steen MD Jul 05, 2019 12:46
--- NOTE | 2019-07-05 12:54 | Immediate Post-Op Evaluation ---
Immediate Post-Op Evalulation Immediate Post-Op Evalulation Procedure: Colonoscopy Date of Evaluation: Jul 05, 2019 Time of Evaluation: 12:53 IV Fluids: 300 Blood Products: none Estimated Blood Loss: none Urinary Output: none Blood Pressure Systolic: 143 Blood Pressure Diastolic: 54 Pulse Rate: 76 Respiratory Rate: 20 O2 Sat by Pulse Oximetry: 98 Temperature (Fahrenheit): 07.6 Pain Score (1-10): 1 Nausea: No Vomiting: No Complications none Patient Status: awake, patent, none Hydration Status: adequate Zackery Brooks MD Jul 05, 2019 12:54
--- NOTE | 2019-07-05 14:45 | Procedure Note ---
DATE OF PROCEDURE: 07/05/2019 SURGEON: Tung Steen M.D. PROCEDURE: Colonoscopy with snare polypectomy and biopsy. ANESTHESIA: Per Dr. Brooks. INSTRUMENT: Olympus adult flexible colonoscope. INDICATION: Anemia. REASON FOR PROCEDURE: The procedure, risks, benefits, and possible consequences, including hemorrhage, aspiration, perforation and infection, and alternative treatments, were explained to the patient/legal guardian by Dr. Tung Steen and the patient/legal guardian understood and accepted these risks. DESCRIPTION OF PROCEDURE: After informed consent was obtained and the patient was adequately sedated, first rectal exam was performed, which was positive for internal hemorrhoids. Then the scope was advanced from the rectum into cecum documented by appendiceal orifice, ileocecal valve, and right upper quadrant palpation. Quality of prep overall was good. The patient had multiple polyps in the rectosigmoid area. One of them was measured roughly about 6 mm, removed with hot snare polypectomy technique. There were 2 or 3 smaller ones, removed with the cold biopsy forceps technique. The rest of the examination grossly within normal limits. No evidence of any active bleeding at this time. No evidence of any diverticulosis. No obvious mass. Retroflexion in the rectum showed evidence of internal hemorrhoids. SUMMARY OF FINDINGS: 1. Three or four colonic polyps in the rectosigmoid area. See above for details. 2. Internal hemorrhoids. RECOMMENDATIONS: Follow up pathology and treat accordingly. Resume diet. Follow laboratories. Discharge planning per primary team. I want to thank Dr. Brian Alicea and Dr. Titus for this kind referral. Tung Steen M.D. DR: THEODORA JOB#: [id number] CC: Brian Alicea M.D.; Fax#: [phone] CATRACHO TITUS M.D. ; FAX#: [phone]
[2019-07-05] MEDS ORDERED: Albuterol/Ipratropium 3ml neb HHN PRN (15:00)
[2019-07-05] MEDS: Nitroglycerin Subl 0.4mg tab SL PRN (18:33)
[2019-07-06] VITALS (7 sets, daily range): BP systolic 92–142; BP diastolic 51–72
[2019-07-06] MEDS: NovoLOG Insulin Flexpen SUBQ SCH ×4 (05:41→20:42)
[2019-07-06 07:12] LABS: INR 1.1 (0.9-1.1)
[2019-07-06 07:32] LABS: BASOPHILS % (AUTO) 0.4 % (0.0-2.0); EOSINOPHILS % (AUTO) 1.7 % (0.0-3.0); HEMATOCRIT 24.8 % (42.0-52.0); HEMOGLOBIN 8.7 G/DL (14.2-18.0); LYMPHOCYTES % (AUTO) 17.1 % (20.0-45.0); MEAN CORPUSCULAR VOLUME 89 FL (80-99); MONOCYTES % (AUTO) 11.1 % (1.0-10.0); NEUTROPHILS % (AUTO) 69.7 % (45.0-75.0); PLATELET COUNT 178 K/UL (150-450); RED BLOOD COUNT 2.79 M/UL (4.70-6.10); RED CELL DISTRIBUTION WIDTH 14.6 % (11.6-14.8); WHITE BLOOD COUNT 10.3 K/UL (4.8-10.8)
[2019-07-06] MEDS ORDERED: DiphenhydrAMINE 25mg Tab ORAL PRN (07:45)
[2019-07-06 08:04] LABS: ALANINE AMINOTRANSFERASE 20 U/L (12-78); ALKALINE PHOSPHATASE 62 U/L (46-116); ANION GAP 9 mmol/L (5-15); ASPARTATE AMINO TRANSFERASE 26 U/L (15-37); BILIRUBIN,TOTAL 0.4 MG/DL (0.2-1.0); BLOOD UREA NITROGEN 42 mg/dL (7-18); CALCIUM 8.2 MG/DL (8.5-10.1); CARBON DIOXIDE 32 MMOL/L (21-32); CHLORIDE 100 MMOL/L (98-107); CREATININE 5.6 MG/DL (0.55-1.30); PHOSPHORUS 4.7 MG/DL (2.5-4.9); POTASSIUM 3.5 MMOL/L (3.5-5.1); SODIUM 140 MMOL/L (136-145)
--- NOTE | 2019-07-06 08:38 | General Progress Note ---
Assessment/Plan Problem List: (1) H/O mitral valve replacement ICD Codes: Z95.2 - Presence of prosthetic heart valve SNOMED: 02501662, 4631459933542 (2) Hepatitis C ICD Codes: B19.20 - Unspecified viral hepatitis C without hepatic coma SNOMED: 65772163 (3) COPD (chronic obstructive pulmonary disease) ICD Codes: J44.9 - Chronic obstructive pulmonary disease, unspecified SNOMED: 45644237 (4) Diabetes mellitus ICD Codes: E11.9 - Type 2 diabetes mellitus without complications SNOMED: 35001543 (5) Atrial fibrillation with rapid ventricular response ICD Codes: I48.91 - Unspecified atrial fibrillation SNOMED: 763985016294737 (6) GI bleed ICD Codes: K92.2 - Gastrointestinal hemorrhage, unspecified SNOMED: 34219837 (7) Warfarin overdosage ICD Codes: T45.511A - Poisoning by anticoagulants, accidental (unintentional), initial encounter SNOMED: 99830618, 92836900 Status: stable Assessment/Plan: s/p EGD and colonoscopy no active bleed resume coumadin per pharmacy fu labs Subjective Allergies: Coded Allergies: PENICILLINS (Verified Allergy, Severe, swelling of throat, 02/25/16) ACETAMINOPHEN (Verified Allergy, Intermediate, Generalized Itching , ) HYDROCODONE (Verified Allergy, Intermediate, Generalized Itching , 01/26/18 ) Objective Last 24 Hour Vital Signs Date Time Temp Pulse Resp B/P (MAP) Pulse Ox O2 Delivery O2 Flow Rate FiO2 07/06/19 07:21 65 20 99 Room Air 21 07/06/19 04:00 98.0 72 20 118/72 (87) 97 07/06/19 00:00 98.4 89 20 120/63 (82) 99 07/05/19 21:00 Room Air 07/05/19 20:39 95 99/56 07/05/19 20:00 97.9 95 20 99/56 (70) 99 07/05/19 19:49 94 18 99 Room Air 21 07/05/19 18:33 107/72 07/05/19 16:00 97.7 77 20 134/76 (95) 97 07/05/19 13:00 97.8 68 18 143/45 100 Nasal Cannula 3 17 07/05/19 12:55 78 22 145/54 100 Nasal Cannula 3 22 07/05/19 12:54 76 20 98 07/05/19 12:50 97.5 76 20 124/76 98 Nasal Cannula 3 20 07/05/19 12:00 97.6 62 18 123/65 (84) 100 07/05/19 12:00 72 07/05/19 09:29 117/61 07/05/19 09:29 70 117/61 07/05/19 08:54 Room Air Intake and Output 07/05/19 07/06/19 19:00 07:00 Intake Total 2440 ml Output Total 0 ml Balance 2440 ml 0 ml Intake Oral 240 ml IV Total 200 ml Hemodialysis 2000 ml Output Urine Total 0 ml Laboratory Tests 07/06/19 06:20: White Blood Count 10.3, Red Blood Count 2.79L, Hemoglobin 8.7L, Hematocrit 24.8L , Mean Corpuscular Volume 89, Mean Corpuscular Hemoglobin 31.1H, Mean Corpuscular Hemoglobin Concent 35.0, Red Cell Distribution Width 14.6, Platelet Count 178, Mean Platelet Volume 8.8, Neutrophils (%) (Auto) 69.7, Lymphocytes (% ) (Auto) 17.1L, Monocytes (%) (Auto) 11.1H, Eosinophils (%) (Auto) 1.7, Basophils (%) (Auto) 0.4, Prothrombin Time 11.5, Prothromb Time International Ratio 1.1, Sodium Level 140, Potassium Level 3.5, Chloride Level 100, Carbon Dioxide Level 32, Anion Gap 9, Blood Urea Nitrogen 42H, Creatinine 5.6H, Estimat Glomerular Filtration Rate 12.4, Glucose Level 89, Calcium Level 8.2L, Phosphorus Level 4.7, Magnesium Level 1.9, Total Bilirubin 0.4, Aspartate Amino Transf (AST/SGOT) 26, Alanine Aminotransferase (ALT/SGPT) 20, Alkaline Phosphatase 62, C-Reactive Protein, Quantitative < 0.4, Pro-B-Type Natriuretic Peptide 5619H, Total Protein 5.9L, Albumin 3.0L, Globulin 2.9, Albumin/Globulin Ratio 1.0 Height (Feet): 6 Height (Inches): 1.00 Weight (Pounds): 170 General Appearance: no apparent distress EENT: PERRL/EOMI Neck: supple Cardiovascular: normal rate Respiratory/Chest: decreased breath sounds Abdomen: normal bowel sounds, non tender, soft Extremities: non-tender Tung Steen MD Jul 06, 2019 08:38
[2019-07-06] MEDS: Losartan 50mg tab ORAL SCH (09:00)
[2019-07-06] MEDS: Docusate 100mg cap ORAL SCH ×3 (09:00→17:29)
--- NOTE | 2019-07-06 11:07 | Pulmonology Progress Note ---
Assessment/Plan Assessment/Plan ASSESSMENT Chest pain atrial flutter abnormal stress test COPD end-stage renal disease on hemodialysis nicotine addiction anemia of chronic kidney disease hypertension diabetes mellitus s/p mitral valve replacement severe anemia, s/p 5 u PRBC hepatitis C upper GI bleeding s/p EGD with findings of moderate to severe duodenitis s/p colonoscopy with biopsy: polyps, s/p removal and biopsy, internal hemorrhoids PLAN OF CARE MS serial troponin negative converted to SR ruled out for acute MO cardio on board on beta-lisette and Coumadin nitro as needed Echo with PEF 55 to 60%, normal MV functioning on ECHO cardio recommended EP study in future stress test revealed apparent hypoperfusion to the inferior wall , worse on stress. 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 counselor on smoking cessation , declined nicotine patch HD as per knot cutter with close monitoring of volumes and renal parameters noted significant drop in HH GI consulted, s/p total 5 u PRBC s/p EGD with findings of moderate to severe duodenitis s/p colonoscopy with biopsy: polyps, s/p removal and biopsy, internal hemorrhoids monitor H&H with goal to keep Hgb above 7 , HH stable this am no active bleeding Coumadin restarted per GI clearance supportive care GI prophylaxis case discussed and evaluated by supervising physician Subjective Allergies: Coded Allergies: PENICILLINS (Verified Allergy, Severe, swelling of throat, 02/25/16) ACETAMINOPHEN (Verified Allergy, Intermediate, Generalized Itching , ) HYDROCODONE (Verified Allergy, Intermediate, Generalized Itching , 01/26/18 ) Subjective denies CP, s/p total of 5 u PRBC, HH stable this am, no leukocytosis pulse ox stable on RA Objective Last 24 Hour Vital Signs Date Time Temp Pulse Resp B/P (MAP) Pulse Ox O2 Delivery O2 Flow Rate FiO2 07/06/19 09:16 Room Air 07/06/19 09:10 71 116/52 07/06/19 09:10 71 116/52 (73) 07/06/19 08:00 97.7 72 19 142/66 (91) 99 07/06/19 07:21 65 20 99 Room Air 21 07/06/19 04:00 98.0 72 20 118/72 (87) 97 07/06/19 00:00 98.4 89 20 120/63 (82) 99 07/05/19 21:00 Room Air 07/05/19 20:39 95 99/56 07/05/19 20:00 97.9 95 20 99/56 (70) 99 07/05/19 19:49 94 18 99 Room Air 21 07/05/19 18:33 107/72 07/05/19 16:00 97.7 77 20 134/76 (95) 97 07/05/19 13:00 97.8 68 18 143/45 100 Nasal Cannula 3 17 07/05/19 12:55 78 22 145/54 100 Nasal Cannula 3 22 07/05/19 12:54 76 20 98 07/05/19 12:50 97.5 76 20 124/76 98 Nasal Cannula 3 20 07/05/19 12:00 97.6 62 18 123/65 (84) 100 07/05/19 12:00 72 Intake and Output 07/05/19 07/06/19 19:00 07:00 Intake Total 2440 ml Output Total 0 ml Balance 2440 ml 0 ml Intake Oral 240 ml IV Total 200 ml Hemodialysis 2000 ml Output Urine Total 0 ml Objective General Appearance: no acute distress HEENT: normocephalic, mucous membranes moist, PERRL Respiratory/Chest: chest wall non-tender, no respiratory distress, no accessory muscle use Cardiovascular: normal rate, regular rhythm Abdomen: soft, non tender, non distended Extremities: no edema Neurologic/Psychiatric: alert, oriented x 3, responsive Musculoskeletal: normal muscle bulk Laboratory Tests 07/06/19 06:20: White Blood Count 10.3, Red Blood Count 2.79L, Hemoglobin 8.7L, Hematocrit 24.8L , Mean Corpuscular Volume 89, Mean Corpuscular Hemoglobin 31.1H, Mean Corpuscular Hemoglobin Concent 35.0, Red Cell Distribution Width 14.6, Platelet Count 178, Mean Platelet Volume 8.8, Neutrophils (%) (Auto) 69.7, Lymphocytes (% ) (Auto) 17.1L, Monocytes (%) (Auto) 11.1H, Eosinophils (%) (Auto) 1.7, Basophils (%) (Auto) 0.4, Prothrombin Time 11.5, Prothromb Time International Ratio 1.1, Sodium Level 140, Potassium Level 3.5, Chloride Level 100, Carbon Dioxide Level 32, Anion Gap 9, Blood Urea Nitrogen 42H, Creatinine 5.6H, Estimat Glomerular Filtration Rate 12.4, Glucose Level 89, Calcium Level 8.2L, Phosphorus Level 4.7, Magnesium Level 1.9, Total Bilirubin 0.4, Aspartate Amino Transf (AST/SGOT) 26, Alanine Aminotransferase (ALT/SGPT) 20, Alkaline Phosphatase 62, C-Reactive Protein, Quantitative < 0.4, Pro-B-Type Natriuretic Peptide 5619H, Total Protein 5.9L, Albumin 3.0L, Globulin 2.9, Albumin/Globulin Ratio 1.0 Current Medications Medications (Trade) Dose Ordered Sig/John Route PRN Reason Start Time Stop Time Status Last Admin Dose Admin Albuterol/ Ipratropium (Albuterol/ Ipratropium) 3 ml Q4H PRN HHN Shortness of Breath 07/05/19 15:00 07/10/19 14:59 Bisacodyl (Dulcolax) 10 mg DAILYPRN PRN RECTAL Constipation 07/06/19 15:00 07/27/19 14:59 Dextrose (Dextrose 50%) 25 ml Q30M PRN IV Hypoglycemia 07/05/19 14:30 07/27/19 00:00 Dextrose (Dextrose 50%) 50 ml Q30M PRN IV Hypoglycemia 07/05/19 14:30 07/27/19 00:00 Diphenhydramine HCl (Benadryl) 25 mg Q6H PRN IVP Itching 07/05/19 15:00 08/03/19 14:59 Docusate Sodium (Colace) 100 mg TID ORAL 07/05/19 18:00 07/27/19 20:59 07/06/19 09:00 Insulin Aspart (NovoLOG) BEFORE MEALS AND HS SUBQ 07/05/19 16:30 07/27/19 06:29 Losartan Potassium (Cozaar) 50 mg DAILY ORAL 07/06/19 09:00 07/27/19 09:59 Metoprolol Tartrate (Lopressor) 25 mg Q12HR ORAL 07/05/19 21:00 07/27/19 00:59 07/06/19 09:10 Nitroglycerin (Ntg) 0.4 mg Q5M PRN SL Prn Chest Pain 07/05/19 14:30 07/27/19 00:00 07/05/19 18:33 Ondansetron HCl (Zofran) 4 mg Q6H PRN IVP Nausea & Vomiting 07/05/19 15:00 07/27/19 14:59 07/05/19 18:40 Pantoprazole (Protonix) 40 mg EVERY 12 HOURS ORAL 07/05/19 21:00 07/28/19 20:59 07/06/19 09:00 Polyethylene Glycol (Miralax) 17 gm DAILYPRN PRN ORAL Constipation 07/05/19 15:00 08/04/19 14:59 Sevelamer Carbonate (Renvela) 800 mg THREE TIMES A DAY ORAL 07/05/19 18:00 07/28/19 12:59 07/06/19 09:00 Warfarin Sodium (Coumadin per pharmacy) 1 ea DAILY PRN MISC Per rx protocol 07/05/19 15:00 08/04/19 14:59 Warfarin Sodium (Coumadin) 3 mg COUMADIN ORAL 07/06/19 17:00 07/06/19 21:00 Beatrice Fink NP Jul 06, 2019 11:07
[2019-07-06] MEDS ORDERED: Tubing IV Secondary IV ONE (12:02)
[2019-07-06] MEDS ORDERED: NS 500ML ONE (12:02)
[2019-07-06] MEDS ORDERED: fentaNYL 100 mcg/2 mL IV ONE (12:14)
[2019-07-06] MEDS ORDERED: Midazolam 2mg/2ml Inj ONE (12:14)
--- NOTE | 2019-07-06 13:06 | Nephrology Progress Note ---
Assessment/Plan Problem List: (1) ESRD (end stage renal disease) on dialysis (2) Diabetes mellitus (3) Anemia in chronic kidney disease Assessment: worse- symptomatic (4) Atrial flutter (5) H/O mitral valve replacement (6) Hepatitis C Assessment: by history Assessment End-stage renal disease, on hemodialysis every Monday, Monday, and Monday. Diabetes type 2. Hypertension. Hepatitis C. Mechanical mitral valve. Plan Due next dialysis July 07 worsening Anemia- had partial of one unit transfusion- need more It appears that the patient have a GI bleed so Coumadin and aspirin stopped and GI procedure is scheduled Patient was dialyzed yesterday July 02. Was again dialyzed July 04 had an upper endoscopy which showed duodenitis Patient had colonoscopy July 04. Three or four colonic polyps in the rectosigmoid area. See above for details. 2. Internal hemorrhoids. Continue to transfuse and keep hemoglobin and hematocrit at the reasonable range Resume anticoagulation per cardiology advice keep BP and BS in check Per cardio. Subjective ROS Limited/Unobtainable: No Objective Objective Last 24 Hour Vital Signs Date Time Temp Pulse Resp B/P (MAP) Pulse Ox O2 Delivery O2 Flow Rate FiO2 07/06/19 12:00 97.8 73 18 106/56 (73) 97 07/06/19 09:16 Room Air 07/06/19 09:10 71 116/52 07/06/19 09:10 71 116/52 (73) 07/06/19 09:00 116/52 07/06/19 08:00 97.7 72 19 142/66 (91) 99 07/06/19 07:21 65 20 99 Room Air 21 07/06/19 04:00 98.0 72 20 118/72 (87) 97 07/06/19 00:00 98.4 89 20 120/63 (82) 99 07/05/19 21:00 Room Air 07/05/19 20:39 95 99/56 07/05/19 20:00 97.9 95 20 99/56 (70) 99 07/05/19 19:49 94 18 99 Room Air 21 07/05/19 18:33 107/72 07/05/19 16:00 97.7 77 20 134/76 (95) 97 Intake and Output 07/05/19 07/06/19 19:00 07:00 Intake Total 2440 ml Output Total 0 ml Balance 2440 ml 0 ml Intake Oral 240 ml IV Total 200 ml Hemodialysis 2000 ml Output Urine Total 0 ml Laboratory Tests 07/06/19 06:20: White Blood Count 10.3, Red Blood Count 2.79L, Hemoglobin 8.7L, Hematocrit 24.8L , Mean Corpuscular Volume 89, Mean Corpuscular Hemoglobin 31.1H, Mean Corpuscular Hemoglobin Concent 35.0, Red Cell Distribution Width 14.6, Platelet Count 178, Mean Platelet Volume 8.8, Neutrophils (%) (Auto) 69.7, Lymphocytes (% ) (Auto) 17.1L, Monocytes (%) (Auto) 11.1H, Eosinophils (%) (Auto) 1.7, Basophils (%) (Auto) 0.4, Prothrombin Time 11.5, Prothromb Time International Ratio 1.1, Sodium Level 140, Potassium Level 3.5, Chloride Level 100, Carbon Dioxide Level 32, Anion Gap 9, Blood Urea Nitrogen 42H, Creatinine 5.6H, Estimat Glomerular Filtration Rate 12.4, Glucose Level 89, Calcium Level 8.2L, Phosphorus Level 4.7, Magnesium Level 1.9, Total Bilirubin 0.4, Aspartate Amino Transf (AST/SGOT) 26, Alanine Aminotransferase (ALT/SGPT) 20, Alkaline Phosphatase 62, C-Reactive Protein, Quantitative < 0.4, Pro-B-Type Natriuretic Peptide 5619H, Total Protein 5.9L, Albumin 3.0L, Globulin 2.9, Albumin/Globulin Ratio 1.0 Height (Feet): 6 Height (Inches): 1.00 Weight (Pounds): 170 General Appearance: no apparent distress Objective NO CHANGE Hang Valdez MD Jul 06, 2019 13:06
--- NOTE | 2019-07-06 14:28 | Cardiac Electrophysiology PN ---
Assessment/Plan Assessment/Plan 1. Atrial flutter, converted to SR. On metoprolol 25 mg b.i.d. Coumadin resumed per Dr Steen EPS and ablation as out patient. EF 55% 2. Chest pain. Ruled out for myocardial infarction. Denies any chest pain. It could be due to volume overload. Stress test 07/02/19 showed: Hypoperfusion to the inferior wall worse on stress. Possibilities include an inferior wall infarct with lexie-infarct ischemia versus diaphragmatic attenuation. Refused Cardiac cath . Continue on medical therapy 3. S/P [facility] MVR and TV Ring 07/2017 Nl valve Fx on echo 4. Hypertension, on metoprolol 25 mg b.i.d., losartan 50 mg daily and hemodialysis. 5. End-stage renal disease, on hemodialysis. 6. Diabetes, on insulin. 7. Hep C 8. Acute anemia Hb 12 to 6.5! Got 3 unit of blood S/P EGD yesterday and colonoscopy by Dr Steen No active bleed. OKed to resume Coumadin FRANCINE RN Subjective Subjective Transferred to [facility]. S/P MVR and TV repair at [facility] 08/2017. No CP or SOB. No CP. Had EGD and colonoscopy Objective Last 24 Hour Vital Signs Date Time Temp Pulse Resp B/P (MAP) Pulse Ox O2 Delivery O2 Flow Rate FiO2 07/06/19 12:00 97.8 73 18 106/56 (73) 97 07/06/19 09:16 Room Air 07/06/19 09:10 71 116/52 07/06/19 09:10 71 116/52 (73) 07/06/19 09:00 116/52 07/06/19 08:00 97.7 72 19 142/66 (91) 99 07/06/19 07:21 65 20 99 Room Air 21 07/06/19 04:00 98.0 72 20 118/72 (87) 97 07/06/19 00:00 98.4 89 20 120/63 (82) 99 07/05/19 21:00 Room Air 07/05/19 20:39 95 99/56 07/05/19 20:00 97.9 95 20 99/56 (70) 99 07/05/19 19:49 94 18 99 Room Air 21 07/05/19 18:33 107/72 07/05/19 16:00 97.7 77 20 134/76 (95) 97 Intake and Output 07/05/19 07/06/19 19:00 07:00 Intake Total 2440 ml Output Total 0 ml Balance 2440 ml 0 ml Intake Oral 240 ml IV Total 200 ml Hemodialysis 2000 ml Output Urine Total 0 ml Laboratory Tests Test 07/06/19 06:20 White Blood Count 10.3 K/UL (4.8-10.8) Red Blood Count 2.79 M/UL (4.70-6.10) L Hemoglobin 8.7 G/DL (14.2-18.0) L Hematocrit 24.8 % (42.0-52.0) L Mean Corpuscular Volume 89 FL (80-99) Mean Corpuscular Hemoglobin 31.1 PG (27.0-31.0) H Mean Corpuscular Hemoglobin Concent 35.0 G/DL (32.0-36.0) Red Cell Distribution Width 14.6 % (11.6-14.8) Platelet Count 178 K/UL (150-450) Mean Platelet Volume 8.8 FL (6.5-10.1) Neutrophils (%) (Auto) 69.7 % (45.0-75.0) Lymphocytes (%) (Auto) 17.1 % (20.0-45.0) L Monocytes (%) (Auto) 11.1 % (1.0-10.0) H Eosinophils (%) (Auto) 1.7 % (0.0-3.0) Basophils (%) (Auto) 0.4 % (0.0-2.0) Prothrombin Time 11.5 SEC (9.30-11.50) Prothromb Time International Ratio 1.1 (0.9-1.1) Sodium Level 140 MMOL/L (136-145) Potassium Level 3.5 MMOL/L (3.5-5.1) Chloride Level 100 MMOL/L (98-107) Carbon Dioxide Level 32 MMOL/L (21-32) Anion Gap 9 mmol/L (5-15) Blood Urea Nitrogen 42 mg/dL (7-18) H Creatinine 5.6 MG/DL (0.55-1.30) H Estimat Glomerular Filtration Rate 12.4 mL/min (>60) Glucose Level 89 MG/DL (74-106) Calcium Level 8.2 MG/DL (8.5-10.1) L Phosphorus Level 4.7 MG/DL (2.5-4.9) Magnesium Level 1.9 MG/DL (1.8-2.4) Total Bilirubin 0.4 MG/DL (0.2-1.0) Aspartate Amino Transf (AST/SGOT) 26 U/L (15-37) Alanine Aminotransferase (ALT/SGPT) 20 U/L (12-78) Alkaline Phosphatase 62 U/L (46-116) C-Reactive Protein, Quantitative < 0.4 mg/dL (0.00-0.90) Pro-B-Type Natriuretic Peptide 5619 pg/mL (0-125) H Total Protein 5.9 G/DL (6.4-8.2) L Albumin 3.0 G/DL (3.4-5.0) L Globulin 2.9 g/dL Albumin/Globulin Ratio 1.0 (1.0-2.7) Objective HEAD AND NECK: No JVD or carotid bruit. LUNGS: Clear. CARDIOVASCULAR: Regular S1 and S2 with metallic first heart sounds. LUNGS: Clear. ABDOMEN: Soft. EXTREMITIES: No pitting edema. Beto Goldman MD Jul 06, 2019 14:28
--- NOTE | 2019-07-06 15:15 | General Progress Note ---
Assessment/Plan Status: stable Assessment/Plan: ASSESSMENT: This is a 64-year-old male. 1. Chest pain. 2. Nausea with vomiting. 3. Mechanical mitral valve. 4. End-stage renal disease. 5. Diabetes type 2. 6. Hypertension. 7. Atrial flutter 8. severe anemia on admission TREATMENT: 1. Chest pain. A Cardiology consultation has been obtained with Dr. Beto Goldman. The patient has a mechanical mitral valve ( done at [facility] 05/18). An echocardiogram showed inferior wall hypokinesis. patient DECLINED to be transferred for angiogram and chose medical management. 2. Nausea and vomiting, this has resolved. 3. End-stage renal disease. A Nephrology consultation has been obtained with Dr. Valdez. 4. Diabetes type 2. NovoLog sliding scale has been instituted. 5. Hypertension. Continue diltiazem, isosorbide, losartan and as needed clonidine as above. 6. Hypercholesterolemia. Continue atorvastatin 7. Atrial flutter-continue Coumadin restarted 07/05 8. cardiac stress test results from Mon07/01/19=poss ischemia 9. Transfusion 5 units total 10. upper GI bleeding s/p EGD with findings of moderate to severe duodenitis s/p colonoscopy with biopsy: polyps, s/p removal and biopsy, internal hemorrhoids follow up pathology report pending. Monitor H/H as Coumadin was restarted. Subjective Date patient seen: Jul 06, 2019 Time patient seen: 14:00 Allergies: Coded Allergies: PENICILLINS (Verified Allergy, Severe, swelling of throat, 02/25/16) ACETAMINOPHEN (Verified Allergy, Intermediate, Generalized Itching , ) HYDROCODONE (Verified Allergy, Intermediate, Generalized Itching , 01/26/18 ) Subjective Feels well today. s/p colonoscopy 07/04 Objective Last 24 Hour Vital Signs Date Time Temp Pulse Resp B/P (MAP) Pulse Ox O2 Delivery O2 Flow Rate FiO2 07/06/19 12:00 97.8 73 18 106/56 (73) 97 07/06/19 09:16 Room Air 07/06/19 09:10 71 116/52 07/06/19 09:10 71 116/52 (73) 07/06/19 09:00 116/52 07/06/19 08:00 97.7 72 19 142/66 (91) 99 07/06/19 07:21 65 20 99 Room Air 21 07/06/19 04:00 98.0 72 20 118/72 (87) 97 07/06/19 00:00 98.4 89 20 120/63 (82) 99 07/05/19 21:00 Room Air 07/05/19 20:39 95 99/56 07/05/19 20:00 97.9 95 20 99/56 (70) 99 07/05/19 19:49 94 18 99 Room Air 21 07/05/19 18:33 107/72 07/05/19 16:00 97.7 77 20 134/76 (95) 97 Intake and Output 07/05/19 07/06/19 19:00 07:00 Intake Total 2440 ml Output Total 0 ml Balance 2440 ml 0 ml Intake Oral 240 ml IV Total 200 ml Hemodialysis 2000 ml Output Urine Total 0 ml Laboratory Tests 07/06/19 06:20: White Blood Count 10.3, Red Blood Count 2.79L, Hemoglobin 8.7L, Hematocrit 24.8L , Mean Corpuscular Volume 89, Mean Corpuscular Hemoglobin 31.1H, Mean Corpuscular Hemoglobin Concent 35.0, Red Cell Distribution Width 14.6, Platelet Count 178, Mean Platelet Volume 8.8, Neutrophils (%) (Auto) 69.7, Lymphocytes (% ) (Auto) 17.1L, Monocytes (%) (Auto) 11.1H, Eosinophils (%) (Auto) 1.7, Basophils (%) (Auto) 0.4, Prothrombin Time 11.5, Prothromb Time International Ratio 1.1, Sodium Level 140, Potassium Level 3.5, Chloride Level 100, Carbon Dioxide Level 32, Anion Gap 9, Blood Urea Nitrogen 42H, Creatinine 5.6H, Estimat Glomerular Filtration Rate 12.4, Glucose Level 89, Calcium Level 8.2L, Phosphorus Level 4.7, Magnesium Level 1.9, Total Bilirubin 0.4, Aspartate Amino Transf (AST/SGOT) 26, Alanine Aminotransferase (ALT/SGPT) 20, Alkaline Phosphatase 62, C-Reactive Protein, Quantitative < 0.4, Pro-B-Type Natriuretic Peptide 5619H, Total Protein 5.9L, Albumin 3.0L, Globulin 2.9, Albumin/Globulin Ratio 1.0 Height (Feet): 6 Height (Inches): 1.00 Weight (Pounds): 170 General Appearance: WD/WN EENT: PERRL/EOMI Neck: supple Cardiovascular: normal rate, regular rhythm Respiratory/Chest: lungs clear Abdomen: normal bowel sounds, non tender Neurologic: egg setter II-XII grossly normal Sandy Taylor MD Jul 06, 2019 15:15
[2019-07-06] MEDS ORDERED: Warfarin Sodium 1mg ORAL SCH (17:00)
[2019-07-06] MEDS ORDERED: Warfarin Sodium 3mg ORAL SCH (17:00)
[2019-07-07] VITALS: BP 133/67
[2019-07-07 04:00] VITALS: BP 138/83
[2019-07-07] MEDS: NovoLOG Insulin Flexpen SUBQ SCH ×4 (06:24→21:00)
--- NOTE | 2019-07-07 08:02 | General Progress Note ---
Assessment/Plan Problem List: (1) H/O mitral valve replacement ICD Codes: Z95.2 - Presence of prosthetic heart valve SNOMED: 78249689, 3076498890339 (2) Hepatitis C ICD Codes: B19.20 - Unspecified viral hepatitis C without hepatic coma SNOMED: 36663805 (3) COPD (chronic obstructive pulmonary disease) ICD Codes: J44.9 - Chronic obstructive pulmonary disease, unspecified SNOMED: 80344001 (4) Diabetes mellitus ICD Codes: E11.9 - Type 2 diabetes mellitus without complications SNOMED: 36310959 (5) Atrial fibrillation with rapid ventricular response ICD Codes: I48.91 - Unspecified atrial fibrillation SNOMED: 369220652199142 (6) GI bleed ICD Codes: K92.2 - Gastrointestinal hemorrhage, unspecified SNOMED: 27224922 (7) Warfarin overdosage ICD Codes: T45.511A - Poisoning by anticoagulants, accidental (unintentional), initial encounter SNOMED: 55720920, 44040959 Status: stable Assessment/Plan: s/p EGD and colonoscopy no active bleed resume Coumadin per pharmacy fu labs repeat hep C serology Subjective ROS Limited/Unobtainable: Yes Allergies: Coded Allergies: PENICILLINS (Verified Allergy, Severe, swelling of throat, 02/25/16) ACETAMINOPHEN (Verified Allergy, Intermediate, Generalized Itching , ) HYDROCODONE (Verified Allergy, Intermediate, Generalized Itching , 01/26/18 ) Objective Last 24 Hour Vital Signs Date Time Temp Pulse Resp B/P (MAP) Pulse Ox O2 Delivery O2 Flow Rate FiO2 07/07/19 07:37 71 20 98 Room Air 21 07/07/19 04:00 97.8 87 20 138/83 (101) 97 07/07/19 00:00 98.7 76 18 133/67 (89) 97 07/06/19 21:00 Room Air 07/06/19 20:42 74 92/51 07/06/19 20:00 98.0 74 16 92/51 (65) 91 07/06/19 19:53 73 20 96 Room Air 21 07/06/19 16:00 98.0 69 18 120/64 (82) 97 07/06/19 12:00 97.8 73 18 106/56 (73) 97 07/06/19 09:16 Room Air 07/06/19 09:10 71 116/52 07/06/19 09:10 71 116/52 (73) 07/06/19 09:00 116/52 Intake and Output 07/06/19 07/07/19 19:00 07:00 Intake Total 960 ml 360 ml Output Total 300 ml Balance 660 ml 360 ml Intake Oral 960 ml Other 360 ml Output Urine Total 300 ml # Voids 2 1 Height (Feet): 6 Height (Inches): 1.00 Weight (Pounds): 170 General Appearance: alert EENT: normal ENT inspection Neck: supple Cardiovascular: normal rate Respiratory/Chest: decreased breath sounds Abdomen: normal bowel sounds, non tender, soft Extremities: non-tender Tung Steen MD Jul 07, 2019 08:02
[2019-07-07 08:31] LABS: INR 1.1 (0.9-1.1)
[2019-07-07 08:32] LABS: BASOPHILS % (AUTO) 0.6 % (0.0-2.0); EOSINOPHILS % (AUTO) 2.6 % (0.0-3.0); HEMATOCRIT 25.3 % (42.0-52.0); HEMOGLOBIN 8.7 G/DL (14.2-18.0); LYMPHOCYTES % (AUTO) 18.1 % (20.0-45.0); MEAN CORPUSCULAR VOLUME 90 FL (80-99); MONOCYTES % (AUTO) 10.7 % (1.0-10.0); PLATELET COUNT 184 K/UL (150-450); RED CELL DISTRIBUTION WIDTH 15.1 % (11.6-14.8); WHITE BLOOD COUNT 10.6 K/UL (4.8-10.8)
[2019-07-07 08:36] VITALS: BP 151/82
[2019-07-07] MEDS: Docusate 100mg cap ORAL SCH ×3 (08:42→17:58)
[2019-07-07 08:59] LABS: ANION GAP 12 mmol/L (5-15); BLOOD UREA NITROGEN 50 mg/dL (7-18); CALCIUM 8.1 MG/DL (8.5-10.1); CARBON DIOXIDE 28 MMOL/L (21-32); CHLORIDE 100 MMOL/L (98-107); CREATININE 7.1 MG/DL (0.55-1.30); POTASSIUM 3.6 MMOL/L (3.5-5.1); SODIUM 140 MMOL/L (136-145)
[2019-07-07] MEDS: Losartan 50mg tab ORAL SCH (09:00)
--- NOTE | 2019-07-07 10:11 | Pulmonology Progress Note ---
Assessment/Plan Assessment/Plan ASSESSMENT chest pain atrial flutter abnormal stress test COPD ESRD, on HD nicotine addiction anemia of CKD HTN DM s/p mitral valve replacement severe anemia, s/p 5 u PRBC hepatitis C upper GI bleeding s/p EGD with findings of moderate to severe duodenitis s/p colonoscopy with biopsy: polyps, s/p removal and biopsy, internal hemorrhoids PLAN OF CARE MS serial troponin negative converted to SR ruled out for acute NC cardio on board on beta-lisette and Coumadin nitro as needed Echo with pEF 55 to 60%, normal MV functioning on ECHO cardio recommended EP study in future stress test revealed apparent hypoperfusion to the inferior wall , worse on stress. possibilities include : inferior wall infarct with lexie-infarct ischemia versus diaphragmatic attenuation pt declined cardiac cath and prefers medical management on BB and ARB Coumadin restarted 07/04 with GI clearance BP management with BB and ARB BS management with SSI service counselor on smoking cessation , declined nicotine patch HD as per strategic debriefing specialist with close monitoring of volumes and renal parameters noted significant drop in HH GI consulted, s/p total 5 u PRBC s/p EGD with findings of moderate to severe duodenitis s/p colonoscopy with biopsy: polyps, s/p removal and biopsy, internal hemorrhoids monitor H&H with goal to keep Hgb above 7 , HH stable this am no active bleeding Coumadin restarted per GI clearance supportive care GI prophylaxis case discussed and evaluated by supervising physician Subjective Allergies: Coded Allergies: PENICILLINS (Verified Allergy, Severe, swelling of throat, 02/25/16) ACETAMINOPHEN (Verified Allergy, Intermediate, Generalized Itching , ) HYDROCODONE (Verified Allergy, Intermediate, Generalized Itching , 01/26/18 ) Subjective denies CP, no SOB HH stable no leukocytosis pulse ox stable on RA Objective Last 24 Hour Vital Signs Date Time Temp Pulse Resp B/P (MAP) Pulse Ox O2 Delivery O2 Flow Rate FiO2 07/07/19 08:42 86 151/82 07/07/19 08:36 97.3 86 20 151/82 (105) 97 07/07/19 07:37 71 20 98 Room Air 21 07/07/19 04:00 97.8 87 20 138/83 (101) 97 07/07/19 00:00 98.7 76 18 133/67 (89) 97 07/06/19 21:00 Room Air 07/06/19 20:42 74 92/51 07/06/19 20:00 98.0 74 16 92/51 (65) 91 07/06/19 19:53 73 20 96 Room Air 21 07/06/19 16:00 98.0 69 18 120/64 (82) 97 07/06/19 12:00 97.8 73 18 106/56 (73) 97 Intake and Output 07/06/19 07/07/19 19:00 07:00 Intake Total 960 ml 360 ml Output Total 300 ml Balance 660 ml 360 ml Intake Oral 960 ml Other 360 ml Output Urine Total 300 ml # Voids 2 1 Objective General Appearance: no acute distress HEENT: normocephalic, mucous membranes moist, PERRL Respiratory/Chest: chest wall non-tender, no respiratory distress, no accessory muscle use Cardiovascular: normal rate, regular rhythm Abdomen: soft, non tender, non distended Extremities: no edema Neurologic/Psychiatric: alert, oriented x 3, responsive Musculoskeletal: normal muscle bulk Laboratory Tests 07/07/19 06:37: White Blood Count 10.6, Red Blood Count 2.80L, Hemoglobin 8.7L, Hematocrit 25.3L , Mean Corpuscular Volume 90, Mean Corpuscular Hemoglobin 31.0, Mean Corpuscular Hemoglobin Concent 34.5, Red Cell Distribution Width 15.1H, Platelet Count 184, Mean Platelet Volume 8.7, Neutrophils (%) (Auto) 68.0, Lymphocytes (%) (Auto) 18.1L, Monocytes (%) (Auto) 10.7H, Eosinophils (%) (Auto ) 2.6, Basophils (%) (Auto) 0.6, Prothrombin Time 11.2, Prothromb Time International Ratio 1.1, Sodium Level 140, Potassium Level 3.6, Chloride Level 100, Carbon Dioxide Level 28, Anion Gap 12, Blood Urea Nitrogen 50H, Creatinine 7.1H, Estimat Glomerular Filtration Rate 9.5, Glucose Level 84, Calcium Level 8.1L Current Medications Medications (Trade) Dose Ordered Sig/John Route PRN Reason Start Time Stop Time Status Last Admin Dose Admin Albuterol/ Ipratropium (Albuterol/ Ipratropium) 3 ml Q4H PRN HHN Shortness of Breath 07/05/19 15:00 07/10/19 14:59 Bisacodyl (Dulcolax) 10 mg DAILYPRN PRN RECTAL Constipation 07/06/19 15:00 07/27/19 14:59 Dextrose (Dextrose 50%) 25 ml Q30M PRN IV Hypoglycemia 07/05/19 14:30 07/27/19 00:00 Dextrose (Dextrose 50%) 50 ml Q30M PRN IV Hypoglycemia 07/05/19 14:30 07/27/19 00:00 Diphenhydramine HCl (Benadryl) 25 mg Q6H PRN IVP Itching 07/05/19 15:00 08/03/19 14:59 Docusate Sodium (Colace) 100 mg TID ORAL 07/05/19 18:00 07/27/19 20:59 07/07/19 08:42 Insulin Aspart (NovoLOG) BEFORE MEALS AND HS SUBQ 07/05/19 16:30 07/27/19 06:29 Losartan Potassium (Cozaar) 50 mg DAILY ORAL 07/06/19 09:00 07/27/19 09:59 Metoprolol Tartrate (Lopressor) 25 mg Q12HR ORAL 07/05/19 21:00 07/27/19 00:59 07/07/19 08:42 Nitroglycerin (Ntg) 0.4 mg Q5M PRN SL Prn Chest Pain 07/05/19 14:30 07/27/19 00:00 07/05/19 18:33 Ondansetron HCl (Zofran) 4 mg Q6H PRN IVP Nausea & Vomiting 07/05/19 15:00 07/27/19 14:59 07/05/19 18:40 Pantoprazole (Protonix) 40 mg EVERY 12 HOURS ORAL 07/05/19 21:00 07/28/19 20:59 07/07/19 08:43 Polyethylene Glycol (Miralax) 17 gm DAILYPRN PRN ORAL Constipation 07/05/19 15:00 08/04/19 14:59 Sevelamer Carbonate (Renvela) 800 mg THREE TIMES A DAY ORAL 07/05/19 18:00 07/28/19 12:59 07/06/19 17:29 Warfarin Sodium (Coumadin per pharmacy) 1 ea DAILY PRN MISC Per rx protocol 07/05/19 15:00 08/04/19 14:59 Beatrice Fink NP Jul 07, 2019 10:11
[2019-07-07 12:00] VITALS: BP 134/70
--- NOTE | 2019-07-07 14:57 | General Progress Note ---
Assessment/Plan Status: stable Assessment/Plan: ASSESSMENT: This is a 64-year-old male. 1. Chest pain. 2. Nausea with vomiting. 3. Mechanical mitral valve. 4. End-stage renal disease. 5. Diabetes type 2. 6. Hypertension. 7. Atrial flutter 8. severe anemia on admission TREATMENT: 1. Chest pain. Cardiology consultation has been obtained with Dr. Beto Goldman. The patient has a mechanical mitral valve ( done at [facility] 05/18). An echocardiogram showed inferior wall hypokinesis. patient DECLINED to be transferred for angiogram and chose medical management. Continue metoprolol and losartan. 2. Nausea and vomiting, this has resolved. 3. End-stage renal disease. A Nephrology consultation has been obtained with Dr. Valdez. 4. Diabetes type 2. NovoLog sliding scale has been instituted. 5. Hypertension. Continue diltiazem, isosorbide, losartan and as needed clonidine as above. 6. Hypercholesterolemia. Continue atorvastatin - add lipid panel to assess LDL level. 7. Atrial flutter-continue Coumadin restarted 07/05 8. cardiac stress test results from 07/01/19=poss ischemia 9. Transfusion completed 5 units total 10. upper GI bleeding s/p EGD with findings of moderate to severe duodenitis s/p colonoscopy with biopsy: polyps, s/p removal and biopsy, internal hemorrhoids follow up pathology report pending. Monitor H/H as Coumadin was restarted. Discharge planning pending on Hb stability. Goal 1-2 days. Subjective Date patient seen: Jul 07, 2019 Time patient seen: 14:20 Allergies: Coded Allergies: PENICILLINS (Verified Allergy, Severe, swelling of throat, 02/25/16) ACETAMINOPHEN (Verified Allergy, Intermediate, Generalized Itching , ) HYDROCODONE (Verified Allergy, Intermediate, Generalized Itching , 01/26/18 ) All Systems: reviewed and negative except above Subjective Feels well today. s/p colonoscopy 07/04, Restarted on Warfarin 07/05 and denies any hematemesis or blood in the stool. NO BM noted yet. Objective Last 24 Hour Vital Signs Date Time Temp Pulse Resp B/P (MAP) Pulse Ox O2 Delivery O2 Flow Rate FiO2 07/07/19 12:00 97.6 84 20 134/70 (91) 97 07/07/19 09:00 151/82 07/07/19 09:00 Room Air 07/07/19 08:42 86 151/82 07/07/19 08:36 97.3 86 20 151/82 (105) 97 07/07/19 07:37 71 20 98 Room Air 21 07/07/19 04:00 97.8 87 20 138/83 (101) 97 07/07/19 00:00 98.7 76 18 133/67 (89) 97 07/06/19 21:00 Room Air 07/06/19 20:42 74 92/51 07/06/19 20:00 98.0 74 16 92/51 (65) 91 07/06/19 19:53 73 20 96 Room Air 21 07/06/19 16:00 98.0 69 18 120/64 (82) 97 Intake and Output 07/06/19 07/07/19 19:00 07:00 Intake Total 960 ml 360 ml Output Total 300 ml Balance 660 ml 360 ml Intake Oral 960 ml Other 360 ml Output Urine Total 300 ml # Voids 2 1 Laboratory Tests 07/07/19 06:37: White Blood Count 10.6, Red Blood Count 2.80L, Hemoglobin 8.7L, Hematocrit 25.3L , Mean Corpuscular Volume 90, Mean Corpuscular Hemoglobin 31.0, Mean Corpuscular Hemoglobin Concent 34.5, Red Cell Distribution Width 15.1H, Platelet Count 184, Mean Platelet Volume 8.7, Neutrophils (%) (Auto) 68.0, Lymphocytes (%) (Auto) 18.1L, Monocytes (%) (Auto) 10.7H, Eosinophils (%) (Auto ) 2.6, Basophils (%) (Auto) 0.6, Prothrombin Time 11.2, Prothromb Time International Ratio 1.1, Sodium Level 140, Potassium Level 3.6, Chloride Level 100, Carbon Dioxide Level 28, Anion Gap 12, Blood Urea Nitrogen 50H, Creatinine 7.1H, Estimat Glomerular Filtration Rate 9.5, Glucose Level 84, Calcium Level 8.1L Height (Feet): 6 Height (Inches): 1.00 Weight (Pounds): 170 General Appearance: WD/WN EENT: PERRL/EOMI Neck: non-tender Cardiovascular: normal rate, regular rhythm Respiratory/Chest: lungs clear Abdomen: non tender, soft Extremities: normal range of motion Neurologic: healthcare applications analyst II-XII grossly normal Snady Taylor MD Jul 07, 2019 14:57
--- NOTE | 2019-07-07 15:18 | Nephrology Progress Note ---
Assessment/Plan Problem List: (1) ESRD (end stage renal disease) on dialysis (2) Diabetes mellitus (3) Anemia in chronic kidney disease Assessment: worse- symptomatic (4) Atrial flutter (5) H/O mitral valve replacement (6) Hepatitis C Assessment: by history Assessment End-stage renal disease, on hemodialysis every Monday, Monday, and Monday. Diabetes type 2. Hypertension. Hepatitis C. Mechanical mitral valve. Plan Due next dialysis July 07 worsening Anemia- had partial of one unit transfusion- need more It appears that the patient have a GI bleed so Coumadin and aspirin stopped and GI procedure is scheduled Patient was dialyzed yesterday July 02. Was again dialyzed July 04 had an upper endoscopy which showed duodenitis Patient had colonoscopy July 04. Three or four colonic polyps in the rectosigmoid area. See above for details. 2. Internal hemorrhoids. Continue to transfuse and keep hemoglobin and hematocrit at the reasonable range Resume anticoagulation per cardiology advice keep BP and BS in check Per cardio. Subjective ROS Limited/Unobtainable: No Constitutional: Reports: malaise Objective Objective Last 24 Hour Vital Signs Date Time Temp Pulse Resp B/P (MAP) Pulse Ox O2 Delivery O2 Flow Rate FiO2 07/07/19 12:00 97.6 84 20 134/70 (91) 97 07/07/19 09:00 151/82 07/07/19 09:00 Room Air 07/07/19 08:42 86 151/82 07/07/19 08:36 97.3 86 20 151/82 (105) 97 07/07/19 07:37 71 20 98 Room Air 07/07/19 04:00 97.8 87 20 138/83 (101) 97 07/07/19 00:00 98.7 76 18 133/67 (89) 97 07/06/19 21:00 Room Air 07/06/19 20:42 74 92/51 07/06/19 20:00 98.0 74 16 92/51 (65) 91 07/06/19 19:53 73 20 96 Room Air 21 07/06/19 16:00 98.0 69 18 120/64 (82) 97 Intake and Output 07/06/19 07/07/19 19:00 07:00 Intake Total 960 ml 360 ml Output Total 300 ml Balance 660 ml 360 ml Intake Oral 960 ml Other 360 ml Output Urine Total 300 ml # Voids 2 1 Laboratory Tests 07/07/19 06:37: White Blood Count 10.6, Red Blood Count 2.80L, Hemoglobin 8.7L, Hematocrit 25.3L , Mean Corpuscular Volume 90, Mean Corpuscular Hemoglobin 31.0, Mean Corpuscular Hemoglobin Concent 34.5, Red Cell Distribution Width 15.1H, Platelet Count 184, Mean Platelet Volume 8.7, Neutrophils (%) (Auto) 68.0, Lymphocytes (%) (Auto) 18.1L, Monocytes (%) (Auto) 10.7H, Eosinophils (%) (Auto ) 2.6, Basophils (%) (Auto) 0.6, Prothrombin Time 11.2, Prothromb Time International Ratio 1.1, Sodium Level 140, Potassium Level 3.6, Chloride Level 100, Carbon Dioxide Level 28, Anion Gap 12, Blood Urea Nitrogen 50H, Creatinine 7.1H, Estimat Glomerular Filtration Rate 9.5, Glucose Level 84, Calcium Level 8.1L Height (Feet): 6 Height (Inches): 1.00 Weight (Pounds): 170 General Appearance: no apparent distress Objective NO CHANGE Hang Valdez MD Jul 07, 2019 15:18
[2019-07-07 16:00] VITALS: BP 138/70
[2019-07-07] MEDS ORDERED: Warfarin Sodium 1mg ORAL SCH (17:00)
[2019-07-07 20:00] VITALS: BP 166/76
[2019-07-08] VITALS: BP 139/74
[2019-07-08 04:00] VITALS: BP 141/79
[2019-07-08] MEDS: NovoLOG Insulin Flexpen SUBQ SCH ×4 (05:58→20:51)
--- NOTE | 2019-07-08 07:46 | General Progress Note ---
Assessment/Plan Problem List: (1) H/O mitral valve replacement ICD Codes: Z95.2 - Presence of prosthetic heart valve SNOMED: 88114283, 4056631989693 (2) Hepatitis C ICD Codes: B19.20 - Unspecified viral hepatitis C without hepatic coma SNOMED: 42521354 (3) COPD (chronic obstructive pulmonary disease) ICD Codes: J44.9 - Chronic obstructive pulmonary disease, unspecified SNOMED: 52984474 (4) Diabetes mellitus ICD Codes: E11.9 - Type 2 diabetes mellitus without complications SNOMED: 83024661 (5) Atrial fibrillation with rapid ventricular response ICD Codes: I48.91 - Unspecified atrial fibrillation SNOMED: 154423326383227 (6) GI bleed ICD Codes: K92.2 - Gastrointestinal hemorrhage, unspecified SNOMED: 03145649 (7) Warfarin overdosage ICD Codes: T45.511A - Poisoning by anticoagulants, accidental (unintentional), initial encounter SNOMED: 95684248, 13187584 Status: stable Assessment/Plan: s/p EGD and colonoscopy no active bleed on Coumadin per pharmacy fu labs repeat hep C serology Subjective ROS Limited/Unobtainable: Yes Allergies: Coded Allergies: PENICILLINS (Verified Allergy, Severe, swelling of throat, 02/25/16) ACETAMINOPHEN (Verified Allergy, Intermediate, Generalized Itching , ) HYDROCODONE (Verified Allergy, Intermediate, Generalized Itching , 01/26/18 ) Objective Last 24 Hour Vital Signs Date Time Temp Pulse Resp B/P (MAP) Pulse Ox O2 Delivery O2 Flow Rate FiO2 07/08/19 04:00 97.4 74 18 141/79 (99) 98 07/08/19 00:00 98.7 74 20 139/74 (95) 98 07/07/19 21:31 Room Air 07/07/19 21:13 76 166/78 07/07/19 20:00 75 18 97 Room Air 21 07/07/19 20:00 98.7 79 18 166/76 (106) 98 07/07/19 16:00 97.5 72 20 138/70 (92) 100 07/07/19 12:00 97.6 84 20 134/70 (91) 97 07/07/19 09:00 151/82 07/07/19 09:00 Room Air 07/07/19 08:42 86 151/82 07/07/19 08:36 97.3 86 20 151/82 (105) 97 Intake and Output 07/07/19 07/08/19 19:00 07:00 Intake Total 840 ml Balance 840 ml Intake Oral 840 ml # Voids 3 Height (Feet): 6 Height (Inches): 1.00 Weight (Pounds): 170 General Appearance: no apparent distress EENT: normal ENT inspection Neck: supple Cardiovascular: normal rate Respiratory/Chest: decreased breath sounds Abdomen: normal bowel sounds, non tender, soft Extremities: non-tender Tung Steen MD Jul 08, 2019 07:46
[2019-07-08 08:00] VITALS: BP 138/66
[2019-07-08 08:08] LABS: BASOPHILS % (AUTO) 0.7 % (0.0-2.0); HEMOGLOBIN 8.6 G/DL (14.2-18.0); LYMPHOCYTES % (AUTO) 17.3 % (20.0-45.0); MEAN CORPUSCULAR VOLUME 91 FL (80-99); MONOCYTES % (AUTO) 9.7 % (1.0-10.0); NEUTROPHILS % (AUTO) 69.4 % (45.0-75.0); PLATELET COUNT 210 K/UL (150-450); RED BLOOD COUNT 2.75 M/UL (4.70-6.10); RED CELL DISTRIBUTION WIDTH 15.2 % (11.6-14.8); WHITE BLOOD COUNT 11.5 K/UL (4.8-10.8)
[2019-07-08 08:22] LABS: ANION GAP 14 mmol/L (5-15); BLOOD UREA NITROGEN 52 mg/dL (7-18); CALCIUM 8.3 MG/DL (8.5-10.1); CARBON DIOXIDE 24 MMOL/L (21-32); CHLORIDE 102 MMOL/L (98-107); CHOLESTEROL 116 MG/DL (< 200); CREATININE 7.8 MG/DL (0.55-1.30); HDL CHOLESTEROL 34 MG/DL (40-60); POTASSIUM 3.5 MMOL/L (3.5-5.1); SODIUM 140 MMOL/L (136-145); TRIGLYCERIDES 116 MG/DL (30-150)
[2019-07-08] MEDS: Losartan 50mg tab ORAL SCH (09:00)
[2019-07-08 10:41] LABS: ALANINE AMINOTRANSFERASE 18 U/L (12-78); ALBUMIN 2.9 G/DL (3.4-5.0); ALKALINE PHOSPHATASE 62 U/L (46-116); ASPARTATE AMINO TRANSFERASE 25 U/L (15-37); BILIRUBIN,DIRECT < 0.1 MG/DL (0.0-0.3); BILIRUBIN,TOTAL 0.3 MG/DL (0.2-1.0); PHOSPHORUS 5.4 MG/DL (2.5-4.9)
[2019-07-08] MEDS: Docusate 100mg cap ORAL SCH ×3 (11:11→17:38)
[2019-07-08 12:00] VITALS: BP 132/67
--- NOTE | 2019-07-08 12:46 | Nephrology Progress Note ---
Assessment/Plan Problem List: (1) ESRD (end stage renal disease) on dialysis (2) Diabetes mellitus (3) Anemia in chronic kidney disease Assessment: worse- symptomatic (4) Atrial flutter (5) H/O mitral valve replacement (6) Hepatitis C Assessment: by history Assessment End-stage renal disease, on hemodialysis every Monday, Monday, and Monday. Diabetes type 2. Hypertension. Hepatitis C. Mechanical mitral valve. Plan Due next dialysis July 07 worsening Anemia- had partial of one unit transfusion- need more It appears that the patient have a GI bleed so Coumadin and aspirin stopped and GI procedure is scheduled Patient was dialyzed yesterday July 02. Was again dialyzed July 04 had an upper endoscopy which showed duodenitis Patient had colonoscopy July 04. Three or four colonic polyps in the rectosigmoid area. See above for details. 2. Internal hemorrhoids. Continue to transfuse and keep hemoglobin and hematocrit at the reasonable range Resume anticoagulation per cardiology advice keep BP and BS in check Per cardio. Subjective ROS Limited/Unobtainable: No Constitutional: Reports: malaise Objective Objective Last 24 Hour Vital Signs Date Time Temp Pulse Resp B/P (MAP) Pulse Ox O2 Delivery O2 Flow Rate FiO2 07/08/19 09:00 63 138/66 07/08/19 09:00 138/66 07/08/19 08:00 97.8 63 19 138/66 (90) 100 07/08/19 07:00 73 18 95 Room Air 21 07/08/19 04:00 97.4 74 18 141/79 (99) 98 07/08/19 00:00 98.7 74 20 139/74 (95) 98 07/07/19 21:31 Room Air 07/07/19 21:13 76 166/78 07/07/19 20:00 75 18 97 Room Air 21 07/07/19 20:00 98.7 79 18 166/76 (106) 98 07/07/19 16:00 97.5 72 20 138/70 (92) 100 Intake and Output 07/07/19 07/08/19 19:00 07:00 Intake Total 840 ml Balance 840 ml Intake Oral 840 ml # Voids 3 Laboratory Tests 07/08/19 06:11: White Blood Count 11.5H, Red Blood Count 2.75L, Hemoglobin 8.6L, Hematocrit 25.0L, Mean Corpuscular Volume 91, Mean Corpuscular Hemoglobin 31.4H, Mean Corpuscular Hemoglobin Concent 34.6, Red Cell Distribution Width 15.2H, Platelet Count 210, Mean Platelet Volume 9.0, Neutrophils (%) (Auto) 69.4, Lymphocytes (%) (Auto) 17.3L, Monocytes (%) (Auto) 9.7, Eosinophils (%) (Auto) 3.0, Basophils (%) (Auto) 0.7, Prothrombin Time 10.9, Prothromb Time International Ratio 1.0, Sodium Level 140, Potassium Level 3.5, Chloride Level 102, Carbon Dioxide Level 24, Anion Gap 14, Blood Urea Nitrogen 52H, Creatinine 7.8H, Estimat Glomerular Filtration Rate 8.5, Glucose Level 97, Calcium Level 8.3L, Phosphorus Level 5.4H, Magnesium Level 2.0, Total Bilirubin 0.3, Direct Bilirubin < 0.1, Aspartate Amino Transf (AST/SGOT) 25, Alanine Aminotransferase (ALT/SGPT) 18, Alkaline Phosphatase 62, Total Protein 5.9L, Albumin 2.9L, Triglycerides Level 116, Cholesterol Level 116, LDL Cholesterol 61, HDL Cholesterol 34L, Cholesterol/HDL Ratio 3.4, Hepatitis C Antibody [Pending], Hepatitis C RNA (PCR) IUs/ml [Pending], Hepatitis C RNA (PCR) log IUs/ml [ Pending] Height (Feet): 6 Height (Inches): 1.00 Weight (Pounds): 170 General Appearance: no apparent distress Cardiovascular: normal rate Respiratory/Chest: lungs clear Abdomen: soft Objective NO CHANGE Hang Valdez MD Jul 08, 2019 12:46
--- NOTE | 2019-07-08 13:04 | Pulmonology Progress Note ---
Assessment/Plan Problems: (1) Anemia in chronic kidney disease Assessment & Plan: s/p 5 units of prbc, one more unit ordered today (2) Atrial fibrillation with rapid ventricular response Assessment & Plan: sinus now, on Coumadin INR is subtherapeutic (3) COPD (chronic obstructive pulmonary disease) (4) ESRD (end stage renal disease) on dialysis (5) Diabetes mellitus (6) History of hypertension (7) Nicotine addiction (8) Hepatitis C (9) H/O mitral valve replacement Assessment/Plan H/h stable in the last few days had colonoscopy, no active source of bleeding doing better heart rate controlled, sinus around 80's respiratory treatment titrate fiO2 to sat of 92% symptomatic treatment Coumadin by pharmacy, dc home when INR therapeutic. Subjective ROS Limited/Unobtainable: No Constitutional: Reports: no symptoms HEENT: Repors: no symptoms Respiratory: Reports: no symptoms Allergies: Coded Allergies: PENICILLINS (Verified Allergy, Severe, swelling of throat, 02/25/16) ACETAMINOPHEN (Verified Allergy, Intermediate, Generalized Itching , ) HYDROCODONE (Verified Allergy, Intermediate, Generalized Itching , 01/26/18 ) Objective Last 24 Hour Vital Signs Date Time Temp Pulse Resp B/P (MAP) Pulse Ox O2 Delivery O2 Flow Rate FiO2 07/08/19 09:00 63 138/66 07/08/19 09:00 138/66 07/08/19 08:00 97.8 63 19 138/66 (90) 100 07/08/19 07:00 73 18 95 Room Air 21 07/08/19 04:00 97.4 74 18 141/79 (99) 98 07/08/19 00:00 98.7 74 20 139/74 (95) 98 07/07/19 21:31 Room Air 07/07/19 21:13 76 166/78 07/07/19 20:00 75 18 97 Room Air 21 07/07/19 20:00 98.7 79 18 166/76 (106) 98 07/07/19 16:00 97.5 72 20 138/70 (92) 100 Intake and Output 07/07/19 07/08/19 19:00 07:00 Intake Total 840 ml Balance 840 ml Intake Oral 840 ml # Voids 3 General Appearance: cachetic HEENT: normocephalic, atraumatic Respiratory/Chest: chest wall non-tender, normal breath sounds Cardiovascular: normal peripheral pulses, normal rate Abdomen: normal bowel sounds, soft, non tender Genitourinary: normal external genitalia Extremities: no cyanosis Skin: no rash Neurologic/Psychiatric: shoe fitter II-XII grossly normal Laboratory Tests 07/08/19 06:11: White Blood Count 11.5H, Red Blood Count 2.75L, Hemoglobin 8.6L, Hematocrit 25.0L, Mean Corpuscular Volume 91, Mean Corpuscular Hemoglobin 31.4H, Mean Corpuscular Hemoglobin Concent 34.6, Red Cell Distribution Width 15.2H, Platelet Count 210, Mean Platelet Volume 9.0, Neutrophils (%) (Auto) 69.4, Lymphocytes (%) (Auto) 17.3L, Monocytes (%) (Auto) 9.7, Eosinophils (%) (Auto) 3.0, Basophils (%) (Auto) 0.7, Prothrombin Time 10.9, Prothromb Time International Ratio 1.0, Sodium Level 140, Potassium Level 3.5, Chloride Level 102, Carbon Dioxide Level 24, Anion Gap 14, Blood Urea Nitrogen 52H, Creatinine 7.8H, Estimat Glomerular Filtration Rate 8.5, Glucose Level 97, Calcium Level 8.3L, Phosphorus Level 5.4H, Magnesium Level 2.0, Total Bilirubin 0.3, Direct Bilirubin < 0.1, Aspartate Amino Transf (AST/SGOT) 25, Alanine Aminotransferase (ALT/SGPT) 18, Alkaline Phosphatase 62, Total Protein 5.9L, Albumin 2.9L, Triglycerides Level 116, Cholesterol Level 116, LDL Cholesterol 61, HDL Cholesterol 34L, Cholesterol/HDL Ratio 3.4, Hepatitis C Antibody [Pending], Hepatitis C RNA (PCR) IUs/ml [Pending], Hepatitis C RNA (PCR) log IUs/ml [ Pending] Current Medications Medications (Trade) Dose Ordered Sig/John Route PRN Reason Start Time Stop Time Status Last Admin Dose Admin Albuterol/ Ipratropium (Albuterol/ Ipratropium) 3 ml Q4H PRN HHN Shortness of Breath 07/05/19 15:00 07/10/19 14:59 Bisacodyl (Dulcolax) 10 mg DAILYPRN PRN RECTAL Constipation 07/06/19 15:00 07/27/19 14:59 Dextrose (Dextrose 50%) 25 ml Q30M PRN IV Hypoglycemia 07/05/19 14:30 07/27/19 00:00 Dextrose (Dextrose 50%) 50 ml Q30M PRN IV Hypoglycemia 07/05/19 14:30 07/27/19 00:00 Diphenhydramine HCl (Benadryl) 25 mg Q6H PRN IVP Itching 07/05/19 15:00 08/03/19 14:59 Docusate Sodium (Colace) 100 mg TID ORAL 07/05/19 18:00 07/27/19 20:59 07/08/19 11:11 Insulin Aspart (NovoLOG) BEFORE MEALS AND HS SUBQ 07/05/19 16:30 07/27/19 06:29 Losartan Potassium (Cozaar) 50 mg DAILY ORAL 07/06/19 09:00 07/27/19 09:59 Metoprolol Tartrate (Lopressor) 25 mg Q12HR ORAL 07/05/19 21:00 07/27/19 00:59 07/07/19 21:13 Nitroglycerin (Ntg) 0.4 mg Q5M PRN SL Prn Chest Pain 07/05/19 14:30 07/27/19 00:00 07/05/19 18:33 Ondansetron HCl (Zofran) 4 mg Q6H PRN IVP Nausea & Vomiting 07/05/19 15:00 07/27/19 14:59 07/05/19 18:40 Pantoprazole (Protonix) 40 mg EVERY 12 HOURS ORAL 07/05/19 21:00 07/28/19 20:59 07/08/19 11:11 Polyethylene Glycol (Miralax) 17 gm DAILYPRN PRN ORAL Constipation 07/05/19 15:00 08/04/19 14:59 Sevelamer Carbonate (Renvela) 800 mg THREE TIMES A DAY ORAL 07/05/19 18:00 07/28/19 12:59 07/08/19 11:11 Warfarin Sodium (Coumadin per pharmacy) 1 ea DAILY PRN MISC Per rx protocol 07/05/19 15:00 08/04/19 14:59 Warfarin Sodium (Coumadin) 7.5 mg ONCE ORAL 07/08/19 17:00 07/08/19 18:00 Caleb Hinojosa MD Jul 08, 2019 13:04
--- NOTE | 2019-07-08 13:37 | Cardiac Electrophysiology PN ---
Assessment/Plan Assessment/Plan 1. Atrial flutter, converted to SR. On metoprolol 25 mg b.i.d. Coumadin resumed as OKed per Dr Steen EPS and ablation as out patient. EF 55% 2. Chest pain. Ruled out for myocardial infarction. Denies any chest pain. It could be due to volume overload. Stress test 07/02/19 showed: Hypoperfusion to the inferior wall worse on stress. Possibilities include an inferior wall infarct with lexie-infarct ischemia versus diaphragmatic attenuation. Refused Cardiac cath . Continue on medical therapy 3. S/P [facility] MVR and TV Ring 07/2017 Nl valve Fx on echo 4. Hypertension, on metoprolol 25 mg b.i.d., losartan 50 mg daily and hemodialysis. 5. End-stage renal disease, on hemodialysis. 6. Diabetes, on insulin. 7. Hep C 8. Acute anemia Hb 12 to 6.5! Got 3 unit of blood S/P EGD yesterday and colonoscopy by Dr Steen No active bleed. FRANCINE RN Subjective Subjective On NMB. S/P MVR and TV repair at [facility] 08/2017. No CP or SOB. No CP. S/P EGD and colonoscopy Objective Last 24 Hour Vital Signs Date Time Temp Pulse Resp B/P (MAP) Pulse Ox O2 Delivery O2 Flow Rate FiO2 07/08/19 09:00 63 138/66 07/08/19 09:00 138/66 07/08/19 09:00 Room Air 07/08/19 08:00 97.8 63 19 138/66 (90) 100 07/08/19 07:00 73 18 95 Room Air 21 07/08/19 04:00 97.4 74 18 141/79 (99) 98 07/08/19 00:00 98.7 74 20 139/74 (95) 98 07/07/19 21:31 Room Air 07/07/19 21:13 76 166/78 07/07/19 20:00 75 18 97 Room Air 21 07/07/19 20:00 98.7 79 18 166/76 (106) 98 07/07/19 16:00 97.5 72 20 138/70 (92) 100 Intake and Output 07/07/19 07/08/19 19:00 07:00 Intake Total 840 ml Balance 840 ml Intake Oral 840 ml # Voids 3 Laboratory Tests Test 07/08/19 06:11 White Blood Count 11.5 K/UL (4.8-10.8) H Red Blood Count 2.75 M/UL (4.70-6.10) L Hemoglobin 8.6 G/DL (14.2-18.0) L Hematocrit 25.0 % (42.0-52.0) L Mean Corpuscular Volume 91 FL (80-99) Mean Corpuscular Hemoglobin 31.4 PG (27.0-31.0) H Mean Corpuscular Hemoglobin Concent 34.6 G/DL (32.0-36.0) Red Cell Distribution Width 15.2 % (11.6-14.8) H Platelet Count 210 K/UL (150-450) Mean Platelet Volume 9.0 FL (6.5-10.1) Neutrophils (%) (Auto) 69.4 % (45.0-75.0) Lymphocytes (%) (Auto) 17.3 % (20.0-45.0) L Monocytes (%) (Auto) 9.7 % (1.0-10.0) Eosinophils (%) (Auto) 3.0 % (0.0-3.0) Basophils (%) (Auto) 0.7 % (0.0-2.0) Prothrombin Time 10.9 SEC (9.30-11.50) Prothromb Time International Ratio 1.0 (0.9-1.1) Sodium Level 140 MMOL/L (136-145) Potassium Level 3.5 MMOL/L (3.5-5.1) Chloride Level 102 MMOL/L (98-107) Carbon Dioxide Level 24 MMOL/L (21-32) Anion Gap 14 mmol/L (5-15) Blood Urea Nitrogen 52 mg/dL (7-18) H Creatinine 7.8 MG/DL (0.55-1.30) H Estimat Glomerular Filtration Rate 8.5 mL/min (>60) Glucose Level 97 MG/DL (74-106) Calcium Level 8.3 MG/DL (8.5-10.1) L Phosphorus Level 5.4 MG/DL (2.5-4.9) H Magnesium Level 2.0 MG/DL (1.8-2.4) Total Bilirubin 0.3 MG/DL (0.2-1.0) Direct Bilirubin < 0.1 MG/DL (0.0-0.3) Aspartate Amino Transf (AST/SGOT) 25 U/L (15-37) Alanine Aminotransferase (ALT/SGPT) 18 U/L (12-78) Alkaline Phosphatase 62 U/L (46-116) Total Protein 5.9 G/DL (6.4-8.2) L Albumin 2.9 G/DL (3.4-5.0) L Triglycerides Level 116 MG/DL (30-150) Cholesterol Level 116 MG/DL (< 200) LDL Cholesterol 61 mg/dL (<100) HDL Cholesterol 34 MG/DL (40-60) L Cholesterol/HDL Ratio 3.4 (3.3-4.4) Hepatitis C Antibody Pending Hepatitis C RNA (PCR) IUs/ml Pending Hepatitis C RNA (PCR) log IUs/ml Pending Objective HEAD AND NECK: No JVD or carotid bruit. LUNGS: Clear. CARDIOVASCULAR: Regular S1 and S2 with metallic first heart sounds. LUNGS: Clear. ABDOMEN: Soft. EXTREMITIES: No pitting edema. Beto Goldman MD Jul 08, 2019 13:37
[2019-07-08 16:00] VITALS: BP 121/63
[2019-07-08] MEDS ORDERED: Warfarin Sodium 7.5mg ORAL SCH (17:00)
--- NOTE | 2019-07-08 19:34 | Internal Med Progress Note ---
Subjective Date of Service: Jul 08, 2019 Physician Name Saturnino Pleitez Attending Physician Brian Alicea MD Current Medications Medications (Trade) Dose Ordered Sig/John Route PRN Reason Start Time Stop Time Status Last Admin Dose Admin Albuterol/ Ipratropium (Albuterol/ Ipratropium) 3 ml Q4H PRN HHN Shortness of Breath 07/05/19 15:00 07/10/19 14:59 Bisacodyl (Dulcolax) 10 mg DAILYPRN PRN RECTAL Constipation 07/06/19 15:00 07/27/19 14:59 Dextrose (Dextrose 50%) 25 ml Q30M PRN IV Hypoglycemia 07/05/19 14:30 07/27/19 00:00 Dextrose (Dextrose 50%) 50 ml Q30M PRN IV Hypoglycemia 07/05/19 14:30 07/27/19 00:00 Diphenhydramine HCl (Benadryl) 25 mg Q6H PRN IVP Itching 07/05/19 15:00 08/03/19 14:59 Docusate Sodium (Colace) 100 mg TID ORAL 07/05/19 18:00 07/27/19 20:59 07/08/19 17:38 Insulin Aspart (NovoLOG) BEFORE MEALS AND HS SUBQ 07/05/19 16:30 07/27/19 06:29 07/08/19 17:39 Losartan Potassium (Cozaar) 50 mg DAILY ORAL 07/06/19 09:00 07/27/19 09:59 Metoprolol Tartrate (Lopressor) 25 mg Q12HR ORAL 07/05/19 21:00 07/27/19 00:59 07/07/19 21:13 Nitroglycerin (Ntg) 0.4 mg Q5M PRN SL Prn Chest Pain 07/05/19 14:30 07/27/19 00:00 07/05/19 18:33 Ondansetron HCl (Zofran) 4 mg Q6H PRN IVP Nausea & Vomiting 07/05/19 15:00 07/27/19 14:59 07/05/19 18:40 Pantoprazole (Protonix) 40 mg EVERY 12 HOURS ORAL 07/05/19 21:00 07/28/19 20:59 07/08/19 11:11 Polyethylene Glycol (Miralax) 17 gm DAILYPRN PRN ORAL Constipation 07/05/19 15:00 08/04/19 14:59 Sevelamer Carbonate (Renvela) 800 mg THREE TIMES A DAY ORAL 07/05/19 18:00 07/28/19 12:59 07/08/19 17:38 Warfarin Sodium (Coumadin per pharmacy) 1 ea DAILY PRN MISC Per rx protocol 07/05/19 15:00 08/04/19 14:59 Allergies: Coded Allergies: PENICILLINS (Verified Allergy, Severe, swelling of throat, 02/25/16) ACETAMINOPHEN (Verified Allergy, Intermediate, Generalized Itching , ) HYDROCODONE (Verified Allergy, Intermediate, Generalized Itching , 01/26/18 ) ROS Limited/Unobtainable: No Constitutional: Reports: no symptoms HEENT: Reports: no symptoms Cardiovascular: Reports: no symptoms Respiratory: Reports: no symptoms Gastrointestinal/Abdominal: Reports: no symptoms Genitourinary: Reports: no symptoms Neurologic/Psychiatric: Reports: no symptoms Subjective 64 YO M admitted with chest pain, nausea and vomiting. Now with severe anemia. S/P endoscopy 07/04/19 and colonoscopy 07/05/19.. Cover for Int Drew-DR Alicea Objective Last Vital Signs Date Time Temp Pulse Resp B/P (MAP) Pulse Ox O2 Delivery O2 Flow Rate FiO2 07/08/19 16:00 98.0 80 18 121/63 (82) 100 07/08/19 09:00 Room Air 07/08/19 07:00 21 07/05/19 13:00 3 Laboratory Tests Test 07/08/19 06:11 White Blood Count 11.5 K/UL (4.8-10.8) H Red Blood Count 2.75 M/UL (4.70-6.10) L Hemoglobin 8.6 G/DL (14.2-18.0) L Hematocrit 25.0 % (42.0-52.0) L Mean Corpuscular Volume 91 FL (80-99) Mean Corpuscular Hemoglobin 31.4 PG (27.0-31.0) H Mean Corpuscular Hemoglobin Concent 34.6 G/DL (32.0-36.0) Red Cell Distribution Width 15.2 % (11.6-14.8) H Platelet Count 210 K/UL (150-450) Mean Platelet Volume 9.0 FL (6.5-10.1) Neutrophils (%) (Auto) 69.4 % (45.0-75.0) Lymphocytes (%) (Auto) 17.3 % (20.0-45.0) L Monocytes (%) (Auto) 9.7 % (1.0-10.0) Eosinophils (%) (Auto) 3.0 % (0.0-3.0) Basophils (%) (Auto) 0.7 % (0.0-2.0) Prothrombin Time 10.9 SEC (9.30-11.50) Prothromb Time International Ratio 1.0 (0.9-1.1) Sodium Level 140 MMOL/L (136-145) Potassium Level 3.5 MMOL/L (3.5-5.1) Chloride Level 102 MMOL/L (98-107) Carbon Dioxide Level 24 MMOL/L (21-32) Anion Gap 14 mmol/L (5-15) Blood Urea Nitrogen 52 mg/dL (7-18) H Creatinine 7.8 MG/DL (0.55-1.30) H Estimat Glomerular Filtration Rate 8.5 mL/min (>60) Glucose Level 97 MG/DL (74-106) Calcium Level 8.3 MG/DL (8.5-10.1) L Phosphorus Level 5.4 MG/DL (2.5-4.9) H Magnesium Level 2.0 MG/DL (1.8-2.4) Total Bilirubin 0.3 MG/DL (0.2-1.0) Direct Bilirubin < 0.1 MG/DL (0.0-0.3) Aspartate Amino Transf (AST/SGOT) 25 U/L (15-37) Alanine Aminotransferase (ALT/SGPT) 18 U/L (12-78) Alkaline Phosphatase 62 U/L (46-116) Total Protein 5.9 G/DL (6.4-8.2) L Albumin 2.9 G/DL (3.4-5.0) L Triglycerides Level 116 MG/DL (30-150) Cholesterol Level 116 MG/DL (< 200) LDL Cholesterol 61 mg/dL (<100) HDL Cholesterol 34 MG/DL (40-60) L Cholesterol/HDL Ratio 3.4 (3.3-4.4) Hepatitis C Antibody Pending Hepatitis C RNA (PCR) IUs/ml Pending Hepatitis C RNA (PCR) log IUs/ml Pending Intake and Output 07/07/19 07/08/19 19:00 07:00 Intake Total 840 ml Balance 840 ml Intake Oral 840 ml # Voids 3 Objective PHYSICAL EXAMINATION: GENERAL: The patient is well-developed and well-nourished male, in no apparent distress. HEENT: Eyes, pupils are equal and responsive to light and accommodation. Extraocular movements are intact. NECK: Supple without lymphadenopathy. CHEST: Lungs are clear to auscultation bilaterally without wheezes or rales. CARDIOVASCULAR: Regular rhythm and rate. S1 and S2 are normal with an audible click. No evidence of murmurs or gallops. ABDOMEN: Soft, nontender, nondistended. Positive bowel sounds. No evidence of hepatosplenomegaly. Currently, no rebound or guarding noted. EXTREMITIES: Negative for clubbing, cyanosis, or edema. RECTAL/GENITAL: Not performed. NEUROLOGIC: Cranial nerves II through XII are grossly intact without focal deficits. Motor strength is 5/5 bilaterally. Deep tendon reflexes are 2+ plantar. Assessment/Plan Assessment/Plan ASSESSMENT: This is a 64-year-old male. 1. Chest pain. 2. Nausea with vomiting. 3. Mechanical mitral valve. 4. End-stage renal disease. 5. Diabetes type 2. 6. Hypertension. 7. Atrial flutter 8. severe anemia 9. Duodenitis TREATMENT: 1. Chest pain. A Cardiology consultation has been obtained with Dr. Beto Goldman. The patient has a mechanical mitral valve. An echocardiogram is pending. Serial troponin levels will be performed. We will follow recommendation of Cardiology. 2. Nausea and vomiting, this has resolved. 3. End-stage renal disease. A Nephrology consultation has been obtained with Dr. Valdez. We will follow recommendations of Nephrology. Last hemodialysis 06/28/19 4. Diabetes type 2. NovoLog sliding scale has been instituted. 5. Hypertension. Continue diltiazem, isosorbide, losartan and as needed clonidine as above. 6. Hypercholesterolemia. Continue atorvastatin 7. Atrial flutter-continue coumadin 8. cardiac stress test results from 07/01/19=poss ischemia 9. S/P transfusion 2 units PRBC; await endoscopy to R/O GI bleed PricillaSaturnino MD Jul 08, 2019 19:34
[2019-07-08 20:00] VITALS: BP 106/62
[2019-07-09] VITALS: BP 139/77
[2019-07-09 04:00] VITALS: BP 119/75
[2019-07-09] MEDS: NovoLOG Insulin Flexpen SUBQ SCH ×4 (05:47→20:54)
[2019-07-09 07:12] LABS: ALANINE AMINOTRANSFERASE 23 U/L (12-78); ALBUMIN/GLOBULIN RATIO 0.9 (1.0-2.7); ALKALINE PHOSPHATASE 73 U/L (46-116); ANION GAP 13 mmol/L (5-15); ASPARTATE AMINO TRANSFERASE 22 U/L (15-37); BILIRUBIN,TOTAL 0.4 MG/DL (0.2-1.0); BLOOD UREA NITROGEN 31 mg/dL (7-18); CALCIUM 8.7 MG/DL (8.5-10.1); CARBON DIOXIDE 26 MMOL/L (21-32); CHLORIDE 104 MMOL/L (98-107); CREATININE 5.9 MG/DL (0.55-1.30); SODIUM 142 MMOL/L (136-145)
[2019-07-09 07:17] LABS: BASOPHILS % (AUTO) 0.8 % (0.0-2.0); EOSINOPHILS % (AUTO) 2.9 % (0.0-3.0); HEMATOCRIT 26.6 % (42.0-52.0); LYMPHOCYTES % (AUTO) 16.7 % (20.0-45.0); MEAN CORPUSCULAR VOLUME 92 FL (80-99); MONOCYTES % (AUTO) 8.1 % (1.0-10.0); NEUTROPHILS % (AUTO) 71.6 % (45.0-75.0); PLATELET COUNT 250 K/UL (150-450); RED BLOOD COUNT 2.89 M/UL (4.70-6.10); RED CELL DISTRIBUTION WIDTH 15.6 % (11.6-14.8); WHITE BLOOD COUNT 11.7 K/UL (4.8-10.8)
[2019-07-09 07:46] VITALS: BP 116/56
[2019-07-09] MEDS: Losartan 50mg tab ORAL SCH (08:06)
[2019-07-09] MEDS: Docusate 100mg cap ORAL SCH ×3 (08:08→17:13)
[2019-07-09 08:47] LABS: PHOSPHORUS 4.6 MG/DL (2.5-4.9)
--- NOTE | 2019-07-09 11:01 | General Progress Note ---
Assessment/Plan Problem List: (1) H/O mitral valve replacement ICD Codes: Z95.2 - Presence of prosthetic heart valve SNOMED: 82924603, 5521920568220 (2) Hepatitis C ICD Codes: B19.20 - Unspecified viral hepatitis C without hepatic coma SNOMED: 04155443 (3) COPD (chronic obstructive pulmonary disease) ICD Codes: J44.9 - Chronic obstructive pulmonary disease, unspecified SNOMED: 04642870 (4) Diabetes mellitus ICD Codes: E11.9 - Type 2 diabetes mellitus without complications SNOMED: 70708642 (5) Atrial fibrillation with rapid ventricular response ICD Codes: I48.91 - Unspecified atrial fibrillation SNOMED: 918540406410808 (6) GI bleed ICD Codes: K92.2 - Gastrointestinal hemorrhage, unspecified SNOMED: 89840417 (7) Warfarin overdosage ICD Codes: T45.511A - Poisoning by anticoagulants, accidental (unintentional), initial encounter SNOMED: 71631555, 76489565 Status: stable Assessment/Plan: s/p EGD and colonoscopy no active bleed on Coumadin per pharmacy fu labs repeat hep C serology Subjective ROS Limited/Unobtainable: No Allergies: Coded Allergies: PENICILLINS (Verified Allergy, Severe, swelling of throat, 02/25/16) ACETAMINOPHEN (Verified Allergy, Intermediate, Generalized Itching , ) HYDROCODONE (Verified Allergy, Intermediate, Generalized Itching , 01/26/18 ) Objective Last 24 Hour Vital Signs Date Time Temp Pulse Resp B/P (MAP) Pulse Ox O2 Delivery O2 Flow Rate FiO2 07/09/19 09:00 Room Air 07/09/19 08:06 74 116/56 07/09/19 08:06 116/56 07/09/19 07:46 97.7 74 18 116/56 (76) 96 07/09/19 07:20 72 18 95 Room Air 21 07/09/19 04:00 97.5 85 19 119/75 (90) 97 07/09/19 00:00 97.3 83 20 139/77 (97) 94 07/08/19 21:14 Room Air 07/08/19 20:46 75 106/62 07/08/19 20:00 98.3 75 21 106/62 (77) 97 07/08/19 16:00 98.0 80 18 121/63 (82) 100 07/08/19 12:00 97.3 72 19 132/67 (88) 100 Intake and Output 07/08/19 07/09/19 19:00 07:00 Output Total 2000 ml 0 ml Balance -2000 ml 0 ml Output Urine Total 0 ml Hemodialysis UF 2000 ml Laboratory Tests 07/09/19 06:05: White Blood Count 11.7H, Red Blood Count 2.89L, Hemoglobin 9.0L, Hematocrit 26.6L, Mean Corpuscular Volume 92, Mean Corpuscular Hemoglobin 31.1H, Mean Corpuscular Hemoglobin Concent 33.7, Red Cell Distribution Width 15.6H, Platelet Count 250, Mean Platelet Volume 8.8, Neutrophils (%) (Auto) 71.6, Lymphocytes (%) (Auto) 16.7L, Monocytes (%) (Auto) 8.1, Eosinophils (%) (Auto) 2.9, Basophils (%) (Auto) 0.8, Erythrocyte Sedimentation Rate [Pending], Prothrombin Time 11.1, Prothromb Time International Ratio 1.0, Sodium Level 142 , Potassium Level 4.0, Chloride Level 104, Carbon Dioxide Level 26, Anion Gap 13 , Blood Urea Nitrogen 31H, Creatinine 5.9H, Estimat Glomerular Filtration Rate 11.6, Glucose Level 117H, Calcium Level 8.7, Phosphorus Level 4.6, Magnesium Level 2.0, Total Bilirubin 0.4, Aspartate Amino Transf (AST/SGOT) 22, Alanine Aminotransferase (ALT/SGPT) 23, Alkaline Phosphatase 73, C-Reactive Protein, Quantitative < 0.4, Total Protein 6.5, Albumin 3.0L, Globulin 3.5, Albumin/ Globulin Ratio 0.9L Height (Feet): 6 Height (Inches): 1.00 Weight (Pounds): 170 General Appearance: no apparent distress EENT: normal ENT inspection Neck: supple Cardiovascular: normal rate Respiratory/Chest: decreased breath sounds Abdomen: normal bowel sounds, non tender, soft Extremities: non-tender Tung Steen MD Jul 09, 2019 11:01
[2019-07-09 12:00] VITALS: BP 142/63
--- NOTE | 2019-07-09 12:01 | Cardiac Electrophysiology PN ---
Assessment/Plan Assessment/Plan 1. Atrial flutter, converted to SR. On metoprolol 25 mg b.i.d. Coumadin resumed as OKed per Dr Steen EPS and ablation as out patient. EF 55% 2. Chest pain. Ruled out for myocardial infarction. Denies any chest pain. It could be due to volume overload. Stress test 07/02/19 showed: Hypoperfusion to the inferior wall worse on stress. Possibilities include an inferior wall infarct with lexie-infarct ischemia versus diaphragmatic attenuation. Refused Cardiac cath . Continue on medical therapy 3. S/P [facility] MVR and TV Ring 07/2017 at [facility] Nl valve Fx on echo 4. Hypertension, on metoprolol 25 mg b.i.d., losartan 50 mg daily and hemodialysis. 5. End-stage renal disease, on hemodialysis. 6. Diabetes, on insulin. 7. Hep C 8. Acute anemia Hb 12 to 6.5! Got 3 unit of blood S/P EGD and colonoscopy by Dr Steen No active bleed. FRANCINE RN Subjective Subjective On NMB. No CP or SOB. S/P EGD and colonoscopy. Wants to go home. Objective Last 24 Hour Vital Signs Date Time Temp Pulse Resp B/P (MAP) Pulse Ox O2 Delivery O2 Flow Rate FiO2 07/09/19 09:00 Room Air 07/09/19 08:06 74 116/56 07/09/19 08:06 116/56 07/09/19 07:46 97.7 74 18 116/56 (76) 96 07/09/19 07:20 72 18 95 Room Air 21 07/09/19 04:00 97.5 85 19 119/75 (90) 97 07/09/19 00:00 97.3 83 20 139/77 (97) 94 07/08/19 21:14 Room Air 07/08/19 20:46 75 106/62 07/08/19 20:00 98.3 75 21 106/62 (77) 97 07/08/19 16:00 98.0 80 18 121/63 (82) 100 Intake and Output 07/08/19 07/09/19 19:00 07:00 Output Total 2000 ml 0 ml Balance -2000 ml 0 ml Output Urine Total 0 ml Hemodialysis UF 2000 ml Laboratory Tests Test 07/09/19 06:05 White Blood Count 11.7 K/UL (4.8-10.8) H Red Blood Count 2.89 M/UL (4.70-6.10) L Hemoglobin 9.0 G/DL (14.2-18.0) L Hematocrit 26.6 % (42.0-52.0) L Mean Corpuscular Volume 92 FL (80-99) Mean Corpuscular Hemoglobin 31.1 PG (27.0-31.0) H Mean Corpuscular Hemoglobin Concent 33.7 G/DL (32.0-36.0) Red Cell Distribution Width 15.6 % (11.6-14.8) H Platelet Count 250 K/UL (150-450) Mean Platelet Volume 8.8 FL (6.5-10.1) Neutrophils (%) (Auto) 71.6 % (45.0-75.0) Lymphocytes (%) (Auto) 16.7 % (20.0-45.0) L Monocytes (%) (Auto) 8.1 % (1.0-10.0) Eosinophils (%) (Auto) 2.9 % (0.0-3.0) Basophils (%) (Auto) 0.8 % (0.0-2.0) Erythrocyte Sedimentation Rate 28 MM/HR (0-20) H Prothrombin Time 11.1 SEC (9.30-11.50) Prothromb Time International Ratio 1.0 (0.9-1.1) Sodium Level 142 MMOL/L (136-145) Potassium Level 4.0 MMOL/L (3.5-5.1) Chloride Level 104 MMOL/L (98-107) Carbon Dioxide Level 26 MMOL/L (21-32) Anion Gap 13 mmol/L (5-15) Blood Urea Nitrogen 31 mg/dL (7-18) H Creatinine 5.9 MG/DL (0.55-1.30) H Estimat Glomerular Filtration Rate 11.6 mL/min (>60) Glucose Level 117 MG/DL (74-106) H Calcium Level 8.7 MG/DL (8.5-10.1) Phosphorus Level 4.6 MG/DL (2.5-4.9) Magnesium Level 2.0 MG/DL (1.8-2.4) Total Bilirubin 0.4 MG/DL (0.2-1.0) Aspartate Amino Transf (AST/SGOT) 22 U/L (15-37) Alanine Aminotransferase (ALT/SGPT) 23 U/L (12-78) Alkaline Phosphatase 73 U/L (46-116) C-Reactive Protein, Quantitative < 0.4 mg/dL (0.00-0.90) Total Protein 6.5 G/DL (6.4-8.2) Albumin 3.0 G/DL (3.4-5.0) L Globulin 3.5 g/dL Albumin/Globulin Ratio 0.9 (1.0-2.7) L Objective HEAD AND NECK: No JVD or carotid bruit. LUNGS: Clear. CARDIOVASCULAR: Regular S1 and S2 with metallic first heart sounds. LUNGS: Clear. ABDOMEN: Soft. EXTREMITIES: No pitting edema. Beto Goldman MD Jul 09, 2019 12:01
--- NOTE | 2019-07-09 12:27 | Nephrology Progress Note ---
Assessment/Plan Problem List: (1) ESRD (end stage renal disease) on dialysis (2) Diabetes mellitus (3) Anemia in chronic kidney disease Assessment: worse- symptomatic (4) Atrial flutter (5) H/O mitral valve replacement (6) Hepatitis C Assessment: by history Assessment End-stage renal disease, on hemodialysis every Monday, Monday, and Monday. Diabetes type 2. Hypertension. Hepatitis C. Mechanical mitral valve. Plan Dialyzed July 07 next dialysis July 09 if still in house worsening Anemia- had partial of one unit transfusion- need more It appears that the patient have a GI bleed so Coumadin and aspirin stopped and GI procedure is scheduled Patient was dialyzed yesterday July 02. Was again dialyzed July 04 had an upper endoscopy which showed duodenitis Patient had colonoscopy July 04. Three or four colonic polyps in the rectosigmoid area. See above for details. 2. Internal hemorrhoids. Continue to transfuse and keep hemoglobin and hematocrit at the reasonable range Resume anticoagulation per cardiology advice keep BP and BS in check Per cardio. Subjective ROS Limited/Unobtainable: No Objective Objective Last 24 Hour Vital Signs Date Time Temp Pulse Resp B/P (MAP) Pulse Ox O2 Delivery O2 Flow Rate FiO2 07/09/19 09:00 Room Air 07/09/19 08:06 74 116/56 07/09/19 08:06 116/56 07/09/19 07:46 97.7 74 18 116/56 (76) 96 07/09/19 07:20 72 18 95 Room Air 21 07/09/19 04:00 97.5 85 19 119/75 (90) 97 07/09/19 00:00 97.3 83 20 139/77 (97) 94 07/08/19 21:14 Room Air 07/08/19 20:46 75 106/62 07/08/19 20:00 98.3 75 21 106/62 (77) 97 07/08/19 16:00 98.0 80 18 121/63 (82) 100 Intake and Output 07/08/19 07/09/19 19:00 07:00 Output Total 2000 ml 0 ml Balance -2000 ml 0 ml Output Urine Total 0 ml Hemodialysis UF 2000 ml Laboratory Tests 07/09/19 06:05: White Blood Count 11.7H, Red Blood Count 2.89L, Hemoglobin 9.0L, Hematocrit 26.6L, Mean Corpuscular Volume 92, Mean Corpuscular Hemoglobin 31.1H, Mean Corpuscular Hemoglobin Concent 33.7, Red Cell Distribution Width 15.6H, Platelet Count 250, Mean Platelet Volume 8.8, Neutrophils (%) (Auto) 71.6, Lymphocytes (%) (Auto) 16.7L, Monocytes (%) (Auto) 8.1, Eosinophils (%) (Auto) 2.9, Basophils (%) (Auto) 0.8, Erythrocyte Sedimentation Rate 28H, Prothrombin Time 11.1, Prothromb Time International Ratio 1.0, Sodium Level 142, Potassium Level 4.0, Chloride Level 104, Carbon Dioxide Level 26, Anion Gap 13, Blood Urea Nitrogen 31H, Creatinine 5.9H, Estimat Glomerular Filtration Rate 11.6, Glucose Level 117H, Calcium Level 8.7, Phosphorus Level 4.6, Magnesium Level 2.0 , Total Bilirubin 0.4, Aspartate Amino Transf (AST/SGOT) 22, Alanine Aminotransferase (ALT/SGPT) 23, Alkaline Phosphatase 73, C-Reactive Protein, Quantitative < 0.4, Total Protein 6.5, Albumin 3.0L, Globulin 3.5, Albumin/ Globulin Ratio 0.9L Height (Feet): 6 Height (Inches): 1.00 Weight (Pounds): 170 General Appearance: no apparent distress Cardiovascular: normal rate Respiratory/Chest: lungs clear Abdomen: soft Objective NO CHANGE Hang Valdez MD Jul 09, 2019 12:27
--- NOTE | 2019-07-09 13:19 | Pulmonology Progress Note ---
Assessment/Plan Problems: (1) Anemia in chronic kidney disease Assessment & Plan: s/p 5 units of prbc, (2) Leukocytosis Assessment & Plan: ID evaluation (3) Atrial fibrillation with rapid ventricular response Assessment & Plan: sinus now, on Coumadin INR is subtherapeutic (4) COPD (chronic obstructive pulmonary disease) (5) ESRD (end stage renal disease) on dialysis (6) H/O mitral valve replacement (7) Hepatitis C (8) Nicotine addiction (9) History of hypertension (10) Diabetes mellitus Assessment/Plan H/h stable in the last few days had colonoscopy, no active source of bleeding doing better heart rate controlled, sinus around 80's respiratory treatment titrate fiO2 to sat of 92% symptomatic treatment Coumadin by pharmacy, dc home when INR therapeutic. Subjective ROS Limited/Unobtainable: No Constitutional: Reports: no symptoms HEENT: Repors: no symptoms Respiratory: Reports: no symptoms Allergies: Coded Allergies: PENICILLINS (Verified Allergy, Severe, swelling of throat, 02/25/16) ACETAMINOPHEN (Verified Allergy, Intermediate, Generalized Itching , ) HYDROCODONE (Verified Allergy, Intermediate, Generalized Itching , 01/26/18 ) Objective Last 24 Hour Vital Signs Date Time Temp Pulse Resp B/P (MAP) Pulse Ox O2 Delivery O2 Flow Rate FiO2 07/09/19 12:00 97.3 77 19 142/63 (89) 95 07/09/19 09:00 Room Air 07/09/19 08:06 74 116/56 07/09/19 08:06 116/56 07/09/19 07:46 97.7 74 18 116/56 (76) 96 07/09/19 07:20 72 18 95 Room Air 21 07/09/19 04:00 97.5 85 19 119/75 (90) 97 07/09/19 00:00 97.3 83 20 139/77 (97) 94 07/08/19 21:14 Room Air 07/08/19 20:46 75 106/62 07/08/19 20:00 98.3 75 21 106/62 (77) 97 07/08/19 16:00 98.0 80 18 121/63 (82) 100 Intake and Output 07/08/19 07/09/19 19:00 07:00 Output Total 2000 ml 0 ml Balance -2000 ml 0 ml Output Urine Total 0 ml Hemodialysis UF 2000 ml General Appearance: WD/WN HEENT: normocephalic, anicteric Respiratory/Chest: chest wall non-tender, lungs clear, normal breath sounds Cardiovascular: normal peripheral pulses, regular rhythm Abdomen: normal bowel sounds, soft, non tender Genitourinary: normal external genitalia Extremities: no clubbing Skin: no lesions Laboratory Tests 07/09/19 06:05: White Blood Count 11.7H, Red Blood Count 2.89L, Hemoglobin 9.0L, Hematocrit 26.6L, Mean Corpuscular Volume 92, Mean Corpuscular Hemoglobin 31.1H, Mean Corpuscular Hemoglobin Concent 33.7, Red Cell Distribution Width 15.6H, Platelet Count 250, Mean Platelet Volume 8.8, Neutrophils (%) (Auto) 71.6, Lymphocytes (%) (Auto) 16.7L, Monocytes (%) (Auto) 8.1, Eosinophils (%) (Auto) 2.9, Basophils (%) (Auto) 0.8, Erythrocyte Sedimentation Rate 28H, Prothrombin Time 11.1, Prothromb Time International Ratio 1.0, Sodium Level 142, Potassium Level 4.0, Chloride Level 104, Carbon Dioxide Level 26, Anion Gap 13, Blood Urea Nitrogen 31H, Creatinine 5.9H, Estimat Glomerular Filtration Rate 11.6, Glucose Level 117H, Calcium Level 8.7, Phosphorus Level 4.6, Magnesium Level 2.0 , Total Bilirubin 0.4, Aspartate Amino Transf (AST/SGOT) 22, Alanine Aminotransferase (ALT/SGPT) 23, Alkaline Phosphatase 73, C-Reactive Protein, Quantitative < 0.4, Total Protein 6.5, Albumin 3.0L, Globulin 3.5, Albumin/ Globulin Ratio 0.9L Current Medications Medications (Trade) Dose Ordered Sig/John Route PRN Reason Start Time Stop Time Status Last Admin Dose Admin Albuterol/ Ipratropium (Albuterol/ Ipratropium) 3 ml Q4H PRN HHN Shortness of Breath 07/05/19 15:00 07/10/19 14:59 Bisacodyl (Dulcolax) 10 mg DAILYPRN PRN RECTAL Constipation 07/06/19 15:00 07/27/19 14:59 Dextrose (Dextrose 50%) 25 ml Q30M PRN IV Hypoglycemia 07/05/19 14:30 07/27/19 00:00 Dextrose (Dextrose 50%) 50 ml Q30M PRN IV Hypoglycemia 07/05/19 14:30 07/27/19 00:00 Diphenhydramine HCl (Benadryl) 25 mg Q6H PRN IVP Itching 07/05/19 15:00 08/03/19 14:59 Docusate Sodium (Colace) 100 mg TID ORAL 07/05/19 18:00 07/27/19 20:59 07/09/19 12:43 Insulin Aspart (NovoLOG) BEFORE MEALS AND HS SUBQ 07/05/19 16:30 07/27/19 06:29 07/08/19 17:39 Losartan Potassium (Cozaar) 50 mg DAILY ORAL 07/06/19 09:00 07/27/19 09:59 Metoprolol Tartrate (Lopressor) 25 mg Q12HR ORAL 07/05/19 21:00 07/27/19 00:59 07/07/19 21:13 Nitroglycerin (Ntg) 0.4 mg Q5M PRN SL Prn Chest Pain 07/05/19 14:30 07/27/19 00:00 07/05/19 18:33 Ondansetron HCl (Zofran) 4 mg Q6H PRN IVP Nausea & Vomiting 07/05/19 15:00 07/27/19 14:59 07/05/19 18:40 Pantoprazole (Protonix) 40 mg EVERY 12 HOURS ORAL 07/05/19 21:00 07/28/19 20:59 07/09/19 08:08 Polyethylene Glycol (Miralax) 17 gm DAILYPRN PRN ORAL Constipation 07/05/19 15:00 08/04/19 14:59 Sevelamer Carbonate (Renvela) 800 mg THREE TIMES A DAY ORAL 07/05/19 18:00 07/28/19 12:59 07/09/19 08:08 Warfarin Sodium (Coumadin per pharmacy) 1 ea DAILY PRN MISC Per rx protocol 07/05/19 15:00 08/04/19 14:59 Warfarin Sodium (Coumadin) 8 mg ONCE PO 07/09/19 17:00 07/09/19 19:00 Caleb Hinojosa MD Jul 09, 2019 13:19
--- NOTE | 2019-07-09 15:13 | Infectious Diseases Prog Note ---
Subjective Allergies: Coded Allergies: PENICILLINS (Verified Allergy, Severe, swelling of throat, 02/25/16) ACETAMINOPHEN (Verified Allergy, Intermediate, Generalized Itching , ) HYDROCODONE (Verified Allergy, Intermediate, Generalized Itching , 01/26/18 ) Subjective \ # [id number] Objective Vital Signs Last 24 Hour Vital Signs Date Time Temp Pulse Resp B/P (MAP) Pulse Ox O2 Delivery O2 Flow Rate FiO2 07/09/19 12:00 97.3 77 19 142/63 (89) 95 07/09/19 09:00 Room Air 07/09/19 08:06 74 116/56 07/09/19 08:06 116/56 07/09/19 07:46 97.7 74 18 116/56 (76) 96 07/09/19 07:20 72 18 95 Room Air 21 07/09/19 04:00 97.5 85 19 119/75 (90) 97 07/09/19 00:00 97.3 83 20 139/77 (97) 94 07/08/19 21:14 Room Air 07/08/19 20:46 75 106/62 07/08/19 20:00 98.3 75 21 106/62 (77) 97 07/08/19 16:00 98.0 80 18 121/63 (82) 100 Height (Feet): 6 Height (Inches): 1.00 Weight (Pounds): 170 Laboratory Tests Test 07/09/19 06:05 White Blood Count 11.7 K/UL (4.8-10.8) H Red Blood Count 2.89 M/UL (4.70-6.10) L Hemoglobin 9.0 G/DL (14.2-18.0) L Hematocrit 26.6 % (42.0-52.0) L Mean Corpuscular Volume 92 FL (80-99) Mean Corpuscular Hemoglobin 31.1 PG (27.0-31.0) H Mean Corpuscular Hemoglobin Concent 33.7 G/DL (32.0-36.0) Red Cell Distribution Width 15.6 % (11.6-14.8) H Platelet Count 250 K/UL (150-450) Mean Platelet Volume 8.8 FL (6.5-10.1) Neutrophils (%) (Auto) 71.6 % (45.0-75.0) Lymphocytes (%) (Auto) 16.7 % (20.0-45.0) L Monocytes (%) (Auto) 8.1 % (1.0-10.0) Eosinophils (%) (Auto) 2.9 % (0.0-3.0) Basophils (%) (Auto) 0.8 % (0.0-2.0) Erythrocyte Sedimentation Rate 28 MM/HR (0-20) H Prothrombin Time 11.1 SEC (9.30-11.50) Prothromb Time International Ratio 1.0 (0.9-1.1) Sodium Level 142 MMOL/L (136-145) Potassium Level 4.0 MMOL/L (3.5-5.1) Chloride Level 104 MMOL/L (98-107) Carbon Dioxide Level 26 MMOL/L (21-32) Anion Gap 13 mmol/L (5-15) Blood Urea Nitrogen 31 mg/dL (7-18) H Creatinine 5.9 MG/DL (0.55-1.30) H Estimat Glomerular Filtration Rate 11.6 mL/min (>60) Glucose Level 117 MG/DL (74-106) H Calcium Level 8.7 MG/DL (8.5-10.1) Phosphorus Level 4.6 MG/DL (2.5-4.9) Magnesium Level 2.0 MG/DL (1.8-2.4) Total Bilirubin 0.4 MG/DL (0.2-1.0) Aspartate Amino Transf (AST/SGOT) 22 U/L (15-37) Alanine Aminotransferase (ALT/SGPT) 23 U/L (12-78) Alkaline Phosphatase 73 U/L (46-116) C-Reactive Protein, Quantitative < 0.4 mg/dL (0.00-0.90) Total Protein 6.5 G/DL (6.4-8.2) Albumin 3.0 G/DL (3.4-5.0) L Globulin 3.5 g/dL Albumin/Globulin Ratio 0.9 (1.0-2.7) L Current Medications Medications (Trade) Dose Ordered Sig/John Route PRN Reason Start Time Stop Time Status Last Admin Dose Admin Albuterol/ Ipratropium (Albuterol/ Ipratropium) 3 ml Q4H PRN HHN Shortness of Breath 07/05/19 15:00 07/10/19 14:59 Bisacodyl (Dulcolax) 10 mg DAILYPRN PRN RECTAL Constipation 07/06/19 15:00 07/27/19 14:59 Dextrose (Dextrose 50%) 25 ml Q30M PRN IV Hypoglycemia 07/05/19 14:30 07/27/19 00:00 Dextrose (Dextrose 50%) 50 ml Q30M PRN IV Hypoglycemia 07/05/19 14:30 07/27/19 00:00 Diphenhydramine HCl (Benadryl) 25 mg Q6H PRN IVP Itching 07/05/19 15:00 08/03/19 14:59 Docusate Sodium (Colace) 100 mg TID ORAL 07/05/19 18:00 07/27/19 20:59 07/09/19 12:43 Insulin Aspart (NovoLOG) BEFORE MEALS AND HS SUBQ 07/05/19 16:30 07/27/19 06:29 07/08/19 17:39 Losartan Potassium (Cozaar) 50 mg DAILY ORAL 07/06/19 09:00 07/27/19 09:59 Metoprolol Tartrate (Lopressor) 25 mg Q12HR ORAL 07/05/19 21:00 07/27/19 00:59 07/07/19 21:13 Nitroglycerin (Ntg) 0.4 mg Q5M PRN SL Prn Chest Pain 07/05/19 14:30 07/27/19 00:00 07/05/19 18:33 Ondansetron HCl (Zofran) 4 mg Q6H PRN IVP Nausea & Vomiting 07/05/19 15:00 07/27/19 14:59 07/05/19 18:40 Pantoprazole (Protonix) 40 mg EVERY 12 HOURS ORAL 07/05/19 21:00 07/28/19 20:59 07/09/19 08:08 Polyethylene Glycol (Miralax) 17 gm DAILYPRN PRN ORAL Constipation 07/05/19 15:00 08/04/19 14:59 Sevelamer Carbonate (Renvela) 800 mg THREE TIMES A DAY ORAL 07/05/19 18:00 07/28/19 12:59 07/09/19 08:08 Warfarin Sodium (Coumadin per pharmacy) 1 ea DAILY PRN MISC Per rx protocol 07/05/19 15:00 08/04/19 14:59 Warfarin Sodium (Coumadin) 8 mg ONCE PO 07/09/19 17:00 07/09/19 19:00 Surjit Odom MD Jul 09, 2019 15:13
[2019-07-09 16:20] VITALS: BP 130/60
[2019-07-09] MEDS ORDERED: Warfarin Sodium 4mg PO SCH (17:00)
--- NOTE | 2019-07-09 17:05 | Internal Med Progress Note ---
Subjective Date of Service: Jul 09, 2019 Physician Name PleitezSaturnino Attending Physician Brian Alicea MD Current Medications Medications (Trade) Dose Ordered Sig/John Route PRN Reason Start Time Stop Time Status Last Admin Dose Admin Albuterol/ Ipratropium (Albuterol/ Ipratropium) 3 ml Q4H PRN HHN Shortness of Breath 07/05/19 15:00 07/10/19 14:59 Bisacodyl (Dulcolax) 10 mg DAILYPRN PRN RECTAL Constipation 07/06/19 15:00 07/27/19 14:59 Dextrose (Dextrose 50%) 25 ml Q30M PRN IV Hypoglycemia 07/05/19 14:30 07/27/19 00:00 Dextrose (Dextrose 50%) 50 ml Q30M PRN IV Hypoglycemia 07/05/19 14:30 07/27/19 00:00 Diphenhydramine HCl (Benadryl) 25 mg Q6H PRN IVP Itching 07/05/19 15:00 08/03/19 14:59 Docusate Sodium (Colace) 100 mg TID ORAL 07/05/19 18:00 07/27/19 20:59 07/09/19 12:43 Insulin Aspart (NovoLOG) BEFORE MEALS AND HS SUBQ 07/05/19 16:30 07/27/19 06:29 07/08/19 17:39 Losartan Potassium (Cozaar) 50 mg DAILY ORAL 07/06/19 09:00 07/27/19 09:59 Metoprolol Tartrate (Lopressor) 25 mg Q12HR ORAL 07/05/19 21:00 07/27/19 00:59 07/07/19 21:13 Nitroglycerin (Ntg) 0.4 mg Q5M PRN SL Prn Chest Pain 07/05/19 14:30 07/27/19 00:00 07/05/19 18:33 Ondansetron HCl (Zofran) 4 mg Q6H PRN IVP Nausea & Vomiting 07/05/19 15:00 07/27/19 14:59 07/05/19 18:40 Pantoprazole (Protonix) 40 mg EVERY 12 HOURS ORAL 07/05/19 21:00 07/28/19 20:59 07/09/19 08:08 Polyethylene Glycol (Miralax) 17 gm DAILYPRN PRN ORAL Constipation 07/05/19 15:00 08/04/19 14:59 Sevelamer Carbonate (Renvela) 800 mg THREE TIMES A DAY ORAL 07/05/19 18:00 07/28/19 12:59 07/09/19 08:08 Warfarin Sodium (Coumadin per pharmacy) 1 ea DAILY PRN MISC Per rx protocol 07/05/19 15:00 08/04/19 14:59 Warfarin Sodium (Coumadin) 8 mg ONCE PO 07/09/19 17:00 07/09/19 19:00 Allergies: Coded Allergies: PENICILLINS (Verified Allergy, Severe, swelling of throat, 02/25/16) ACETAMINOPHEN (Verified Allergy, Intermediate, Generalized Itching , ) HYDROCODONE (Verified Allergy, Intermediate, Generalized Itching , 01/26/18 ) ROS Limited/Unobtainable: No Constitutional: Reports: no symptoms HEENT: Reports: no symptoms Cardiovascular: Reports: no symptoms Respiratory: Reports: no symptoms Gastrointestinal/Abdominal: Reports: no symptoms Genitourinary: Reports: no symptoms Neurologic/Psychiatric: Reports: no symptoms Subjective 64 YO M admitted with chest pain, nausea and vomiting. Now with severe anemia. S/P endoscopy 07/04/19 and colonoscopy 07/05/19.. Cover for Int Drew-DR Alicea Objective Last Vital Signs Date Time Temp Pulse Resp B/P (MAP) Pulse Ox O2 Delivery O2 Flow Rate FiO2 07/09/19 16:20 97.7 73 18 130/60 (83) 97 07/09/19 09:00 Room Air 07/09/19 07:20 21 07/05/19 13:00 3 Laboratory Tests Test 07/09/19 06:05 White Blood Count 11.7 K/UL (4.8-10.8) H Red Blood Count 2.89 M/UL (4.70-6.10) L Hemoglobin 9.0 G/DL (14.2-18.0) L Hematocrit 26.6 % (42.0-52.0) L Mean Corpuscular Volume 92 FL (80-99) Mean Corpuscular Hemoglobin 31.1 PG (27.0-31.0) H Mean Corpuscular Hemoglobin Concent 33.7 G/DL (32.0-36.0) Red Cell Distribution Width 15.6 % (11.6-14.8) H Platelet Count 250 K/UL (150-450) Mean Platelet Volume 8.8 FL (6.5-10.1) Neutrophils (%) (Auto) 71.6 % (45.0-75.0) Lymphocytes (%) (Auto) 16.7 % (20.0-45.0) L Monocytes (%) (Auto) 8.1 % (1.0-10.0) Eosinophils (%) (Auto) 2.9 % (0.0-3.0) Basophils (%) (Auto) 0.8 % (0.0-2.0) Erythrocyte Sedimentation Rate 28 MM/HR (0-20) H Prothrombin Time 11.1 SEC (9.30-11.50) Prothromb Time International Ratio 1.0 (0.9-1.1) Sodium Level 142 MMOL/L (136-145) Potassium Level 4.0 MMOL/L (3.5-5.1) Chloride Level 104 MMOL/L (98-107) Carbon Dioxide Level 26 MMOL/L (21-32) Anion Gap 13 mmol/L (5-15) Blood Urea Nitrogen 31 mg/dL (7-18) H Creatinine 5.9 MG/DL (0.55-1.30) H Estimat Glomerular Filtration Rate 11.6 mL/min (>60) Glucose Level 117 MG/DL (74-106) H Calcium Level 8.7 MG/DL (8.5-10.1) Phosphorus Level 4.6 MG/DL (2.5-4.9) Magnesium Level 2.0 MG/DL (1.8-2.4) Total Bilirubin 0.4 MG/DL (0.2-1.0) Aspartate Amino Transf (AST/SGOT) 22 U/L (15-37) Alanine Aminotransferase (ALT/SGPT) 23 U/L (12-78) Alkaline Phosphatase 73 U/L (46-116) C-Reactive Protein, Quantitative < 0.4 mg/dL (0.00-0.90) Total Protein 6.5 G/DL (6.4-8.2) Albumin 3.0 G/DL (3.4-5.0) L Globulin 3.5 g/dL Albumin/Globulin Ratio 0.9 (1.0-2.7) L Intake and Output 39/20 3/10/20 19:00 07:00 Output Total 2000 ml 0 ml Balance -2000 ml 0 ml Output Urine Total 0 ml Hemodialysis UF 2000 ml Objective PHYSICAL EXAMINATION: GENERAL: The patient is well-developed and well-nourished male, in no apparent distress. HEENT: Eyes, pupils are equal and responsive to light and accommodation. Extraocular movements are intact. NECK: Supple without lymphadenopathy. CHEST: Lungs are clear to auscultation bilaterally without wheezes or rales. CARDIOVASCULAR: Regular rhythm and rate. S1 and S2 are normal with an audible click. No evidence of murmurs or gallops. ABDOMEN: Soft, nontender, nondistended. Positive bowel sounds. No evidence of hepatosplenomegaly. Currently, no rebound or guarding noted. EXTREMITIES: Negative for clubbing, cyanosis, or edema. RECTAL/GENITAL: Not performed. NEUROLOGIC: Cranial nerves II through XII are grossly intact without focal deficits. Motor strength is 5/5 bilaterally. Deep tendon reflexes are 2+ plantar. Assessment/Plan Assessment/Plan ASSESSMENT: This is a 64-year-old male. 1. Chest pain. 2. Nausea with vomiting. 3. Mechanical mitral valve. 4. End-stage renal disease. 5. Diabetes type 2. 6. Hypertension. 7. Atrial flutter 8. severe anemia 9. Duodenitis TREATMENT: 1. Chest pain. A Cardiology consultation has been obtained with Dr. Beto Glodman. The patient has a mechanical mitral valve. An echocardiogram is pending. Serial troponin levels will be performed. We will follow recommendation of Cardiology. 2. Nausea and vomiting, this has resolved. 3. End-stage renal disease. A Nephrology consultation has been obtained with Dr. Valdez. We will follow recommendations of Nephrology. Last hemodialysis 06/28/19 4. Diabetes type 2. NovoLog sliding scale has been instituted. 5. Hypertension. Continue diltiazem, isosorbide, losartan and as needed clonidine as above. 6. Hypercholesterolemia. Continue atorvastatin 7. Atrial flutter-continue coumadin 8. cardiac stress test results from 07/01/19=poss ischemia 9. S/P transfusion 5 units PRBC; S/P endoscopy and colonoscopy Saturnino Pleitez MD Jul 09, 2019 17:05
[2019-07-09 20:00] VITALS: BP 141/74
--- NOTE | 2019-07-09 21:30 | Consultation ---
DATE OF CONSULTATION: 07/09/2019 INFECTIOUS DISEASE CONSULTATION CONSULTING PHYSICIAN: Surjit Odom M.D REFERRING PHYSICIAN: Caleb Hinojosa M.D. REASON FOR CONSULTATION: Evaluation of the patient for leukocytosis, possible need for antibiotics. HISTORY OF PRESENT ILLNESS: The patient is a 64-year-old male who was admitted about 2 weeks ago in this medical center. The patient initially was admitted for chest pain. Also, the patient cardiac workups. Also the patient had colonoscopy for evaluation of anemia that did not show any source of bleeding. The patient was found to have leukocytosis in the last 2 days and Infectious Disease consultation has been requested for further evaluation of the patient. PAST MEDICAL HISTORY: 1. History of cardiac stent. 2. History of hypertension. 3. GERD. 4. History of bladder cancer. 5. End-stage renal disease, on dialysis. 6. Left toe amputation. 7. Diabetes. 8. History of mitral valve and tricuspid valve repair. ALLERGIES: Acetaminophen, hydrocodone, penicillin. FAMILY HISTORY: Not contributing. SOCIAL HISTORY: Negative for alcohol, drug abuse, or smoking. MEDICATIONS: Currently is off of antibiotics. REVIEW OF SYSTEMS: A 10-point was done. The patient denies having cough, runny nose, sore throat, nausea, vomiting, or diarrhea. The patient urinates and there is no history of dysuria. PHYSICAL EXAMINATION: VITAL SIGNS: Temperature 97.2, blood pressure 142/68, pulse 77, respiratory rate 18. HEENT: No pale conjunctivae. No icterus. NECK: No lymphadenopathy. CHEST: Clear. HEART: S1 and S2. ABDOMEN: Soft. EXTREMITIES: No cyanosis at this time. The patient has AV fistula on the left upper extremity. LABORATORY DATA: BUN 13, creatinine 5.9. ALT, AST, alkaline phosphatase unremarkable. Hemoglobin 9, white count 11.7, platelets 250. Chest x-ray on 07/01/2019, trace right pleural effusion. ASSESSMENT: The patient is a 64-year-old male with: 1. Leukocytosis (mild). 2. Afebrile. 3. No source of infection based on history and exam. PLAN: 1. We will monitor the patient off of antibiotics. 2. We will send urine and blood culture. 3. Monitor CBC and BMP. 4. Based on the patient's laboratories, we will do further recommendation. Thank you, Dr. Hinojosa, for allowing me to participate in the care of this patient. I will follow the patient with you during this hospitalization. Surjit Odom M.D. DR: URBANO JOB#: [id number] CC:
[2019-07-10] VITALS (7 sets, daily range): BP systolic 116–155; BP diastolic 63–80
[2019-07-10] MEDS: Miralax 17gm pkt ORAL PRN ×2 (01:38→17:19)
[2019-07-10] MEDS: NovoLOG Insulin Flexpen SUBQ SCH ×4 (06:11→21:00)
[2019-07-10 07:06] LABS: BASOPHILS % (AUTO) 0.8 % (0.0-2.0); EOSINOPHILS % (AUTO) 2.9 % (0.0-3.0); HEMATOCRIT 25.2 % (42.0-52.0); HEMOGLOBIN 8.5 G/DL (14.2-18.0); LYMPHOCYTES % (AUTO) 17.8 % (20.0-45.0); MEAN CORPUSCULAR VOLUME 92 FL (80-99); MONOCYTES % (AUTO) 6.4 % (1.0-10.0); NEUTROPHILS % (AUTO) 72.1 % (45.0-75.0); PLATELET COUNT 262 K/UL (150-450); RED BLOOD COUNT 2.75 M/UL (4.70-6.10); RED CELL DISTRIBUTION WIDTH 15.4 % (11.6-14.8); WHITE BLOOD COUNT 12.3 K/UL (4.8-10.8)
[2019-07-10 07:38] LABS: ANION GAP 15 mmol/L (5-15); BLOOD UREA NITROGEN 42 mg/dL (7-18); CALCIUM 8.7 MG/DL (8.5-10.1); CARBON DIOXIDE 22 MMOL/L (21-32); CHLORIDE 104 MMOL/L (98-107); CREATININE 6.9 MG/DL (0.55-1.30); POTASSIUM 4.3 MMOL/L (3.5-5.1); SODIUM 141 MMOL/L (136-145)
[2019-07-10 07:50] LABS: INR 1.3 (0.9-1.1)
--- NOTE | 2019-07-10 08:06 | Cardiac Electrophysiology PN ---
Assessment/Plan Assessment/Plan 1. Atrial flutter, converted to SR. On metoprolol 25 mg b.i.d. Coumadin resumed as OKed per Dr Steen EPS and ablation as out patient. EF 55% 2. Chest pain. Ruled out for myocardial infarction. Denies any chest pain. It could be due to volume overload. Stress test 07/02/19 showed: Hypoperfusion to the inferior wall worse on stress. Possibilities include an inferior wall infarct with lexie-infarct ischemia versus diaphragmatic attenuation. Refused Cardiac cath . Continue on medical therapy 3. S/P [facility] MVR and TV Ring 07/2017 at [facility] valve Fx on echo 4. Hypertension, on metoprolol 25 mg b.i.d., losartan 50 mg daily and hemodialysis. 5. End-stage renal disease, on hemodialysis. 6. Diabetes, on insulin. 7. Hep C 8. Acute anemia Hb 12 to 6.5! Got 3 unit of blood S/P EGD and colonoscopy by Dr Steen No active bleed. 9. Elevated WBC. FU ID FRANCINE RN Subjective Subjective On NMB. No CP or SOB. WBC is rising again Objective Last 24 Hour Vital Signs Date Time Temp Pulse Resp B/P (MAP) Pulse Ox O2 Delivery O2 Flow Rate FiO2 07/10/19 07:51 97.7 86 16 155/80 (105) 96 07/10/19 04:00 97.5 61 20 137/71 (93) 99 07/10/19 00:00 97.9 76 21 140/70 (93) 99 07/09/19 23:07 Room Air 07/09/19 20:53 78 130/60 07/09/19 20:05 78 18 96 Room Air 21 07/09/19 20:00 98.2 87 18 141/74 (96) 99 07/09/19 16:20 97.7 73 18 130/60 (83) 97 07/09/19 12:00 97.3 77 19 142/63 (89) 95 07/09/19 09:00 Room Air 07/09/19 08:06 74 116/56 07/09/19 08:06 116/56 Intake and Output 07/09/19 07/10/19 19:00 07:00 Intake Total 360 ml Balance 360 ml Intake Oral 360 ml Laboratory Tests Test 3/11/20 05:59 White Blood Count 12.3 K/UL (4.8-10.8) H Red Blood Count 2.75 M/UL (4.70-6.10) L Hemoglobin 8.5 G/DL (14.2-18.0) L Hematocrit 25.2 % (42.0-52.0) L Mean Corpuscular Volume 92 FL (80-99) Mean Corpuscular Hemoglobin 30.9 PG (27.0-31.0) Mean Corpuscular Hemoglobin Concent 33.8 G/DL (32.0-36.0) Red Cell Distribution Width 15.4 % (11.6-14.8) H Platelet Count 262 K/UL (150-450) Mean Platelet Volume 8.3 FL (6.5-10.1) Neutrophils (%) (Auto) 72.1 % (45.0-75.0) Lymphocytes (%) (Auto) 17.8 % (20.0-45.0) L Monocytes (%) (Auto) 6.4 % (1.0-10.0) Eosinophils (%) (Auto) 2.9 % (0.0-3.0) Basophils (%) (Auto) 0.8 % (0.0-2.0) Prothrombin Time Pending Prothromb Time International Ratio Pending Sodium Level 141 MMOL/L (136-145) Potassium Level 4.3 MMOL/L (3.5-5.1) Chloride Level 104 MMOL/L (98-107) Carbon Dioxide Level 22 MMOL/L (21-32) Anion Gap 15 mmol/L (5-15) Blood Urea Nitrogen 42 mg/dL (7-18) H Creatinine 6.9 MG/DL (0.55-1.30) H Estimat Glomerular Filtration Rate 9.7 mL/min (>60) Glucose Level 72 MG/DL (74-106) L Calcium Level 8.7 MG/DL (8.5-10.1) Objective HEAD AND NECK: No JVD or carotid bruit. LUNGS: Clear. CARDIOVASCULAR: Regular S1 and S2 with metallic first heart sounds. LUNGS: Clear. ABDOMEN: Soft. EXTREMITIES: No pitting edema. Beto Goldman MD Jul 10, 2019 08:06
[2019-07-10] MEDS: Docusate 100mg cap ORAL SCH ×3 (08:08→17:15)
[2019-07-10] MEDS: Losartan 50mg tab ORAL SCH (08:09)
--- NOTE | 2019-07-10 09:01 | General Progress Note ---
Assessment/Plan Problem List: (1) H/O mitral valve replacement ICD Codes: Z95.2 - Presence of prosthetic heart valve SNOMED: 28042786, [id number] (2) Hepatitis C ICD Codes: B19.20 - Unspecified viral hepatitis C without hepatic coma SNOMED: 33371694 (3) COPD (chronic obstructive pulmonary disease) ICD Codes: J44.9 - Chronic obstructive pulmonary disease, unspecified SNOMED: 38927333 (4) Diabetes mellitus ICD Codes: E11.9 - Type 2 diabetes mellitus without complications SNOMED: 90687499 (5) Atrial fibrillation with rapid ventricular response ICD Codes: I48.91 - Unspecified atrial fibrillation SNOMED: 640252776007722 (6) GI bleed ICD Codes: K92.2 - Gastrointestinal hemorrhage, unspecified SNOMED: 51088259 (7) Warfarin overdosage ICD Codes: T45.511A - Poisoning by anticoagulants, accidental (unintentional), initial encounter SNOMED: 01525619, 61879049 Status: stable Assessment/Plan: s/p EGD and colonoscopy no active bleed on Coumadin per pharmacy fu labs repeat hep C serology Subjective Allergies: Coded Allergies: PENICILLINS (Verified Allergy, Severe, swelling of throat, 02/25/16) ACETAMINOPHEN (Verified Allergy, Intermediate, Generalized Itching , ) HYDROCODONE (Verified Allergy, Intermediate, Generalized Itching , 01/26/18 ) Objective Last 24 Hour Vital Signs Date Time Temp Pulse Resp B/P (MAP) Pulse Ox O2 Delivery O2 Flow Rate FiO2 07/10/19 08:09 155/80 07/10/19 08:08 86 155/80 07/10/19 07:51 97.7 86 16 155/80 (105) 96 07/10/19 04:00 97.5 61 20 137/71 (93) 99 07/10/19 00:00 97.9 76 21 140/70 (93) 99 07/09/19 23:07 Room Air 07/09/19 20:53 78 130/60 07/09/19 20:05 78 18 96 Room Air 21 07/09/19 20:00 98.2 87 18 141/74 (96) 99 07/09/19 16:20 97.7 73 18 130/60 (83) 97 07/09/19 12:00 97.3 77 19 142/63 (89) 95 Intake and Output 07/09/19 07/10/19 19:00 07:00 Intake Total 360 ml Balance 360 ml Intake Oral 360 ml Laboratory Tests 07/10/19 05:59: White Blood Count 12.3H, Red Blood Count 2.75L, Hemoglobin 8.5L, Hematocrit 25.2L, Mean Corpuscular Volume 92, Mean Corpuscular Hemoglobin 30.9, Mean Corpuscular Hemoglobin Concent 33.8, Red Cell Distribution Width 15.4H, Platelet Count 262, Mean Platelet Volume 8.3, Neutrophils (%) (Auto) 72.1, Lymphocytes (%) (Auto) 17.8L, Monocytes (%) (Auto) 6.4, Eosinophils (%) (Auto) 2.9, Basophils (%) (Auto) 0.8, Prothrombin Time 14.0H, Prothromb Time International Ratio 1.3H, Sodium Level 141, Potassium Level 4.3, Chloride Level 104, Carbon Dioxide Level 22, Anion Gap 15, Blood Urea Nitrogen 42H, Creatinine 6.9H, Estimat Glomerular Filtration Rate 9.7, Glucose Level 72L, Calcium Level 8.7 Height (Feet): 6 Height (Inches): 1.00 Weight (Pounds): 167 General Appearance: alert EENT: normal ENT inspection Neck: supple Cardiovascular: normal rate Respiratory/Chest: decreased breath sounds Abdomen: normal bowel sounds, non tender, soft Extremities: non-tender Tung Steen MD Jul 10, 2019 09:01
--- NOTE | 2019-07-10 09:39 | Infectious Diseases Prog Note ---
Assessment/Plan Assessment/Plan ASSESSMENT: The patient is a 64-year-old male with: Leukocytosis, increased ( ? source) Afebrile. History of cardiac stent. History of hypertension. GERD. History of bladder cancer. End-stage renal disease, on dialysis. Left toe amputation. Diabetes. History of mitral valve and tricuspid valve repair. PLAN: start IV levaquin # 1 urine and blood culture. Monitor CBC and BMP Monitor CXR Subjective Allergies: Coded Allergies: PENICILLINS (Verified Allergy, Severe, swelling of throat, 02/25/16) ACETAMINOPHEN (Verified Allergy, Intermediate, Generalized Itching , ) HYDROCODONE (Verified Allergy, Intermediate, Generalized Itching , 01/26/18 ) Subjective WBC increasing Objective Vital Signs Last 24 Hour Vital Signs Date Time Temp Pulse Resp B/P (MAP) Pulse Ox O2 Delivery O2 Flow Rate FiO2 07/10/19 08:09 155/80 07/10/19 08:08 86 155/80 07/10/19 07:51 97.7 86 16 155/80 (105) 96 07/10/19 04:00 97.5 61 20 137/71 (93) 99 07/10/19 00:00 97.9 76 21 140/70 (93) 99 07/09/19 23:07 Room Air 07/09/19 20:53 78 130/60 07/09/19 20:05 78 18 96 Room Air 21 07/09/19 20:00 98.2 87 18 141/74 (96) 99 07/09/19 16:20 97.7 73 18 130/60 (83) 97 07/09/19 12:00 97.3 77 19 142/63 (89) 95 Height (Feet): 6 Height (Inches): 1.00 Weight (Pounds): 167 Respiratory/Chest: lungs clear Cardiovascular: regularly irregular Abdomen: non distended Laboratory Tests Test 07/10/19 05:59 White Blood Count 12.3 K/UL (4.8-10.8) H Red Blood Count 2.75 M/UL (4.70-6.10) L Hemoglobin 8.5 G/DL (14.2-18.0) L Hematocrit 25.2 % (42.0-52.0) L Mean Corpuscular Volume 92 FL (80-99) Mean Corpuscular Hemoglobin 30.9 PG (27.0-31.0) Mean Corpuscular Hemoglobin Concent 33.8 G/DL (32.0-36.0) Red Cell Distribution Width 15.4 % (11.6-14.8) H Platelet Count 262 K/UL (150-450) Mean Platelet Volume 8.3 FL (6.5-10.1) Neutrophils (%) (Auto) 72.1 % (45.0-75.0) Lymphocytes (%) (Auto) 17.8 % (20.0-45.0) L Monocytes (%) (Auto) 6.4 % (1.0-10.0) Eosinophils (%) (Auto) 2.9 % (0.0-3.0) Basophils (%) (Auto) 0.8 % (0.0-2.0) Prothrombin Time 14.0 SEC (9.30-11.50) H Prothromb Time International Ratio 1.3 (0.9-1.1) H Sodium Level 141 MMOL/L (136-145) Potassium Level 4.3 MMOL/L (3.5-5.1) Chloride Level 104 MMOL/L (98-107) Carbon Dioxide Level 22 MMOL/L (21-32) Anion Gap 15 mmol/L (5-15) Blood Urea Nitrogen 42 mg/dL (7-18) H Creatinine 6.9 MG/DL (0.55-1.30) H Estimat Glomerular Filtration Rate 9.7 mL/min (>60) Glucose Level 72 MG/DL (74-106) L Calcium Level 8.7 MG/DL (8.5-10.1) Current Medications Medications (Trade) Dose Ordered Sig/John Route PRN Reason Start Time Stop Time Status Last Admin Dose Admin Albuterol/ Ipratropium (Albuterol/ Ipratropium) 3 ml Q4H PRN HHN Shortness of Breath 07/05/19 15:00 07/10/19 14:59 Bisacodyl (Dulcolax) 10 mg DAILYPRN PRN RECTAL Constipation 07/06/19 15:00 07/27/19 14:59 Dextrose (Dextrose 50%) 25 ml Q30M PRN IV Hypoglycemia 07/05/19 14:30 07/27/19 00:00 Dextrose (Dextrose 50%) 50 ml Q30M PRN IV Hypoglycemia 07/05/19 14:30 07/27/19 00:00 Diphenhydramine HCl (Benadryl) 25 mg Q6H PRN IVP Itching 07/05/19 15:00 08/03/19 14:59 Docusate Sodium (Colace) 100 mg TID ORAL 07/05/19 18:00 07/27/19 20:59 07/10/19 08:08 Insulin Aspart (NovoLOG) BEFORE MEALS AND HS SUBQ 07/05/19 16:30 07/27/19 06:29 07/08/19 17:39 Losartan Potassium (Cozaar) 50 mg DAILY ORAL 07/06/19 09:00 07/27/19 09:59 07/10/19 08:09 Metoprolol Tartrate (Lopressor) 25 mg Q12HR ORAL 07/05/19 21:00 07/27/19 00:59 07/10/19 08:08 Nitroglycerin (Ntg) 0.4 mg Q5M PRN SL Prn Chest Pain 07/05/19 14:30 07/27/19 00:00 07/05/19 18:33 Ondansetron HCl (Zofran) 4 mg Q6H PRN IVP Nausea & Vomiting 07/05/19 15:00 07/27/19 14:59 07/05/19 18:40 Pantoprazole (Protonix) 40 mg EVERY 12 HOURS ORAL 07/05/19 21:00 07/28/19 20:59 07/10/19 08:08 Polyethylene Glycol (Miralax) 17 gm DAILYPRN PRN ORAL Constipation 07/05/19 15:00 08/04/19 14:59 07/10/19 01:38 Sevelamer Carbonate (Renvela) 800 mg THREE TIMES A DAY ORAL 07/05/19 18:00 07/28/19 12:59 07/10/19 08:09 Warfarin Sodium (Coumadin per pharmacy) 1 ea DAILY PRN MISC Per rx protocol 07/05/19 15:00 08/04/19 14:59 Warfarin Sodium (Coumadin) 8 mg COUMADIN ONCE ORAL 07/10/19 17:00 07/10/19 17:01 Surjit Odom MD Jul 10, 2019 09:39
[2019-07-10] MEDS ORDERED: ceFAZolin sod 1 GM in D5W 55 ML IVPB SCH (09:45)
[2019-07-10] MEDS: Nitroglycerin Subl 0.4mg tab SL PRN (10:10)
--- NOTE | 2019-07-10 11:32 | Internal Med Progress Note ---
Subjective Date of Service: Jul 10, 2019 Physician Name PricillaSaturnino Attending Physician Brian Alicea MD Current Medications Medications (Trade) Dose Ordered Sig/John Route PRN Reason Start Time Stop Time Status Last Admin Dose Admin Albuterol/ Ipratropium (Albuterol/ Ipratropium) 3 ml Q4H PRN HHN Shortness of Breath 07/05/19 15:00 07/10/19 14:59 Bisacodyl (Dulcolax) 10 mg DAILYPRN PRN RECTAL Constipation 07/06/19 15:00 07/27/19 14:59 Dextrose (Dextrose 50%) 25 ml Q30M PRN IV Hypoglycemia 07/05/19 14:30 07/27/19 00:00 Dextrose (Dextrose 50%) 50 ml Q30M PRN IV Hypoglycemia 07/05/19 14:30 07/27/19 00:00 Diphenhydramine HCl (Benadryl) 25 mg Q6H PRN IVP Itching 07/05/19 15:00 08/03/19 14:59 Docusate Sodium (Colace) 100 mg TID ORAL 07/05/19 18:00 07/27/19 20:59 07/10/19 08:08 Insulin Aspart (NovoLOG) BEFORE MEALS AND HS SUBQ 07/05/19 16:30 07/27/19 06:29 07/08/19 17:39 Levofloxacin 100 ml @ 100 mls/hr Q48H IVPB 07/10/19 11:00 07/17/19 10:59 Losartan Potassium (Cozaar) 50 mg DAILY ORAL 07/06/19 09:00 07/27/19 09:59 07/10/19 08:09 Metoprolol Tartrate (Lopressor) 25 mg Q12HR ORAL 07/05/19 21:00 07/27/19 00:59 07/10/19 08:08 Nitroglycerin (Ntg) 0.4 mg Q5M PRN SL Prn Chest Pain 07/05/19 14:30 07/27/19 00:00 07/10/19 10:10 Ondansetron HCl (Zofran) 4 mg Q6H PRN IVP Nausea & Vomiting 07/05/19 15:00 07/27/19 14:59 07/05/19 18:40 Pantoprazole (Protonix) 40 mg EVERY 12 HOURS ORAL 07/05/19 21:00 07/28/19 20:59 07/10/19 08:08 Polyethylene Glycol (Miralax) 17 gm DAILYPRN PRN ORAL Constipation 07/05/19 15:00 08/04/19 14:59 07/10/19 01:38 Sevelamer Carbonate (Renvela) 800 mg THREE TIMES A DAY ORAL 07/05/19 18:00 07/28/19 12:59 07/10/19 08:09 Warfarin Sodium (Coumadin per pharmacy) 1 ea DAILY PRN MISC Per rx protocol 07/05/19 15:00 08/04/19 14:59 Warfarin Sodium (Coumadin) 8 mg COUMADIN ONCE ORAL 07/10/19 17:00 07/10/19 17:01 Allergies: Coded Allergies: PENICILLINS (Verified Allergy, Severe, swelling of throat, 02/25/16) ACETAMINOPHEN (Verified Allergy, Intermediate, Generalized Itching , ) HYDROCODONE (Verified Allergy, Intermediate, Generalized Itching , 01/26/18 ) ROS Limited/Unobtainable: No Constitutional: Reports: no symptoms HEENT: Reports: no symptoms Cardiovascular: Reports: chest pain Respiratory: Reports: no symptoms Gastrointestinal/Abdominal: Reports: no symptoms Genitourinary: Reports: no symptoms Neurologic/Psychiatric: Reports: no symptoms Subjective 64 YO M admitted with chest pain, nausea and vomiting. Now with severe anemia. S/P endoscopy 07/04/19 and colonoscopy 07/05/19.. Cover for Yohana Alicea. Chest pain this am Objective Last Vital Signs Date Time Temp Pulse Resp B/P (MAP) Pulse Ox O2 Delivery O2 Flow Rate FiO2 07/10/19 10:10 152/75 07/10/19 10:10 74 07/10/19 09:44 20 99 Room Air 21 07/10/19 07:51 97.7 07/05/19 13:00 3 Laboratory Tests Test 07/10/19 05:59 07/10/19 10:35 White Blood Count 12.3 K/UL (4.8-10.8) H Red Blood Count 2.75 M/UL (4.70-6.10) L Hemoglobin 8.5 G/DL (14.2-18.0) L Hematocrit 25.2 % (42.0-52.0) L Mean Corpuscular Volume 92 FL (80-99) Mean Corpuscular Hemoglobin 30.9 PG (27.0-31.0) Mean Corpuscular Hemoglobin Concent 33.8 G/DL (32.0-36.0) Red Cell Distribution Width 15.4 % (11.6-14.8) H Platelet Count 262 K/UL (150-450) Mean Platelet Volume 8.3 FL (6.5-10.1) Neutrophils (%) (Auto) 72.1 % (45.0-75.0) Lymphocytes (%) (Auto) 17.8 % (20.0-45.0) L Monocytes (%) (Auto) 6.4 % (1.0-10.0) Eosinophils (%) (Auto) 2.9 % (0.0-3.0) Basophils (%) (Auto) 0.8 % (0.0-2.0) Prothrombin Time 14.0 SEC (9.30-11.50) H Prothromb Time International Ratio 1.3 (0.9-1.1) H Sodium Level 141 MMOL/L (136-145) Potassium Level 4.3 MMOL/L (3.5-5.1) Chloride Level 104 MMOL/L (98-107) Carbon Dioxide Level 22 MMOL/L (21-32) Anion Gap 15 mmol/L (5-15) Blood Urea Nitrogen 42 mg/dL (7-18) H Creatinine 6.9 MG/DL (0.55-1.30) H Estimat Glomerular Filtration Rate 9.7 mL/min (>60) Glucose Level 72 MG/DL (74-106) L Calcium Level 8.7 MG/DL (8.5-10.1) Troponin I 0.023 ng/mL (0.000-0.056) Intake and Output 07/09/19 07/10/19 19:00 07:00 Intake Total 360 ml Balance 360 ml Intake Oral 360 ml Objective PHYSICAL EXAMINATION: GENERAL: The patient is well-developed and well-nourished male, in no apparent distress. HEENT: Eyes, pupils are equal and responsive to light and accommodation. Extraocular movements are intact. NECK: Supple without lymphadenopathy. CHEST: Lungs are clear to auscultation bilaterally without wheezes or rales. CARDIOVASCULAR: Regular rhythm and rate. S1 and S2 are normal with an audible click. No evidence of murmurs or gallops. ABDOMEN: Soft, nontender, nondistended. Positive bowel sounds. No evidence of hepatosplenomegaly. Currently, no rebound or guarding noted. EXTREMITIES: Negative for clubbing, cyanosis, or edema. RECTAL/GENITAL: Not performed. NEUROLOGIC: Cranial nerves II through XII are grossly intact without focal deficits. Motor strength is 5/5 bilaterally. Deep tendon reflexes are 2+ plantar. Assessment/Plan Assessment/Plan ASSESSMENT: This is a 64-year-old male. 1. Chest pain. 2. Nausea with vomiting. 3. Mechanical mitral valve. 4. End-stage renal disease. 5. Diabetes type 2. 6. Hypertension. 7. Atrial flutter 8. severe anemia 9. Duodenitis TREATMENT: 1. Chest pain. A Cardiology consultation has been obtained with Dr. Beto Goldman. The patient has a mechanical mitral valve. An echocardiogram is pending. Serial troponin levels will be performed. We will follow recommendation of Cardiology. 2. Nausea and vomiting, this has resolved. 3. End-stage renal disease. A Nephrology consultation has been obtained with Dr. Valdez. We will follow recommendations of Nephrology. Last hemodialysis 06/28/19 4. Diabetes type 2. NovoLog sliding scale has been instituted. 5. Hypertension. Continue diltiazem, isosorbide, losartan and as needed clonidine as above. 6. Hypercholesterolemia. Continue atorvastatin 7. Atrial flutter-continue coumadin 8. cardiac stress test results from Mon07/01/19=poss ischemia 9. S/P transfusion 5 units PRBC; S/P endoscopy and colonoscopy Saturnino Pleitez MD Jul 10, 2019 11:32
--- NOTE | 2019-07-10 12:12 | Nephrology Progress Note ---
Assessment/Plan Problem List: (1) ESRD (end stage renal disease) on dialysis (2) Diabetes mellitus (3) Anemia in chronic kidney disease Assessment: worse- symptomatic (4) Atrial flutter (5) H/O mitral valve replacement (6) Hepatitis C Assessment: by history Assessment End-stage renal disease, on hemodialysis every Monday, Monday, and Monday. Diabetes type 2. Hypertension. Hepatitis C. Mechanical mitral valve. Plan Dialyzed July 07 next dialysis July 09 if still in house worsening Anemia- had partial of one unit transfusion- need more It appears that the patient have a GI bleed so Coumadin and aspirin stopped and GI procedure is scheduled Patient was dialyzed yesterday July 02. Was again dialyzed July 04 had an upper endoscopy which showed duodenitis Patient had colonoscopy July 04 1. Three or four colonic polyps in the rectosigmoid area. See above for details. 2. Internal hemorrhoids. Continue to transfuse and keep hemoglobin and hematocrit at the reasonable range Resume anticoagulation per cardiology advice keep BP and BS in check Per cardio. Subjective ROS Limited/Unobtainable: No Objective Objective Last 24 Hour Vital Signs Date Time Temp Pulse Resp B/P (MAP) Pulse Ox O2 Delivery O2 Flow Rate FiO2 07/10/19 10:10 152/75 07/10/19 10:10 74 152/75 (100) 07/10/19 09:44 80 20 99 Room Air 21 07/10/19 09:00 Room Air 07/10/19 08:09 155/80 07/10/19 08:08 86 155/80 07/10/19 07:51 97.7 86 16 155/80 (105) 96 07/10/19 04:00 97.5 61 20 137/71 (93) 99 07/10/19 00:00 97.9 76 21 140/70 (93) 99 07/09/19 23:07 Room Air 07/09/19 20:53 78 130/60 07/09/19 20:05 78 18 96 Room Air 21 07/09/19 20:00 98.2 87 18 141/74 (96) 99 07/09/19 16:20 97.7 73 18 130/60 (83) 97 Intake and Output 07/09/19 07/10/19 19:00 07:00 Intake Total 360 ml Balance 360 ml Intake Oral 360 ml Laboratory Tests 07/10/19 05:59: White Blood Count 12.3H, Red Blood Count 2.75L, Hemoglobin 8.5L, Hematocrit 25.2L, Mean Corpuscular Volume 92, Mean Corpuscular Hemoglobin 30.9, Mean Corpuscular Hemoglobin Concent 33.8, Red Cell Distribution Width 15.4H, Platelet Count 262, Mean Platelet Volume 8.3, Neutrophils (%) (Auto) 72.1, Lymphocytes (%) (Auto) 17.8L, Monocytes (%) (Auto) 6.4, Eosinophils (%) (Auto) 2.9, Basophils (%) (Auto) 0.8, Prothrombin Time 14.0H, Prothromb Time International Ratio 1.3H, Sodium Level 141, Potassium Level 4.3, Chloride Level 104, Carbon Dioxide Level 22, Anion Gap 15, Blood Urea Nitrogen 42H, Creatinine 6.9H, Estimat Glomerular Filtration Rate 9.7, Glucose Level 72L, Calcium Level 8.7 07/10/19 10:35: Troponin I 0.023 Height (Feet): 6 Height (Inches): 1.00 Weight (Pounds): 167 General Appearance: no apparent distress Objective NO CHANGE Hang Valdez MD Jul 10, 2019 12:12
--- NOTE | 2019-07-10 13:13 | Pulmonology Progress Note ---
Assessment/Plan Problems: (1) Anemia in chronic kidney disease Assessment & Plan: s/p 5 units of prbc, (2) Leukocytosis Assessment & Plan: ID evaluation (3) Atrial fibrillation with rapid ventricular response Assessment & Plan: sinus now, on Coumadin INR is subtherapeutic (4) COPD (chronic obstructive pulmonary disease) (5) ESRD (end stage renal disease) on dialysis (6) H/O mitral valve replacement (7) Hepatitis C (8) Nicotine addiction (9) History of hypertension (10) Diabetes mellitus Assessment/Plan H/h stable in the last few days had colonoscopy, no active source of bleeding doing better heart rate controlled, sinus around 80's respiratory treatment titrate fiO2 to sat of 92% symptomatic treatment Coumadin by pharmacy, dc home when INR therapeutic. Subjective ROS Limited/Unobtainable: No Constitutional: Reports: no symptoms HEENT: Repors: no symptoms Respiratory: Reports: no symptoms Allergies: Coded Allergies: PENICILLINS (Verified Allergy, Severe, swelling of throat, 02/25/16) ACETAMINOPHEN (Verified Allergy, Intermediate, Generalized Itching , ) HYDROCODONE (Verified Allergy, Intermediate, Generalized Itching , 01/26/18 ) Objective Last 24 Hour Vital Signs Date Time Temp Pulse Resp B/P (MAP) Pulse Ox O2 Delivery O2 Flow Rate FiO2 07/10/19 12:00 97.2 64 20 134/66 (88) 97 07/10/19 10:10 152/75 07/10/19 10:10 74 152/75 (100) 07/10/19 09:44 80 20 99 Room Air 21 07/10/19 09:00 Room Air 07/10/19 08:09 155/80 07/10/19 08:08 86 155/80 07/10/19 07:51 97.7 86 16 155/80 (105) 96 07/10/19 04:00 97.5 61 20 137/71 (93) 99 07/10/19 00:00 97.9 76 21 140/70 (93) 99 07/09/19 23:07 Room Air 07/09/19 20:53 78 130/60 07/09/19 20:05 78 18 96 Room Air 21 07/09/19 20:00 98.2 87 18 141/74 (96) 99 07/09/19 16:20 97.7 73 18 130/60 (83) 97 Intake and Output 07/09/19 07/10/19 19:00 07:00 Intake Total 360 ml Balance 360 ml Intake Oral 360 ml Objective had an episode of chest pain, EKG and troponin done, cardiology notified, Laboratory Tests 07/10/19 05:59: White Blood Count 12.3H, Red Blood Count 2.75L, Hemoglobin 8.5L, Hematocrit 25.2L, Mean Corpuscular Volume 92, Mean Corpuscular Hemoglobin 30.9, Mean Corpuscular Hemoglobin Concent 33.8, Red Cell Distribution Width 15.4H, Platelet Count 262, Mean Platelet Volume 8.3, Neutrophils (%) (Auto) 72.1, Lymphocytes (%) (Auto) 17.8L, Monocytes (%) (Auto) 6.4, Eosinophils (%) (Auto) 2.9, Basophils (%) (Auto) 0.8, Prothrombin Time 14.0H, Prothromb Time International Ratio 1.3H, Sodium Level 141, Potassium Level 4.3, Chloride Level 104, Carbon Dioxide Level 22, Anion Gap 15, Blood Urea Nitrogen 42H, Creatinine 6.9H, Estimat Glomerular Filtration Rate 9.7, Glucose Level 72L, Calcium Level 8.7 07/10/19 10:35: Troponin I 0.023 Current Medications Medications (Trade) Dose Ordered Sig/John Route PRN Reason Start Time Stop Time Status Last Admin Dose Admin Albuterol/ Ipratropium (Albuterol/ Ipratropium) 3 ml Q4H PRN HHN Shortness of Breath 07/05/19 15:00 07/10/19 14:59 Bisacodyl (Dulcolax) 10 mg DAILYPRN PRN RECTAL Constipation 07/06/19 15:00 07/27/19 14:59 Dextrose (Dextrose 50%) 25 ml Q30M PRN IV Hypoglycemia 07/05/19 14:30 07/27/19 00:00 Dextrose (Dextrose 50%) 50 ml Q30M PRN IV Hypoglycemia 07/05/19 14:30 07/27/19 00:00 Diphenhydramine HCl (Benadryl) 25 mg Q6H PRN IVP Itching 07/05/19 15:00 08/03/19 14:59 Docusate Sodium (Colace) 100 mg TID ORAL 07/05/19 18:00 07/27/19 20:59 07/10/19 12:19 Insulin Aspart (NovoLOG) BEFORE MEALS AND HS SUBQ 07/05/19 16:30 07/27/19 06:29 07/08/19 17:39 Levofloxacin 100 ml @ 100 mls/hr Q48H IVPB 07/10/19 11:00 07/17/19 10:59 Losartan Potassium (Cozaar) 50 mg DAILY ORAL 07/06/19 09:00 07/27/19 09:59 07/10/19 08:09 Metoprolol Tartrate (Lopressor) 25 mg Q12HR ORAL 07/05/19 21:00 07/27/19 00:59 07/10/19 08:08 Nitroglycerin (Ntg) 0.4 mg Q5M PRN SL Prn Chest Pain 07/05/19 14:30 07/27/19 00:00 07/10/19 10:10 Ondansetron HCl (Zofran) 4 mg Q6H PRN IVP Nausea & Vomiting 07/05/19 15:00 07/27/19 14:59 07/05/19 18:40 Pantoprazole (Protonix) 40 mg EVERY 12 HOURS ORAL 07/05/19 21:00 07/28/19 20:59 07/10/19 08:08 Polyethylene Glycol (Miralax) 17 gm DAILYPRN PRN ORAL Constipation 07/05/19 15:00 08/04/19 14:59 07/10/19 01:38 Sevelamer Carbonate (Renvela) 800 mg THREE TIMES A DAY ORAL 07/05/19 18:00 07/28/19 12:59 07/10/19 12:19 Warfarin Sodium (Coumadin per pharmacy) 1 ea DAILY PRN MISC Per rx protocol 07/05/19 15:00 08/04/19 14:59 Warfarin Sodium (Coumadin) 8 mg COUMADIN ONCE ORAL 07/10/19 17:00 07/10/19 17:01 Caleb Hinojosa MD Jul 10, 2019 13:13
[2019-07-10] MEDS ORDERED: Warfarin Sodium 4mg ORAL ONE (17:00)
[2019-07-11] VITALS: BP 121/62
[2019-07-11 04:00] VITALS: BP 120/64
[2019-07-11] MEDS: NovoLOG Insulin Flexpen SUBQ SCH ×4 (06:30→20:28)
[2019-07-11 06:31] LABS: HEMATOCRIT 23.2 % (42.0-52.0); HEMOGLOBIN 7.9 G/DL (14.2-18.0); MEAN CORPUSCULAR VOLUME 91 FL (80-99); PLATELET COUNT 288 K/UL (150-450); RED BLOOD COUNT 2.54 M/UL (4.70-6.10); RED CELL DISTRIBUTION WIDTH 15.7 % (11.6-14.8)
[2019-07-11 06:35] LABS: INR 1.7 (0.9-1.1)
[2019-07-11 07:09] LABS: ANION GAP 13 mmol/L (5-15); BLOOD UREA NITROGEN 26 mg/dL (7-18); CALCIUM 8.6 MG/DL (8.5-10.1); CARBON DIOXIDE 25 MMOL/L (21-32); CHLORIDE 104 MMOL/L (98-107); CREATININE 4.8 MG/DL (0.55-1.30); POTASSIUM 4.4 MMOL/L (3.5-5.1); SODIUM 142 MMOL/L (136-145)
[2019-07-11 08:00] VITALS: BP 124/64
[2019-07-11] MEDS: Docusate 100mg cap ORAL SCH ×3 (08:12→17:36)
[2019-07-11] MEDS: Losartan 50mg tab ORAL SCH (08:12)
--- NOTE | 2019-07-11 11:51 | General Progress Note ---
Assessment/Plan Problem List: (1) H/O mitral valve replacement ICD Codes: Z95.2 - Presence of prosthetic heart valve SNOMED: 96125878, 1682325863672 (2) Hepatitis C ICD Codes: B19.20 - Unspecified viral hepatitis C without hepatic coma SNOMED: 80576166 (3) COPD (chronic obstructive pulmonary disease) ICD Codes: J44.9 - Chronic obstructive pulmonary disease, unspecified SNOMED: 79530612 (4) Diabetes mellitus ICD Codes: E11.9 - Type 2 diabetes mellitus without complications SNOMED: 86976756 (5) Atrial fibrillation with rapid ventricular response ICD Codes: I48.91 - Unspecified atrial fibrillation SNOMED: 343147181884256 (6) GI bleed ICD Codes: K92.2 - Gastrointestinal hemorrhage, unspecified SNOMED: 60438139 (7) Warfarin overdosage ICD Codes: T45.511A - Poisoning by anticoagulants, accidental (unintentional), initial encounter SNOMED: 34016457, 22228408 Status: stable Assessment/Plan: s/p EGD and colonoscopy no active bleed on Coumadin per pharmacy fu labs hep C RNA positive>>> needs out patient fu for treatment Subjective Allergies: Coded Allergies: PENICILLINS (Verified Allergy, Severe, swelling of throat, 02/25/16) ACETAMINOPHEN (Verified Allergy, Intermediate, Generalized Itching , ) HYDROCODONE (Verified Allergy, Intermediate, Generalized Itching , 01/26/18 ) Objective Last 24 Hour Vital Signs Date Time Temp Pulse Resp B/P (MAP) Pulse Ox O2 Delivery O2 Flow Rate FiO2 07/11/19 09:00 Room Air 07/11/19 08:12 85 124/64 07/11/19 08:12 124/64 07/11/19 08:00 98.2 85 18 124/64 (84) 93 07/11/19 04:00 98.5 80 17 120/64 (82) 93 07/11/19 00:00 98.3 77 18 121/62 (81) 93 07/10/19 21:33 82 125/66 07/10/19 21:00 Room Air 07/10/19 20:00 98.5 82 17 125/66 (85) 95 07/10/19 16:00 98.3 89 17 116/63 (80) 95 07/10/19 12:00 97.2 64 20 134/66 (88) 97 Intake and Output 07/10/19 07/11/19 19:00 07:00 Intake Total 710 ml 480 ml Output Total 2000 ml Balance -1290 ml 480 ml Intake Oral 610 ml 480 ml IV Total 100 ml Hemodialysis UF 2000 ml # Voids 3 3 Laboratory Tests 07/11/19 06:00: White Blood Count 11.0H, Red Blood Count 2.54L, Hemoglobin 7.9L, Hematocrit 23.2L, Mean Corpuscular Volume 91, Mean Corpuscular Hemoglobin 31.2H, Mean Corpuscular Hemoglobin Concent 34.2, Red Cell Distribution Width 15.7H, Platelet Count 288, Mean Platelet Volume 8.5, Neutrophils (%) (Auto) , Lymphocytes (%) (Auto) , Monocytes (%) (Auto) , Eosinophils (%) (Auto) , Basophils (%) (Auto) , Differential Total Cells Counted 100, Neutrophils % ( Manual) 68, Lymphocytes % (Manual) 20, Monocytes % (Manual) 8, Eosinophils % ( Manual) 2, Basophils % (Manual) 2, Band Neutrophils 0, Platelet Estimate Adequate, Platelet Morphology Normal, Hypochromasia 3+, Anisocytosis 1+, Prothrombin Time 17.4H, Prothromb Time International Ratio 1.7H, Sodium Level 142, Potassium Level 4.4, Chloride Level 104, Carbon Dioxide Level 25, Anion Gap 13, Blood Urea Nitrogen 26H, Creatinine 4.8H, Estimat Glomerular Filtration Rate 14.8, Glucose Level 88, Calcium Level 8.6, Troponin I 0.035 Height (Feet): 6 Height (Inches): 1.00 Weight (Pounds): 167 General Appearance: no apparent distress EENT: normal ENT inspection Neck: supple Cardiovascular: normal rate Respiratory/Chest: decreased breath sounds Abdomen: normal bowel sounds, non tender, soft Extremities: non-tender Tung Steen MD Jul 11, 2019 11:51
[2019-07-11 11:59] VITALS: BP 143/63
--- NOTE | 2019-07-11 12:26 | Infectious Diseases Prog Note ---
Assessment/Plan Assessment/Plan ASSESSMENT: The patient is a 64-year-old male with: Leukocytosis, improving UTI - UCX : 100k GNR Afebrile ch Hep C +ve History of cardiac stent. History of hypertension. GERD. History of bladder cancer. End-stage renal disease, on dialysis. Left toe amputation. Diabetes. History of mitral valve and tricuspid valve repair. PLAN: cont IV levaquin # 2 urine and blood culture. Monitor CBC and BMP Monitor CXR Subjective Allergies: Coded Allergies: PENICILLINS (Verified Allergy, Severe, swelling of throat, 02/25/16) ACETAMINOPHEN (Verified Allergy, Intermediate, Generalized Itching , ) HYDROCODONE (Verified Allergy, Intermediate, Generalized Itching , 01/26/18 ) Subjective WBC improving Objective Vital Signs Last 24 Hour Vital Signs Date Time Temp Pulse Resp B/P (MAP) Pulse Ox O2 Delivery O2 Flow Rate FiO2 07/11/19 11:59 97.4 65 18 143/63 (89) 93 07/11/19 09:00 Room Air 07/11/19 08:12 85 124/64 07/11/19 08:12 124/64 07/11/19 08:00 98.2 85 18 124/64 (84) 93 07/11/19 04:00 98.5 80 17 120/64 (82) 93 07/11/19 00:00 98.3 77 18 121/62 (81) 93 07/10/19 21:33 82 125/66 07/10/19 21:00 Room Air 07/10/19 20:00 98.5 82 17 125/66 (85) 95 07/10/19 16:00 98.3 89 17 116/63 (80) 95 Height (Feet): 6 Height (Inches): 1.00 Weight (Pounds): 167 HEENT: anicteric Respiratory/Chest: no respiratory distress Cardiovascular: normal rate Abdomen: no organomegaly Microbiology Date/Time Source Procedure Growth Status 07/09/19 19:30 Blood Blood Culture - Preliminary NO GROWTH AFTER 24 HOURS Resulted 07/09/19 19:15 Blood Blood Culture - Preliminary NO GROWTH AFTER 24 HOURS Resulted 07/09/19 21:30 Urine,Clean Catch Urine Culture - Preliminary Gram Negative Masood Resulted Laboratory Tests Test 07/11/19 06:00 White Blood Count 11.0 K/UL (4.8-10.8) H Red Blood Count 2.54 M/UL (4.70-6.10) L Hemoglobin 7.9 G/DL (14.2-18.0) L Hematocrit 23.2 % (42.0-52.0) L Mean Corpuscular Volume 91 FL (80-99) Mean Corpuscular Hemoglobin 31.2 PG (27.0-31.0) H Mean Corpuscular Hemoglobin Concent 34.2 G/DL (32.0-36.0) Red Cell Distribution Width 15.7 % (11.6-14.8) H Platelet Count 288 K/UL (150-450) Mean Platelet Volume 8.5 FL (6.5-10.1) Neutrophils (%) (Auto) % (45.0-75.0) Lymphocytes (%) (Auto) % (20.0-45.0) Monocytes (%) (Auto) % (1.0-10.0) Eosinophils (%) (Auto) % (0.0-3.0) Basophils (%) (Auto) % (0.0-2.0) Differential Total Cells Counted 100 Neutrophils % (Manual) 68 % (45-75) Lymphocytes % (Manual) 20 % (20-45) Monocytes % (Manual) 8 % (1-10) Eosinophils % (Manual) 2 % (0-3) Basophils % (Manual) 2 % (0-2) Band Neutrophils 0 % (0-8) Platelet Estimate Adequate Platelet Morphology Normal Hypochromasia 3+ Anisocytosis 1+ Prothrombin Time 17.4 SEC (9.30-11.50) H Prothromb Time International Ratio 1.7 (0.9-1.1) H Sodium Level 142 MMOL/L (136-145) Potassium Level 4.4 MMOL/L (3.5-5.1) Chloride Level 104 MMOL/L (98-107) Carbon Dioxide Level 25 MMOL/L (21-32) Anion Gap 13 mmol/L (5-15) Blood Urea Nitrogen 26 mg/dL (7-18) H Creatinine 4.8 MG/DL (0.55-1.30) H Estimat Glomerular Filtration Rate 14.8 mL/min (>60) Glucose Level 88 MG/DL (74-106) Calcium Level 8.6 MG/DL (8.5-10.1) Troponin I 0.035 ng/mL (0.000-0.056) Current Medications Medications (Trade) Dose Ordered Sig/John Route PRN Reason Start Time Stop Time Status Last Admin Dose Admin Bisacodyl (Dulcolax) 10 mg DAILYPRN PRN RECTAL Constipation 07/06/19 15:00 07/27/19 14:59 Dextrose (Dextrose 50%) 25 ml Q30M PRN IV Hypoglycemia 07/05/19 14:30 07/27/19 00:00 Dextrose (Dextrose 50%) 50 ml Q30M PRN IV Hypoglycemia 07/05/19 14:30 07/27/19 00:00 Diphenhydramine HCl (Benadryl) 25 mg Q6H PRN IVP Itching 07/05/19 15:00 08/03/19 14:59 Docusate Sodium (Colace) 100 mg TID ORAL 07/05/19 18:00 07/27/19 20:59 07/11/19 08:12 Insulin Aspart (NovoLOG) BEFORE MEALS AND HS SUBQ 07/05/19 16:30 07/27/19 06:29 07/08/19 17:39 Levofloxacin 100 ml @ 100 mls/hr Q48H IVPB 07/10/19 11:00 07/17/19 10:59 07/10/19 15:00 Losartan Potassium (Cozaar) 50 mg DAILY ORAL 07/06/19 09:00 07/27/19 09:59 07/11/19 08:12 Metoprolol Tartrate (Lopressor) 25 mg Q12HR ORAL 07/05/19 21:00 07/27/19 00:59 07/11/19 08:12 Nitroglycerin (Ntg) 0.4 mg Q5M PRN SL Prn Chest Pain 07/05/19 14:30 07/27/19 00:00 07/10/19 10:10 Ondansetron HCl (Zofran) 4 mg Q6H PRN IVP Nausea & Vomiting 07/05/19 15:00 07/27/19 14:59 07/05/19 18:40 Pantoprazole (Protonix) 40 mg EVERY 12 HOURS ORAL 07/05/19 21:00 07/28/19 20:59 07/11/19 08:12 Polyethylene Glycol (Miralax) 17 gm DAILYPRN PRN ORAL Constipation 07/05/19 15:00 08/04/19 14:59 07/10/19 17:19 Sevelamer Carbonate (Renvela) 800 mg THREE TIMES A DAY ORAL 07/05/19 18:00 07/28/19 12:59 07/11/19 08:13 Warfarin Sodium (Coumadin per pharmacy) 1 ea DAILY PRN MISC Per rx protocol 07/05/19 15:00 08/04/19 14:59 Warfarin Sodium (Coumadin) 4 mg COUMADIN ONCE PO 07/11/19 17:00 07/11/19 17:01 Warfarin Sodium (Coumadin) 5 mg COUMADIN ONCE ORAL 07/11/19 17:00 07/11/19 17:01 Surjit Odom MD Jul 11, 2019 12:26
--- NOTE | 2019-07-11 13:03 | Pulmonology Progress Note ---
Assessment/Plan Problems: (1) Anemia in chronic kidney disease Assessment & Plan: s/p 5 units of prbc, (2) Leukocytosis Assessment & Plan: ID evaluation (3) Atrial fibrillation with rapid ventricular response Assessment & Plan: sinus now, on Coumadin INR is subtherapeutic (4) COPD (chronic obstructive pulmonary disease) (5) ESRD (end stage renal disease) on dialysis (6) H/O mitral valve replacement (7) Hepatitis C (8) Nicotine addiction (9) History of hypertension (10) Diabetes mellitus Assessment/Plan H/h stable in the last few days had colonoscopy, no active source of bleeding doing better heart rate controlled, sinus around 80's respiratory treatment titrate fiO2 to sat of 92% symptomatic treatment transfuse one more unit of blood today check INR, not therapeutic yet. Subjective ROS Limited/Unobtainable: No Constitutional: Reports: no symptoms HEENT: Repors: no symptoms Allergies: Coded Allergies: PENICILLINS (Verified Allergy, Severe, swelling of throat, 02/25/16) ACETAMINOPHEN (Verified Allergy, Intermediate, Generalized Itching , ) HYDROCODONE (Verified Allergy, Intermediate, Generalized Itching , 01/26/18 ) Objective Last 24 Hour Vital Signs Date Time Temp Pulse Resp B/P (MAP) Pulse Ox O2 Delivery O2 Flow Rate FiO2 07/11/19 11:59 97.4 65 18 143/63 (89) 93 07/11/19 09:00 Room Air 07/11/19 08:12 85 124/64 07/11/19 08:12 124/64 07/11/19 08:00 98.2 85 18 124/64 (84) 93 07/11/19 04:00 98.5 80 17 120/64 (82) 93 07/11/19 00:00 98.3 77 18 121/62 (81) 93 07/10/19 21:33 82 125/66 07/10/19 21:00 Room Air 07/10/19 20:00 98.5 82 17 125/66 (85) 95 07/10/19 16:00 98.3 89 17 116/63 (80) 95 Intake and Output 07/10/19 07/11/19 19:00 07:00 Intake Total 710 ml 480 ml Output Total 2000 ml Balance -1290 ml 480 ml Intake Oral 610 ml 480 ml IV Total 100 ml Hemodialysis UF 2000 ml # Voids 3 3 Objective no new complains HEENT: normocephalic, atraumatic Respiratory/Chest: chest wall non-tender, lungs clear Cardiovascular: normal peripheral pulses, normal rate Abdomen: normal bowel sounds, non distended Extremities: no cyanosis Skin: no rash Microbiology Date/Time Source Procedure Growth Status 07/09/19 19:30 Blood Blood Culture - Preliminary NO GROWTH AFTER 24 HOURS Resulted 07/09/19 19:15 Blood Blood Culture - Preliminary NO GROWTH AFTER 24 HOURS Resulted 07/09/19 21:30 Urine,Clean Catch Urine Culture - Preliminary Gram Negative Masood Resulted Laboratory Tests 07/11/19 06:00: White Blood Count 11.0H, Red Blood Count 2.54L, Hemoglobin 7.9L, Hematocrit 23.2L, Mean Corpuscular Volume 91, Mean Corpuscular Hemoglobin 31.2H, Mean Corpuscular Hemoglobin Concent 34.2, Red Cell Distribution Width 15.7H, Platelet Count 288, Mean Platelet Volume 8.5, Neutrophils (%) (Auto) , Lymphocytes (%) (Auto) , Monocytes (%) (Auto) , Eosinophils (%) (Auto) , Basophils (%) (Auto) , Differential Total Cells Counted 100, Neutrophils % ( Manual) 68, Lymphocytes % (Manual) 20, Monocytes % (Manual) 8, Eosinophils % ( Manual) 2, Basophils % (Manual) 2, Band Neutrophils 0, Platelet Estimate Adequate, Platelet Morphology Normal, Hypochromasia 3+, Anisocytosis 1+, Prothrombin Time 17.4H, Prothromb Time International Ratio 1.7H, Sodium Level 142, Potassium Level 4.4, Chloride Level 104, Carbon Dioxide Level 25, Anion Gap 13, Blood Urea Nitrogen 26H, Creatinine 4.8H, Estimat Glomerular Filtration Rate 14.8, Glucose Level 88, Calcium Level 8.6, Troponin I 0.035 Current Medications Medications (Trade) Dose Ordered Sig/John Route PRN Reason Start Time Stop Time Status Last Admin Dose Admin Bisacodyl (Dulcolax) 10 mg DAILYPRN PRN RECTAL Constipation 07/06/19 15:00 07/27/19 14:59 Dextrose (Dextrose 50%) 25 ml Q30M PRN IV Hypoglycemia 07/05/19 14:30 07/27/19 00:00 Dextrose (Dextrose 50%) 50 ml Q30M PRN IV Hypoglycemia 07/05/19 14:30 07/27/19 00:00 Diphenhydramine HCl (Benadryl) 25 mg Q6H PRN IVP Itching 07/05/19 15:00 08/03/19 14:59 Docusate Sodium (Colace) 100 mg TID ORAL 07/05/19 18:00 07/27/19 20:59 07/11/19 08:12 Insulin Aspart (NovoLOG) BEFORE MEALS AND HS SUBQ 07/05/19 16:30 07/27/19 06:29 07/08/19 17:39 Levofloxacin 100 ml @ 100 mls/hr Q48H IVPB 07/10/19 11:00 07/17/19 10:59 07/10/19 15:00 Losartan Potassium (Cozaar) 50 mg DAILY ORAL 07/06/19 09:00 07/27/19 09:59 07/11/19 08:12 Metoprolol Tartrate (Lopressor) 25 mg Q12HR ORAL 07/05/19 21:00 07/27/19 00:59 07/11/19 08:12 Nitroglycerin (Ntg) 0.4 mg Q5M PRN SL Prn Chest Pain 07/05/19 14:30 07/27/19 00:00 07/10/19 10:10 Ondansetron HCl (Zofran) 4 mg Q6H PRN IVP Nausea & Vomiting 07/05/19 15:00 07/27/19 14:59 07/05/19 18:40 Pantoprazole (Protonix) 40 mg EVERY 12 HOURS ORAL 07/05/19 21:00 07/28/19 20:59 07/11/19 08:12 Polyethylene Glycol (Miralax) 17 gm DAILYPRN PRN ORAL Constipation 07/05/19 15:00 08/04/19 14:59 07/10/19 17:19 Sevelamer Carbonate (Renvela) 800 mg THREE TIMES A DAY ORAL 07/05/19 18:00 07/28/19 12:59 07/11/19 08:13 Warfarin Sodium (Coumadin per pharmacy) 1 ea DAILY PRN MISC Per rx protocol 07/05/19 15:00 08/04/19 14:59 Warfarin Sodium (Coumadin) 4 mg COUMADIN ONCE PO 07/11/19 17:00 07/11/19 17:01 Warfarin Sodium (Coumadin) 5 mg COUMADIN ONCE ORAL 07/11/19 17:00 07/11/19 17:01 Caleb Hinojosa MD Jul 11, 2019 13:03
--- NOTE | 2019-07-11 14:55 | Nephrology Progress Note ---
Assessment/Plan Problem List: (1) ESRD (end stage renal disease) on dialysis (2) Diabetes mellitus (3) Anemia in chronic kidney disease Assessment: worse- symptomatic (4) Atrial flutter (5) H/O mitral valve replacement (6) Hepatitis C Assessment: by history Assessment End-stage renal disease, on hemodialysis every Monday, Monday, and Monday. Diabetes type 2. Hypertension. Hepatitis C. Mechanical mitral valve. Plan Worsening anemia, due for transfusion 1 unit of packed RBCs next dialysis July 11 if still in house worsening Anemia- had partial of one unit transfusion- need more It appears that the patient have a GI bleed so Coumadin and aspirin stopped and GI procedure is scheduled Patient was dialyzed yesterday July 02. Was again dialyzed July 04 7 had an upper endoscopy which showed duodenitis Patient had colonoscopy July 04 1. Three or four colonic polyps in the rectosigmoid area. See above for details. 2. Internal hemorrhoids. Continue to transfuse and keep hemoglobin and hematocrit at the reasonable range Resume anticoagulation per cardiology advice keep BP and BS in check Per cardio. Subjective ROS Limited/Unobtainable: No Constitutional: Reports: malaise Objective Objective Last 24 Hour Vital Signs Date Time Temp Pulse Resp B/P (MAP) Pulse Ox O2 Delivery O2 Flow Rate FiO2 07/11/19 11:59 97.4 65 18 143/63 (89) 93 07/11/19 09:00 Room Air 07/11/19 08:12 85 124/64 07/11/19 08:12 124/64 07/11/19 08:00 98.2 85 18 124/64 (84) 93 07/11/19 04:00 98.5 80 17 120/64 (82) 93 07/11/19 00:00 98.3 77 18 121/62 (81) 93 07/10/19 21:33 82 125/66 07/10/19 21:00 Room Air 07/10/19 20:00 98.5 82 17 125/66 (85) 95 07/10/19 16:00 98.3 89 17 116/63 (80) 95 Intake and Output 07/10/19 07/11/19 19:00 07:00 Intake Total 710 ml 480 ml Output Total 2000 ml Balance -1290 ml 480 ml Intake Oral 610 ml 480 ml IV Total 100 ml Hemodialysis UF 2000 ml # Voids 3 3 Laboratory Tests 07/11/19 06:00: White Blood Count 11.0H, Red Blood Count 2.54L, Hemoglobin 7.9L, Hematocrit 23.2L, Mean Corpuscular Volume 91, Mean Corpuscular Hemoglobin 31.2H, Mean Corpuscular Hemoglobin Concent 34.2, Red Cell Distribution Width 15.7H, Platelet Count 288, Mean Platelet Volume 8.5, Neutrophils (%) (Auto) , Lymphocytes (%) (Auto) , Monocytes (%) (Auto) , Eosinophils (%) (Auto) , Basophils (%) (Auto) , Differential Total Cells Counted 100, Neutrophils % ( Manual) 68, Lymphocytes % (Manual) 20, Monocytes % (Manual) 8, Eosinophils % ( Manual) 2, Basophils % (Manual) 2, Band Neutrophils 0, Platelet Estimate Adequate, Platelet Morphology Normal, Hypochromasia 3+, Anisocytosis 1+, Prothrombin Time 17.4H, Prothromb Time International Ratio 1.7H, Sodium Level 142, Potassium Level 4.4, Chloride Level 104, Carbon Dioxide Level 25, Anion Gap 13, Blood Urea Nitrogen 26H, Creatinine 4.8H, Estimat Glomerular Filtration Rate 14.8, Glucose Level 88, Calcium Level 8.6, Troponin I 0.035 Height (Feet): 6 Height (Inches): 1.00 Weight (Pounds): 167 General Appearance: no apparent distress Objective NO CHANGE Hang Valdez MD Jul 11, 2019 14:55
[2019-07-11 15:51] VITALS: BP 121/66
--- NOTE | 2019-07-11 16:03 | Cardiac Electrophysiology PN ---
Assessment/Plan Assessment/Plan 1. Atrial flutter, converted to SR. On metoprolol 25 mg b.i.d. Coumadin resumed as OKed per Dr Steen EPS and ablation as out patient. EF 55% 2. Chest pain. Ruled out for myocardial infarction. Denies any chest pain. It could be due to volume overload. Stress test 07/02/19 showed: Hypoperfusion to the inferior wall worse on stress. Possibilities include an inferior wall infarct with lexie-infarct ischemia versus diaphragmatic attenuation. Refused Cardiac cath . Continue on medical therapy 3. S/P [facility] MVR and TV Ring 07/2017 at [facility] valve Fx on echo 4. Hypertension, on metoprolol 25 mg b.i.d., losartan 50 mg daily and hemodialysis. 5. End-stage renal disease, on hemodialysis. 6. Diabetes, on insulin. 7. Hep C 8. Acute anemia Hb 12 to 6.5! Got 3 unit of blood. Getting another unit S/P EGD and colonoscopy by Dr Steen No active bleed. 9. Elevated WBC. FU ID FRANCINE RN Subjective Subjective On NMB. No CP or SOB. Will be getting PRBC with HD. Objective Last 24 Hour Vital Signs Date Time Temp Pulse Resp B/P (MAP) Pulse Ox O2 Delivery O2 Flow Rate FiO2 07/11/19 15:51 97.8 82 19 121/66 (84) 95 07/11/19 11:59 97.4 65 18 143/63 (89) 93 07/11/19 09:00 Room Air 07/11/19 08:12 85 124/64 07/11/19 08:12 124/64 07/11/19 08:00 98.2 85 18 124/64 (84) 93 07/11/19 04:00 98.5 80 17 120/64 (82) 93 07/11/19 00:00 98.3 77 18 121/62 (81) 93 07/10/19 21:33 82 125/66 07/10/19 21:00 Room Air 07/10/19 20:00 98.5 82 17 125/66 (85) 95 Intake and Output 07/10/19 07/11/19 19:00 07:00 Intake Total 710 ml 480 ml Output Total 2000 ml Balance -1290 ml 480 ml Intake Oral 610 ml 480 ml IV Total 100 ml Hemodialysis UF 2000 ml # Voids 3 3 Laboratory Tests Test 07/11/19 06:00 White Blood Count 11.0 K/UL (4.8-10.8) H Red Blood Count 2.54 M/UL (4.70-6.10) L Hemoglobin 7.9 G/DL (14.2-18.0) L Hematocrit 23.2 % (42.0-52.0) L Mean Corpuscular Volume 91 FL (80-99) Mean Corpuscular Hemoglobin 31.2 PG (27.0-31.0) H Mean Corpuscular Hemoglobin Concent 34.2 G/DL (32.0-36.0) Red Cell Distribution Width 15.7 % (11.6-14.8) H Platelet Count 288 K/UL (150-450) Mean Platelet Volume 8.5 FL (6.5-10.1) Neutrophils (%) (Auto) % (45.0-75.0) Lymphocytes (%) (Auto) % (20.0-45.0) Monocytes (%) (Auto) % (1.0-10.0) Eosinophils (%) (Auto) % (0.0-3.0) Basophils (%) (Auto) % (0.0-2.0) Differential Total Cells Counted 100 Neutrophils % (Manual) 68 % (45-75) Lymphocytes % (Manual) 20 % (20-45) Monocytes % (Manual) 8 % (1-10) Eosinophils % (Manual) 2 % (0-3) Basophils % (Manual) 2 % (0-2) Band Neutrophils 0 % (0-8) Platelet Estimate Adequate Platelet Morphology Normal Hypochromasia 3+ Anisocytosis 1+ Prothrombin Time 17.4 SEC (9.30-11.50) H Prothromb Time International Ratio 1.7 (0.9-1.1) H Sodium Level 142 MMOL/L (136-145) Potassium Level 4.4 MMOL/L (3.5-5.1) Chloride Level 104 MMOL/L (98-107) Carbon Dioxide Level 25 MMOL/L (21-32) Anion Gap 13 mmol/L (5-15) Blood Urea Nitrogen 26 mg/dL (7-18) H Creatinine 4.8 MG/DL (0.55-1.30) H Estimat Glomerular Filtration Rate 14.8 mL/min (>60) Glucose Level 88 MG/DL (74-106) Calcium Level 8.6 MG/DL (8.5-10.1) Troponin I 0.035 ng/mL (0.000-0.056) Microbiology Date/Time Source Procedure Growth Status 07/09/19 19:30 Blood Blood Culture - Preliminary NO GROWTH AFTER 24 HOURS Resulted 07/09/19 19:15 Blood Blood Culture - Preliminary NO GROWTH AFTER 24 HOURS Resulted 07/09/19 21:30 Urine,Clean Catch Urine Culture - Preliminary Gram Negative Masood Resulted Objective HEAD AND NECK: No JVD or carotid bruit. LUNGS: Clear. CARDIOVASCULAR: Regular S1 and S2 with metallic first heart sounds. LUNGS: Clear. ABDOMEN: Soft. EXTREMITIES: No pitting edema. Beto Goldman MD Jul 11, 2019 16:03
[2019-07-11] MEDS ORDERED: Warfarin Sodium 4mg PO ONE (17:00)
[2019-07-11] MEDS ORDERED: Warfarin Sodium 10mg ORAL ONE (17:00)
[2019-07-11] MEDS ORDERED: Warfarin Sodium 5mg ORAL ONE (17:00)
--- NOTE | 2019-07-11 19:31 | Internal Med Progress Note ---
Subjective Date of Service: Jul 11, 2019 Physician Name PricillaSaturnino Attending Physician Brian Alicea MD Current Medications Medications (Trade) Dose Ordered Sig/John Route PRN Reason Start Time Stop Time Status Last Admin Dose Admin Bisacodyl (Dulcolax) 10 mg DAILYPRN PRN RECTAL Constipation 07/06/19 15:00 07/27/19 14:59 Dextrose (Dextrose 50%) 25 ml Q30M PRN IV Hypoglycemia 07/05/19 14:30 07/27/19 00:00 Dextrose (Dextrose 50%) 50 ml Q30M PRN IV Hypoglycemia 07/05/19 14:30 07/27/19 00:00 Diphenhydramine HCl (Benadryl) 25 mg Q6H PRN IVP Itching 07/05/19 15:00 08/03/19 14:59 Docusate Sodium (Colace) 100 mg TID ORAL 07/05/19 18:00 07/27/19 20:59 07/11/19 17:36 Insulin Aspart (NovoLOG) BEFORE MEALS AND HS SUBQ 07/05/19 16:30 07/27/19 06:29 07/08/19 17:39 Levofloxacin 100 ml @ 100 mls/hr Q48H IVPB 07/10/19 11:00 07/17/19 10:59 07/10/19 15:00 Losartan Potassium (Cozaar) 50 mg DAILY ORAL 07/06/19 09:00 07/27/19 09:59 07/11/19 08:12 Metoprolol Tartrate (Lopressor) 25 mg Q12HR ORAL 07/05/19 21:00 07/27/19 00:59 07/11/19 08:12 Nitroglycerin (Ntg) 0.4 mg Q5M PRN SL Prn Chest Pain 07/05/19 14:30 07/27/19 00:00 07/10/19 10:10 Ondansetron HCl (Zofran) 4 mg Q6H PRN IVP Nausea & Vomiting 07/05/19 15:00 07/27/19 14:59 07/05/19 18:40 Pantoprazole (Protonix) 40 mg EVERY 12 HOURS ORAL 07/05/19 21:00 07/28/19 20:59 07/11/19 08:12 Polyethylene Glycol (Miralax) 17 gm DAILYPRN PRN ORAL Constipation 07/05/19 15:00 08/04/19 14:59 07/10/19 17:19 Sevelamer Carbonate (Renvela) 800 mg THREE TIMES A DAY ORAL 07/05/19 18:00 07/28/19 12:59 07/11/19 17:37 Warfarin Sodium (Coumadin per pharmacy) 1 ea DAILY PRN MISC Per rx protocol 07/05/19 15:00 08/04/19 14:59 Allergies: Coded Allergies: PENICILLINS (Verified Allergy, Severe, swelling of throat, 02/25/16) ACETAMINOPHEN (Verified Allergy, Intermediate, Generalized Itching , ) HYDROCODONE (Verified Allergy, Intermediate, Generalized Itching , 01/26/18 ) ROS Limited/Unobtainable: No Constitutional: Reports: no symptoms HEENT: Reports: no symptoms Cardiovascular: Reports: no symptoms Respiratory: Reports: no symptoms Gastrointestinal/Abdominal: Reports: no symptoms Genitourinary: Reports: no symptoms Neurologic/Psychiatric: Reports: no symptoms Subjective 64 YO M admitted with chest pain, nausea and vomiting. Now with severe anemia. S/P endoscopy 07/04/19 and colonoscopy 07/05/19.. Cover for Int Drew-DR Alicea. Objective Last Vital Signs Date Time Temp Pulse Resp B/P (MAP) Pulse Ox O2 Delivery O2 Flow Rate FiO2 07/11/19 15:51 97.8 82 19 121/66 (84) 95 07/11/19 09:00 Room Air 07/10/19 09:44 21 07/05/19 13:00 3 Laboratory Tests Test 07/11/19 06:00 White Blood Count 11.0 K/UL (4.8-10.8) H Red Blood Count 2.54 M/UL (4.70-6.10) L Hemoglobin 7.9 G/DL (14.2-18.0) L Hematocrit 23.2 % (42.0-52.0) L Mean Corpuscular Volume 91 FL (80-99) Mean Corpuscular Hemoglobin 31.2 PG (27.0-31.0) H Mean Corpuscular Hemoglobin Concent 34.2 G/DL (32.0-36.0) Red Cell Distribution Width 15.7 % (11.6-14.8) H Platelet Count 288 K/UL (150-450) Mean Platelet Volume 8.5 FL (6.5-10.1) Neutrophils (%) (Auto) % (45.0-75.0) Lymphocytes (%) (Auto) % (20.0-45.0) Monocytes (%) (Auto) % (1.0-10.0) Eosinophils (%) (Auto) % (0.0-3.0) Basophils (%) (Auto) % (0.0-2.0) Differential Total Cells Counted 100 Neutrophils % (Manual) 68 % (45-75) Lymphocytes % (Manual) 20 % (20-45) Monocytes % (Manual) 8 % (1-10) Eosinophils % (Manual) 2 % (0-3) Basophils % (Manual) 2 % (0-2) Band Neutrophils 0 % (0-8) Platelet Estimate Adequate Platelet Morphology Normal Hypochromasia 3+ Anisocytosis 1+ Prothrombin Time 17.4 SEC (9.30-11.50) H Prothromb Time International Ratio 1.7 (0.9-1.1) H Sodium Level 142 MMOL/L (136-145) Potassium Level 4.4 MMOL/L (3.5-5.1) Chloride Level 104 MMOL/L (98-107) Carbon Dioxide Level 25 MMOL/L (21-32) Anion Gap 13 mmol/L (5-15) Blood Urea Nitrogen 26 mg/dL (7-18) H Creatinine 4.8 MG/DL (0.55-1.30) H Estimat Glomerular Filtration Rate 14.8 mL/min (>60) Glucose Level 88 MG/DL (74-106) Calcium Level 8.6 MG/DL (8.5-10.1) Troponin I 0.035 ng/mL (0.000-0.056) Microbiology Date/Time Source Procedure Growth Status 07/09/19 19:30 Blood Blood Culture - Preliminary NO GROWTH AFTER 24 HOURS Resulted 07/09/19 19:15 Blood Blood Culture - Preliminary NO GROWTH AFTER 24 HOURS Resulted 07/09/19 21:30 Urine,Clean Catch Urine Culture - Preliminary Gram Negative Masood Resulted Intake and Output 07/10/19 07/11/19 19:00 07:00 Intake Total 710 ml 480 ml Output Total 2000 ml Balance -1290 ml 480 ml Intake Oral 610 ml 480 ml IV Total 100 ml Hemodialysis UF 2000 ml # Voids 3 3 Objective PHYSICAL EXAMINATION: GENERAL: The patient is well-developed and well-nourished male, in no apparent distress. HEENT: Eyes, pupils are equal and responsive to light and accommodation. Extraocular movements are intact. NECK: Supple without lymphadenopathy. CHEST: Lungs are clear to auscultation bilaterally without wheezes or rales. CARDIOVASCULAR: Regular rhythm and rate. S1 and S2 are normal with an audible click. No evidence of murmurs or gallops. ABDOMEN: Soft, nontender, nondistended. Positive bowel sounds. No evidence of hepatosplenomegaly. Currently, no rebound or guarding noted. EXTREMITIES: Negative for clubbing, cyanosis, or edema. RECTAL/GENITAL: Not performed. NEUROLOGIC: Cranial nerves II through XII are grossly intact without focal deficits. Motor strength is 5/5 bilaterally. Deep tendon reflexes are 2+ plantar. Assessment/Plan Assessment/Plan ASSESSMENT: This is a 64-year-old male. 1. Chest pain. 2. Nausea with vomiting. 3. Mechanical mitral valve. 4. End-stage renal disease. 5. Diabetes type 2. 6. Hypertension. 7. Atrial flutter 8. severe anemia 9. Duodenitis TREATMENT: 1. Chest pain. A Cardiology consultation has been obtained with Dr. Beto Goldman. The patient has a mechanical mitral valve. An echocardiogram is pending. Serial troponin levels will be performed. We will follow recommendation of Cardiology. 2. Nausea and vomiting, this has resolved. 3. End-stage renal disease. A Nephrology consultation has been obtained with Dr. Valdez. We will follow recommendations of Nephrology. Next hemodialysis 07/12/19 4. Diabetes type 2. NovoLog sliding scale has been instituted. 5. Hypertension. Continue diltiazem, isosorbide, losartan and as needed clonidine as above. 6. Hypercholesterolemia. Continue atorvastatin 7. Atrial flutter-continue coumadin 8. cardiac stress test results from 07/01/19=poss ischemia 9. S/P transfusion 5 units PRBC; transfuse 1 unit PRBC during dialysis 07/11/19 10. S/P endoscopy and colonoscopy Saturnino Pleitez MD Jul 11, 2019 19:31
[2019-07-11 20:00] VITALS: BP 122/72
[2019-07-12] VITALS: BP 129/65
[2019-07-12 04:00] VITALS: BP 119/75
[2019-07-12] MEDS: NovoLOG Insulin Flexpen SUBQ SCH ×4 (05:28→20:48)
[2019-07-12 06:50] LABS: INR 1.9 (0.9-1.1)
[2019-07-12 07:01] LABS: BASOPHILS % (AUTO) 1.3 % (0.0-2.0); EOSINOPHILS % (AUTO) 3.5 % (0.0-3.0); HEMATOCRIT 24.1 % (42.0-52.0); LYMPHOCYTES % (AUTO) 22.4 % (20.0-45.0); MEAN CORPUSCULAR VOLUME 93 FL (80-99); MONOCYTES % (AUTO) 8.1 % (1.0-10.0); NEUTROPHILS % (AUTO) 64.7 % (45.0-75.0); PLATELET COUNT 323 K/UL (150-450); WHITE BLOOD COUNT 11.8 K/UL (4.8-10.8)
[2019-07-12 07:05] LABS: ALANINE AMINOTRANSFERASE 25 U/L (12-78); ALBUMIN 3.1 G/DL (3.4-5.0); ALKALINE PHOSPHATASE 70 U/L (46-116); ANION GAP 7 mmol/L (5-15); ASPARTATE AMINO TRANSFERASE 26 U/L (15-37); BILIRUBIN,TOTAL 0.7 MG/DL (0.2-1.0); BLOOD UREA NITROGEN 41 mg/dL (7-18); CALCIUM 8.6 MG/DL (8.5-10.1); CARBON DIOXIDE 30 MMOL/L (21-32); CHLORIDE 104 MMOL/L (98-107); CREATININE 6.7 MG/DL (0.55-1.30); PHOSPHORUS 3.5 MG/DL (2.5-4.9); POTASSIUM 4.8 MMOL/L (3.5-5.1); SODIUM 140 MMOL/L (136-145)
[2019-07-12 08:00] VITALS: BP 103/55
--- NOTE | 2019-07-12 08:21 | Nephrology Progress Note ---
Assessment/Plan Problem List: (1) ESRD (end stage renal disease) on dialysis (2) Diabetes mellitus (3) Anemia in chronic kidney disease Assessment: worse- symptomatic (4) Atrial flutter (5) H/O mitral valve replacement (6) Hepatitis C Assessment: by history Assessment End-stage renal disease, on hemodialysis every Monday, Monday, and Monday. Diabetes type 2. Hypertension. Hepatitis C. Mechanical mitral valve. Plan Worsening anemia, due for transfusion 1 unit of packed RBCs next dialysis July 11 today worsening Anemia- had partial of one unit transfusion- need more It appears that the patient have a GI bleed so Coumadin and aspirin stopped and GI procedure is scheduled Patient was dialyzed yesterday July 02. Was again dialyzed July 04 had an upper endoscopy which showed duodenitis Patient had colonoscopy July 04. Three or four colonic polyps in the rectosigmoid area. See above for details. 2. Internal hemorrhoids. Continue to transfuse and keep hemoglobin and hematocrit at the reasonable range Resume anticoagulation per cardiology advice keep BP and BS in check Per cardio. Subjective ROS Limited/Unobtainable: No Constitutional: Reports: malaise Objective Objective Last 24 Hour Vital Signs Date Time Temp Pulse Resp B/P (MAP) Pulse Ox O2 Delivery O2 Flow Rate FiO2 07/12/19 04:00 98.0 85 18 119/75 (90) 94 07/12/19 00:00 97.8 74 18 129/65 (86) 94 07/11/19 21:00 Room Air 07/11/19 20:39 75 122/72 07/11/19 20:00 97.9 75 18 122/72 (89) 94 07/11/19 15:51 97.8 82 19 121/66 (84) 95 07/11/19 11:59 97.4 65 18 143/63 (89) 93 07/11/19 09:00 Room Air Intake and Output 07/11/19 07/12/19 19:00 07:00 Intake Total 1900 ml Balance 1900 ml Other 1900 ml # Voids 2 Laboratory Tests 07/12/19 05:15: White Blood Count 11.8H, Red Blood Count 2.60L, Hemoglobin 8.0L, Hematocrit 24.1L, Mean Corpuscular Volume 93, Mean Corpuscular Hemoglobin 30.8, Mean Corpuscular Hemoglobin Concent 33.2, Red Cell Distribution Width 16.0H, Platelet Count 323, Mean Platelet Volume 8.1, Neutrophils (%) (Auto) 64.7, Lymphocytes (%) (Auto) 22.4, Monocytes (%) (Auto) 8.1, Eosinophils (%) (Auto) 3.5H, Basophils (%) (Auto) 1.3, Prothrombin Time 19.1H, Prothromb Time International Ratio 1.9H, Activated Partial Thromboplast Time 31, Sodium Level 140, Potassium Level 4.8, Chloride Level 104, Carbon Dioxide Level 30, Anion Gap 7, Blood Urea Nitrogen 41H, Creatinine 6.7H, Estimat Glomerular Filtration Rate 10.1, Glucose Level 79, Calcium Level 8.6, Phosphorus Level 3.5, Magnesium Level 2.1, Total Bilirubin 0.7, Aspartate Amino Transf (AST/SGOT) 26, Alanine Aminotransferase (ALT/SGPT) 25, Alkaline Phosphatase 70, Total Protein 6.3L, Albumin 3.1L, Globulin 3.2, Albumin/Globulin Ratio 1.0 Height (Feet): 6 Height (Inches): 1.00 Weight (Pounds): 167 General Appearance: no apparent distress Cardiovascular: normal rate Respiratory/Chest: decreased breath sounds Abdomen: soft Objective NO CHANGE Hang Valdez MD Jul 12, 2019 08:21
[2019-07-12] MEDS: Losartan 50mg tab ORAL SCH (09:00)
--- NOTE | 2019-07-12 09:43 | Infectious Diseases Prog Note ---
Assessment/Plan Assessment/Plan ASSESSMENT: The patient is a 64-year-old male with: Leukocytosis, improving UTI - UCX : 100k Ecoli : ESBL Afebrile ch Hep C +ve History of cardiac stent. History of hypertension. GERD. History of bladder cancer. End-stage renal disease, on dialysis. Left toe amputation. Diabetes. History of mitral valve and tricuspid valve repair. PLAN: Cont Amikacin # 1 and DC IV levaquin # 3 Monitor blood culture. Monitor CBC and BMP Monitor CXR Subjective Allergies: Coded Allergies: PENICILLINS (Verified Allergy, Severe, swelling of throat, 02/25/16) ACETAMINOPHEN (Verified Allergy, Intermediate, Generalized Itching , ) HYDROCODONE (Verified Allergy, Intermediate, Generalized Itching , 01/26/18 ) Subjective UC x: ESBL Objective Vital Signs Last 24 Hour Vital Signs Date Time Temp Pulse Resp B/P (MAP) Pulse Ox O2 Delivery O2 Flow Rate FiO2 07/12/19 04:00 98.0 85 18 119/75 (90) 94 07/12/19 00:00 97.8 74 18 129/65 (86) 94 07/11/19 21:00 Room Air 07/11/19 20:39 75 122/72 07/11/19 20:00 97.9 75 18 122/72 (89) 94 07/11/19 15:51 97.8 82 19 121/66 (84) 95 07/11/19 11:59 97.4 65 18 143/63 (89) 93 Height (Feet): 6 Height (Inches): 1.00 Weight (Pounds): 167 Respiratory/Chest: normal breath sounds Cardiovascular: regular rhythm Abdomen: no organomegaly Microbiology Date/Time Source Procedure Growth Status 07/09/19 19:30 Blood Blood Culture - Preliminary NO GROWTH AFTER 48 HOURS Resulted 07/09/19 19:15 Blood Blood Culture - Preliminary NO GROWTH AFTER 48 HOURS Resulted 07/09/19 21:30 Urine,Clean Catch Urine Culture - Final Escherichia Coli - Esbl Complete Laboratory Tests Test 07/12/19 05:15 White Blood Count 11.8 K/UL (4.8-10.8) H Red Blood Count 2.60 M/UL (4.70-6.10) L Hemoglobin 8.0 G/DL (14.2-18.0) L Hematocrit 24.1 % (42.0-52.0) L Mean Corpuscular Volume 93 FL (80-99) Mean Corpuscular Hemoglobin 30.8 PG (27.0-31.0) Mean Corpuscular Hemoglobin Concent 33.2 G/DL (32.0-36.0) Red Cell Distribution Width 16.0 % (11.6-14.8) H Platelet Count 323 K/UL (150-450) Mean Platelet Volume 8.1 FL (6.5-10.1) Neutrophils (%) (Auto) 64.7 % (45.0-75.0) Lymphocytes (%) (Auto) 22.4 % (20.0-45.0) Monocytes (%) (Auto) 8.1 % (1.0-10.0) Eosinophils (%) (Auto) 3.5 % (0.0-3.0) H Basophils (%) (Auto) 1.3 % (0.0-2.0) Prothrombin Time 19.1 SEC (9.30-11.50) H Prothromb Time International Ratio 1.9 (0.9-1.1) H Activated Partial Thromboplast Time 31 SEC (23-33) Sodium Level 140 MMOL/L (136-145) Potassium Level 4.8 MMOL/L (3.5-5.1) Chloride Level 104 MMOL/L (98-107) Carbon Dioxide Level 30 MMOL/L (21-32) Anion Gap 7 mmol/L (5-15) Blood Urea Nitrogen 41 mg/dL (7-18) H Creatinine 6.7 MG/DL (0.55-1.30) H Estimat Glomerular Filtration Rate 10.1 mL/min (>60) Glucose Level 79 MG/DL (74-106) Calcium Level 8.6 MG/DL (8.5-10.1) Phosphorus Level 3.5 MG/DL (2.5-4.9) Magnesium Level 2.1 MG/DL (1.8-2.4) Total Bilirubin 0.7 MG/DL (0.2-1.0) Aspartate Amino Transf (AST/SGOT) 26 U/L (15-37) Alanine Aminotransferase (ALT/SGPT) 25 U/L (12-78) Alkaline Phosphatase 70 U/L (46-116) Total Protein 6.3 G/DL (6.4-8.2) L Albumin 3.1 G/DL (3.4-5.0) L Globulin 3.2 g/dL Albumin/Globulin Ratio 1.0 (1.0-2.7) Current Medications Medications (Trade) Dose Ordered Sig/John Route PRN Reason Start Time Stop Time Status Last Admin Dose Admin Bisacodyl (Dulcolax) 10 mg DAILYPRN PRN RECTAL Constipation 07/06/19 15:00 07/27/19 14:59 Dextrose (Dextrose 50%) 25 ml Q30M PRN IV Hypoglycemia 07/05/19 14:30 07/27/19 00:00 Dextrose (Dextrose 50%) 50 ml Q30M PRN IV Hypoglycemia 07/05/19 14:30 07/27/19 00:00 Diphenhydramine HCl (Benadryl) 25 mg Q6H PRN IVP Itching 07/05/19 15:00 08/03/19 14:59 Docusate Sodium (Colace) 100 mg TID ORAL 07/05/19 18:00 07/27/19 20:59 07/11/19 17:36 Insulin Aspart (NovoLOG) BEFORE MEALS AND HS SUBQ 07/05/19 16:30 07/27/19 06:29 07/08/19 17:39 Levofloxacin 100 ml @ 100 mls/hr Q48H IVPB 07/10/19 11:00 07/17/19 10:59 07/10/19 15:00 Losartan Potassium (Cozaar) 50 mg DAILY ORAL 07/06/19 09:00 07/27/19 09:59 07/11/19 08:12 Metoprolol Tartrate (Lopressor) 25 mg Q12HR ORAL 07/05/19 21:00 07/27/19 00:59 07/11/19 20:39 Nitroglycerin (Ntg) 0.4 mg Q5M PRN SL Prn Chest Pain 07/05/19 14:30 07/27/19 00:00 07/10/19 10:10 Ondansetron HCl (Zofran) 4 mg Q6H PRN IVP Nausea & Vomiting 07/05/19 15:00 07/27/19 14:59 07/05/19 18:40 Pantoprazole (Protonix) 40 mg EVERY 12 HOURS ORAL 07/05/19 21:00 07/28/19 20:59 07/11/19 20:39 Polyethylene Glycol (Miralax) 17 gm DAILYPRN PRN ORAL Constipation 07/05/19 15:00 08/04/19 14:59 07/10/19 17:19 Sevelamer Carbonate (Renvela) 800 mg THREE TIMES A DAY ORAL 07/05/19 18:00 07/28/19 12:59 07/11/19 17:37 Warfarin Sodium (Coumadin per pharmacy) 1 ea DAILY PRN MISC Per rx protocol 07/05/19 15:00 08/04/19 14:59 Warfarin Sodium (Coumadin) 9 mg COUMADIN ONCE PO 07/12/19 17:00 07/12/19 17:01 Surjit Odom MD Jul 12, 2019 09:43
[2019-07-12] MEDS ORDERED: Amikacin Rx to dose MISC PRN (09:45)
--- NOTE | 2019-07-12 09:54 | General Progress Note ---
Assessment/Plan Problem List: (1) H/O mitral valve replacement ICD Codes: Z95.2 - Presence of prosthetic heart valve SNOMED: 07879461, 6330571094421 (2) Hepatitis C ICD Codes: B19.20 - Unspecified viral hepatitis C without hepatic coma SNOMED: 38423968 (3) COPD (chronic obstructive pulmonary disease) ICD Codes: J44.9 - Chronic obstructive pulmonary disease, unspecified SNOMED: 34198183 (4) Diabetes mellitus ICD Codes: E11.9 - Type 2 diabetes mellitus without complications SNOMED: 53108590 (5) Atrial fibrillation with rapid ventricular response ICD Codes: I48.91 - Unspecified atrial fibrillation SNOMED: 000884907999427 (6) GI bleed ICD Codes: K92.2 - Gastrointestinal hemorrhage, unspecified SNOMED: 13316975 (7) Warfarin overdosage ICD Codes: T45.511A - Poisoning by anticoagulants, accidental (unintentional), initial encounter SNOMED: 46329844, 10722538 Status: stable Assessment/Plan: s/p EGD and colonoscopy no active bleed on Coumadin per pharmacy fu labs hep C RNA positive>>> needs out patient fu for treatment cbc in am stool ob Subjective ROS Limited/Unobtainable: Yes Allergies: Coded Allergies: PENICILLINS (Verified Allergy, Severe, swelling of throat, 02/25/16) ACETAMINOPHEN (Verified Allergy, Intermediate, Generalized Itching , ) HYDROCODONE (Verified Allergy, Intermediate, Generalized Itching , 01/26/18 ) Objective Last 24 Hour Vital Signs Date Time Temp Pulse Resp B/P (MAP) Pulse Ox O2 Delivery O2 Flow Rate FiO2 07/12/19 04:00 98.0 85 18 119/75 (90) 94 07/12/19 00:00 97.8 74 18 129/65 (86) 94 07/11/19 21:00 Room Air 07/11/19 20:39 75 122/72 07/11/19 20:00 97.9 75 18 122/72 (89) 94 07/11/19 15:51 97.8 82 19 121/66 (84) 95 07/11/19 11:59 97.4 65 18 143/63 (89) 93 Intake and Output 07/11/19 07/12/19 19:00 07:00 Intake Total 1900 ml Balance 1900 ml Other 1900 ml # Voids 2 Laboratory Tests 07/12/19 05:15: White Blood Count 11.8H, Red Blood Count 2.60L, Hemoglobin 8.0L, Hematocrit 24.1L, Mean Corpuscular Volume 93, Mean Corpuscular Hemoglobin 30.8, Mean Corpuscular Hemoglobin Concent 33.2, Red Cell Distribution Width 16.0H, Platelet Count 323, Mean Platelet Volume 8.1, Neutrophils (%) (Auto) 64.7, Lymphocytes (%) (Auto) 22.4, Monocytes (%) (Auto) 8.1, Eosinophils (%) (Auto) 3.5H, Basophils (%) (Auto) 1.3, Prothrombin Time 19.1H, Prothromb Time International Ratio 1.9H, Activated Partial Thromboplast Time 31, Sodium Level 140, Potassium Level 4.8, Chloride Level 104, Carbon Dioxide Level 30, Anion Gap 7, Blood Urea Nitrogen 41H, Creatinine 6.7H, Estimat Glomerular Filtration Rate 10.1, Glucose Level 79, Calcium Level 8.6, Phosphorus Level 3.5, Magnesium Level 2.1, Total Bilirubin 0.7, Aspartate Amino Transf (AST/SGOT) 26, Alanine Aminotransferase (ALT/SGPT) 25, Alkaline Phosphatase 70, Total Protein 6.3L, Albumin 3.1L, Globulin 3.2, Albumin/Globulin Ratio 1.0 Height (Feet): 6 Height (Inches): 1.00 Weight (Pounds): 167 General Appearance: no apparent distress EENT: normal ENT inspection Neck: supple Cardiovascular: normal rate Respiratory/Chest: decreased breath sounds Abdomen: normal bowel sounds, non tender, soft Extremities: non-tender Tung Steen MD Jul 12, 2019 09:54
[2019-07-12] MEDS: Docusate 100mg cap ORAL SCH ×3 (10:18→18:10)
[2019-07-12 12:00] VITALS: BP 110/53
[2019-07-12] MEDS ORDERED: NS IV SCH (12:00)
[2019-07-12] MEDS ORDERED: AMIKACIN IV SCH (12:00)
--- NOTE | 2019-07-12 12:23 | Pulmonology Progress Note ---
Assessment/Plan Problems: (1) Anemia in chronic kidney disease Assessment & Plan: s/p 5 units of prbc, (2) Leukocytosis Assessment & Plan: on amikacin now (3) Atrial fibrillation with rapid ventricular response Assessment & Plan: sinus now, on Coumadin INR is subtherapeutic (4) COPD (chronic obstructive pulmonary disease) (5) ESRD (end stage renal disease) on dialysis (6) H/O mitral valve replacement (7) Hepatitis C (8) Nicotine addiction (9) History of hypertension (10) Diabetes mellitus Assessment/Plan H/h stable in the last few days doing better heart rate controlled, sinus around 80's respiratory treatment titrate fiO2 to sat of 92% symptomatic treatment h/h stable might go home with IV amikacin set up at home as per ID check INR, not therapeutic yet. its 1.9 Subjective ROS Limited/Unobtainable: No Constitutional: Reports: no symptoms HEENT: Repors: no symptoms Respiratory: Reports: no symptoms Allergies: Coded Allergies: PENICILLINS (Verified Allergy, Severe, swelling of throat, 02/25/16) ACETAMINOPHEN (Verified Allergy, Intermediate, Generalized Itching , ) HYDROCODONE (Verified Allergy, Intermediate, Generalized Itching , 01/26/18 ) Objective Last 24 Hour Vital Signs Date Time Temp Pulse Resp B/P (MAP) Pulse Ox O2 Delivery O2 Flow Rate FiO2 07/12/19 04:00 98.0 85 18 119/75 (90) 94 07/12/19 00:00 97.8 74 18 129/65 (86) 94 07/11/19 21:00 Room Air 07/11/19 20:39 75 122/72 07/11/19 20:00 97.9 75 18 122/72 (89) 94 07/11/19 15:51 97.8 82 19 121/66 (84) 95 Intake and Output 07/11/19 07/12/19 19:00 07:00 Intake Total 1900 ml Balance 1900 ml Other 1900 ml # Voids 2 Objective no new complains General Appearance: WD/WN HEENT: normocephalic, atraumatic Respiratory/Chest: chest wall non-tender, normal breath sounds Abdomen: normal bowel sounds, no organomegaly Genitourinary: normal external genitalia Skin: no rash Microbiology Date/Time Source Procedure Growth Status 07/09/19 19:30 Blood Blood Culture - Preliminary NO GROWTH AFTER 48 HOURS Resulted 07/09/19 19:15 Blood Blood Culture - Preliminary NO GROWTH AFTER 48 HOURS Resulted 07/09/19 21:30 Urine,Clean Catch Urine Culture - Final Escherichia Coli - Esbl Complete Laboratory Tests 07/12/19 05:15: White Blood Count 11.8H, Red Blood Count 2.60L, Hemoglobin 8.0L, Hematocrit 24.1L, Mean Corpuscular Volume 93, Mean Corpuscular Hemoglobin 30.8, Mean Corpuscular Hemoglobin Concent 33.2, Red Cell Distribution Width 16.0H, Platelet Count 323, Mean Platelet Volume 8.1, Neutrophils (%) (Auto) 64.7, Lymphocytes (%) (Auto) 22.4, Monocytes (%) (Auto) 8.1, Eosinophils (%) (Auto) 3.5H, Basophils (%) (Auto) 1.3, Prothrombin Time 19.1H, Prothromb Time International Ratio 1.9H, Activated Partial Thromboplast Time 31, Sodium Level 140, Potassium Level 4.8, Chloride Level 104, Carbon Dioxide Level 30, Anion Gap 7, Blood Urea Nitrogen 41H, Creatinine 6.7H, Estimat Glomerular Filtration Rate 10.1, Glucose Level 79, Calcium Level 8.6, Phosphorus Level 3.5, Magnesium Level 2.1, Total Bilirubin 0.7, Aspartate Amino Transf (AST/SGOT) 26, Alanine Aminotransferase (ALT/SGPT) 25, Alkaline Phosphatase 70, Total Protein 6.3L, Albumin 3.1L, Globulin 3.2, Albumin/Globulin Ratio 1.0 Current Medications Medications (Trade) Dose Ordered Sig/John Route PRN Reason Start Time Stop Time Status Last Admin Dose Admin Amikacin Protocol (Amikacin pharmacy to dose) 1 ea DAILY PRN MISC Per rx protocol 07/12/19 09:45 08/11/19 09:44 Amikacin Sulfate 600 mg/Sodium Chloride 57.4 ml @ 114.8 mls/ hr Q8H IV 07/12/19 12:00 07/19/19 11:59 Bisacodyl (Dulcolax) 10 mg DAILYPRN PRN RECTAL Constipation 07/06/19 15:00 07/27/19 14:59 Dextrose (Dextrose 50%) 25 ml Q30M PRN IV Hypoglycemia 07/05/19 14:30 07/27/19 00:00 Dextrose (Dextrose 50%) 50 ml Q30M PRN IV Hypoglycemia 07/05/19 14:30 07/27/19 00:00 Diphenhydramine HCl (Benadryl) 25 mg Q6H PRN IVP Itching 07/05/19 15:00 08/03/19 14:59 Docusate Sodium (Colace) 100 mg TID ORAL 07/05/19 18:00 07/27/19 20:59 07/12/19 10:18 Insulin Aspart (NovoLOG) BEFORE MEALS AND HS SUBQ 07/05/19 16:30 07/27/19 06:29 07/08/19 17:39 Losartan Potassium (Cozaar) 50 mg DAILY ORAL 07/06/19 09:00 07/27/19 09:59 07/11/19 08:12 Metoprolol Tartrate (Lopressor) 25 mg Q12HR ORAL 07/05/19 21:00 07/27/19 00:59 07/11/19 20:39 Nitroglycerin (Ntg) 0.4 mg Q5M PRN SL Prn Chest Pain 07/05/19 14:30 07/27/19 00:00 07/10/19 10:10 Ondansetron HCl (Zofran) 4 mg Q6H PRN IVP Nausea & Vomiting 07/05/19 15:00 07/27/19 14:59 07/05/19 18:40 Pantoprazole (Protonix) 40 mg EVERY 12 HOURS ORAL 07/05/19 21:00 07/28/19 20:59 07/12/19 10:18 Polyethylene Glycol (Miralax) 17 gm DAILYPRN PRN ORAL Constipation 07/05/19 15:00 08/04/19 14:59 07/10/19 17:19 Sevelamer Carbonate (Renvela) 800 mg THREE TIMES A DAY ORAL 07/05/19 18:00 07/28/19 12:59 07/11/19 17:37 Warfarin Sodium (Coumadin per pharmacy) 1 ea DAILY PRN MISC Per rx protocol 07/05/19 15:00 08/04/19 14:59 Warfarin Sodium (Coumadin) 9 mg COUMADIN ONCE PO 07/12/19 17:00 07/12/19 17:01 Caleb Hinojosa MD 13, 2020 12:23
--- NOTE | 2019-07-12 15:34 | Internal Med Progress Note ---
Subjective Physician Name Brian Alicea Attending Physician Brian Alicea MD Current Medications Medications (Trade) Dose Ordered Sig/John Route PRN Reason Start Time Stop Time Status Last Admin Dose Admin Amikacin Protocol (Amikacin pharmacy to dose) 1 ea DAILY PRN MISC Per rx protocol 07/12/19 09:45 08/11/19 09:44 Amikacin Sulfate 600 mg/Sodium Chloride 57.4 ml @ 114.8 mls/ hr Q8H IV 07/12/19 12:00 07/19/19 11:59 07/12/19 12:55 Bisacodyl (Dulcolax) 10 mg DAILYPRN PRN RECTAL Constipation 07/06/19 15:00 07/27/19 14:59 Dextrose (Dextrose 50%) 25 ml Q30M PRN IV Hypoglycemia 07/05/19 14:30 07/27/19 00:00 Dextrose (Dextrose 50%) 50 ml Q30M PRN IV Hypoglycemia 07/05/19 14:30 07/27/19 00:00 Diphenhydramine HCl (Benadryl) 25 mg Q6H PRN IVP Itching 07/05/19 15:00 08/03/19 14:59 Docusate Sodium (Colace) 100 mg TID ORAL 07/05/19 18:00 07/27/19 20:59 07/12/19 12:50 Insulin Aspart (NovoLOG) BEFORE MEALS AND HS SUBQ 07/05/19 16:30 07/27/19 06:29 07/08/19 17:39 Losartan Potassium (Cozaar) 50 mg DAILY ORAL 07/06/19 09:00 07/27/19 09:59 07/11/19 08:12 Metoprolol Tartrate (Lopressor) 25 mg Q12HR ORAL 07/05/19 21:00 07/27/19 00:59 07/11/19 20:39 Nitroglycerin (Ntg) 0.4 mg Q5M PRN SL Prn Chest Pain 07/05/19 14:30 07/27/19 00:00 07/10/19 10:10 Ondansetron HCl (Zofran) 4 mg Q6H PRN IVP Nausea & Vomiting 07/05/19 15:00 07/27/19 14:59 07/05/19 18:40 Pantoprazole (Protonix) 40 mg EVERY 12 HOURS ORAL 07/05/19 21:00 07/28/19 20:59 07/12/19 10:18 Polyethylene Glycol (Miralax) 17 gm DAILYPRN PRN ORAL Constipation 07/05/19 15:00 08/04/19 14:59 07/10/19 17:19 Sevelamer Carbonate (Renvela) 800 mg THREE TIMES A DAY ORAL 07/05/19 18:00 07/28/19 12:59 07/12/19 12:50 Warfarin Sodium (Coumadin per pharmacy) 1 ea DAILY PRN MISC Per rx protocol 07/05/19 15:00 08/04/19 14:59 Warfarin Sodium (Coumadin) 9 mg COUMADIN ONCE PO 07/12/19 17:00 07/12/19 17:01 Allergies: Coded Allergies: PENICILLINS (Verified Allergy, Severe, swelling of throat, 02/25/16) ACETAMINOPHEN (Verified Allergy, Intermediate, Generalized Itching , ) HYDROCODONE (Verified Allergy, Intermediate, Generalized Itching , 01/26/18 ) Subjective Wake, alert, responsive, denies any chest pain or shortness of breath, WBC: 11.8 , RBC: 8.0. Objective Last Vital Signs Date Time Temp Pulse Resp B/P (MAP) Pulse Ox O2 Delivery O2 Flow Rate FiO2 07/12/19 04:00 98.0 85 18 119/75 (90) 94 07/11/19 21:00 Room Air 07/10/19 09:44 21 07/05/19 13:00 3 Laboratory Tests Test 07/12/19 05:15 White Blood Count 11.8 K/UL (4.8-10.8) H Red Blood Count 2.60 M/UL (4.70-6.10) L Hemoglobin 8.0 G/DL (14.2-18.0) L Hematocrit 24.1 % (42.0-52.0) L Mean Corpuscular Volume 93 FL (80-99) Mean Corpuscular Hemoglobin 30.8 PG (27.0-31.0) Mean Corpuscular Hemoglobin Concent 33.2 G/DL (32.0-36.0) Red Cell Distribution Width 16.0 % (11.6-14.8) H Platelet Count 323 K/UL (150-450) Mean Platelet Volume 8.1 FL (6.5-10.1) Neutrophils (%) (Auto) 64.7 % (45.0-75.0) Lymphocytes (%) (Auto) 22.4 % (20.0-45.0) Monocytes (%) (Auto) 8.1 % (1.0-10.0) Eosinophils (%) (Auto) 3.5 % (0.0-3.0) H Basophils (%) (Auto) 1.3 % (0.0-2.0) Prothrombin Time 19.1 SEC (9.30-11.50) H Prothromb Time International Ratio 1.9 (0.9-1.1) H Activated Partial Thromboplast Time 31 SEC (23-33) Sodium Level 140 MMOL/L (136-145) Potassium Level 4.8 MMOL/L (3.5-5.1) Chloride Level 104 MMOL/L (98-107) Carbon Dioxide Level 30 MMOL/L (21-32) Anion Gap 7 mmol/L (5-15) Blood Urea Nitrogen 41 mg/dL (7-18) H Creatinine 6.7 MG/DL (0.55-1.30) H Estimat Glomerular Filtration Rate 10.1 mL/min (>60) Glucose Level 79 MG/DL (74-106) Calcium Level 8.6 MG/DL (8.5-10.1) Phosphorus Level 3.5 MG/DL (2.5-4.9) Magnesium Level 2.1 MG/DL (1.8-2.4) Total Bilirubin 0.7 MG/DL (0.2-1.0) Aspartate Amino Transf (AST/SGOT) 26 U/L (15-37) Alanine Aminotransferase (ALT/SGPT) 25 U/L (12-78) Alkaline Phosphatase 70 U/L (46-116) Total Protein 6.3 G/DL (6.4-8.2) L Albumin 3.1 G/DL (3.4-5.0) L Globulin 3.2 g/dL Albumin/Globulin Ratio 1.0 (1.0-2.7) Microbiology Date/Time Source Procedure Growth Status 07/09/19 19:30 Blood Blood Culture - Preliminary NO GROWTH AFTER 48 HOURS Resulted 07/09/19 19:15 Blood Blood Culture - Preliminary NO GROWTH AFTER 48 HOURS Resulted 07/09/19 21:30 Urine,Clean Catch Urine Culture - Final Escherichia Coli - Esbl Complete Intake and Output 07/11/19 07/12/19 19:00 07:00 Intake Total 1900 ml Balance 1900 ml Other 1900 ml # Voids 2 Objective General: No acute distress, awake and alert HEENT: NCAT, sclera anicteric, PERRL, EOMI. Neck: Supple, no significant jugular venous distention, Lungs: Fair inspiratory effort, no Wheeze or Rales. Heart: Regular rate and rhythm, normal S1/S2, no murmurs, + Click Abdomen: soft, nontender, nondistended. Normoactive bowel sounds, + Obesity. Extremities: No Cyanosis , clubbing or edema. Neuro: A&O x 3, Able to move all extremities, LUE AVF. Skin: warm, no rashes or lesions Psych: Normal mood and affect Assessment/Plan Assessment/Plan ASSESSMENT: This is a 64-year-old male. 1. Chest pain. 2. Nausea with vomiting. 3. Mechanical mitral valve. 4. End-stage renal disease. 5. Diabetes type 2. 6. Hypertension. 7. Atrial flutter 8. severe anemia 9. ESBL E. coli UTI TREATMENT: 1. Chest pain. A Cardiology consultation has been obtained with Dr. Beto Goldman. The patient has a mechanical mitral valve. An echocardiogram is pending. Serial troponin levels will be performed. We will follow recommendation of Cardiology. 2. Nausea and vomiting, this has resolved. 3. End-stage renal disease. A Nephrology consultation has been obtained with Dr. Valdez. 4. Diabetes type 2. NovoLog sliding scale has been instituted. 5. Hypertension. Continue diltiazem, isosorbide, losartan and as needed clonidine as above. 6. Hypercholesterolemia. Continue atorvastatin 7. Atrial flutter-continue Coumadin 8. Abx: Amikacin. DC Planning to Home with . Brian Alicea MD Jul 12, 2019 15:34
[2019-07-12 16:00] VITALS: BP 137/73
[2019-07-12] MEDS ORDERED: Warfarin Sod 4 MG, Warfarin Sod 5 MG PO ONE ×2 (17:00)
--- NOTE | 2019-07-12 18:37 | Cardiac Electrophysiology PN ---
Assessment/Plan Assessment/Plan 1. Atrial flutter, converted to SR. On metoprolol 25 mg b.i.d. Coumadin resumed EPS and ablation as out patient. EF 55% 2. Chest pain. Ruled out for myocardial infarction. Denies any chest pain. It could be due to volume overload. Stress test 07/02/19 showed: Hypoperfusion to the inferior wall worse on stress. Possibilities include an inferior wall infarct with lexie-infarct ischemia versus diaphragmatic attenuation. Refused Cardiac cath . Continue on medical therapy 3. S/P [facility] MVR and TV Ring 07/2017 at [facility] N[facility] valve Fx on echo 4. Hypertension, on metoprolol 25 mg b.i.d., losartan 50 mg daily and hemodialysis. 5. End-stage renal disease, on hemodialysis. 6. Diabetes, on insulin. 7. Hep C 8. Acute anemia Hb 12 to 6.5! Got 3 unit of blood. Getting another unit S/P EGD and colonoscopy by Dr Steen No active bleed. 9. Elevated WBC. FU ID DW RN Subjective Subjective On NMB. No CP or SOB. Awiaitng PRBC with HD tonight. Objective Last 24 Hour Vital Signs Date Time Temp Pulse Resp B/P (MAP) Pulse Ox O2 Delivery O2 Flow Rate FiO2 07/12/19 04:00 98.0 85 18 119/75 (90) 94 07/12/19 00:00 97.8 74 18 129/65 (86) 94 07/11/19 21:00 Room Air 07/11/19 20:39 75 122/72 07/11/19 20:00 97.9 75 18 122/72 (89) 94 Intake and Output 07/11/19 07/12/19 19:00 07:00 Intake Total 1900 ml Balance 1900 ml Other 1900 ml # Voids 2 Laboratory Tests Test 07/12/19 05:15 White Blood Count 11.8 K/UL (4.8-10.8) H Red Blood Count 2.60 M/UL (4.70-6.10) L Hemoglobin 8.0 G/DL (14.2-18.0) L Hematocrit 24.1 % (42.0-52.0) L Mean Corpuscular Volume 93 FL (80-99) Mean Corpuscular Hemoglobin 30.8 PG (27.0-31.0) Mean Corpuscular Hemoglobin Concent 33.2 G/DL (32.0-36.0) Red Cell Distribution Width 16.0 % (11.6-14.8) H Platelet Count 323 K/UL (150-450) Mean Platelet Volume 8.1 FL (6.5-10.1) Neutrophils (%) (Auto) 64.7 % (45.0-75.0) Lymphocytes (%) (Auto) 22.4 % (20.0-45.0) Monocytes (%) (Auto) 8.1 % (1.0-10.0) Eosinophils (%) (Auto) 3.5 % (0.0-3.0) H Basophils (%) (Auto) 1.3 % (0.0-2.0) Prothrombin Time 19.1 SEC (9.30-11.50) H Prothromb Time International Ratio 1.9 (0.9-1.1) H Activated Partial Thromboplast Time 31 SEC (23-33) Sodium Level 140 MMOL/L (136-145) Potassium Level 4.8 MMOL/L (3.5-5.1) Chloride Level 104 MMOL/L (98-107) Carbon Dioxide Level 30 MMOL/L (21-32) Anion Gap 7 mmol/L (5-15) Blood Urea Nitrogen 41 mg/dL (7-18) H Creatinine 6.7 MG/DL (0.55-1.30) H Estimat Glomerular Filtration Rate 10.1 mL/min (>60) Glucose Level 79 MG/DL (74-106) Calcium Level 8.6 MG/DL (8.5-10.1) Phosphorus Level 3.5 MG/DL (2.5-4.9) Magnesium Level 2.1 MG/DL (1.8-2.4) Total Bilirubin 0.7 MG/DL (0.2-1.0) Aspartate Amino Transf (AST/SGOT) 26 U/L (15-37) Alanine Aminotransferase (ALT/SGPT) 25 U/L (12-78) Alkaline Phosphatase 70 U/L (46-116) Total Protein 6.3 G/DL (6.4-8.2) L Albumin 3.1 G/DL (3.4-5.0) L Globulin 3.2 g/dL Albumin/Globulin Ratio 1.0 (1.0-2.7) Microbiology Date/Time Source Procedure Growth Status 07/09/19 19:30 Blood Blood Culture - Preliminary NO GROWTH AFTER 48 HOURS Resulted 07/09/19 19:15 Blood Blood Culture - Preliminary NO GROWTH AFTER 48 HOURS Resulted 07/09/19 21:30 Urine,Clean Catch Urine Culture - Final Escherichia Coli - Esbl Complete Objective HEAD AND NECK: No JVD or carotid bruit. LUNGS: Clear. CARDIOVASCULAR: Regular S1 and S2 with metallic first heart sounds. LUNGS: Clear. ABDOMEN: Soft. EXTREMITIES: No pitting edema. Beto Goldman MD Jul 12, 2019 18:37
[2019-07-12 20:00] VITALS: BP 130/74
[2019-07-13] VITALS: BP 139/77
[2019-07-13 04:00] VITALS: BP 142/78
[2019-07-13] MEDS: NovoLOG Insulin Flexpen SUBQ SCH ×4 (05:35→21:00)
--- NOTE | 2019-07-13 07:28 | Infectious Diseases Prog Note ---
Assessment/Plan Assessment/Plan ASSESSMENT: The patient is a 64-year-old male with: Leukocytosis, improving UTI - UCX : 100k Ecoli : ESBL Afebrile ch Hep C +ve History of cardiac stent. History of hypertension. GERD. History of bladder cancer. End-stage renal disease, on dialysis. Left toe amputation. Diabetes. History of mitral valve and tricuspid valve repair. PLAN: Cont Amikacin # 2/7. can complete course with Bactrim once ready for DC home. 07/11 SP IV levaquin # 3 Monitor blood culture. Monitor CBC and BMP Monitor CXR discussed with RN Subjective Allergies: Coded Allergies: PENICILLINS (Verified Allergy, Severe, swelling of throat, 02/25/16) ACETAMINOPHEN (Verified Allergy, Intermediate, Generalized Itching , ) HYDROCODONE (Verified Allergy, Intermediate, Generalized Itching , 01/26/18 ) Subjective Afebrile. RA. feels well Objective Vital Signs Last 24 Hour Vital Signs Date Time Temp Pulse Resp B/P (MAP) Pulse Ox O2 Delivery O2 Flow Rate FiO2 07/13/19 04:00 98.2 70 19 142/78 (99) 96 07/13/19 00:00 97.5 72 19 139/77 (97) 98 07/12/19 21:00 Room Air 07/12/19 20:47 80 130/74 07/12/19 20:00 97.8 80 19 130/74 (92) 98 07/12/19 16:00 98.9 75 18 137/73 (94) 96 07/12/19 12:00 98.1 67 17 110/53 (72) 96 07/12/19 09:00 Room Air 07/12/19 08:00 97.5 69 17 103/55 (71) 98 Height (Feet): 6 Height (Inches): 1.00 Weight (Pounds): 167 General Appearance: no acute distress HEENT: normocephalic Respiratory/Chest: no respiratory distress, no accessory muscle use Cardiovascular: normal rate, regular rhythm Abdomen: soft, non tender, no mass Laboratory Tests Test 07/13/19 04:00 Prothrombin Time Pending Prothromb Time International Ratio Pending Current Medications Medications (Trade) Dose Ordered Sig/John Route PRN Reason Start Time Stop Time Status Last Admin Dose Admin Amikacin Protocol (Amikacin pharmacy to dose) 1 ea DAILY PRN MISC Per rx protocol 07/12/19 09:45 08/11/19 09:44 Bisacodyl (Dulcolax) 10 mg DAILYPRN PRN RECTAL Constipation 07/06/19 15:00 07/27/19 14:59 Dextrose (Dextrose 50%) 25 ml Q30M PRN IV Hypoglycemia 07/05/19 14:30 07/27/19 00:00 Dextrose (Dextrose 50%) 50 ml Q30M PRN IV Hypoglycemia 07/05/19 14:30 07/27/19 00:00 Diphenhydramine HCl (Benadryl) 25 mg Q6H PRN IVP Itching 07/05/19 15:00 08/03/19 14:59 Docusate Sodium (Colace) 100 mg TID ORAL 07/05/19 18:00 07/27/19 20:59 07/12/19 18:10 Insulin Aspart (NovoLOG) BEFORE MEALS AND HS SUBQ 07/05/19 16:30 07/27/19 06:29 07/08/19 17:39 Losartan Potassium (Cozaar) 50 mg DAILY ORAL 07/06/19 09:00 07/27/19 09:59 07/11/19 08:12 Metoprolol Tartrate (Lopressor) 25 mg Q12HR ORAL 07/05/19 21:00 07/27/19 00:59 07/11/19 20:39 Nitroglycerin (Ntg) 0.4 mg Q5M PRN SL Prn Chest Pain 07/05/19 14:30 07/27/19 00:00 07/10/19 10:10 Ondansetron HCl (Zofran) 4 mg Q6H PRN IVP Nausea & Vomiting 07/05/19 15:00 07/27/19 14:59 07/05/19 18:40 Pantoprazole (Protonix) 40 mg EVERY 12 HOURS ORAL 07/05/19 21:00 07/28/19 20:59 07/12/19 20:48 Polyethylene Glycol (Miralax) 17 gm DAILYPRN PRN ORAL Constipation 07/05/19 15:00 08/04/19 14:59 07/10/19 17:19 Sevelamer Carbonate (Renvela) 800 mg THREE TIMES A DAY ORAL 07/05/19 18:00 07/28/19 12:59 07/12/19 18:09 Warfarin Sodium (Coumadin per pharmacy) 1 ea DAILY PRN MISC Per rx protocol 07/05/19 15:00 08/04/19 14:59 Dora Mandujano MD Jul 13, 2019 07:28
[2019-07-13 08:00] VITALS: BP 144/73
[2019-07-13 08:00] LABS: INR 2.1 (0.9-1.1)
[2019-07-13 08:03] LABS: BASOPHILS % (AUTO) 0.6 % (0.0-2.0); EOSINOPHILS % (AUTO) 2.6 % (0.0-3.0); HEMOGLOBIN 9.1 G/DL (14.2-18.0); LYMPHOCYTES % (AUTO) 16.9 % (20.0-45.0); MEAN CORPUSCULAR VOLUME 90 FL (80-99); MONOCYTES % (AUTO) 7.6 % (1.0-10.0); NEUTROPHILS % (AUTO) 72.2 % (45.0-75.0); PLATELET COUNT 326 K/UL (150-450); RED BLOOD COUNT 2.89 M/UL (4.70-6.10); RED CELL DISTRIBUTION WIDTH 15.1 % (11.6-14.8); WHITE BLOOD COUNT 10.7 K/UL (4.8-10.8)
[2019-07-13 08:39] LABS: ANION GAP 6 mmol/L (5-15); BLOOD UREA NITROGEN 21 mg/dL (7-18); CARBON DIOXIDE 32 MMOL/L (21-32); CHLORIDE 106 MMOL/L (98-107); CREATININE 3.9 MG/DL (0.55-1.30); POTASSIUM 4.1 MMOL/L (3.5-5.1); SODIUM 144 MMOL/L (136-145)
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
--- NOTE | 2019-07-13 09:06 | Nephrology Progress Note ---
Assessment/Plan Problem List: (1) ESRD (end stage renal disease) on dialysis (2) Diabetes mellitus (3) Anemia in chronic kidney disease Assessment: worse- symptomatic (4) Atrial flutter (5) H/O mitral valve replacement (6) Hepatitis C Assessment: by history Assessment End-stage renal disease, on hemodialysis every Monday, Monday, and Monday. Diabetes type 2. Hypertension. Hepatitis C. Mechanical mitral valve. Plan Hemoglobin stable Discharge planning in process Previously Worsening anemia, due for transfusion 1 unit of packed RBCs Last dialysis July 11 next dialysis will be for July 14 worsening Anemia- had partial of one unit transfusion- need more It appears that the patient have a GI bleed so Coumadin and aspirin stopped and GI procedure is scheduled Patient was dialyzed yesterday July 02. Was again dialyzed July 04 had an upper endoscopy which showed duodenitis Patient had colonoscopy July 04 1. Three or four colonic polyps in the rectosigmoid area. See above for details. 2. Internal hemorrhoids. Continue to transfuse and keep hemoglobin and hematocrit at the reasonable range Resume anticoagulation per cardiology advice keep BP and BS in check Per cardio. Subjective ROS Limited/Unobtainable: No Objective Objective Last 24 Hour Vital Signs Date Time Temp Pulse Resp B/P (MAP) Pulse Ox O2 Delivery O2 Flow Rate FiO2 07/13/19 04:00 98.2 70 19 142/78 (99) 96 07/13/19 00:00 97.5 72 19 139/77 (97) 98 07/12/19 21:00 Room Air 07/12/19 20:47 80 130/74 07/12/19 20:00 97.8 80 19 130/74 (92) 98 07/12/19 16:00 98.9 75 18 137/73 (94) 96 07/12/19 12:00 98.1 67 17 110/53 (72) 96 Intake and Output 07/12/19 07/13/19 19:00 07:00 Intake Total 2000 ml 2000 ml Output Total 2000 ml Balance 2000 ml 0 ml Hemodialysis 2000 ml Other 2000 ml Hemodialysis UF 2000 ml # Voids 1 Current Medications Medications (Trade) Dose Ordered Sig/John Route PRN Reason Start Time Stop Time Status Last Admin Dose Admin Amikacin Protocol (Amikacin pharmacy to dose) 1 ea DAILY PRN MISC Per rx protocol 07/12/19 09:45 08/11/19 09:44 Bisacodyl (Dulcolax) 10 mg DAILYPRN PRN RECTAL Constipation 07/06/19 15:00 07/27/19 14:59 Dextrose (Dextrose 50%) 25 ml Q30M PRN IV Hypoglycemia 07/05/19 14:30 07/27/19 00:00 Dextrose (Dextrose 50%) 50 ml Q30M PRN IV Hypoglycemia 07/05/19 14:30 07/27/19 00:00 Diphenhydramine HCl (Benadryl) 25 mg Q6H PRN IVP Itching 07/05/19 15:00 08/03/19 14:59 Docusate Sodium (Colace) 100 mg TID ORAL 07/05/19 18:00 07/27/19 20:59 07/12/19 18:10 Insulin Aspart (NovoLOG) BEFORE MEALS AND HS SUBQ 07/05/19 16:30 07/27/19 06:29 07/08/19 17:39 Losartan Potassium (Cozaar) 50 mg DAILY ORAL 07/06/19 09:00 07/27/19 09:59 07/11/19 08:12 Metoprolol Tartrate (Lopressor) 25 mg Q12HR ORAL 07/05/19 21:00 07/27/19 00:59 07/11/19 20:39 Nitroglycerin (Ntg) 0.4 mg Q5M PRN SL Prn Chest Pain 07/05/19 14:30 07/27/19 00:00 07/10/19 10:10 Ondansetron HCl (Zofran) 4 mg Q6H PRN IVP Nausea & Vomiting 07/05/19 15:00 07/27/19 14:59 07/05/19 18:40 Pantoprazole (Protonix) 40 mg EVERY 12 HOURS ORAL 07/05/19 21:00 07/28/19 20:59 07/12/19 20:48 Polyethylene Glycol (Miralax) 17 gm DAILYPRN PRN ORAL Constipation 07/05/19 15:00 08/04/19 14:59 07/10/19 17:19 Sevelamer Carbonate (Renvela) 800 mg THREE TIMES A DAY ORAL 07/05/19 18:00 07/28/19 12:59 07/12/19 18:09 Warfarin Sodium (Coumadin per pharmacy) 1 ea DAILY PRN MISC Per rx protocol 07/05/19 15:00 08/04/19 14:59 Warfarin Sodium (Coumadin) 9 mg COUMADIN ONCE PO 07/13/19 17:00 07/13/19 17:01 Laboratory Tests 07/13/19 05:25: White Blood Count 10.7, Red Blood Count 2.89L, Hemoglobin 9.1L, Hematocrit 26.0L , Mean Corpuscular Volume 90, Mean Corpuscular Hemoglobin 31.5H, Mean Corpuscular Hemoglobin Concent 34.9, Red Cell Distribution Width 15.1H, Platelet Count 326, Mean Platelet Volume 8.0, Neutrophils (%) (Auto) 72.2, Lymphocytes (%) (Auto) 16.9L, Monocytes (%) (Auto) 7.6, Eosinophils (%) (Auto) 2.6, Basophils (%) (Auto) 0.6, Prothrombin Time 21.9H, Prothromb Time International Ratio 2.1H, Sodium Level 144, Potassium Level 4.1, Chloride Level 106, Carbon Dioxide Level 32, Anion Gap 6, Blood Urea Nitrogen 21H, Creatinine 3.9H, Estimat Glomerular Filtration Rate 18.8, Glucose Level 74, Calcium Level 9.0 Height (Feet): 6 Height (Inches): 1.00 Weight (Pounds): 167 General Appearance: no apparent distress Cardiovascular: normal rate Respiratory/Chest: lungs clear Abdomen: soft Objective NO CHANGE Hang Valdez MD Jul 13, 2019 09:06
[2019-07-13] MEDS: Docusate 100mg cap ORAL SCH ×3 (09:09→17:26)
[2019-07-13] MEDS: Losartan 50mg tab ORAL SCH (09:09)
[2019-07-13 12:00] VITALS: BP 143/77
--- NOTE | 2019-07-13 14:26 | Cardiac Electrophysiology PN ---
Assessment/Plan Assessment/Plan 1. Atrial flutter, converted to SR. On metoprolol 25 mg b.i.d. Coumadin resumed EPS and ablation as out patient. EF 55% 2. Chest pain. Ruled out for myocardial infarction. Denies any chest pain. It could be due to volume overload. Stress test 07/02/19 showed: Hypoperfusion to the inferior wall worse on stress. Possibilities include an inferior wall infarct with lexie-infarct ischemia versus diaphragmatic attenuation. Refused Cardiac cath . Continue on medical therapy 3. S/P [facility] MVR and TV Ring 07/2017 at [facility] Nl valve Fx on echo 4. Hypertension, on metoprolol 25 mg b.i.d., losartan 50 mg daily and hemodialysis. 5. End-stage renal disease, on hemodialysis. 6. Diabetes, on insulin. 7. Hep C 8. Acute anemia Hb 12 to 6.5! Got 4 unit of blood. S/P EGD and colonoscopy by Dr. Steen No active bleed. 9. Elevated WBC. FU ID DW RN Subjective Subjective On NMB. No CP or SOB. Objective Last 24 Hour Vital Signs Date Time Temp Pulse Resp B/P (MAP) Pulse Ox O2 Delivery O2 Flow Rate FiO2 07/13/19 12:00 98.3 72 19 143/77 (99) 99 07/13/19 09:09 83 144/73 07/13/19 09:09 144/73 07/13/19 08:00 98.9 83 19 144/73 (96) 97 07/13/19 04:00 98.2 70 19 142/78 (99) 96 07/13/19 00:00 97.5 72 19 139/77 (97) 98 07/12/19 21:00 Room Air 07/12/19 20:47 80 130/74 07/12/19 20:00 97.8 80 19 130/74 (92) 98 07/12/19 16:00 98.9 75 18 137/73 (94) 96 Intake and Output 07/12/19 07/13/19 19:00 07:00 Intake Total 2000 ml 2000 ml Output Total 2000 ml Balance 2000 ml 0 ml Hemodialysis 2000 ml Other 2000 ml Hemodialysis UF 2000 ml # Voids 1 Laboratory Tests Test 07/13/19 05:25 07/13/19 13:50 White Blood Count 10.7 K/UL (4.8-10.8) Red Blood Count 2.89 M/UL (4.70-6.10) L Hemoglobin 9.1 G/DL (14.2-18.0) L Hematocrit 26.0 % (42.0-52.0) L Mean Corpuscular Volume 90 FL (80-99) Mean Corpuscular Hemoglobin 31.5 PG (27.0-31.0) H Mean Corpuscular Hemoglobin Concent 34.9 G/DL (32.0-36.0) Red Cell Distribution Width 15.1 % (11.6-14.8) H Platelet Count 326 K/UL (150-450) Mean Platelet Volume 8.0 FL (6.5-10.1) Neutrophils (%) (Auto) 72.2 % (45.0-75.0) Lymphocytes (%) (Auto) 16.9 % (20.0-45.0) L Monocytes (%) (Auto) 7.6 % (1.0-10.0) Eosinophils (%) (Auto) 2.6 % (0.0-3.0) Basophils (%) (Auto) 0.6 % (0.0-2.0) Prothrombin Time 21.9 SEC (9.30-11.50) H Prothromb Time International Ratio 2.1 (0.9-1.1) H Sodium Level 144 MMOL/L (136-145) Potassium Level 4.1 MMOL/L (3.5-5.1) Chloride Level 106 MMOL/L (98-107) Carbon Dioxide Level 32 MMOL/L (21-32) Anion Gap 6 mmol/L (5-15) Blood Urea Nitrogen 21 mg/dL (7-18) H Creatinine 3.9 MG/DL (0.55-1.30) H Estimat Glomerular Filtration Rate 18.8 mL/min (>60) Glucose Level 74 MG/DL (74-106) Calcium Level 9.0 MG/DL (8.5-10.1) Random Amikacin Level Pending Objective HEAD AND NECK: No JVD or carotid bruit. LUNGS: Clear. CARDIOVASCULAR: Regular S1 and S2 with metallic first heart sounds. LUNGS: Clear. ABDOMEN: Soft. EXTREMITIES: No pitting edema. Beto Goldman MD Jul 13, 2019 14:26
[2019-07-13 16:00] VITALS: BP 119/80
[2019-07-13] MEDS ORDERED: Warfarin Sod 4 MG, Warfarin Sod 5 MG PO ONE ×2 (17:00)
--- NOTE | 2019-07-13 17:26 | Internal Med Progress Note ---
Subjective Date of Service: Jul 13, 2019 Physician Name PleitezSaturnino Attending Physician Brian Alicea MD Current Medications Medications (Trade) Dose Ordered Sig/John Route PRN Reason Start Time Stop Time Status Last Admin Dose Admin Amikacin Protocol (Amikacin pharmacy to dose) 1 ea DAILY PRN MISC Per rx protocol 07/12/19 09:45 08/11/19 09:44 Bisacodyl (Dulcolax) 10 mg DAILYPRN PRN RECTAL Constipation 07/06/19 15:00 07/27/19 14:59 Dextrose (Dextrose 50%) 25 ml Q30M PRN IV Hypoglycemia 07/05/19 14:30 07/27/19 00:00 Dextrose (Dextrose 50%) 50 ml Q30M PRN IV Hypoglycemia 07/05/19 14:30 07/27/19 00:00 Diphenhydramine HCl (Benadryl) 25 mg Q6H PRN IVP Itching 07/05/19 15:00 08/03/19 14:59 Docusate Sodium (Colace) 100 mg TID ORAL 07/05/19 18:00 07/27/19 20:59 07/13/19 12:53 Insulin Aspart (NovoLOG) BEFORE MEALS AND HS SUBQ 07/05/19 16:30 07/27/19 06:29 07/08/19 17:39 Losartan Potassium (Cozaar) 50 mg DAILY ORAL 07/06/19 09:00 07/27/19 09:59 07/13/19 09:09 Metoprolol Tartrate (Lopressor) 25 mg Q12HR ORAL 07/05/19 21:00 07/27/19 00:59 07/13/19 09:09 Nitroglycerin (Ntg) 0.4 mg Q5M PRN SL Prn Chest Pain 07/05/19 14:30 07/27/19 00:00 07/10/19 10:10 Ondansetron HCl (Zofran) 4 mg Q6H PRN IVP Nausea & Vomiting 07/05/19 15:00 07/27/19 14:59 07/05/19 18:40 Pantoprazole (Protonix) 40 mg EVERY 12 HOURS ORAL 07/05/19 21:00 07/28/19 20:59 07/13/19 09:09 Polyethylene Glycol (Miralax) 17 gm DAILYPRN PRN ORAL Constipation 07/05/19 15:00 08/04/19 14:59 07/10/19 17:19 Sevelamer Carbonate (Renvela) 800 mg THREE TIMES A DAY ORAL 07/05/19 18:00 07/28/19 12:59 07/13/19 12:53 Warfarin Sodium (Coumadin per pharmacy) 1 ea DAILY PRN MISC Per rx protocol 07/05/19 15:00 08/04/19 14:59 Allergies: Coded Allergies: PENICILLINS (Verified Allergy, Severe, swelling of throat, 02/25/16) ACETAMINOPHEN (Verified Allergy, Intermediate, Generalized Itching , ) HYDROCODONE (Verified Allergy, Intermediate, Generalized Itching , 01/26/18 ) ROS Limited/Unobtainable: No Constitutional: Reports: no symptoms HEENT: Reports: no symptoms Cardiovascular: Reports: no symptoms Respiratory: Reports: no symptoms Gastrointestinal/Abdominal: Reports: no symptoms Genitourinary: Reports: no symptoms Neurologic/Psychiatric: Reports: no symptoms Subjective 64 YO M admitted with chest pain, nausea and vomiting. Now with severe anemia. S/P endoscopy 07/04/19 and colonoscopy 07/05/19.. Cover for Int Drew-DR Alicea. Objective Last Vital Signs Date Time Temp Pulse Resp B/P (MAP) Pulse Ox O2 Delivery O2 Flow Rate FiO2 07/13/19 12:00 98.3 72 19 143/77 (99) 99 07/13/19 09:00 Room Air 07/10/19 09:44 21 07/05/19 13:00 3 Laboratory Tests Test 07/13/19 05:25 07/13/19 13:50 White Blood Count 10.7 K/UL (4.8-10.8) Red Blood Count 2.89 M/UL (4.70-6.10) L Hemoglobin 9.1 G/DL (14.2-18.0) L Hematocrit 26.0 % (42.0-52.0) L Mean Corpuscular Volume 90 FL (80-99) Mean Corpuscular Hemoglobin 31.5 PG (27.0-31.0) H Mean Corpuscular Hemoglobin Concent 34.9 G/DL (32.0-36.0) Red Cell Distribution Width 15.1 % (11.6-14.8) H Platelet Count 326 K/UL (150-450) Mean Platelet Volume 8.0 FL (6.5-10.1) Neutrophils (%) (Auto) 72.2 % (45.0-75.0) Lymphocytes (%) (Auto) 16.9 % (20.0-45.0) L Monocytes (%) (Auto) 7.6 % (1.0-10.0) Eosinophils (%) (Auto) 2.6 % (0.0-3.0) Basophils (%) (Auto) 0.6 % (0.0-2.0) Prothrombin Time 21.9 SEC (9.30-11.50) H Prothromb Time International Ratio 2.1 (0.9-1.1) H Sodium Level 144 MMOL/L (136-145) Potassium Level 4.1 MMOL/L (3.5-5.1) Chloride Level 106 MMOL/L (98-107) Carbon Dioxide Level 32 MMOL/L (21-32) Anion Gap 6 mmol/L (5-15) Blood Urea Nitrogen 21 mg/dL (7-18) H Creatinine 3.9 MG/DL (0.55-1.30) H Estimat Glomerular Filtration Rate 18.8 mL/min (>60) Glucose Level 74 MG/DL (74-106) Calcium Level 9.0 MG/DL (8.5-10.1) Random Amikacin Level Pending Intake and Output 07/12/19 07/13/19 19:00 07:00 Intake Total 2000 ml 2000 ml Output Total 2000 ml Balance 2000 ml 0 ml Hemodialysis 2000 ml Other 2000 ml Hemodialysis UF 2000 ml # Voids 1 Objective PHYSICAL EXAMINATION: GENERAL: The patient is well-developed and well-nourished male, in no apparent distress. HEENT: Eyes, pupils are equal and responsive to light and accommodation. Extraocular movements are intact. NECK: Supple without lymphadenopathy. CHEST: Lungs are clear to auscultation bilaterally without wheezes or rales. CARDIOVASCULAR: Regular rhythm and rate. S1 and S2 are normal with an audible click. No evidence of murmurs or gallops. ABDOMEN: Soft, nontender, nondistended. Positive bowel sounds. No evidence of hepatosplenomegaly. Currently, no rebound or guarding noted. EXTREMITIES: Negative for clubbing, cyanosis, or edema. RECTAL/GENITAL: Not performed. NEUROLOGIC: Cranial nerves II through XII are grossly intact without focal deficits. Motor strength is 5/5 bilaterally. Deep tendon reflexes are 2+ plantar. Assessment/Plan Assessment/Plan ASSESSMENT: This is a 64-year-old male. 1. Chest pain. 2. Nausea with vomiting. 3. Mechanical mitral valve. 4. End-stage renal disease. 5. Diabetes type 2. 6. Hypertension. 7. Atrial flutter 8. severe anemia 9. Duodenitis TREATMENT: 1. Chest pain. A Cardiology consultation has been obtained with Dr. Beto Goldman. The patient has a mechanical mitral valve. An echocardiogram is pending. Serial troponin levels will be performed. We will follow recommendation of Cardiology. 2. Nausea and vomiting, this has resolved. 3. End-stage renal disease. A Nephrology consultation has been obtained with Dr. Valdez. We will follow recommendations of Nephrology. Next hemodialysis 07/12/19 4. Diabetes type 2. NovoLog sliding scale has been instituted. 5. Hypertension. Continue diltiazem, isosorbide, losartan and as needed clonidine as above. 6. Hypercholesterolemia. Continue atorvastatin 7. Atrial flutter-continue coumadin 8. cardiac stress test results from 07/01/19=poss ischemia 9. S/P transfusion 5 units PRBC; transfuse 1 unit PRBC during dialysis 07/11/19 10. S/P endoscopy and colonoscopy Saturnino Pleitez MD Jul 13, 2019 17:26
--- NOTE | 2019-07-13 18:31 | General Progress Note ---
Assessment/Plan Status: stable Assessment/Plan: Assessment/Plan Problem List: (1) H/O mitral valve replacement ICD Codes: Z95.2 - Presence of prosthetic heart valve SNOMED: 71334621, 3752199823077 (2) Hepatitis C ICD Codes: B19.20 - Unspecified viral hepatitis C without hepatic coma SNOMED: 40873801 (3) COPD (chronic obstructive pulmonary disease) ICD Codes: J44.9 - Chronic obstructive pulmonary disease, unspecified SNOMED: 63331618 (4) Diabetes mellitus ICD Codes: E11.9 - Type 2 diabetes mellitus without complications SNOMED: 53450768 (5) Atrial fibrillation with rapid ventricular response ICD Codes: I48.91 - Unspecified atrial fibrillation SNOMED: 474806282954868 (6) GI bleed ICD Codes: K92.2 - Gastrointestinal hemorrhage, unspecified SNOMED: 21225956 (7) Warfarin overdosage ICD Codes: T45.511A - Poisoning by anticoagulants, accidental (unintentional), initial encounter SNOMED: 27405504, 37411087 Status: stable Assessment/Plan: s/p EGD and colonoscopy no active bleed on Coumadin per pharmacy fu labs hep C RNA positive>>> needs out patient fu for treatment cbc in am stool ob Subjective Allergies: Coded Allergies: PENICILLINS (Verified Allergy, Severe, swelling of throat, 02/25/16) ACETAMINOPHEN (Verified Allergy, Intermediate, Generalized Itching , ) HYDROCODONE (Verified Allergy, Intermediate, Generalized Itching , 01/26/18 ) Subjective Feels OK no abdominal complaints tolerating PO Objective Last 24 Hour Vital Signs Date Time Temp Pulse Resp B/P (MAP) Pulse Ox O2 Delivery O2 Flow Rate FiO2 07/13/19 16:00 98.1 83 17 119/80 (93) 98 07/13/19 12:00 98.3 72 19 143/77 (99) 99 07/13/19 09:09 83 144/73 07/13/19 09:09 144/73 07/13/19 09:00 Room Air 07/13/19 08:00 98.9 83 19 144/73 (96) 97 07/13/19 04:00 98.2 70 19 142/78 (99) 96 07/13/19 00:00 97.5 72 19 139/77 (97) 98 3/13/20 21:00 Room Air 07/12/19 20:47 80 130/74 07/12/19 20:00 97.8 80 19 130/74 (92) 98 Intake and Output 07/12/19 07/13/19 19:00 07:00 Intake Total 2000 ml 2000 ml Output Total 2000 ml Balance 2000 ml 0 ml Hemodialysis 2000 ml Other 2000 ml Hemodialysis UF 2000 ml # Voids 1 Laboratory Tests 07/13/19 05:25: White Blood Count 10.7, Red Blood Count 2.89L, Hemoglobin 9.1L, Hematocrit 26.0L , Mean Corpuscular Volume 90, Mean Corpuscular Hemoglobin 31.5H, Mean Corpuscular Hemoglobin Concent 34.9, Red Cell Distribution Width 15.1H, Platelet Count 326, Mean Platelet Volume 8.0, Neutrophils (%) (Auto) 72.2, Lymphocytes (%) (Auto) 16.9L, Monocytes (%) (Auto) 7.6, Eosinophils (%) (Auto) 2.6, Basophils (%) (Auto) 0.6, Prothrombin Time 21.9H, Prothromb Time International Ratio 2.1H, Sodium Level 144, Potassium Level 4.1, Chloride Level 106, Carbon Dioxide Level 32, Anion Gap 6, Blood Urea Nitrogen 21H, Creatinine 3.9H, Estimat Glomerular Filtration Rate 18.8, Glucose Level 74, Calcium Level 9.0 07/13/19 13:50: Random Amikacin Level [Pending] Height (Feet): 6 Height (Inches): 1.00 Weight (Pounds): 167 Objective WDWN NCAT supple CTA RR abd soft no edema nonfocal eMlvin Melara MD Jul 13, 2019 18:31
[2019-07-13 19:58] VITALS: BP 150/78
[2019-07-14] VITALS: BP 151/69
[2019-07-14] MEDS ORDERED: Amikacin 600 MG in NS 110 ML IV SCH (02:00)
[2019-07-14] MEDS ORDERED: Amikacin 500mg/2mL Inj ONE (02:08)
[2019-07-14 04:00] VITALS: BP 150/78
[2019-07-14] MEDS: NovoLOG Insulin Flexpen SUBQ SCH ×4 (06:00→21:00)
[2019-07-14 07:59] LABS: BASOPHILS % (AUTO) 1.2 % (0.0-2.0); EOSINOPHILS % (AUTO) 3.4 % (0.0-3.0); HEMATOCRIT 27.5 % (42.0-52.0); HEMOGLOBIN 9.4 G/DL (14.2-18.0); LYMPHOCYTES % (AUTO) 19.8 % (20.0-45.0); MEAN CORPUSCULAR VOLUME 92 FL (80-99); MONOCYTES % (AUTO) 9.6 % (1.0-10.0); NEUTROPHILS % (AUTO) 66.1 % (45.0-75.0); PLATELET COUNT 348 K/UL (150-450); RED CELL DISTRIBUTION WIDTH 15.4 % (11.6-14.8); WHITE BLOOD COUNT 12.1 K/UL (4.8-10.8)
[2019-07-14 08:00] VITALS: BP 136/68
[2019-07-14 08:06] LABS: INR 2.5 (0.9-1.1)
[2019-07-14 08:13] LABS: ANION GAP 8 mmol/L (5-15); BLOOD UREA NITROGEN 37 mg/dL (7-18); CALCIUM 9.2 MG/DL (8.5-10.1); CARBON DIOXIDE 30 MMOL/L (21-32); CHLORIDE 105 MMOL/L (98-107); CREATININE 5.6 MG/DL (0.55-1.30); POTASSIUM 4.8 MMOL/L (3.5-5.1); SODIUM 143 MMOL/L (136-145)
--- NOTE | 2019-07-14 08:35 | Pulmonology Progress Note ---
Assessment/Plan Assessment/Plan ASSESSMENT chest pain atrial flutter abnormal stress test COPD ESRD, on HD nicotine addiction anemia of CKD HTN DM E coli ESBL UTI s/p mitral valve replacement severe anemia, s/p 5 u PRBC hepatitis C upper GI bleeding s/p EGD with findings of moderate to severe duodenitis s/p colonoscopy with biopsy: polyps, s/p removal and biopsy, internal hemorrhoids PLAN OF CARE MS serial troponin negative converted to SR ruled out for acute WI cardio on board on beta-lisette and Coumadin nitro as needed Echo with pEF 55 to 60%, normal MV functioning on ECHO cardio recommended EP study in future stress test revealed apparent hypoperfusion to the inferior wall , worse on stress. possibilities include : inferior wall infarct with lexie-infarct ischemia versus diaphragmatic attenuation pt declined cardiac cath and prefers medical management on BB and ARB Coumadin restarted 07/04 with GI clearance BP management with BB and ARB BS management with SSI professor of counseling on smoking cessation , declined nicotine patch HD as per radiological metallurgist with close monitoring of volumes and renal parameters noted significant drop in HH GI consulted, s/p total 5 u PRBC s/p EGD with findings of moderate to severe duodenitis s/p colonoscopy with biopsy: polyps, s/p removal and biopsy, internal hemorrhoids monitor H&H with goal to keep Hgb above 7 , HH stable this am no active bleeding Coumadin restarted per GI clearance supportive care GI prophylaxis UCX + E coli ESBL, abx as per ID leuk resolved dc plan with HHS in progress case discussed and evaluated by supervising physician Subjective Allergies: Coded Allergies: PENICILLINS (Verified Allergy, Severe, swelling of throat, 02/25/16) ACETAMINOPHEN (Verified Allergy, Intermediate, Generalized Itching , ) HYDROCODONE (Verified Allergy, Intermediate, Generalized Itching , 01/26/18 ) Subjective denies CP, no SOB HH stable mild leukocytosis this am; , no fevers UCX+E coli ESBL pulse ox stable on RA Objective Last 24 Hour Vital Signs Date Time Temp Pulse Resp B/P (MAP) Pulse Ox O2 Delivery O2 Flow Rate FiO2 07/14/19 04:00 98.0 78 19 150/78 (102) 98 07/14/19 00:00 98.7 74 19 151/69 (96) 98 07/13/19 21:12 86 140/75 07/13/19 21:00 Room Air 07/13/19 19:58 98.2 98 19 150/78 (102) 96 07/13/19 16:00 98.1 83 17 119/80 (93) 98 07/13/19 12:00 98.3 72 19 143/77 (99) 99 07/13/19 09:09 83 144/73 07/13/19 09:09 144/73 07/13/19 09:00 Room Air Intake and Output 07/13/19 07/14/19 19:00 07:00 Intake Total 2012.4 ml Balance 2012.4 ml IV Total 112.4 ml Other 1900 ml # Voids 2 Objective General Appearance: no acute distress HEENT: normocephalic, mucous membranes moist, PERRL Respiratory/Chest: chest wall non-tender, no respiratory distress, no accessory muscle use Cardiovascular: normal rate, regular rhythm Abdomen: soft, non tender, non distended Extremities: no edema Neurologic/Psychiatric: alert, oriented x 3, responsive Musculoskeletal: normal muscle bulk Laboratory Tests 07/13/19 13:50: Random Amikacin Level 5.9 07/14/19 07:30: White Blood Count 12.1H, Red Blood Count 3.00L, Hemoglobin 9.4L, Hematocrit 27.5L, Mean Corpuscular Volume 92, Mean Corpuscular Hemoglobin 31.3H, Mean Corpuscular Hemoglobin Concent 34.2, Red Cell Distribution Width 15.4H, Platelet Count 348, Mean Platelet Volume 8.0, Neutrophils (%) (Auto) 66.1, Lymphocytes (%) (Auto) 19.8L, Monocytes (%) (Auto) 9.6, Eosinophils (%) (Auto) 3.4H, Basophils (%) (Auto) 1.2, Prothrombin Time 25.2H, Prothromb Time International Ratio 2.5H, Sodium Level 143, Potassium Level 4.8, Chloride Level 105, Carbon Dioxide Level 30, Anion Gap 8, Blood Urea Nitrogen 37H, Creatinine 5.6H, Estimat Glomerular Filtration Rate 12.4, Glucose Level 99, Calcium Level 9.2 Current Medications Medications (Trade) Dose Ordered Sig/John Route PRN Reason Start Time Stop Time Status Last Admin Dose Admin Amikacin Protocol (Amikacin pharmacy to dose) 1 ea DAILY PRN MISC Per rx protocol 07/12/19 09:45 08/11/19 09:44 Bisacodyl (Dulcolax) 10 mg DAILYPRN PRN RECTAL Constipation 07/06/19 15:00 07/27/19 14:59 Dextrose (Dextrose 50%) 25 ml Q30M PRN IV Hypoglycemia 07/05/19 14:30 07/27/19 00:00 Dextrose (Dextrose 50%) 50 ml Q30M PRN IV Hypoglycemia 07/05/19 14:30 07/27/19 00:00 Diphenhydramine HCl (Benadryl) 25 mg Q6H PRN IVP Itching 07/05/19 15:00 08/03/19 14:59 Docusate Sodium (Colace) 100 mg TID ORAL 07/05/19 18:00 07/27/19 20:59 07/13/19 17:26 Insulin Aspart (NovoLOG) BEFORE MEALS AND HS SUBQ 07/05/19 16:30 07/27/19 06:29 07/08/19 17:39 Losartan Potassium (Cozaar) 50 mg DAILY ORAL 07/06/19 09:00 07/27/19 09:59 07/13/19 09:09 Metoprolol Tartrate (Lopressor) 25 mg Q12HR ORAL 07/05/19 21:00 07/27/19 00:59 07/13/19 21:12 Nitroglycerin (Ntg) 0.4 mg Q5M PRN SL Prn Chest Pain 07/05/19 14:30 07/27/19 00:00 07/10/19 10:10 Ondansetron HCl (Zofran) 4 mg Q6H PRN IVP Nausea & Vomiting 07/05/19 15:00 07/27/19 14:59 07/05/19 18:40 Pantoprazole (Protonix) 40 mg EVERY 12 HOURS ORAL 07/05/19 21:00 07/28/19 20:59 07/13/19 21:11 Polyethylene Glycol (Miralax) 17 gm DAILYPRN PRN ORAL Constipation 07/05/19 15:00 08/04/19 14:59 07/10/19 17:19 Sevelamer Carbonate (Renvela) 800 mg THREE TIMES A DAY ORAL 07/05/19 18:00 07/28/19 12:59 07/13/19 17:26 Warfarin Sodium (Coumadin per pharmacy) 1 ea DAILY PRN MISC Per rx protocol 07/05/19 15:00 08/04/19 14:59 Warfarin Sodium (Coumadin) 7.5 mg COUMADIN ONCE ORAL 07/14/19 17:00 07/14/19 17:01 Beatrice Fink NP Jul 14, 2019 08:35
[2019-07-14] MEDS: Docusate 100mg cap ORAL SCH ×3 (08:41→17:53)
[2019-07-14] MEDS: Losartan 50mg tab ORAL SCH (08:42)
--- NOTE | 2019-07-14 10:20 | Nephrology Progress Note ---
Assessment/Plan Problem List: (1) ESRD (end stage renal disease) on dialysis (2) Diabetes mellitus (3) Anemia in chronic kidney disease Assessment: worse- symptomatic (4) Atrial flutter (5) H/O mitral valve replacement (6) Hepatitis C Assessment: by history Assessment End-stage renal disease, on hemodialysis every Monday, Monday, and Monday. Diabetes type 2. Hypertension. Hepatitis C. Mechanical mitral valve. Plan Hemoglobin stable Discharge planning in process Previously Worsening anemia, due for transfusion 1 unit of packed RBCs Last dialysis July 11 next dialysis will be for July 14 worsening Anemia- had partial of one unit transfusion- need more It appears that the patient have a GI bleed so Coumadin and aspirin stopped and GI procedure is scheduled Patient was dialyzed yesterday July 02. Was again dialyzed July 04 had an upper endoscopy which showed duodenitis Patient had colonoscopy July 04. Three or four colonic polyps in the rectosigmoid area. See above for details. 2. Internal hemorrhoids. Continue to transfuse and keep hemoglobin and hematocrit at the reasonable range Resume anticoagulation per cardiology advice keep BP and BS in check Per cardio. Subjective ROS Limited/Unobtainable: No Constitutional: Reports: malaise Objective Objective Last 24 Hour Vital Signs Date Time Temp Pulse Resp B/P (MAP) Pulse Ox O2 Delivery O2 Flow Rate FiO2 07/14/19 08:42 77 136/68 07/14/19 08:42 136/68 07/14/19 04:00 98.0 78 19 150/78 (102) 98 07/14/19 00:00 98.7 74 19 151/69 (96) 98 07/13/19 21:12 86 140/75 07/13/19 21:00 Room Air 07/13/19 19:58 98.2 98 19 150/78 (102) 96 07/13/19 16:00 98.1 83 17 119/80 (93) 98 07/13/19 12:00 98.3 72 19 143/77 (99) 99 Intake and Output 07/13/19 07/14/19 19:00 07:00 Intake Total 2012.4 ml Balance 2012.4 ml IV Total 112.4 ml Other 1900 ml # Voids 2 Laboratory Tests 07/13/19 13:50: Random Amikacin Level 5.9 07/14/19 07:30: White Blood Count 12.1H, Red Blood Count 3.00L, Hemoglobin 9.4L, Hematocrit 27.5L, Mean Corpuscular Volume 92, Mean Corpuscular Hemoglobin 31.3H, Mean Corpuscular Hemoglobin Concent 34.2, Red Cell Distribution Width 15.4H, Platelet Count 348, Mean Platelet Volume 8.0, Neutrophils (%) (Auto) 66.1, Lymphocytes (%) (Auto) 19.8L, Monocytes (%) (Auto) 9.6, Eosinophils (%) (Auto) 3.4H, Basophils (%) (Auto) 1.2, Prothrombin Time 25.2H, Prothromb Time International Ratio 2.5H, Sodium Level 143, Potassium Level 4.8, Chloride Level 105, Carbon Dioxide Level 30, Anion Gap 8, Blood Urea Nitrogen 37H, Creatinine 5.6H, Estimat Glomerular Filtration Rate 12.4, Glucose Level 99, Calcium Level 9.2 Height (Feet): 6 Height (Inches): 1.00 Weight (Pounds): 167 General Appearance: no apparent distress Objective NO CHANGE Hang Valdez MD Jul 14, 2019 10:20
[2019-07-14 11:02] LABS: ALANINE AMINOTRANSFERASE 30 U/L (12-78); ALBUMIN 3.4 G/DL (3.4-5.0); ALKALINE PHOSPHATASE 93 U/L (46-116); ASPARTATE AMINO TRANSFERASE 35 U/L (15-37); BILIRUBIN,DIRECT 0.2 MG/DL (0.0-0.3); BILIRUBIN,TOTAL 0.7 MG/DL (0.2-1.0); PHOSPHORUS 2.9 MG/DL (2.5-4.9)
[2019-07-14 12:00] VITALS: BP 133/66
[2019-07-14 16:00] VITALS: BP 139/77
[2019-07-14] MEDS ORDERED: Warfarin Sodium 7.5mg ORAL ONE (17:00)
--- NOTE | 2019-07-14 17:02 | Internal Med Progress Note ---
Subjective Date of Service: Jul 14, 2019 Physician Name PleitezSaturnino Attending Physician Brian Alicea MD Current Medications Medications (Trade) Dose Ordered Sig/John Route PRN Reason Start Time Stop Time Status Last Admin Dose Admin Amikacin Protocol (Amikacin pharmacy to dose) 1 ea DAILY PRN MISC Per rx protocol 07/12/19 09:45 08/11/19 09:44 Bisacodyl (Dulcolax) 10 mg DAILYPRN PRN RECTAL Constipation 07/06/19 15:00 07/27/19 14:59 Dextrose (Dextrose 50%) 25 ml Q30M PRN IV Hypoglycemia 07/05/19 14:30 07/27/19 00:00 Dextrose (Dextrose 50%) 50 ml Q30M PRN IV Hypoglycemia 07/05/19 14:30 07/27/19 00:00 Diphenhydramine HCl (Benadryl) 25 mg Q6H PRN IVP Itching 07/05/19 15:00 08/03/19 14:59 Docusate Sodium (Colace) 100 mg TID ORAL 07/05/19 18:00 07/27/19 20:59 07/14/19 13:24 Insulin Aspart (NovoLOG) BEFORE MEALS AND HS SUBQ 07/05/19 16:30 07/27/19 06:29 07/08/19 17:39 Losartan Potassium (Cozaar) 50 mg DAILY ORAL 07/06/19 09:00 07/27/19 09:59 07/14/19 08:42 Metoprolol Tartrate (Lopressor) 25 mg Q12HR ORAL 07/05/19 21:00 07/27/19 00:59 07/14/19 08:42 Nitroglycerin (Ntg) 0.4 mg Q5M PRN SL Prn Chest Pain 07/05/19 14:30 07/27/19 00:00 07/10/19 10:10 Ondansetron HCl (Zofran) 4 mg Q6H PRN IVP Nausea & Vomiting 07/05/19 15:00 07/27/19 14:59 07/05/19 18:40 Pantoprazole (Protonix) 40 mg EVERY 12 HOURS ORAL 07/05/19 21:00 07/28/19 20:59 07/14/19 08:41 Polyethylene Glycol (Miralax) 17 gm DAILYPRN PRN ORAL Constipation 07/05/19 15:00 08/04/19 14:59 07/10/19 17:19 Sevelamer Carbonate (Renvela) 800 mg THREE TIMES A DAY ORAL 07/05/19 18:00 07/28/19 12:59 07/14/19 13:24 Warfarin Sodium (Coumadin per pharmacy) 1 ea DAILY PRN MISC Per rx protocol 07/05/19 15:00 08/04/19 14:59 Allergies: Coded Allergies: PENICILLINS (Verified Allergy, Severe, swelling of throat, 02/25/16) ACETAMINOPHEN (Verified Allergy, Intermediate, Generalized Itching , ) HYDROCODONE (Verified Allergy, Intermediate, Generalized Itching , 01/26/18 ) ROS Limited/Unobtainable: No Constitutional: Reports: no symptoms HEENT: Reports: no symptoms Cardiovascular: Reports: no symptoms Respiratory: Reports: no symptoms Gastrointestinal/Abdominal: Reports: no symptoms Genitourinary: Reports: no symptoms Neurologic/Psychiatric: Reports: no symptoms Subjective 64 YO M admitted with chest pain, nausea and vomiting. Now with severe anemia. S/P endoscopy 07/04/19 and colonoscopy 07/05/19.. Cover for Int Drew-DR Alieca. Objective Last Vital Signs Date Time Temp Pulse Resp B/P (MAP) Pulse Ox O2 Delivery O2 Flow Rate FiO2 07/14/19 12:00 97.9 70 18 133/66 (88) 99 07/14/19 09:00 Room Air 07/10/19 09:44 21 07/05/19 13:00 3 Laboratory Tests Test 07/14/19 07:30 07/14/19 07:40 White Blood Count 12.1 K/UL (4.8-10.8) H Red Blood Count 3.00 M/UL (4.70-6.10) L Hemoglobin 9.4 G/DL (14.2-18.0) L Hematocrit 27.5 % (42.0-52.0) L Mean Corpuscular Volume 92 FL (80-99) Mean Corpuscular Hemoglobin 31.3 PG (27.0-31.0) H Mean Corpuscular Hemoglobin Concent 34.2 G/DL (32.0-36.0) Red Cell Distribution Width 15.4 % (11.6-14.8) H Platelet Count 348 K/UL (150-450) Mean Platelet Volume 8.0 FL (6.5-10.1) Neutrophils (%) (Auto) 66.1 % (45.0-75.0) Lymphocytes (%) (Auto) 19.8 % (20.0-45.0) L Monocytes (%) (Auto) 9.6 % (1.0-10.0) Eosinophils (%) (Auto) 3.4 % (0.0-3.0) H Basophils (%) (Auto) 1.2 % (0.0-2.0) Prothrombin Time 25.2 SEC (9.30-11.50) H Prothromb Time International Ratio 2.5 (0.9-1.1) H Sodium Level 143 MMOL/L (136-145) Potassium Level 4.8 MMOL/L (3.5-5.1) Chloride Level 105 MMOL/L (98-107) Carbon Dioxide Level 30 MMOL/L (21-32) Anion Gap 8 mmol/L (5-15) Blood Urea Nitrogen 37 mg/dL (7-18) H Creatinine 5.6 MG/DL (0.55-1.30) H Estimat Glomerular Filtration Rate 12.4 mL/min (>60) Glucose Level 99 MG/DL (74-106) Calcium Level 9.2 MG/DL (8.5-10.1) Phosphorus Level 2.9 MG/DL (2.5-4.9) Magnesium Level 2.1 MG/DL (1.8-2.4) Total Bilirubin 0.7 MG/DL (0.2-1.0) Direct Bilirubin 0.2 MG/DL (0.0-0.3) Aspartate Amino Transf (AST/SGOT) 35 U/L (15-37) Alanine Aminotransferase (ALT/SGPT) 30 U/L (12-78) Alkaline Phosphatase 93 U/L (46-116) Total Protein 7.0 G/DL (6.4-8.2) Albumin 3.4 G/DL (3.4-5.0) Intake and Output 07/13/19 07/14/19 19:00 07:00 Intake Total 2012.4 ml Balance 2012.4 ml IV Total 112.4 ml Other 1900 ml # Voids 2 Objective PHYSICAL EXAMINATION: GENERAL: The patient is well-developed and well-nourished male, in no apparent distress. HEENT: Eyes, pupils are equal and responsive to light and accommodation. Extraocular movements are intact. NECK: Supple without lymphadenopathy. CHEST: Lungs are clear to auscultation bilaterally without wheezes or rales. CARDIOVASCULAR: Regular rhythm and rate. S1 and S2 are normal with an audible click. No evidence of murmurs or gallops. ABDOMEN: Soft, nontender, nondistended. Positive bowel sounds. No evidence of hepatosplenomegaly. Currently, no rebound or guarding noted. EXTREMITIES: Negative for clubbing, cyanosis, or edema. RECTAL/GENITAL: Not performed. NEUROLOGIC: Cranial nerves II through XII are grossly intact without focal deficits. Motor strength is 5/5 bilaterally. Deep tendon reflexes are 2+ plantar. Assessment/Plan Assessment/Plan ASSESSMENT: This is a 64-year-old male. 1. Chest pain. 2. Nausea with vomiting. 3. Mechanical mitral valve. 4. End-stage renal disease. 5. Diabetes type 2. 6. Hypertension. 7. Atrial flutter 8. severe anemia 9. Duodenitis TREATMENT: 1. Chest pain. A Cardiology consultation has been obtained with Dr. Beto Goldman. The patient has a mechanical mitral valve. An echocardiogram is pending. Serial troponin levels will be performed. We will follow recommendation of Cardiology. 2. Nausea and vomiting, this has resolved. 3. End-stage renal disease. A Nephrology consultation has been obtained with Dr. Valdez. We will follow recommendations of Nephrology. Next hemodialysis 07/12/19 4. Diabetes type 2. NovoLog sliding scale has been instituted. 5. Hypertension. Continue diltiazem, isosorbide, losartan and as needed clonidine as above. 6. Hypercholesterolemia. Continue atorvastatin 7. Atrial flutter-continue coumadin 8. cardiac stress test results from 07/01/19=poss ischemia 9. S/P transfusion 5 units PRBC; transfuse 1 unit PRBC during dialysis 07/11/19 10. S/P endoscopy and colonoscopy Saturnino Pleitez MD Jul 14, 2019 17:02
[2019-07-14 19:53] VITALS: BP 159/82
[2019-07-14] MEDS: DiphenhydrAMINE 50mg/ml Inj IVP PRN (21:36)
[2019-07-15 00:20] VITALS: BP 130/67
[2019-07-15 04:00] VITALS: BP 144/80
[2019-07-15] MEDS: NovoLOG Insulin Flexpen SUBQ SCH ×4 (06:19→20:35)
[2019-07-15 06:48] LABS: INR 2.9 (0.9-1.1)
[2019-07-15 06:53] LABS: BASOPHILS % (AUTO) 1.1 % (0.0-2.0); EOSINOPHILS % (AUTO) 4.4 % (0.0-3.0); HEMATOCRIT 24.3 % (42.0-52.0); HEMOGLOBIN 8.2 G/DL (14.2-18.0); LYMPHOCYTES % (AUTO) 20.8 % (20.0-45.0); MEAN CORPUSCULAR VOLUME 92 FL (80-99); MONOCYTES % (AUTO) 6.4 % (1.0-10.0); NEUTROPHILS % (AUTO) 67.3 % (45.0-75.0); PLATELET COUNT 321 K/UL (150-450); RED BLOOD COUNT 2.65 M/UL (4.70-6.10); RED CELL DISTRIBUTION WIDTH 15.8 % (11.6-14.8); WHITE BLOOD COUNT 11.4 K/UL (4.8-10.8)
[2019-07-15 07:33] LABS: ANION GAP 14 mmol/L (5-15); BLOOD UREA NITROGEN 43 mg/dL (7-18); CALCIUM 8.7 MG/DL (8.5-10.1); CARBON DIOXIDE 22 MMOL/L (21-32); CHLORIDE 106 MMOL/L (98-107); CREATININE 6.5 MG/DL (0.55-1.30); POTASSIUM 4.8 MMOL/L (3.5-5.1); SODIUM 142 MMOL/L (136-145)
[2019-07-15 08:21] VITALS: BP 151/77
[2019-07-15] MEDS: Docusate 100mg cap ORAL SCH ×3 (08:53→17:28)
[2019-07-15] MEDS: Losartan 50mg tab ORAL SCH (09:00)
[2019-07-15] MEDS: DiphenhydrAMINE 50mg/ml Inj IVP PRN ×2 (09:00→18:35)
--- NOTE | 2019-07-15 09:24 | General Progress Note ---
Assessment/Plan Problem List: (1) H/O mitral valve replacement ICD Codes: Z95.2 - Presence of prosthetic heart valve SNOMED: 26824074, 6843996347108 (2) Hepatitis C ICD Codes: B19.20 - Unspecified viral hepatitis C without hepatic coma SNOMED: 76346679 (3) COPD (chronic obstructive pulmonary disease) ICD Codes: J44.9 - Chronic obstructive pulmonary disease, unspecified SNOMED: 27058688 (4) Diabetes mellitus ICD Codes: E11.9 - Type 2 diabetes mellitus without complications SNOMED: 60088437 (5) Atrial fibrillation with rapid ventricular response ICD Codes: I48.91 - Unspecified atrial fibrillation SNOMED: 949370831324870 (6) GI bleed ICD Codes: K92.2 - Gastrointestinal hemorrhage, unspecified SNOMED: 74653585 (7) Warfarin overdosage ICD Codes: T45.511A - Poisoning by anticoagulants, accidental (unintentional), initial encounter SNOMED: 91375270, 29465997 Status: stable Assessment/Plan: s/p EGD and colonoscopy no active bleed on Coumadin per pharmacy fu labs hep C RNA positive>>> needs out patient fu for treatment cbc in am stool ob Subjective ROS Limited/Unobtainable: Yes Allergies: Coded Allergies: PENICILLINS (Verified Allergy, Severe, swelling of throat, 02/25/16) ACETAMINOPHEN (Verified Allergy, Intermediate, Generalized Itching , ) HYDROCODONE (Verified Allergy, Intermediate, Generalized Itching , 01/26/18 ) Objective Last 24 Hour Vital Signs Date Time Temp Pulse Resp B/P (MAP) Pulse Ox O2 Delivery O2 Flow Rate FiO2 07/15/19 08:21 97.4 70 19 151/77 (101) 99 07/15/19 04:00 98.4 84 19 144/80 (101) 98 07/15/19 00:20 98.4 70 19 130/67 (88) 96 07/14/19 21:35 83 159/82 07/14/19 20:31 Room Air 07/14/19 19:53 98.0 83 19 159/82 (107) 99 07/14/19 16:00 97.9 86 17 139/77 (97) 98 07/14/19 12:00 97.9 70 18 133/66 (88) 99 Intake and Output 07/14/19 07/15/19 19:00 07:00 Intake Total 1900 ml Balance 1900 ml Other 1900 ml # Voids 3 Laboratory Tests 07/15/19 05:25: White Blood Count 11.4H, Red Blood Count 2.65L, Hemoglobin 8.2L, Hematocrit 24.3L, Mean Corpuscular Volume 92, Mean Corpuscular Hemoglobin 31.0, Mean Corpuscular Hemoglobin Concent 33.9, Red Cell Distribution Width 15.8H, Platelet Count 321, Mean Platelet Volume 7.5, Neutrophils (%) (Auto) 67.3, Lymphocytes (%) (Auto) 20.8, Monocytes (%) (Auto) 6.4, Eosinophils (%) (Auto) 4.4H, Basophils (%) (Auto) 1.1, Prothrombin Time 29.5H, Prothromb Time International Ratio 2.9H, Sodium Level 142, Potassium Level 4.8, Chloride Level 106, Carbon Dioxide Level 22, Anion Gap 14, Blood Urea Nitrogen 43H, Creatinine 6.5H, Estimat Glomerular Filtration Rate 10.4, Glucose Level 83, Calcium Level 8.7 Height (Feet): 6 Height (Inches): 1.00 Weight (Pounds): 167 General Appearance: alert EENT: normal ENT inspection Neck: supple Cardiovascular: normal rate Respiratory/Chest: decreased breath sounds Abdomen: normal bowel sounds, non tender, soft Extremities: non-tender Tung Steen MD Jul 15, 2019 09:24
--- NOTE | 2019-07-15 11:01 | Cardiac Electrophysiology PN ---
Assessment/Plan Assessment/Plan 1. Atrial flutter, converted to SR. On metoprolol 25 mg b.i.d. and Coumadin EPS and ablation as out patient. EF 55% 2. Chest pain. Ruled out for myocardial infarction. Denies any chest pain. It could be due to volume overload. Stress test 07/02/19 showed: Hypoperfusion to the inferior wall worse on stress. Possibilities include an inferior wall infarct with lexie-infarct ischemia versus diaphragmatic attenuation. Refused Cardiac cath. Continue on medical therapy 3. S/P [facility] MVR and TV Ring 07/2017 at [facility] valve Fx on echo 4. Hypertension, on metoprolol 25 mg b.i.d., losartan 50 mg daily and hemodialysis. 5. End-stage renal disease, on hemodialysis. 6. Diabetes, on insulin. 7. Hep C 8. Acute anemia Hb 12 to 6.5! Got 4 unit of blood. S/P EGD and colonoscopy by Dr. Steen. No active bleed. 9. Elevated WBC. FU ID DW RN Subjective Subjective On NMB. No CP or SOB. Getting HD Objective Last 24 Hour Vital Signs Date Time Temp Pulse Resp B/P (MAP) Pulse Ox O2 Delivery O2 Flow Rate FiO2 07/15/19 08:21 97.4 70 19 151/77 (101) 99 07/15/19 04:00 98.4 84 19 144/80 (101) 98 07/15/19 00:20 98.4 70 19 130/67 (88) 96 07/14/19 21:35 83 159/82 07/14/19 20:31 Room Air 07/14/19 19:53 98.0 83 19 159/82 (107) 99 07/14/19 16:00 97.9 86 17 139/77 (97) 98 07/14/19 12:00 97.9 70 18 133/66 (88) 99 Intake and Output 07/14/19 07/15/19 19:00 07:00 Intake Total 1900 ml Balance 1900 ml Other 1900 ml # Voids 3 Laboratory Tests Test 07/15/19 05:25 White Blood Count 11.4 K/UL (4.8-10.8) H Red Blood Count 2.65 M/UL (4.70-6.10) L Hemoglobin 8.2 G/DL (14.2-18.0) L Hematocrit 24.3 % (42.0-52.0) L Mean Corpuscular Volume 92 FL (80-99) Mean Corpuscular Hemoglobin 31.0 PG (27.0-31.0) Mean Corpuscular Hemoglobin Concent 33.9 G/DL (32.0-36.0) Red Cell Distribution Width 15.8 % (11.6-14.8) H Platelet Count 321 K/UL (150-450) Mean Platelet Volume 7.5 FL (6.5-10.1) Neutrophils (%) (Auto) 67.3 % (45.0-75.0) Lymphocytes (%) (Auto) 20.8 % (20.0-45.0) Monocytes (%) (Auto) 6.4 % (1.0-10.0) Eosinophils (%) (Auto) 4.4 % (0.0-3.0) H Basophils (%) (Auto) 1.1 % (0.0-2.0) Prothrombin Time 29.5 SEC (9.30-11.50) H Prothromb Time International Ratio 2.9 (0.9-1.1) H Sodium Level 142 MMOL/L (136-145) Potassium Level 4.8 MMOL/L (3.5-5.1) Chloride Level 106 MMOL/L (98-107) Carbon Dioxide Level 22 MMOL/L (21-32) Anion Gap 14 mmol/L (5-15) Blood Urea Nitrogen 43 mg/dL (7-18) H Creatinine 6.5 MG/DL (0.55-1.30) H Estimat Glomerular Filtration Rate 10.4 mL/min (>60) Glucose Level 83 MG/DL (74-106) Calcium Level 8.7 MG/DL (8.5-10.1) Objective HEAD AND NECK: No JVD LUNGS: Clear. CARDIOVASCULAR: Regular S1 and S2 with metallic first heart sounds. LUNGS: Clear. ABDOMEN: Soft. EXTREMITIES: No pitting edema. Beto Goldman MD Jul 15, 2019 11:01
[2019-07-15 12:00] VITALS: BP 142/73
--- NOTE | 2019-07-15 12:09 | Infectious Diseases Prog Note ---
Assessment/Plan Assessment/Plan ASSESSMENT: The patient is a 64-year-old male with: Leukocytosis, mild UTI - UCX : 100k Ecoli : ESBL Afebrile ch Hep C +ve History of cardiac stent. History of hypertension. GERD. History of bladder cancer. End-stage renal disease, on dialysis. Left toe amputation. Diabetes. History of mitral valve and tricuspid valve repair. PLAN: Cont Amikacin # 4/7. 3/ SP IV levaquin # 3 Monitor blood culture. Monitor CBC and BMP Monitor CXR discussed with RN Subjective Allergies: Coded Allergies: PENICILLINS (Verified Allergy, Severe, swelling of throat, 02/25/16) ACETAMINOPHEN (Verified Allergy, Intermediate, Generalized Itching , ) HYDROCODONE (Verified Allergy, Intermediate, Generalized Itching , 01/26/18 ) Subjective comfortable no fevers Objective Vital Signs Last 24 Hour Vital Signs Date Time Temp Pulse Resp B/P (MAP) Pulse Ox O2 Delivery O2 Flow Rate FiO2 07/15/19 09:00 Room Air 07/15/19 08:21 97.4 70 19 151/77 (101) 99 07/15/19 04:00 98.4 84 19 144/80 (101) 98 07/15/19 00:20 98.4 70 19 130/67 (88) 96 07/14/19 21:35 83 159/82 07/14/19 20:31 Room Air 07/14/19 19:53 98.0 83 19 159/82 (107) 99 07/14/19 16:00 97.9 86 17 139/77 (97) 98 Height (Feet): 6 Height (Inches): 1.00 Weight (Pounds): 167 HEENT: atraumatic, supple Respiratory/Chest: normal breath sounds Cardiovascular: no JVD Abdomen: no mass Extremities: no cyanosis Laboratory Tests Test 07/15/19 05:25 White Blood Count 11.4 K/UL (4.8-10.8) H Red Blood Count 2.65 M/UL (4.70-6.10) L Hemoglobin 8.2 G/DL (14.2-18.0) L Hematocrit 24.3 % (42.0-52.0) L Mean Corpuscular Volume 92 FL (80-99) Mean Corpuscular Hemoglobin 31.0 PG (27.0-31.0) Mean Corpuscular Hemoglobin Concent 33.9 G/DL (32.0-36.0) Red Cell Distribution Width 15.8 % (11.6-14.8) H Platelet Count 321 K/UL (150-450) Mean Platelet Volume 7.5 FL (6.5-10.1) Neutrophils (%) (Auto) 67.3 % (45.0-75.0) Lymphocytes (%) (Auto) 20.8 % (20.0-45.0) Monocytes (%) (Auto) 6.4 % (1.0-10.0) Eosinophils (%) (Auto) 4.4 % (0.0-3.0) H Basophils (%) (Auto) 1.1 % (0.0-2.0) Prothrombin Time 29.5 SEC (9.30-11.50) H Prothromb Time International Ratio 2.9 (0.9-1.1) H Sodium Level 142 MMOL/L (136-145) Potassium Level 4.8 MMOL/L (3.5-5.1) Chloride Level 106 MMOL/L (98-107) Carbon Dioxide Level 22 MMOL/L (21-32) Anion Gap 14 mmol/L (5-15) Blood Urea Nitrogen 43 mg/dL (7-18) H Creatinine 6.5 MG/DL (0.55-1.30) H Estimat Glomerular Filtration Rate 10.4 mL/min (>60) Glucose Level 83 MG/DL (74-106) Calcium Level 8.7 MG/DL (8.5-10.1) Current Medications Medications (Trade) Dose Ordered Sig/John Route PRN Reason Start Time Stop Time Status Last Admin Dose Admin Amikacin Protocol (Amikacin pharmacy to dose) 1 ea DAILY PRN MISC Per rx protocol 07/12/19 09:45 08/11/19 09:44 Bisacodyl (Dulcolax) 10 mg DAILYPRN PRN RECTAL Constipation 07/06/19 15:00 07/27/19 14:59 Dextrose (Dextrose 50%) 25 ml Q30M PRN IV Hypoglycemia 07/05/19 14:30 07/27/19 00:00 Dextrose (Dextrose 50%) 50 ml Q30M PRN IV Hypoglycemia 07/05/19 14:30 07/27/19 00:00 Diphenhydramine HCl (Benadryl) 25 mg Q6H PRN IVP Itching 07/05/19 15:00 08/03/19 14:59 07/15/19 09:00 Docusate Sodium (Colace) 100 mg TID ORAL 07/05/19 18:00 07/27/19 20:59 07/15/19 08:53 Insulin Aspart (NovoLOG) BEFORE MEALS AND HS SUBQ 07/05/19 16:30 07/27/19 06:29 07/08/19 17:39 Losartan Potassium (Cozaar) 50 mg DAILY ORAL 07/06/19 09:00 07/27/19 09:59 07/14/19 08:42 Metoprolol Tartrate (Lopressor) 25 mg Q12HR ORAL 07/05/19 21:00 07/27/19 00:59 07/14/19 21:35 Nitroglycerin (Ntg) 0.4 mg Q5M PRN SL Prn Chest Pain 07/05/19 14:30 07/27/19 00:00 07/10/19 10:10 Ondansetron HCl (Zofran) 4 mg Q6H PRN IVP Nausea & Vomiting 07/05/19 15:00 07/27/19 14:59 07/05/19 18:40 Pantoprazole (Protonix) 40 mg EVERY 12 HOURS ORAL 07/05/19 21:00 07/28/19 20:59 07/15/19 08:53 Polyethylene Glycol (Miralax) 17 gm DAILYPRN PRN ORAL Constipation 07/05/19 15:00 08/04/19 14:59 07/10/19 17:19 Sevelamer Carbonate (Renvela) 800 mg THREE TIMES A DAY ORAL 07/05/19 18:00 07/28/19 12:59 07/15/19 08:53 Warfarin Sodium (Coumadin per pharmacy) 1 ea DAILY PRN MISC Per rx protocol 07/05/19 15:00 08/04/19 14:59 Warfarin Sodium (Coumadin) 7 mg COUMADIN ORAL 07/15/19 17:00 07/20/19 16:59 Surjit Odom MD Jul 15, 2019 12:09
--- NOTE | 2019-07-15 13:30 | Nephrology Progress Note ---
Assessment/Plan Problem List: (1) ESRD (end stage renal disease) on dialysis (2) Diabetes mellitus (3) Anemia in chronic kidney disease Assessment: worse- symptomatic (4) Atrial flutter (5) H/O mitral valve replacement (6) Hepatitis C Assessment: by history Assessment End-stage renal disease, on hemodialysis every Monday, Monday, and Monday. Diabetes type 2. Hypertension. Hepatitis C. Mechanical mitral valve. Plan Seen during dialysis tolerating well hemoglobin lowering again Discharge planning in process Previously Worsening anemia, due for transfusion 1 unit of packed RBCs Last dialysis July 11 next dialysis will be for July 14 worsening Anemia- had partial of one unit transfusion- need more It appears that the patient have a GI bleed so Coumadin and aspirin stopped and GI procedure is scheduled Patient was dialyzed yesterday July 02. Was again dialyzed July 04 had an upper endoscopy which showed duodenitis Patient had colonoscopy July 04. Three or four colonic polyps in the rectosigmoid area. See above for details. 2. Internal hemorrhoids. Continue to transfuse and keep hemoglobin and hematocrit at the reasonable range Resume anticoagulation per cardiology advice keep BP and BS in check Per cardio. Objective Objective Last 24 Hour Vital Signs Date Time Temp Pulse Resp B/P (MAP) Pulse Ox O2 Delivery O2 Flow Rate FiO2 07/15/19 12:00 97.7 66 18 142/73 (96) 99 07/15/19 09:00 Room Air 07/15/19 09:00 66 142/73 07/15/19 09:00 142/73 07/15/19 08:21 97.4 70 19 151/77 (101) 99 07/15/19 04:00 98.4 84 19 144/80 (101) 98 07/15/19 00:20 98.4 70 19 130/67 (88) 96 07/14/19 21:35 83 159/82 07/14/19 20:31 Room Air 07/14/19 19:53 98.0 83 19 159/82 (107) 99 07/14/19 16:00 97.9 86 17 139/77 (97) 98 Intake and Output 07/14/19 07/15/19 19:00 07:00 Intake Total 1900 ml Balance 1900 ml Other 1900 ml # Voids 3 Current Medications Medications (Trade) Dose Ordered Sig/John Route PRN Reason Start Time Stop Time Status Last Admin Dose Admin Amikacin Protocol (Amikacin pharmacy to dose) 1 ea DAILY PRN MISC Per rx protocol 07/12/19 09:45 08/11/19 09:44 Bisacodyl (Dulcolax) 10 mg DAILYPRN PRN RECTAL Constipation 07/06/19 15:00 07/27/19 14:59 Dextrose (Dextrose 50%) 25 ml Q30M PRN IV Hypoglycemia 07/05/19 14:30 07/27/19 00:00 Dextrose (Dextrose 50%) 50 ml Q30M PRN IV Hypoglycemia 07/05/19 14:30 07/27/19 00:00 Diphenhydramine HCl (Benadryl) 25 mg Q6H PRN IVP Itching 07/05/19 15:00 08/03/19 14:59 07/15/19 09:00 Docusate Sodium (Colace) 100 mg TID ORAL 07/05/19 18:00 07/27/19 20:59 07/15/19 08:53 Insulin Aspart (NovoLOG) BEFORE MEALS AND HS SUBQ 07/05/19 16:30 07/27/19 06:29 07/08/19 17:39 Losartan Potassium (Cozaar) 50 mg DAILY ORAL 07/06/19 09:00 07/27/19 09:59 07/14/19 08:42 Metoprolol Tartrate (Lopressor) 25 mg Q12HR ORAL 07/05/19 21:00 07/27/19 00:59 07/14/19 21:35 Nitroglycerin (Ntg) 0.4 mg Q5M PRN SL Prn Chest Pain 07/05/19 14:30 07/27/19 00:00 07/10/19 10:10 Ondansetron HCl (Zofran) 4 mg Q6H PRN IVP Nausea & Vomiting 07/05/19 15:00 07/27/19 14:59 07/05/19 18:40 Pantoprazole (Protonix) 40 mg EVERY 12 HOURS ORAL 07/05/19 21:00 07/28/19 20:59 07/15/19 08:53 Polyethylene Glycol (Miralax) 17 gm DAILYPRN PRN ORAL Constipation 07/05/19 15:00 08/04/19 14:59 07/10/19 17:19 Sevelamer Carbonate (Renvela) 800 mg THREE TIMES A DAY ORAL 07/05/19 18:00 07/28/19 12:59 07/15/19 08:53 Warfarin Sodium (Coumadin per pharmacy) 1 ea DAILY PRN MISC Per rx protocol 07/05/19 15:00 08/04/19 14:59 Warfarin Sodium (Coumadin) 7 mg COUMADIN ORAL 07/15/19 17:00 07/20/19 16:59 Laboratory Tests 07/15/19 05:25: White Blood Count 11.4H, Red Blood Count 2.65L, Hemoglobin 8.2L, Hematocrit 24.3L, Mean Corpuscular Volume 92, Mean Corpuscular Hemoglobin 31.0, Mean Corpuscular Hemoglobin Concent 33.9, Red Cell Distribution Width 15.8H, Platelet Count 321, Mean Platelet Volume 7.5, Neutrophils (%) (Auto) 67.3, Lymphocytes (%) (Auto) 20.8, Monocytes (%) (Auto) 6.4, Eosinophils (%) (Auto) 4.4H, Basophils (%) (Auto) 1.1, Prothrombin Time 29.5H, Prothromb Time International Ratio 2.9H, Sodium Level 142, Potassium Level 4.8, Chloride Level 106, Carbon Dioxide Level 22, Anion Gap 14, Blood Urea Nitrogen 43H, Creatinine 6.5H, Estimat Glomerular Filtration Rate 10.4, Glucose Level 83, Calcium Level 8.7 Height (Feet): 6 Height (Inches): 1.00 Weight (Pounds): 167 Cardiovascular: normal rate Respiratory/Chest: lungs clear Abdomen: soft Objective NO CHANGE Hang Valdez MD Jul 15, 2019 13:30
--- NOTE | 2019-07-15 13:42 | Internal Med Progress Note ---
Subjective Date of Service: Jul 15, 2019 Physician Name PleitezSaturnino Attending Physician Brian Alicea MD Current Medications Medications (Trade) Dose Ordered Sig/John Route PRN Reason Start Time Stop Time Status Last Admin Dose Admin Amikacin Protocol (Amikacin pharmacy to dose) 1 ea DAILY PRN MISC Per rx protocol 07/12/19 09:45 08/11/19 09:44 Bisacodyl (Dulcolax) 10 mg DAILYPRN PRN RECTAL Constipation 07/06/19 15:00 07/27/19 14:59 Dextrose (Dextrose 50%) 25 ml Q30M PRN IV Hypoglycemia 07/05/19 14:30 07/27/19 00:00 Dextrose (Dextrose 50%) 50 ml Q30M PRN IV Hypoglycemia 07/05/19 14:30 07/27/19 00:00 Diphenhydramine HCl (Benadryl) 25 mg Q6H PRN IVP Itching 07/05/19 15:00 08/03/19 14:59 07/15/19 09:00 Docusate Sodium (Colace) 100 mg TID ORAL 07/05/19 18:00 07/27/19 20:59 07/15/19 08:53 Insulin Aspart (NovoLOG) BEFORE MEALS AND HS SUBQ 07/05/19 16:30 07/27/19 06:29 07/08/19 17:39 Losartan Potassium (Cozaar) 50 mg DAILY ORAL 07/06/19 09:00 07/27/19 09:59 07/14/19 08:42 Metoprolol Tartrate (Lopressor) 25 mg Q12HR ORAL 07/05/19 21:00 07/27/19 00:59 07/14/19 21:35 Nitroglycerin (Ntg) 0.4 mg Q5M PRN SL Prn Chest Pain 07/05/19 14:30 07/27/19 00:00 07/10/19 10:10 Ondansetron HCl (Zofran) 4 mg Q6H PRN IVP Nausea & Vomiting 07/05/19 15:00 07/27/19 14:59 07/05/19 18:40 Pantoprazole (Protonix) 40 mg EVERY 12 HOURS ORAL 07/05/19 21:00 07/28/19 20:59 07/15/19 08:53 Polyethylene Glycol (Miralax) 17 gm DAILYPRN PRN ORAL Constipation 07/05/19 15:00 08/04/19 14:59 07/10/19 17:19 Sevelamer Carbonate (Renvela) 800 mg THREE TIMES A DAY ORAL 07/05/19 18:00 07/28/19 12:59 07/15/19 08:53 Warfarin Sodium (Coumadin per pharmacy) 1 ea DAILY PRN MISC Per rx protocol 07/05/19 15:00 08/04/19 14:59 Warfarin Sodium (Coumadin) 7 mg COUMADIN ORAL 07/15/19 17:00 07/20/19 16:59 Allergies: Coded Allergies: PENICILLINS (Verified Allergy, Severe, swelling of throat, 02/25/16) ACETAMINOPHEN (Verified Allergy, Intermediate, Generalized Itching , ) HYDROCODONE (Verified Allergy, Intermediate, Generalized Itching , 01/26/18 ) ROS Limited/Unobtainable: No Constitutional: Reports: no symptoms HEENT: Reports: no symptoms Cardiovascular: Reports: no symptoms Respiratory: Reports: no symptoms Gastrointestinal/Abdominal: Reports: no symptoms Genitourinary: Reports: no symptoms Neurologic/Psychiatric: Reports: no symptoms Subjective 64 YO M admitted with chest pain, nausea and vomiting. Now with severe anemia. S/P endoscopy 07/04/19 and colonoscopy 07/05/19.. Cover for Int Med-DR Alicea. Objective Last Vital Signs Date Time Temp Pulse Resp B/P (MAP) Pulse Ox O2 Delivery O2 Flow Rate FiO2 07/15/19 12:00 97.7 66 18 142/73 (96) 99 07/15/19 09:00 Room Air 07/10/19 09:44 21 Laboratory Tests Test 07/15/19 05:25 White Blood Count 11.4 K/UL (4.8-10.8) H Red Blood Count 2.65 M/UL (4.70-6.10) L Hemoglobin 8.2 G/DL (14.2-18.0) L Hematocrit 24.3 % (42.0-52.0) L Mean Corpuscular Volume 92 FL (80-99) Mean Corpuscular Hemoglobin 31.0 PG (27.0-31.0) Mean Corpuscular Hemoglobin Concent 33.9 G/DL (32.0-36.0) Red Cell Distribution Width 15.8 % (11.6-14.8) H Platelet Count 321 K/UL (150-450) Mean Platelet Volume 7.5 FL (6.5-10.1) Neutrophils (%) (Auto) 67.3 % (45.0-75.0) Lymphocytes (%) (Auto) 20.8 % (20.0-45.0) Monocytes (%) (Auto) 6.4 % (1.0-10.0) Eosinophils (%) (Auto) 4.4 % (0.0-3.0) H Basophils (%) (Auto) 1.1 % (0.0-2.0) Prothrombin Time 29.5 SEC (9.30-11.50) H Prothromb Time International Ratio 2.9 (0.9-1.1) H Sodium Level 142 MMOL/L (136-145) Potassium Level 4.8 MMOL/L (3.5-5.1) Chloride Level 106 MMOL/L (98-107) Carbon Dioxide Level 22 MMOL/L (21-32) Anion Gap 14 mmol/L (5-15) Blood Urea Nitrogen 43 mg/dL (7-18) H Creatinine 6.5 MG/DL (0.55-1.30) H Estimat Glomerular Filtration Rate 10.4 mL/min (>60) Glucose Level 83 MG/DL (74-106) Calcium Level 8.7 MG/DL (8.5-10.1) Intake and Output 07/14/19 07/15/19 19:00 07:00 Intake Total 1900 ml Balance 1900 ml Other 1900 ml # Voids 3 Objective PHYSICAL EXAMINATION: GENERAL: The patient is well-developed and well-nourished male, in no apparent distress. HEENT: Eyes, pupils are equal and responsive to light and accommodation. Extraocular movements are intact. NECK: Supple without lymphadenopathy. CHEST: Lungs are clear to auscultation bilaterally without wheezes or rales. CARDIOVASCULAR: Regular rhythm and rate. S1 and S2 are normal with an audible click. No evidence of murmurs or gallops. ABDOMEN: Soft, nontender, nondistended. Positive bowel sounds. No evidence of hepatosplenomegaly. Currently, no rebound or guarding noted. EXTREMITIES: Negative for clubbing, cyanosis, or edema. RECTAL/GENITAL: Not performed. NEUROLOGIC: Cranial nerves II through XII are grossly intact without focal deficits. Motor strength is 5/5 bilaterally. Deep tendon reflexes are 2+ plantar. Assessment/Plan Assessment/Plan ASSESSMENT: This is a 64-year-old male. 1. Chest pain. 2. Nausea with vomiting. 3. Mechanical mitral valve. 4. End-stage renal disease. 5. Diabetes type 2. 6. Hypertension. 7. Atrial flutter 8. severe anemia 9. Duodenitis TREATMENT: 1. Chest pain. A Cardiology consultation has been obtained with Dr. Beto Goldman. The patient has a mechanical mitral valve. An echocardiogram is pending. Serial troponin levels will be performed. We will follow recommendation of Cardiology. 2. Nausea and vomiting, this has resolved. 3. End-stage renal disease. A Nephrology consultation has been obtained with Dr. Valdez. We will follow recommendations of Nephrology. Next hemodialysis 07/12/19 4. Diabetes type 2. NovoLog sliding scale has been instituted. 5. Hypertension. Continue diltiazem, isosorbide, losartan and as needed clonidine as above. 6. Hypercholesterolemia. Continue atorvastatin 7. Atrial flutter-continue coumadin 8. cardiac stress test results from 07/01/19=poss ischemia 9. S/P transfusion 5 units PRBC; transfuse 1 unit PRBC during dialysis 07/11/19 10. S/P endoscopy and colonoscopy Saturnino Pleitez MD Jul 15, 2019 13:42
--- NOTE | 2019-07-15 14:35 | Pulmonology Progress Note ---
Assessment/Plan Problems: (1) Anemia in chronic kidney disease Assessment & Plan: s/p 5 units of prbc, (2) Leukocytosis Assessment & Plan: on amikacin now (3) Atrial fibrillation with rapid ventricular response Assessment & Plan: sinus now, on Coumadin INR is subtherapeutic (4) COPD (chronic obstructive pulmonary disease) (5) ESRD (end stage renal disease) on dialysis (6) H/O mitral valve replacement (7) Hepatitis C (8) Nicotine addiction (9) History of hypertension (10) Diabetes mellitus Assessment/Plan H/h stable in the last few days s/p 6 units of prbc doing better heart rate controlled, sinus around 80's respiratory treatment titrate fiO2 to sat of 92% symptomatic treatment h/h stable might go home with IV amikacin set up at home as per ID check INR, not therapeutic yet. its 2.9 Subjective Interval Events: no new complains Allergies: Coded Allergies: PENICILLINS (Verified Allergy, Severe, swelling of throat, 02/25/16) ACETAMINOPHEN (Verified Allergy, Intermediate, Generalized Itching , ) HYDROCODONE (Verified Allergy, Intermediate, Generalized Itching , 01/26/18 ) Objective Last 24 Hour Vital Signs Date Time Temp Pulse Resp B/P (MAP) Pulse Ox O2 Delivery O2 Flow Rate FiO2 07/15/19 12:00 97.7 66 18 142/73 (96) 99 07/15/19 09:00 Room Air 07/15/19 09:00 66 142/73 07/15/19 09:00 142/73 07/15/19 08:21 97.4 70 19 151/77 (101) 99 07/15/19 04:00 98.4 84 19 144/80 (101) 98 07/15/19 00:20 98.4 70 19 130/67 (88) 96 07/14/19 21:35 83 159/82 07/14/19 20:31 Room Air 07/14/19 19:53 98.0 83 19 159/82 (107) 99 07/14/19 16:00 97.9 86 17 139/77 (97) 98 Intake and Output 07/14/19 07/15/19 19:00 07:00 Intake Total 1900 ml Balance 1900 ml Other 1900 ml # Voids 3 Objective no new complains General Appearance: WD/WN HEENT: normocephalic, PERRL Respiratory/Chest: chest wall non-tender, lungs clear, normal breath sounds Cardiovascular: normal peripheral pulses, normal rate Abdomen: normal bowel sounds, soft, non tender Extremities: no cyanosis Laboratory Tests 07/15/19 05:25: White Blood Count 11.4H, Red Blood Count 2.65L, Hemoglobin 8.2L, Hematocrit 24.3L, Mean Corpuscular Volume 92, Mean Corpuscular Hemoglobin 31.0, Mean Corpuscular Hemoglobin Concent 33.9, Red Cell Distribution Width 15.8H, Platelet Count 321, Mean Platelet Volume 7.5, Neutrophils (%) (Auto) 67.3, Lymphocytes (%) (Auto) 20.8, Monocytes (%) (Auto) 6.4, Eosinophils (%) (Auto) 4.4H, Basophils (%) (Auto) 1.1, Prothrombin Time 29.5H, Prothromb Time International Ratio 2.9H, Sodium Level 142, Potassium Level 4.8, Chloride Level 106, Carbon Dioxide Level 22, Anion Gap 14, Blood Urea Nitrogen 43H, Creatinine 6.5H, Estimat Glomerular Filtration Rate 10.4, Glucose Level 83, Calcium Level 8.7 Current Medications Medications (Trade) Dose Ordered Sig/John Route PRN Reason Start Time Stop Time Status Last Admin Dose Admin Amikacin Protocol (Amikacin pharmacy to dose) 1 ea DAILY PRN MISC Per rx protocol 07/12/19 09:45 08/11/19 09:44 Bisacodyl (Dulcolax) 10 mg DAILYPRN PRN RECTAL Constipation 07/06/19 15:00 07/27/19 14:59 Dextrose (Dextrose 50%) 25 ml Q30M PRN IV Hypoglycemia 07/05/19 14:30 07/27/19 00:00 Dextrose (Dextrose 50%) 50 ml Q30M PRN IV Hypoglycemia 07/05/19 14:30 07/27/19 00:00 Diphenhydramine HCl (Benadryl) 25 mg Q6H PRN IVP Itching 07/05/19 15:00 08/03/19 14:59 07/15/19 09:00 Docusate Sodium (Colace) 100 mg TID ORAL 07/05/19 18:00 07/27/19 20:59 07/15/19 14:14 Insulin Aspart (NovoLOG) BEFORE MEALS AND HS SUBQ 07/05/19 16:30 07/27/19 06:29 07/08/19 17:39 Losartan Potassium (Cozaar) 50 mg DAILY ORAL 07/06/19 09:00 07/27/19 09:59 07/14/19 08:42 Metoprolol Tartrate (Lopressor) 25 mg Q12HR ORAL 07/05/19 21:00 07/27/19 00:59 07/14/19 21:35 Nitroglycerin (Ntg) 0.4 mg Q5M PRN SL Prn Chest Pain 07/05/19 14:30 07/27/19 00:00 07/10/19 10:10 Ondansetron HCl (Zofran) 4 mg Q6H PRN IVP Nausea & Vomiting 07/05/19 15:00 07/27/19 14:59 07/05/19 18:40 Pantoprazole (Protonix) 40 mg EVERY 12 HOURS ORAL 07/05/19 21:00 07/28/19 20:59 07/15/19 08:53 Polyethylene Glycol (Miralax) 17 gm DAILYPRN PRN ORAL Constipation 07/05/19 15:00 08/04/19 14:59 07/10/19 17:19 Sevelamer Carbonate (Renvela) 800 mg THREE TIMES A DAY ORAL 07/05/19 18:00 07/28/19 12:59 07/15/19 14:14 Warfarin Sodium (Coumadin per pharmacy) 1 ea DAILY PRN MISC Per rx protocol 07/05/19 15:00 08/04/19 14:59 Warfarin Sodium (Coumadin) 7 mg COUMADIN ORAL 07/15/19 17:00 07/20/19 16:59 Caleb Hinojosa MD Jul 15, 2019 14:35
[2019-07-15 16:00] VITALS: BP 121/59
[2019-07-15] MEDS ORDERED: WARFARIN SOD ORAL SCH ×2 (17:00)
[2019-07-15 20:00] VITALS: BP 121/73
[2019-07-16] VITALS: BP 121/60
[2019-07-16 04:00] VITALS: BP 130/67
[2019-07-16] MEDS: NovoLOG Insulin Flexpen SUBQ SCH ×3 (06:06→16:30)
[2019-07-16 06:24] LABS: BASOPHILS % (AUTO) 0.9 % (0.0-2.0); EOSINOPHILS % (AUTO) 3.7 % (0.0-3.0); HEMATOCRIT 25.9 % (42.0-52.0); HEMOGLOBIN 8.8 G/DL (14.2-18.0); LYMPHOCYTES % (AUTO) 24.2 % (20.0-45.0); MEAN CORPUSCULAR VOLUME 92 FL (80-99); MONOCYTES % (AUTO) 5.6 % (1.0-10.0); NEUTROPHILS % (AUTO) 65.6 % (45.0-75.0); PLATELET COUNT 316 K/UL (150-450); RED BLOOD COUNT 2.81 M/UL (4.70-6.10); RED CELL DISTRIBUTION WIDTH 16.2 % (11.6-14.8); WHITE BLOOD COUNT 13.2 K/UL (4.8-10.8)
[2019-07-16 06:36] LABS: INR 2.9 (0.9-1.1)
[2019-07-16 06:50] LABS: ANION GAP 0 mmol/L (5-15); BLOOD UREA NITROGEN 29 mg/dL (7-18); CALCIUM 8.9 MG/DL (8.5-10.1); CARBON DIOXIDE 31 MMOL/L (21-32); CHLORIDE 103 MMOL/L (98-107); POTASSIUM 4.1 MMOL/L (3.5-5.1); SODIUM 134 MMOL/L (136-145)
[2019-07-16 08:00] VITALS: BP 146/64
[2019-07-16] MEDS: Losartan 50mg tab ORAL SCH (08:10)
[2019-07-16] MEDS: Docusate 100mg cap ORAL SCH ×3 (08:10→17:46)
--- NOTE | 2019-07-16 08:44 | General Progress Note ---
Assessment/Plan Problem List: (1) H/O mitral valve replacement ICD Codes: Z95.2 - Presence of prosthetic heart valve SNOMED: 29794836, 9458175569334 (2) Hepatitis C ICD Codes: B19.20 - Unspecified viral hepatitis C without hepatic coma SNOMED: 71569307 (3) COPD (chronic obstructive pulmonary disease) ICD Codes: J44.9 - Chronic obstructive pulmonary disease, unspecified SNOMED: 22438354 (4) Diabetes mellitus ICD Codes: E11.9 - Type 2 diabetes mellitus without complications SNOMED: 40545678 (5) Atrial fibrillation with rapid ventricular response ICD Codes: I48.91 - Unspecified atrial fibrillation SNOMED: 202622164046188 (6) GI bleed ICD Codes: K92.2 - Gastrointestinal hemorrhage, unspecified SNOMED: 55479142 (7) Warfarin overdosage ICD Codes: T45.511A - Poisoning by anticoagulants, accidental (unintentional), initial encounter SNOMED: 79131261, 67542138 Status: stable Assessment/Plan: s/p EGD and colonoscopy no active bleed on Coumadin per pharmacy fu labs hep C RNA positive>>> needs out patient fu for treatment cbc in am stool ob Subjective ROS Limited/Unobtainable: Yes Allergies: Coded Allergies: PENICILLINS (Verified Allergy, Severe, swelling of throat, 02/25/16) ACETAMINOPHEN (Verified Allergy, Intermediate, Generalized Itching , ) HYDROCODONE (Verified Allergy, Intermediate, Generalized Itching , 01/26/18 ) Objective Last 24 Hour Vital Signs Date Time Temp Pulse Resp B/P (MAP) Pulse Ox O2 Delivery O2 Flow Rate FiO2 07/16/19 08:10 82 146/64 07/16/19 08:10 146/64 07/16/19 04:00 98.2 70 19 130/67 (88) 97 07/16/19 00:00 98.6 72 18 121/60 (80) 96 07/15/19 21:00 Room Air 07/15/19 20:35 88 120/62 07/15/19 20:00 98.4 78 18 121/73 (89) 96 07/15/19 16:00 98.2 79 19 121/59 (79) 98 07/15/19 12:00 97.7 66 18 142/73 (96) 99 07/15/19 09:00 Room Air 07/15/19 09:00 66 142/73 07/15/19 09:00 142/73 Intake and Output 07/15/19 07/16/19 19:00 07:00 Intake Total 2600 ml Output Total 2000 ml Balance 600 ml Intake Oral 600 ml Hemodialysis 2000 ml Hemodialysis UF 2000 ml # Voids 3 # Bowel Movements 1 Laboratory Tests 07/15/19 16:45: Stool Occult Blood [Pending] 07/15/19 16:55: Random Amikacin Level [Pending] 07/16/19 05:08: White Blood Count 13.2H, Red Blood Count 2.81L, Hemoglobin 8.8L, Hematocrit 25.9L, Mean Corpuscular Volume 92, Mean Corpuscular Hemoglobin 31.4H, Mean Corpuscular Hemoglobin Concent 34.0, Red Cell Distribution Width 16.2H, Platelet Count 316, Mean Platelet Volume 8.1, Neutrophils (%) (Auto) 65.6, Lymphocytes (%) (Auto) 24.2, Monocytes (%) (Auto) 5.6, Eosinophils (%) (Auto) 3.7H, Basophils (%) (Auto) 0.9, Prothrombin Time 29.2H, Prothromb Time International Ratio 2.9H, Sodium Level 134L, Potassium Level 4.1, Chloride Level 103, Carbon Dioxide Level 31, Anion Gap 0L, Blood Urea Nitrogen 29H, Creatinine 5.0H, Estimat Glomerular Filtration Rate 14.2, Glucose Level 102, Calcium Level 8.9 Height (Feet): 6 Height (Inches): 1.00 Weight (Pounds): 167 General Appearance: no apparent distress EENT: normal ENT inspection Neck: supple Cardiovascular: normal rate Respiratory/Chest: decreased breath sounds Abdomen: normal bowel sounds, non tender, soft Extremities: non-tender Tung Steen MD Jul 16, 2019 08:44
--- NOTE | 2019-07-16 11:31 | Infectious Diseases Prog Note ---
Assessment/Plan Assessment/Plan ASSESSMENT: The patient is a 64-year-old male with: Leukocytosis, mild increase UTI - UCX : 100k Ecoli : ESBL Afebrile ch Hep C +ve History of cardiac stent. History of hypertension. GERD. History of bladder cancer. End-stage renal disease, on dialysis. Left toe amputation. Diabetes. History of mitral valve and tricuspid valve repair. PLAN: Cont Amikacin # 5/7 ( ask RN to give him a dose of Amikacin before DC ) 07/11 SP IV levaquin # 3 Monitor blood culture. Monitor CBC and BMP Monitor CXR discussed with RN Subjective Allergies: Coded Allergies: PENICILLINS (Verified Allergy, Severe, swelling of throat, 02/25/16) ACETAMINOPHEN (Verified Allergy, Intermediate, Generalized Itching , ) HYDROCODONE (Verified Allergy, Intermediate, Generalized Itching , 01/26/18 ) Subjective mild leukocytosis comfortable no fevers Objective Vital Signs Last 24 Hour Vital Signs Date Time Temp Pulse Resp B/P (MAP) Pulse Ox O2 Delivery O2 Flow Rate FiO2 07/16/19 09:00 Room Air 07/16/19 08:10 82 146/64 07/16/19 08:10 146/64 07/16/19 08:00 98.5 82 17 146/64 (91) 99 07/16/19 04:00 98.2 70 19 130/67 (88) 97 07/16/19 00:00 98.6 72 18 121/60 (80) 96 07/15/19 21:00 Room Air 07/15/19 20:35 88 120/62 07/15/19 20:00 98.4 78 18 121/73 (89) 96 07/15/19 16:00 98.2 79 19 121/59 (79) 98 07/15/19 12:00 97.7 66 18 142/73 (96) 99 Height (Feet): 6 Height (Inches): 1.00 Weight (Pounds): 167 HEENT: anicteric Respiratory/Chest: normal breath sounds Cardiovascular: regularly irregular Abdomen: no organomegaly Laboratory Tests Test 07/15/19 16:45 07/15/19 16:55 07/16/19 05:08 Stool Occult Blood Pending Random Amikacin Level Pending White Blood Count 13.2 K/UL (4.8-10.8) H Red Blood Count 2.81 M/UL (4.70-6.10) L Hemoglobin 8.8 G/DL (14.2-18.0) L Hematocrit 25.9 % (42.0-52.0) L Mean Corpuscular Volume 92 FL (80-99) Mean Corpuscular Hemoglobin 31.4 PG (27.0-31.0) H Mean Corpuscular Hemoglobin Concent 34.0 G/DL (32.0-36.0) Red Cell Distribution Width 16.2 % (11.6-14.8) H Platelet Count 316 K/UL (150-450) Mean Platelet Volume 8.1 FL (6.5-10.1) Neutrophils (%) (Auto) 65.6 % (45.0-75.0) Lymphocytes (%) (Auto) 24.2 % (20.0-45.0) Monocytes (%) (Auto) 5.6 % (1.0-10.0) Eosinophils (%) (Auto) 3.7 % (0.0-3.0) H Basophils (%) (Auto) 0.9 % (0.0-2.0) Prothrombin Time 29.2 SEC (9.30-11.50) H Prothromb Time International Ratio 2.9 (0.9-1.1) H Sodium Level 134 MMOL/L (136-145) L Potassium Level 4.1 MMOL/L (3.5-5.1) Chloride Level 103 MMOL/L (98-107) Carbon Dioxide Level 31 MMOL/L (21-32) Anion Gap 0 mmol/L (5-15) L Blood Urea Nitrogen 29 mg/dL (7-18) H Creatinine 5.0 MG/DL (0.55-1.30) H Estimat Glomerular Filtration Rate 14.2 mL/min (>60) Glucose Level 102 MG/DL (74-106) Calcium Level 8.9 MG/DL (8.5-10.1) Current Medications Medications (Trade) Dose Ordered Sig/John Route PRN Reason Start Time Stop Time Status Last Admin Dose Admin Amikacin Protocol (Amikacin pharmacy to dose) 1 ea DAILY PRN MISC Per rx protocol 07/12/19 09:45 08/11/19 09:44 Bisacodyl (Dulcolax) 10 mg DAILYPRN PRN RECTAL Constipation 07/06/19 15:00 07/27/19 14:59 Dextrose (Dextrose 50%) 25 ml Q30M PRN IV Hypoglycemia 07/05/19 14:30 07/27/19 00:00 Dextrose (Dextrose 50%) 50 ml Q30M PRN IV Hypoglycemia 07/05/19 14:30 07/27/19 00:00 Diphenhydramine HCl (Benadryl) 25 mg Q6H PRN IVP Itching 07/05/19 15:00 08/03/19 14:59 07/15/19 18:35 Docusate Sodium (Colace) 100 mg TID ORAL 07/05/19 18:00 07/27/19 20:59 07/16/19 08:10 Insulin Aspart (NovoLOG) BEFORE MEALS AND HS SUBQ 07/05/19 16:30 07/27/19 06:29 07/08/19 17:39 Losartan Potassium (Cozaar) 50 mg DAILY ORAL 07/06/19 09:00 07/27/19 09:59 07/16/19 08:10 Metoprolol Tartrate (Lopressor) 25 mg Q12HR ORAL 07/05/19 21:00 07/27/19 00:59 07/16/19 08:10 Nitroglycerin (Ntg) 0.4 mg Q5M PRN SL Prn Chest Pain 07/05/19 14:30 07/27/19 00:00 07/10/19 10:10 Ondansetron HCl (Zofran) 4 mg Q6H PRN IVP Nausea & Vomiting 07/05/19 15:00 07/27/19 14:59 07/05/19 18:40 Pantoprazole (Protonix) 40 mg EVERY 12 HOURS ORAL 07/05/19 21:00 07/28/19 20:59 07/16/19 08:10 Polyethylene Glycol (Miralax) 17 gm DAILYPRN PRN ORAL Constipation 07/05/19 15:00 08/04/19 14:59 07/10/19 17:19 Sevelamer Carbonate (Renvela) 800 mg THREE TIMES A DAY ORAL 07/05/19 18:00 07/28/19 12:59 07/16/19 08:10 Warfarin Sodium (Coumadin per pharmacy) 1 ea DAILY PRN MISC Per rx protocol 07/05/19 15:00 08/04/19 14:59 Warfarin Sodium (Coumadin) 7 mg COUMADIN ORAL 07/15/19 17:00 07/20/19 16:59 07/15/19 17:29 Surjit Odom MD Jul 16, 2019 11:31
[2019-07-16 12:00] VITALS: BP 127/65
--- NOTE | 2019-07-16 12:29 | Nephrology Progress Note ---
Assessment/Plan Problem List: (1) ESRD (end stage renal disease) on dialysis (2) Diabetes mellitus (3) Anemia in chronic kidney disease Assessment: worse- symptomatic (4) Atrial flutter (5) H/O mitral valve replacement (6) Hepatitis C Assessment: by history Assessment End-stage renal disease, on hemodialysis every Monday, Monday, and Monday. Diabetes type 2. Hypertension. Hepatitis C. Mechanical mitral valve. Plan Next dialysis July 16 hemoglobin seems to be stabilizing Discharge planning in process Previously Worsening anemia, due for transfusion 1 unit of packed RBCs Last dialysis July 11 next dialysis will be for July 14 worsening Anemia- had partial of one unit transfusion- need more It appears that the patient have a GI bleed so Coumadin and aspirin stopped and GI procedure is scheduled Patient was dialyzed yesterday July 02. Was again dialyzed July 04 had an upper endoscopy which showed duodenitis Patient had colonoscopy July 04. Three or four colonic polyps in the rectosigmoid area. See above for details. 2. Internal hemorrhoids. Continue to transfuse and keep hemoglobin and hematocrit at the reasonable range Resume anticoagulation per cardiology advice keep BP and BS in check Per cardio. Subjective ROS Limited/Unobtainable: No Objective Objective Last 24 Hour Vital Signs Date Time Temp Pulse Resp B/P (MAP) Pulse Ox O2 Delivery O2 Flow Rate FiO2 07/16/19 12:00 97.7 70 18 127/65 (85) 99 07/16/19 09:00 Room Air 07/16/19 08:10 82 146/64 07/16/19 08:10 146/64 07/16/19 08:00 98.5 82 17 146/64 (91) 99 07/16/19 04:00 98.2 70 19 130/67 (88) 97 07/16/19 00:00 98.6 72 18 121/60 (80) 96 07/15/19 21:00 Room Air 07/15/19 20:35 88 120/62 07/15/19 20:00 98.4 78 18 121/73 (89) 96 07/15/19 16:00 98.2 79 19 121/59 (79) 98 Intake and Output 07/15/19 07/16/19 19:00 07:00 Intake Total 2600 ml Output Total 2000 ml Balance 600 ml Intake Oral 600 ml Hemodialysis 2000 ml Hemodialysis UF 2000 ml # Voids 3 # Bowel Movements 1 Current Medications Medications (Trade) Dose Ordered Sig/John Route PRN Reason Start Time Stop Time Status Last Admin Dose Admin Amikacin Protocol (Amikacin pharmacy to dose) 1 ea DAILY PRN MISC Per rx protocol 07/12/19 09:45 08/11/19 09:44 Bisacodyl (Dulcolax) 10 mg DAILYPRN PRN RECTAL Constipation 07/06/19 15:00 07/27/19 14:59 Dextrose (Dextrose 50%) 25 ml Q30M PRN IV Hypoglycemia 07/05/19 14:30 07/27/19 00:00 Dextrose (Dextrose 50%) 50 ml Q30M PRN IV Hypoglycemia 07/05/19 14:30 07/27/19 00:00 Diphenhydramine HCl (Benadryl) 25 mg Q6H PRN IVP Itching 07/05/19 15:00 08/03/19 14:59 07/15/19 18:35 Docusate Sodium (Colace) 100 mg TID ORAL 07/05/19 18:00 07/27/19 20:59 07/16/19 12:08 Insulin Aspart (NovoLOG) BEFORE MEALS AND HS SUBQ 07/05/19 16:30 07/27/19 06:29 07/08/19 17:39 Losartan Potassium (Cozaar) 50 mg DAILY ORAL 07/06/19 09:00 07/27/19 09:59 07/16/19 08:10 Metoprolol Tartrate (Lopressor) 25 mg Q12HR ORAL 07/05/19 21:00 07/27/19 00:59 07/16/19 08:10 Nitroglycerin (Ntg) 0.4 mg Q5M PRN SL Prn Chest Pain 07/05/19 14:30 07/27/19 00:00 07/10/19 10:10 Ondansetron HCl (Zofran) 4 mg Q6H PRN IVP Nausea & Vomiting 07/05/19 15:00 07/27/19 14:59 07/05/19 18:40 Pantoprazole (Protonix) 40 mg EVERY 12 HOURS ORAL 07/05/19 21:00 07/28/19 20:59 07/16/19 08:10 Polyethylene Glycol (Miralax) 17 gm DAILYPRN PRN ORAL Constipation 07/05/19 15:00 08/04/19 14:59 07/10/19 17:19 Sevelamer Carbonate (Renvela) 800 mg THREE TIMES A DAY ORAL 07/05/19 18:00 07/28/19 12:59 07/16/19 12:08 Warfarin Sodium (Coumadin per pharmacy) 1 ea DAILY PRN MISC Per rx protocol 07/05/19 15:00 08/04/19 14:59 Warfarin Sodium (Coumadin) 7 mg COUMADIN ORAL 07/16/19 17:00 07/21/19 16:59 Laboratory Tests 07/15/19 16:45: Stool Occult Blood Negative 07/15/19 16:55: Random Amikacin Level [Pending] 07/16/19 05:08: White Blood Count 13.2H, Red Blood Count 2.81L, Hemoglobin 8.8L, Hematocrit 25.9L, Mean Corpuscular Volume 92, Mean Corpuscular Hemoglobin 31.4H, Mean Corpuscular Hemoglobin Concent 34.0, Red Cell Distribution Width 16.2H, Platelet Count 316, Mean Platelet Volume 8.1, Neutrophils (%) (Auto) 65.6, Lymphocytes (%) (Auto) 24.2, Monocytes (%) (Auto) 5.6, Eosinophils (%) (Auto) 3.7H, Basophils (%) (Auto) 0.9, Prothrombin Time 29.2H, Prothromb Time International Ratio 2.9H, Sodium Level 134L, Potassium Level 4.1, Chloride Level 103, Carbon Dioxide Level 31, Anion Gap 0L, Blood Urea Nitrogen 29H, Creatinine 5.0H, Estimat Glomerular Filtration Rate 14.2, Glucose Level 102, Calcium Level 8.9 Height (Feet): 6 Height (Inches): 1.00 Weight (Pounds): 167 General Appearance: no apparent distress Objective NO CHANGE Hang Valdez MD Jul 16, 2019 12:29
--- NOTE | 2019-07-16 13:00 | Cardiac Electrophysiology PN ---
Assessment/Plan Assessment/Plan 1. Atrial flutter, converted to SR. On metoprolol 25 mg b.i.d. and Coumadin EPS and ablation as out patient. EF 55% 2. Chest pain. Ruled out for myocardial infarction. Denies any chest pain. It could be due to volume overload. Stress test 07/02/19 showed: Hypoperfusion to the inferior wall worse on stress. Possibilities include an inferior wall infarct with lexie-infarct ischemia versus diaphragmatic attenuation. Refused Cardiac cath. Continue medical therapy 3. S/P [facility] MVR and TV Ring 07/2017 at [facility] Nl valve Fx on echo 4. Hypertension, on metoprolol 25 mg b.i.d., losartan 50 mg daily and hemodialysis. 5. End-stage renal disease, on hemodialysis. 6. Diabetes, on insulin. 7. Hep C 8. Acute anemia Hb 12 to 6.5! Got 4 unit of blood. S/P EGD and colonoscopy by Dr. Steen. No active bleed. 9. Elevated WBC and UTI. FU ID DW RN Subjective Subjective On NMB. No CP or SOB on iv Abx. Placement pending Objective Last 24 Hour Vital Signs Date Time Temp Pulse Resp B/P (MAP) Pulse Ox O2 Delivery O2 Flow Rate FiO2 07/16/19 12:00 97.7 70 18 127/65 (85) 99 07/16/19 09:00 Room Air 07/16/19 08:10 82 146/64 07/16/19 08:10 146/64 07/16/19 08:00 98.5 82 17 146/64 (91) 99 07/16/19 04:00 98.2 70 19 130/67 (88) 97 07/16/19 00:00 98.6 72 18 121/60 (80) 96 07/15/19 21:00 Room Air 07/15/19 20:35 88 120/62 07/15/19 20:00 98.4 78 18 121/73 (89) 96 07/15/19 16:00 98.2 79 19 121/59 (79) 98 Intake and Output 07/15/19 07/16/19 19:00 07:00 Intake Total 2600 ml Output Total 2000 ml Balance 600 ml Intake Oral 600 ml Hemodialysis 2000 ml Hemodialysis UF 2000 ml # Voids 3 # Bowel Movements 1 Laboratory Tests Test 07/15/19 16:45 07/15/19 16:55 07/16/19 05:08 Stool Occult Blood Negative (NEGATIVE) Random Amikacin Level Pending White Blood Count 13.2 K/UL (4.8-10.8) H Red Blood Count 2.81 M/UL (4.70-6.10) L Hemoglobin 8.8 G/DL (14.2-18.0) L Hematocrit 25.9 % (42.0-52.0) L Mean Corpuscular Volume 92 FL (80-99) Mean Corpuscular Hemoglobin 31.4 PG (27.0-31.0) H Mean Corpuscular Hemoglobin Concent 34.0 G/DL (32.0-36.0) Red Cell Distribution Width 16.2 % (11.6-14.8) H Platelet Count 316 K/UL (150-450) Mean Platelet Volume 8.1 FL (6.5-10.1) Neutrophils (%) (Auto) 65.6 % (45.0-75.0) Lymphocytes (%) (Auto) 24.2 % (20.0-45.0) Monocytes (%) (Auto) 5.6 % (1.0-10.0) Eosinophils (%) (Auto) 3.7 % (0.0-3.0) H Basophils (%) (Auto) 0.9 % (0.0-2.0) Prothrombin Time 29.2 SEC (9.30-11.50) H Prothromb Time International Ratio 2.9 (0.9-1.1) H Sodium Level 134 MMOL/L (136-145) L Potassium Level 4.1 MMOL/L (3.5-5.1) Chloride Level 103 MMOL/L (98-107) Carbon Dioxide Level 31 MMOL/L (21-32) Anion Gap 0 mmol/L (5-15) L Blood Urea Nitrogen 29 mg/dL (7-18) H Creatinine 5.0 MG/DL (0.55-1.30) H Estimat Glomerular Filtration Rate 14.2 mL/min (>60) Glucose Level 102 MG/DL (74-106) Calcium Level 8.9 MG/DL (8.5-10.1) Objective HEAD AND NECK: No JVD LUNGS: Clear. CARDIOVASCULAR: Regular S1 and S2 with metallic first heart sounds. LUNGS: Clear. ABDOMEN: Soft. EXTREMITIES: No pitting edema. Beto Goldman MD Jul 16, 2019 13:00
--- NOTE | 2019-07-16 15:06 | Pulmonology Progress Note ---
Assessment/Plan Problems: (1) Anemia in chronic kidney disease Assessment & Plan: s/p 5 units of prbc, (2) Leukocytosis Assessment & Plan: on amikacin now (3) Atrial fibrillation with rapid ventricular response Assessment & Plan: sinus now, on Coumadin INR is subtherapeutic (4) COPD (chronic obstructive pulmonary disease) (5) ESRD (end stage renal disease) on dialysis (6) H/O mitral valve replacement (7) Hepatitis C (8) Nicotine addiction (9) History of hypertension (10) Diabetes mellitus Assessment/Plan going home today H/h stable in the last few days s/p 6 units of prbc doing better heart rate controlled, sinus around 80's respiratory treatment titrate fiO2 to sat of 92% symptomatic treatment h/h stable check INR, not therapeutic yet. its 2.9 again today Subjective ROS Limited/Unobtainable: No Constitutional: Reports: no symptoms HEENT: Repors: no symptoms Respiratory: Reports: no symptoms Allergies: Coded Allergies: PENICILLINS (Verified Allergy, Severe, swelling of throat, 02/25/16) ACETAMINOPHEN (Verified Allergy, Intermediate, Generalized Itching , ) HYDROCODONE (Verified Allergy, Intermediate, Generalized Itching , 01/26/18 ) Objective Last 24 Hour Vital Signs Date Time Temp Pulse Resp B/P (MAP) Pulse Ox O2 Delivery O2 Flow Rate FiO2 07/16/19 12:00 97.7 70 18 127/65 (85) 99 07/16/19 09:00 Room Air 07/16/19 08:10 82 146/64 07/16/19 08:10 146/64 07/16/19 08:00 98.5 82 17 146/64 (91) 99 07/16/19 04:00 98.2 70 19 130/67 (88) 97 07/16/19 00:00 98.6 72 18 121/60 (80) 96 07/15/19 21:00 Room Air 07/15/19 20:35 88 120/62 07/15/19 20:00 98.4 78 18 121/73 (89) 96 07/15/19 16:00 98.2 79 19 121/59 (79) 98 Intake and Output 07/15/19 07/16/19 19:00 07:00 Intake Total 2600 ml Output Total 2000 ml Balance 600 ml Intake Oral 600 ml Hemodialysis 2000 ml Hemodialysis UF 2000 ml # Voids 3 # Bowel Movements 1 Objective no new complains General Appearance: WD/WN HEENT: normocephalic, atraumatic Respiratory/Chest: chest wall non-tender, lungs clear Cardiovascular: normal peripheral pulses, normal rate Abdomen: normal bowel sounds, soft, non tender Extremities: no cyanosis Skin: no rash Laboratory Tests 07/15/19 16:45: Stool Occult Blood Negative 07/15/19 16:55: Random Amikacin Level 6.2 07/16/19 05:08: White Blood Count 13.2H, Red Blood Count 2.81L, Hemoglobin 8.8L, Hematocrit 25.9L, Mean Corpuscular Volume 92, Mean Corpuscular Hemoglobin 31.4H, Mean Corpuscular Hemoglobin Concent 34.0, Red Cell Distribution Width 16.2H, Platelet Count 316, Mean Platelet Volume 8.1, Neutrophils (%) (Auto) 65.6, Lymphocytes (%) (Auto) 24.2, Monocytes (%) (Auto) 5.6, Eosinophils (%) (Auto) 3.7H, Basophils (%) (Auto) 0.9, Prothrombin Time 29.2H, Prothromb Time International Ratio 2.9H, Sodium Level 134L, Potassium Level 4.1, Chloride Level 103, Carbon Dioxide Level 31, Anion Gap 0L, Blood Urea Nitrogen 29H, Creatinine 5.0H, Estimat Glomerular Filtration Rate 14.2, Glucose Level 102, Calcium Level 8.9 Current Medications Medications (Trade) Dose Ordered Sig/John Route PRN Reason Start Time Stop Time Status Last Admin Dose Admin Amikacin Protocol (Amikacin pharmacy to dose) 1 ea DAILY PRN MISC Per rx protocol 07/12/19 09:45 08/11/19 09:44 Amikacin Sulfate 500 mg/Sodium Chloride 112 ml @ 112 mls/hr ONCE IV 07/16/19 16:00 07/16/19 17:00 Bisacodyl (Dulcolax) 10 mg DAILYPRN PRN RECTAL Constipation 07/06/19 15:00 07/27/19 14:59 Dextrose (Dextrose 50%) 25 ml Q30M PRN IV Hypoglycemia 07/05/19 14:30 07/27/19 00:00 Dextrose (Dextrose 50%) 50 ml Q30M PRN IV Hypoglycemia 07/05/19 14:30 07/27/19 00:00 Diphenhydramine HCl (Benadryl) 25 mg Q6H PRN IVP Itching 07/05/19 15:00 08/03/19 14:59 07/15/19 18:35 Docusate Sodium (Colace) 100 mg TID ORAL 07/05/19 18:00 07/27/19 20:59 07/16/19 12:08 Insulin Aspart (NovoLOG) BEFORE MEALS AND HS SUBQ 07/05/19 16:30 07/27/19 06:29 07/08/19 17:39 Losartan Potassium (Cozaar) 50 mg DAILY ORAL 07/06/19 09:00 07/27/19 09:59 07/16/19 08:10 Metoprolol Tartrate (Lopressor) 25 mg Q12HR ORAL 07/05/19 21:00 07/27/19 00:59 07/16/19 08:10 Nitroglycerin (Ntg) 0.4 mg Q5M PRN SL Prn Chest Pain 07/05/19 14:30 07/27/19 00:00 07/10/19 10:10 Ondansetron HCl (Zofran) 4 mg Q6H PRN IVP Nausea & Vomiting 07/05/19 15:00 07/27/19 14:59 07/05/19 18:40 Pantoprazole (Protonix) 40 mg EVERY 12 HOURS ORAL 07/05/19 21:00 07/28/19 20:59 07/16/19 08:10 Polyethylene Glycol (Miralax) 17 gm DAILYPRN PRN ORAL Constipation 07/05/19 15:00 08/04/19 14:59 07/10/19 17:19 Sevelamer Carbonate (Renvela) 800 mg THREE TIMES A DAY ORAL 07/05/19 18:00 07/28/19 12:59 07/16/19 12:08 Warfarin Sodium (Coumadin per pharmacy) 1 ea DAILY PRN MISC Per rx protocol 07/05/19 15:00 08/04/19 14:59 Warfarin Sodium (Coumadin) 7 mg COUMADIN ORAL 07/16/19 17:00 07/21/19 16:59 Caleb Hinojosa MD Jul 16, 2019 15:06
[2019-07-16 16:00] VITALS: BP 125/64
[2019-07-16] MEDS ORDERED: Amikacin 500 MG in NS 110 ML IV SCH (16:00)
[2019-07-16] MEDS ORDERED: WARFARIN SOD ORAL SCH ×2 (17:00)
--- NOTE | 2019-07-16 18:39 | Internal Med Progress Note ---
Subjective Date of Service: Jul 16, 2019 Physician Name PleitezSaturnino Attending Physician Brian Alicea MD Current Medications Medications (Trade) Dose Ordered Sig/John Route PRN Reason Start Time Stop Time Status Last Admin Dose Admin Amikacin Protocol (Amikacin pharmacy to dose) 1 ea DAILY PRN MISC Per rx protocol 07/12/19 09:45 08/11/19 09:44 Bisacodyl (Dulcolax) 10 mg DAILYPRN PRN RECTAL Constipation 07/06/19 15:00 07/27/19 14:59 Dextrose (Dextrose 50%) 25 ml Q30M PRN IV Hypoglycemia 07/05/19 14:30 07/27/19 00:00 Dextrose (Dextrose 50%) 50 ml Q30M PRN IV Hypoglycemia 07/05/19 14:30 07/27/19 00:00 Diphenhydramine HCl (Benadryl) 25 mg Q6H PRN IVP Itching 07/05/19 15:00 08/03/19 14:59 07/15/19 18:35 Docusate Sodium (Colace) 100 mg TID ORAL 07/05/19 18:00 07/27/19 20:59 07/16/19 17:46 Insulin Aspart (NovoLOG) BEFORE MEALS AND HS SUBQ 07/05/19 16:30 07/27/19 06:29 07/08/19 17:39 Losartan Potassium (Cozaar) 50 mg DAILY ORAL 07/06/19 09:00 07/27/19 09:59 07/16/19 08:10 Metoprolol Tartrate (Lopressor) 25 mg Q12HR ORAL 07/05/19 21:00 07/27/19 00:59 07/16/19 08:10 Nitroglycerin (Ntg) 0.4 mg Q5M PRN SL Prn Chest Pain 07/05/19 14:30 07/27/19 00:00 07/10/19 10:10 Ondansetron HCl (Zofran) 4 mg Q6H PRN IVP Nausea & Vomiting 07/05/19 15:00 07/27/19 14:59 07/05/19 18:40 Pantoprazole (Protonix) 40 mg EVERY 12 HOURS ORAL 07/05/19 21:00 07/28/19 20:59 07/16/19 08:10 Polyethylene Glycol (Miralax) 17 gm DAILYPRN PRN ORAL Constipation 07/05/19 15:00 08/04/19 14:59 07/10/19 17:19 Sevelamer Carbonate (Renvela) 800 mg THREE TIMES A DAY ORAL 07/05/19 18:00 07/28/19 12:59 07/16/19 17:46 Warfarin Sodium (Coumadin per pharmacy) 1 ea DAILY PRN MISC Per rx protocol 07/05/19 15:00 08/04/19 14:59 Warfarin Sodium (Coumadin) 7 mg COUMADIN ORAL 07/16/19 17:00 07/21/19 16:59 07/16/19 17:46 Allergies: Coded Allergies: PENICILLINS (Verified Allergy, Severe, swelling of throat, 02/25/16) ACETAMINOPHEN (Verified Allergy, Intermediate, Generalized Itching , ) HYDROCODONE (Verified Allergy, Intermediate, Generalized Itching , 01/26/18 ) ROS Limited/Unobtainable: No Constitutional: Reports: no symptoms HEENT: Reports: no symptoms Cardiovascular: Reports: no symptoms Respiratory: Reports: no symptoms Gastrointestinal/Abdominal: Reports: no symptoms Genitourinary: Reports: no symptoms Neurologic/Psychiatric: Reports: no symptoms Subjective 64 YO M admitted with chest pain, nausea and vomiting. Now with severe anemia. S/P endoscopy 07/04/19 and colonoscopy 07/05/19.. Cover for Yohana Russell-DR Alicea. Objective Last Vital Signs Date Time Temp Pulse Resp B/P (MAP) Pulse Ox O2 Delivery O2 Flow Rate FiO2 07/16/19 16:00 98.0 84 18 125/64 (84) 99 07/16/19 09:00 Room Air 07/10/19 09:44 21 Laboratory Tests Test 07/16/19 05:08 White Blood Count 13.2 K/UL (4.8-10.8) H Red Blood Count 2.81 M/UL (4.70-6.10) L Hemoglobin 8.8 G/DL (14.2-18.0) L Hematocrit 25.9 % (42.0-52.0) L Mean Corpuscular Volume 92 FL (80-99) Mean Corpuscular Hemoglobin 31.4 PG (27.0-31.0) H Mean Corpuscular Hemoglobin Concent 34.0 G/DL (32.0-36.0) Red Cell Distribution Width 16.2 % (11.6-14.8) H Platelet Count 316 K/UL (150-450) Mean Platelet Volume 8.1 FL (6.5-10.1) Neutrophils (%) (Auto) 65.6 % (45.0-75.0) Lymphocytes (%) (Auto) 24.2 % (20.0-45.0) Monocytes (%) (Auto) 5.6 % (1.0-10.0) Eosinophils (%) (Auto) 3.7 % (0.0-3.0) H Basophils (%) (Auto) 0.9 % (0.0-2.0) Prothrombin Time 29.2 SEC (9.30-11.50) H Prothromb Time International Ratio 2.9 (0.9-1.1) H Sodium Level 134 MMOL/L (136-145) L Potassium Level 4.1 MMOL/L (3.5-5.1) Chloride Level 103 MMOL/L (98-107) Carbon Dioxide Level 31 MMOL/L (21-32) Anion Gap 0 mmol/L (5-15) L Blood Urea Nitrogen 29 mg/dL (7-18) H Creatinine 5.0 MG/DL (0.55-1.30) H Estimat Glomerular Filtration Rate 14.2 mL/min (>60) Glucose Level 102 MG/DL (74-106) Calcium Level 8.9 MG/DL (8.5-10.1) Intake and Output 07/15/19 07/16/19 19:00 07:00 Intake Total 2600 ml Output Total 2000 ml Balance 600 ml Intake Oral 600 ml Hemodialysis 2000 ml Hemodialysis UF 2000 ml # Voids 3 # Bowel Movements 1 Objective PHYSICAL EXAMINATION: GENERAL: The patient is well-developed and well-nourished male, in no apparent distress. HEENT: Eyes, pupils are equal and responsive to light and accommodation. Extraocular movements are intact. NECK: Supple without lymphadenopathy. CHEST: Lungs are clear to auscultation bilaterally without wheezes or rales. CARDIOVASCULAR: Regular rhythm and rate. S1 and S2 are normal with an audible click. No evidence of murmurs or gallops. ABDOMEN: Soft, nontender, nondistended. Positive bowel sounds. No evidence of hepatosplenomegaly. Currently, no rebound or guarding noted. EXTREMITIES: Negative for clubbing, cyanosis, or edema. RECTAL/GENITAL: Not performed. NEUROLOGIC: Cranial nerves II through XII are grossly intact without focal deficits. Motor strength is 5/5 bilaterally. Deep tendon reflexes are 2+ plantar. Assessment/Plan Assessment/Plan ASSESSMENT: This is a 64-year-old male. 1. Chest pain. 2. Nausea with vomiting. 3. Mechanical mitral valve. 4. End-stage renal disease. 5. Diabetes type 2. 6. Hypertension. 7. Atrial flutter 8. severe anemia 9. Duodenitis TREATMENT: 1. Chest pain. A Cardiology consultation has been obtained with Dr. Beto Goldman. The patient has a mechanical mitral valve. An echocardiogram is pending. Serial troponin levels will be performed. We will follow recommendation of Cardiology. 2. Nausea and vomiting, this has resolved. 3. End-stage renal disease. A Nephrology consultation has been obtained with Dr. Valdez. We will follow recommendations of Nephrology. Next hemodialysis 07/12/19 4. Diabetes type 2. NovoLog sliding scale has been instituted. 5. Hypertension. Continue diltiazem, isosorbide, losartan and as needed clonidine as above. 6. Hypercholesterolemia. Continue atorvastatin 7. Atrial flutter-continue coumadin 8. cardiac stress test results from 07/01/19=poss ischemia 9. S/P transfusion 5 units PRBC; transfuse 1 unit PRBC during dialysis 07/11/19 10. S/P endoscopy and colonoscopy Saturnino Pleitez MD Jul 16, 2019 18:39
[2019-07-16 20:00] VITALS: BP 125/63
--- NOTE | 2019-07-18 12:13 | Discharge Summary ---
Discharge Summary Discharge Summary _ DATE OF ADMISSION: 06/26/2019 DATE OF DISCHARGE: 07/16/2019 DISCHARGED BY: REASON FOR ADMISSION: 64 years old male with past medical history of end-stage renal disease, on hemodialysis, diabetes mellitus type 2, hypertension, mechanical mitral valve, hepatitis C, lumbar discectomy x2 L3-L4 and L4-L5, mitral valve replacement with mechanical valve in 2018, began to experience chest pain after dialysis with associated nausea and vomiting. Patient initially presented to [place] emergency department . After stabilizing patient was transferred to [facility] for insurance purposes. Patient was admitted with chest pain , rule out acute coronary syndrome. CONSULTANTS: wood fence installer Dr. Rand pulmonary Dr. Hinojosa ID specialist Dr. Odom GI specialist Dr. Steen south asian history professor Dr. Valdez HOSPITAL COURSE: Patient admitted to telemetry floor. Troponin was negative. EKG from [place] showed atrial flutter with variable AV block . Finished Cloth Checker /gas compressor turbine operator recommended that patient eventually would benefit from electrophysiology study and ablation of this electrogenic focus. Anticoagulation provided with Coumadin to keep INR in therapeutic range. Patient started on beta-lisette. Heart rate was controlled, Serial troponin were negative. EKG revealed no acute ischemic changes . Patient did not have any chest pain at this time. Patient was ruled out for acute myocardial infarction as per wood fence installer. Chest pain was probably due to volume overload. Echocardiogram revealed preserved ejection fraction 55 to 60% . No evidence of wall motion abnormality. Normal mitral valve functioning. Stress test revealed apparent hypoperfusion to the inferior wall . Some possibilities included inferior wall infarct with lexie-infarct ischemia versus diaphragmatic attenuation . However, patient declined cardiac catheterization at this time and preferred medical management. Blood pressure was managed with beta-lisette , angiotensin receptor lisette and hemodialysis. Patient converted to sinus rhythm. Nitrates continued. Hemodialysis provided as per south asian history professor recommendations with close monitoring of volumes and cardiorenal parameters. Electrolyte corrected as needed. Noted significant drop of hemoglobin and hematocrit. GI specialist consulted. While in the hospital patient undergone transfusion of total of 5 units of packed red blood cells. Patient undergone EGD with finding of moderate to severe duodenitis and colonoscopy with findings of polyp s/p removal and biopsy and internal hemorrhoids. Pathology of antrum biopsy revealed benign antral mucosa with no histopathological abnormality. Pathology of rectosigmoid colon polyp revealed no evidence of dysplasia or malignancy. Hemoglobin and hematocrit were closely monitored with goal to keep hemoglobin above 7. Hemoglobin and hematocrit remained stable afterwards. GI specialist cleared patient to restart Coumadin. Prior to discharge hemoglobin 8.8 hematocrit 25.9. Stool for occult blood was negative. Regimen instituted GI prophylaxis provided. Blood sugar was managed with sliding scale of insulin. Supplemental oxygen provided as needed to keep pulse oximetry above 92%. Bronchodilator treatment was on board as needed. Prior to discharge pulse oximetry was stable on room air. Patient was counseled on smoking cessation. Patient declined nicotine patch. Urine culture revealed E. coli ESBL. Patient started on antibiotic as per ID specialist recommendation. Blood cultures were negative. Leukocytosis resolved no fevers No further active bleeding. Patient clinically stabilized and was ready for discharge home. FINAL DIAGNOSES: Chest pain likely due to volume overload-resolved Atrial fibrillation with rapid ventricular response Atrial flutter converted to sinus rhythm Acute anemia of blood loss , requiring multiply blood transfusion Status post EGD and colonoscopy Duodenitis Internal hemorrhoids UTI with a E. coli ESBL End-stage renal disease on hemodialysis Status post [facility] mitral valve replacement Hypertension Diabetes mellitus COPD Nicotine addiction Hepatitis C DISCHARGE MEDICATIONS: See Medication Reconciliation list. DISCHARGE INSTRUCTIONS: Patient was discharged home. Follow-up with a primary care provider in 1 week. Follow-up with outpatient hemodialysis schedule. Follow-up with GI for treatment of hepatitis C. Beatrice Fink NP Jul 18, 2019 12:13
== END 2019-07-16 21:10 | disposition home or self-care (01) | DRG 640 ==
LOC: 2E 19:49 → SDSOVERFLO 06-27 10:47 → 2E 06-27 10:48 → 4E 07-05 14:48
PROC: 5A1D70Z Performance of Urinary Filtration, Intermittent, Less than 6 Hours Per Day (ICD-10-PCS; principal; 2019-06-27)
PROC: 0DD78ZX Extraction of Stomach, Pylorus, Via Natural or Artificial Opening Endoscopic, Diagnostic (ICD-10-PCS; 2019-07-04)
PROC: 0DBN8ZX Excision of Sigmoid Colon, Via Natural or Artificial Opening Endoscopic, Diagnostic (ICD-10-PCS; 2019-07-05)
DX: E87.70 Fluid overload, unspecified (principal); N18.6 End stage renal disease; I48.92 Unspecified atrial flutter; I12.0 Hypertensive chronic kidney disease with stage 5 chronic kidney disease or end stage renal disease; N39.0 Urinary tract infection, site not specified; K92.2 Gastrointestinal hemorrhage, unspecified; R07.9 Chest pain, unspecified; E11.22 Type 2 diabetes mellitus with diabetic chronic kidney disease; Z99.2 Dependence on renal dialysis; Z95.2 Presence of prosthetic heart valve; E78.00 Pure hypercholesterolemia, unspecified; B18.2 Chronic viral hepatitis C; D63.1 Anemia in chronic kidney disease; F17.200 Nicotine dependence, unspecified, uncomplicated; Z85.51 Personal history of malignant neoplasm of bladder; D72.829 Elevated white blood cell count, unspecified; B96.20 Unspecified Escherichia coli [E. coli] as the cause of diseases classified elsewhere; K29.80 Duodenitis without bleeding; K63.5 Polyp of colon; K64.8 Other hemorrhoids; J44.9 Chronic obstructive pulmonary disease, unspecified; R11.2 Nausea with vomiting, unspecified; I48.91 Unspecified atrial fibrillation; Z79.01 Long term (current) use of anticoagulants
CPT/HCPCS: 36415; 71045; 78452; 80048; 80053; 80061; 80076; 80150; 82270; 82962; 83036; 83735; 83880; 84100; 84439; 84443; 84481; 84484; 84550; 85007; 85025; 85610; 85651; 85730; 86140; 86706; 86850; 86900; 86901; 86904; 86920; 87040; 87081; 87086; 87181; 87522; 93005; 93017; 93306; 94003; 94150; 94664; J1815; J2250; J2405; J3430